=== PATIENT | female | born 1935 | race Caucasian/White ===

== ENCOUNTER → 2016-02-24 | Outpatient (CLI) | payer OTHER, MEDICARE ==
--- NOTE | 2016-02-24 17:33 | DX ---
Thoracic spine, three views History: Followup fusion surgery 6 months ago Comparison: November 24, 2015, October 15, 2015 Findings: There is possibly progressive mild compression of the anterior T8 vertebral body with eburn ation of the inferior endplate, and a slowly developing spondylolisthesis at the T8-T9 severely narro wed disk space. Fusion of the mid lumbar spine is unchanged between T9 and L3, with posterior transpe dicular screws and vertical supporting rods along with interbody bone plugs at T10-T11 and between T1 2 and L3. Cement in T11 and L1 is again present. There is no evidence for hardware fracture or uncoup ling. There is no evidence for bone plug migration or compression. Impression: There is a suggestion of mild T8 compression, directly above the thoracic lumbar fusion, which may be mildly unstable. If clinically indicated lateral thoracic flexion-extension views and/or fluoroscopy might be considered. Results called to Rosalba Foster at 5:30 pm.
== END ==
LOC: FIMAGING 14:23
PROVIDERS: ATTEND Physician Assistant Surgical
DX: M43.14 Spondylolisthesis, thoracic region (principal); Z98.1 Arthrodesis status

== ENCOUNTER 2016-03-07 08:44 | Emergency (ER) | payer OTHER, MEDICARE ==
[2016-03-07 08:51] VITALS: BP 123/58; RESP 16; TEMP 98.4
--- NOTE | 2016-03-07 09:24 | EDPHY ---
H & P Stated Complaint: right shoulder pain after fall on stone floor Source: Patient, Family Exam Limitations: No limitations - Personal History Current Tetanus/Diphtheria Vaccine: Unsure Current Tetanus Diphtheria and Acellular Pertussis (TDAP): Unsure - Medical/Surgical History Hx Asthma: No Hx Chronic Respiratory Disease: No Hx Diabetes: Yes Hx Cardiac Disease: Yes Hx Renal Disease: No Hx Cirrhosis: No Hx Alcoholism: No Hx HIV/AIDS: No Hx Splenectomy or Spleen Trauma: No Other PMH: ORHTO SURG BACK NECK AND ANKLE, GALL BLADDER, HTN, Diabetes, Tonsillectomy, Gastroparesis, hypothyroidism. right shoulder fx - Social History Smoking Status: Former smoker HPI/ROS: CHIEF COMPLAINT: Right shoulder pain HISTORY OF PRESENT ILLNESS: tripped and fell last night landing on her right shoulder on a stone surface. She notes the sudden onset of severe pain in that right shoulder. It does not radiate. It is worse with any kind of palpation or movement. No injury to the ipsilateral elbow, wrist or hand. No head or neck injury. No LOC. No chest or back pain that is changed from her baseline. Does have extensive back pain and neck pain history that is at baseline. She has no cyanosis, pallor, paresthesia or anesthesia. She has no motor changes about the elbow or wrist on that arm. She is unable to move the shoulder secondary to pain. No other associated complaints or modifying factors. PRIOR ORTHO INJURIES: Extensive cervical, thoracic and lumbar back history with fusion at multiple levels ESTABLISHED ORTHOPEDIST: neurosurgery with Dr. Miguelito Borjas Ortho REVIEW OF SYSTEMS: Ten systems reviewed and are negative unless otherwise noted in the HPI EXAMINATION General Appearance: Alert, no distress Head: normocephalic, atraumatic Eyes: Pupils equal and round, no conjunctival pallor or injection ENT, Mouth: Mucous membranes moist Neck: Normal inspection. No bony tenderness or crepitus. Soft tissue tenderness on the right trapezius Respiratory: No dyspnea or retractions. No distress Cardiovascular: Pulses normal throughout. Brisk cap refill Gastrointestinal: No distention Neurological: A&O, sensory symmetric, strength symmetric in both wrists and elbows. Unable to test strength of the right shoulder secondary to pain Skin: Warm and dry, no rash Extremities: right upper extremity: Significant tenderness to palpation of the right glenohumeral joint. There is no crepitus. No step-off or deformity. Unable to test range of motion secondary to pain. There is no tenderness of the ipsilateral forearm, brachium or elbow. No tenderness of the ipsilateral wrist or hand. Range of motion about the ipsilateral wrist, hand and elbow are symmetric to contralateral. No cyanosis, pallor, paresthesia or anesthesia distally. No wrist drop. Sensory intact C5 bilaterally Psychiatric: Mood and affect normal DIFFERENTIAL DIAGNOSES: Including but not limited to fracture, dislocation, or separation, contusion, strain, rotator cuff injury, labrum tear MDM: 9:20 a.m. mechanical fall with right shoulder pain. She is not on blood thinners. She has no head or neck injury. She has significant pain in the shoulder, and x- rays at bedside at this time. 9:50 a.m. no obvious fracture dislocation as read by me. Still awaiting the read of the radiologist. 10:00 a.m. radiologist has read this as a subtle, nondisplaced distal clavicle fracture. I have re-evaluated the patient. She is receiving IM pain medication at this time. She is neurovascularly intact and will place her in a sling and discharged home. She will follow up with her established orthopedist or the orthopedist airline station agent that we will give her. Return to the ER for worsening pain , cyanosis, pallor or paresthesia. Patient is comfortable with this plan and discharged home stable condition ED Precautions: Worsening pain. Erythema, edema, cyanosis, pallor, paresthesia or anesthesia. SUPERVISION: This patient was independently evaluated without the aide of supervising physician. (Jesús Porter) Constitutional: Initial Vital Signs Temperature (C) 36.9 C 03/07/16 08:48 Heart Rate 68 03/07/16 08:48 Respiratory Rate 16 03/07/16 08:48 Blood Pressure 123/58 H 03/07/16 08:48 O2 Sat (%) 94 03/07/16 08:48 O2 Delivery Mode Room Air Allergies/Adverse Reactions: Penicillins Allergy (Intermediate, Verified 03/07/16 08:54) Rash Sulfa (Sulfonamide Antibiotics) Allergy (Unknown, Verified 03/07/16 08:54) BANDAIDS Allergy (Intermediate, Uncoded 03/07/16 08:54) Rash Home Medications: Medication Instructions Recorded Metoprolol Succinate 75 mg PO DAILY 10/29/14 Omeprazole 40 mg PO BID 10/29/14 amLODIPine BESYLATE [Norvasc 5 mg 7.5 mg PO DAILY 10/29/14 (*)] Docusate Sodium [Colace 100 MG (*)] 200 mg PO HS #0 cap 04/24/15 Olmesartan Medoxomil [Benicar 20 40 mg PO DAILY #0 tab 04/24/15 mg (*)] Pioglitazone HCl [Actos 15mg (*)] 45 mg PO DAILY #0 tab 04/24/15 busPIRone [Buspar (*)] 10 mg PO BID #0 tab 04/24/15 Ferrous Sulfate [Ferrous Sulf 325 325 mg PO DAILY 05/15/15 MG (*)] Magnesium Oxide [Magnesium Oxide 500 mg PO DAILY 05/15/15 500 mg] Insulin Detemir [Levemir Flextouch] 10 unit SC DAILY 05/17/15 DULoxetine [Cymbalta 60 MG (*)] 60 mg PO DAILY #0 cap 05/19/15 Furosemide [Lasix 20 MG (*)] 20 mg PO DAILY #0 tab 05/19/15 Levothyroxine [Synthroid 25 mcg 25 mcg PO DAILY06 #0 tab 05/19/15 (*)] Lipase/Protease/Amylase [Creon 12 2 cap PO TIDMEAL #0 cap 05/19/15 (*)] Pregabalin [Lyrica 75mg (*)] 150 mg PO BID 05/21/15 Polyethylene Glycol 3350 [Miralax 17 gm PO DAILY PRN #0 pkt 05/23/15 17 gm (*)] Sennosides/Docusate Sodium 1 - 2 tab PO BID #0 tab 05/23/15 [Senokot-S] Doxycycline Hyclate [Vibramycin 100 mg PO BID #98 capsule 10/01/15 100 MG (*)] Zolpidem Tartrate [Ambien 5MG (*)] 5 - 10 mg PO HS PRN #0 tab 10/01/15 metFORMIN HCL [Glucophage 500 mg 500 mg PO TIDMEAL #90 tab 10/01/15 (*)] predniSONE 20 mg PO DAILY #30 tablet 10/01/15 traMADol [Ultram 50 mg (*)] 100 mg PO Q6 PRN #120 tab 10/01/15 Medical Decision Making Other Provider: The patient was evaluated and managed by the Physician Industrial Arts Teacher/ Nurse Practitioner. My co-signature indicates that I have reviewed this chart and I agree with the findings and plan of care as documented. I am the secondary supervising physician. (Debra Goodman) - Data Points Medications Given: Discontinued Medications Hydromorphone HCl (Dilaudid) 1 mg IM EDNOW ONE Stop: 03/07/16 09:57 Last Admin: 03/07/16 10:01 Dose: 1 mg Departure - Departure Disposition: Home, Routine, Self-Care Clinical Impression: Clavicle fracture Condition: Good Instructions: Clavicle Fracture (ED) Additional Instructions: Follow-up with orthopedist or primary care physician for definitive care. Return to the ER for precautions as discussed Referrals: Paco Schmidt MD [Primary Care Provider] - As per Instructions Nikos Horn MD [Medical Doctor] - As per Instructions
--- NOTE | 2016-03-07 09:53 | DX ---
Right shoulder - 3 views Indication: Fall. Comparison: 2 view chest dated April 17, 2015 Findings: An acute distal right clavicle fracture is evidenced by new cortical step-off along the sup erior distal aspect of the clavicle. The acromioclavicular and coracoclavicular intervals are normal. Mild glenohumeral osteoarthritis. Sclerosis of the humeral head associated with punctate calcificati on in the subacromial space are indicative of rotator cuff pathology. Impression: 1. Acute nondisplaced distal right clavicle fracture. 2. 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
[2016-03-07] MEDS ORDERED: HYDROmorphONE/DILAUDID 1 MG/ML SYR IM ONE (09:56)
[2016-03-07 11:04] VITALS: PULSE 79; O2SAT 91
== END 2016-03-07 11:04 | disposition home or self-care (01) ==
DX: S42.001A Fracture of unspecified part of right clavicle, initial encounter for closed fracture (principal); E11.9 Type 2 diabetes mellitus without complications; I10 Essential (primary) hypertension; Z87.891 Personal history of nicotine dependence; Z79.4 Long term (current) use of insulin; W01.0XXA Fall on same level from slipping, tripping and stumbling without subsequent striking against object, initial encounter
CPT/HCPCS: 73030; A4565; J1170

== ENCOUNTER 2016-03-09 17:46 | Inpatient (IN) | payer OTHER, MEDICARE ==
--- NOTE | 2016-03-09 17:40 | EDPHY ---
H & P HPI/ROS: CHIEF COMPLAINT: HISTORY OF PRESENT ILLNESS: [Location, Duration, Severity, Quality, Context, Timing Modifying Factors, Associated S&S] REVIEW OF SYSTEMS: A complete 10-point review of systems was performed and is negative except for those items mentioned in the HPI. Physical Exam: General Appearance: Alert, no distress Eyes: Pupils equal and round, no conjunctival pallor or injection ENT, Mouth: Mucous membranes moist Neck: Normal inspection Respiratory: Lungs are clear to auscultation Cardiovascular: Regular rate and rhythm Gastrointestinal: Abdomen is soft and non- tender Neurological: A&O, nonfocal, normal gait Skin: Warm and dry, no rash Extremities: Nontender, no pedal edema Psychiatric: Mood and affect normal Report Scribed for: Janene Love Report Scribed by: Danny Latif Date of Report: 03/09/16 Time of Report: 17:40 Physician Review and Approval Statement: 03/09/16 17:40 Portions of this note were transcribed by a spanish medical interpreter. I personally performed a history, physical exam, medical decision making, and confirmed accuracy of information the transcribed note.
--- NOTE | 2016-03-09 17:54 | EDPHY ---
H & P HPI/ROS: HPI CHIEF COMPLAINT: Narcotic overdose HISTORY OF PRESENT ILLNESS: This patient very pleasant 80-year-old female, she presents emergency room by EMS with her at bedside for possible narcotic /opioid overdose. Patient recently sustained a mechanical fall sustaining a right clavicle fracture seen here in the emergency room on Wednesday. She was placed in a sling. She was sent home. Over the weekend she required multiple rounds of pain medicine however specifically this morning she started complaining of right sided clavicular pain worse than normal. gave her up to 12 mg of Dilaudid as well as Robaxin. He became concerned this evening as she appeared excessively sleepy and not able to carry on a conversation and he became concerned that there was a possible narcotic overdose with lethargy. Upon arrival here in the emergency room the patient is requiring supplemental oxygen she is very lethargic. She appears to be overdosed on narcotics. She has pinpoint pupils. She does complain of right clavicle pain. At this time she is requiring 4 L nasal cannula. I have ordered her 0.4 mg of Narcan. She has been placed on full scratch finisher. Past Medical History: Recent right clavicle fracture. Diabetes, polymyalgia rheumatica, extensive cervical thoracic and lumbar back pain Past Surgical History: multiple back surgeries including thoracic fusion Social History: Denies use of drugs alcohol tobacco products, lives locally in [place], at bedside Family History: Noncontributory ROS REVIEW OF SYSTEMS: A comprehensive 10 point review of systems is otherwise negative aside from elements mentioned in the history of present illness. Exam Constitutional triage nursing summary reviewed, vital signs reviewed, extremely lethargic, does respond to painful stimuli as well as significant verbal stimuli Eyes normal conjunctivae and sclera, pinpoint pupils. HENT normal inspection, atraumatic, moist mucus membranes, no epistaxis, neck supple/ no meningismus, no raccoon eyes. Respiratory clear to auscultation bilaterally, normal breath sounds, no respiratory distress, no wheezing. Cardiovascular rate normal, regular rhythm, no murmur, no edema, distal pulses normal. Gastrointestinal soft, non-tender, no rebound, no guarding, normal bowel sounds, no distension, no pulsatile mass. Genitourinary no CVA tenderness. Musculoskeletal no midline vertebral tenderness, full range of motion, no calf swelling, no tenderness of extremities, no meningismus, good pulses, neurovascularly intact. Skin pink, warm, & dry, no rash, skin atraumatic. Neurologic lethargic, moves all 4 extremities equally, motor intact, sensory intact, CN II-XII intact, normal cerebellar, normal vision, slow speech Psychiatric normal mood/affect. Heme/Lymph/Immune no lymphadenopathy. Differential Diagnosis: includes but is not limited to in a particular order, polypharmacy overdose, narcotic overdose, muscle relaxant overdose, dehydration , electrolyte abnormality, infection Medical Decision Making: this patient be placed on full scratch finisher with pulse ox, she will need supplemental oxygen will give her a dose of Narcan 0.4 mg IV. And will re-evaluate. Re-evaluation: 1817: Spoke with Dr. Schmidt about his patient. He is coming to the emergency room to see and evaluate her plans on admission for narcotic overdose. 1901: At this time this patient is noted to be febrile. I have ordered blood cultures. Patient is pending influenza as well as urinalysis. Dr. Schmidt is at bedside evaluating the patient. ED x-ray chest one view: Bronchitis visualize no focal pneumonia. CT scan of the head without IV contrast The results of the study are negative for acute traumatic injury The study was read by Dr. Cerna I viewed the images myself on the PACS system. CT scan of the cervical spine without IV contrast The results of the study are negative for acute traumatic injury The study was read by Dr. Cerna I viewed the images myself on the PACS system. 1935: patient's influenza a positive. Ordered 1st dose of Tamiflu. Dr. Schmidt is aware. Source: Patient, EMS - Medical/Surgical History Hx Asthma: No Hx Chronic Respiratory Disease: No Hx Diabetes: Yes Hx Cardiac Disease: Yes Hx Renal Disease: No Hx Cirrhosis: No Hx Alcoholism: No Hx HIV/AIDS: No Hx Splenectomy or Spleen Trauma: No Other PMH: ORHTO SURG BACK NECK AND ANKLE, GALL BLADDER, HTN, Diabetes, Tonsillectomy, Gastroparesis, hypothyroidism. right shoulder fx - Social History Smoking Status: Former smoker Constitutional: Initial Vital Signs Temperature (C) 37.1 C 03/09/16 17:56 Heart Rate 99 03/09/16 17:56 Respiratory Rate 20 03/09/16 17:56 Blood Pressure 173/78 H 03/09/16 17:56 O2 Sat (%) 84 L 03/09/16 17:56 O2 Delivery Mode Nasal Cannula O2 (L/minute) 5 Allergies/Adverse Reactions: Penicillins Allergy (Intermediate, Verified 03/09/16 17:56) Rash Sulfa (Sulfonamide Antibiotics) Allergy (Unknown, Verified 03/09/16 17:56) BANDAIDS Allergy (Intermediate, Uncoded 03/07/16 08:54) Rash Home Medications: Medication Instructions Recorded Metoprolol Succinate 75 mg PO DAILY 10/29/14 Omeprazole 40 mg PO BID 10/29/14 amLODIPine BESYLATE [Norvasc 5 mg 7.5 mg PO DAILY 10/29/14 (*)] Docusate Sodium [Colace 100 MG (*)] 200 mg PO HS #0 cap 04/24/15 Olmesartan Medoxomil [Benicar 20 40 mg PO DAILY #0 tab 04/24/15 mg (*)] Pioglitazone HCl [Actos 15mg (*)] 45 mg PO DAILY #0 tab 04/24/15 busPIRone [Buspar (*)] 10 mg PO BID #0 tab 04/24/15 Ferrous Sulfate [Ferrous Sulf 325 325 mg PO DAILY 05/15/15 MG (*)] Magnesium Oxide [Magnesium Oxide 500 mg PO DAILY 05/15/15 500 mg] Insulin Detemir [Levemir Flextouch] 10 unit SC DAILY 05/17/15 DULoxetine [Cymbalta 60 MG (*)] 60 mg PO DAILY #0 cap 05/19/15 Furosemide [Lasix 20 MG (*)] 20 mg PO DAILY #0 tab 05/19/15 Levothyroxine [Synthroid 25 mcg 25 mcg PO DAILY06 #0 tab 05/19/15 (*)] Lipase/Protease/Amylase [Creon 12 2 cap PO TIDMEAL #0 cap 05/19/15 (*)] Pregabalin [Lyrica 75mg (*)] 150 mg PO BID 05/21/15 Polyethylene Glycol 3350 [Miralax 17 gm PO DAILY PRN #0 pkt 05/23/15 17 gm (*)] Sennosides/Docusate Sodium 1 - 2 tab PO BID #0 tab 05/23/15 [Senokot-S] Doxycycline Hyclate [Vibramycin 100 mg PO BID #98 capsule 10/01/15 100 MG (*)] Zolpidem Tartrate [Ambien 5MG (*)] 5 - 10 mg PO HS PRN #0 tab 10/01/15 metFORMIN HCL [Glucophage 500 mg 500 mg PO TIDMEAL #90 tab 10/01/15 (*)] predniSONE 20 mg PO DAILY #30 tablet 10/01/15 traMADol [Ultram 50 mg (*)] 100 mg PO Q6 PRN #120 tab 10/01/15 Medical Decision Making - Data Points Laboratory Results: Laboratory Results 03/09/16 18:05 03/09/16 18:05 03/09/16 18:05 WBC 7.89 10^3/uL (3.80-9.50) RBC 3.16 L 10^6/uL (4.18-5.33) Hgb 8.9 L g/dL (12.6-16.3) Hct 28.2 L % (38.0-47.0) MCV 89.2 fL (81.5-99.8) MCH 28.2 pg (27.9-34.1) MCHC 31.6 L g/dL (32.4-36.7) RDW 18.3 H % (11.5-15.2) Plt Count 230 10^3/uL (150-400) MPV 9.9 fL (8.7-11.7) Neut % (Auto) 78.3 H % (39.3-74.2) Lymph % (Auto) 10.1 L % (15.0-45.0) Walsh % (Auto) 9.9 % (4.5-13.0) Eos % (Auto) 0.8 % (0.6-7.6) Baso % (Auto) 0.3 % (0.3-1.7) Nucleat RBC Rel Count 0.0 % (0.0-0.2) Absolute Neuts (auto) 6.18 10^3/uL (1.70-6.50) Absolute Lymphs (auto) 0.80 L 10^3/uL (1.00-3.00) Absolute Monos (auto) 0.78 10^3/uL (0.30-0.80) Absolute Eos (auto) 0.06 10^3/uL (0.03-0.40) Absolute Basos (auto) 0.02 10^3/uL (0.02-0.10) Absolute Nucleated RBC 0.00 10^3/uL (0-0.01) Immature Gran % 0.6 % (0.0-1.1) Immature Gran # 0.05 10^3/uL (0.00-0.10) PT 13.5 SEC (12.0-15.0) INR 1.04 (0.83-1.16) APTT 31.9 SEC (23.0-38.0) Sodium 137 mEq/L (134-144) Potassium 4.4 mEq/L (3.5-5.2) Chloride 105 mEq/L (97-110) Carbon Dioxide 24 mEq/l (22-31) Anion Gap 8 mEq/L (8-16) BUN 10 mg/dL (7-23) Creatinine 0.7 mg/dL (0.6-1.0) Estimated GFR > 60 Glucose 184 H mg/dL (70-100) Calcium 8.4 L mg/dL (8.5-10.4) Medications Given: Discontinued Medications Sodium Chloride (Ns) 1,000 mls @ 0 mls/hr IV ONCE ONE PRN Reason: Wide Open Stop: 03/09/16 18:02 Last Admin: 03/09/16 18:20 Dose: 1,000 mls Naloxone HCl (Narcan) 0.4 mg IVP EDNOW ONE Stop: 03/09/16 18:03 Last Admin: 03/09/16 18:26 Dose: 0.4 mg Ondansetron HCl (Zofran) 4 mg IVP EDNOW ONE Stop: 03/09/16 18:02 Last Admin: 03/09/16 18:20 Dose: 4 mg Departure - Departure Disposition: [facility] Clinical Impression: Hypoxia Narcotic overdose Qualifiers: Encounter type: initial encounter Injury intent: accidental or unintentional Qualifier Code: (T40.601A) Poisoning by unspecified narcotics, accidental ( unintentional), initial encounter Fever Qualifiers: Fever type: other Qualifier Code: (R50.81) Fever presenting with conditions classified elsewhere Condition: Fair
[2016-03-09] MEDS ORDERED: ONDANSETRON 4 MG/2 ML VIAL IVP ONE (18:01)
[2016-03-09] MEDS ORDERED: NS 1,000 ML IV ONE (18:01)
[2016-03-09] MEDS ORDERED: NALOXONE HCL 0.4 MG/ML INJ IVP ONE (18:02)
[2016-03-09 18:16] LABS: % IMMATURE GRANULYOCYTES 0.6 % (0.0-1.1); ABSOLUTE IMMATURE GRANULOCYTES 0.05 10^3/uL (0.00-0.10); ADD DIFF? NO; ADD MORPH? NO; ADD SCAN? NO; ATYPICAL LYMPHOCYTE FLAG 20 (0-99); FRAGMENT RBC FLAG 0 (0-99); HEMATOCRIT 28.2 % (38.0-47.0); HEMOGLOBIN 8.9 g/dL (12.6-16.3); LEFT SHIFT FLG 10 (0-99); LIPEMIA HEMOLYSIS FLAG 80 (0-99); MEAN CELL HEMOGLOBIN 28.2 pg (27.9-34.1); MEAN CELL HEMOGLOBIN CONCENTR. 31.6 g/dL (32.4-36.7); MEAN CELL VOLUME 89.2 fL (81.5-99.8); MEAN PLATELET VOLUME 9.9 fL (8.7-11.7); PLATELET CLUMPS FLAG 0 (0-99); PLATELET COUNT 230 10^3/uL (150-400); RED BLOOD CELL COUNT 3.16 10^6/uL (4.18-5.33); RED CELL DISTRIBUTION WIDTH 18.3 % (11.5-15.2)
--- NOTE | 2016-03-09 18:27 | DX ---
Portable Chest, Single View 18:18 p.m. Hours Indication: Shortness of breath Comparison: 2 view chest dated April 17, 2015 Findings: The lungs are hypoventilated resulting in bronchovascular crowding. Diffuse moderate peribr onchial thickening and linear nodular opacities scattered throughout the mid and lower lung zones. [place] rdware overlying the lower thoracic spine is unchanged. Minimal cardiomegaly and mildly enlarged thor acic aorta are unchanged. Impression: 1. Hypoventilation of bibasilar atelectasis. Query superimposed viral pneumonitis or bronchitis. 2. Dilated thoracic aorta.
[2016-03-09 18:35] LABS: ANION GAP 8 mEq/L (8-16); CALCIUM 8.4 mg/dL (8.5-10.4); CARBON DIOXIDE 24 mEq/l (22-31); CHLORIDE 105 mEq/L (97-110); CREATININE 0.7 mg/dL (0.6-1.0); GLOMERULAR FILTRATION RATE > 60; GLUCOSE 184 mg/dL (70-100); POTASSIUM 4.4 mEq/L (3.5-5.2); SODIUM 137 mEq/L (134-144)
[2016-03-09] MEDS ORDERED: NALOXONE HCL 0.4 MG/ML INJ ONE (18:40)
[2016-03-09 18:48] LABS: INR 1.04 (0.83-1.16); PROTIME(PATIENT) 13.5 SEC (12.0-15.0)
[2016-03-09 18:49] LABS: APTT 31.9 SEC (23.0-38.0)
[2016-03-09] MEDS ORDERED: ACETAMINOPHEN 500 MG TAB PO ONE (19:06)
[2016-03-09] MEDS ORDERED: D5W 1/2 NS W/ 20 KCl/L 1,000 ML IV SCH (19:45)
--- NOTE | 2016-03-09 19:45 | CT ---
CT Brain Without Contrast 1911 hours History: Increased lethargy. Possible opioid overdose. Fell 3 days ago.. Technique: Axial computed tomographic images of the brain without contrast. Images were reconstruct ed down to 1.25 mm slice thickness. Dose reduction techniques were utilized. Comparison prior study of April 22, 2013. Findings: Ventricles, cisterns, and sulci are widened consistent with mild to moderate stable atroph y. No hydrocephalus, masses, midline shift/herniation, or subdural hematomas. No intraparenchymal hem orrhage or mass effect. Stable mild to moderate hypodensities are seen in the white matter of bilater al cerebral hemispheres. There is no acute peripheral cerebral infarct seen. Arteriosclerotic calci fications are noted associated with distal ICA in the parasellar location bilaterally. Bone windows demonstrate no displaced fractures. Paranasal sinuses and mastoid air cells are clear. Impression: 1. Stable mild to moderate atrophy. 2. No hemorrhage, mass effect, or definite acute peripheral infarct. 3. Mild to moderate stable nonspecific hypodensities in the white matter of bilateral cerebral hemisp heres. Differential diagnosis includes microvascular ischemic disease, post-infectious/post-inflammat ory sequela, atypical demyelinating disease, or migraine-related sequela. Small white matter lacunar infarcts may also have this appearance. These findings were discussed by telephone with Dr. Jamie Gunderson at 1946 hrs.
--- NOTE | 2016-03-09 19:52 | CT ---
CT Cervical Spine 1911 hours History: Recent trauma. Evaluate for possible cervical spine injury. Technique: Spiral imaging was obtained from the base of skull to the upper chest. Images were reconst ructed at 1.5 mm slice thickness. Images were reconstructed in multiple planes. Dose reduction techni ques were utilized. Findings: Vertebral body heights are well maintained. There are no subluxations. No fractures are see n. Anterior cervical fusion plate is in good position between C4 and C5 segments with bony fusion acr oss the disk space. There is moderate intervertebral disk space narrowing at C3-C4 with hypertrophic marginal osteophytes and should be to moderate to severe spinal stenosis and bilateral neural foramin al stenosis. Marked disk space narrowing is present at C5-C6 and at C6-C7 with mild disk space narrow ing at C7-T1 along with 2-3 mm of anterior subluxation of C7 on T1. Bilateral facet hypertrophy is pr esent from C2-C3 through C7-T1. There is underlying severe bilateral neural foraminal stenosis at C3- C4 secondary to disk and osteophyte formation along with some facet hypertrophy. Paravertebral soft t issues demonstrate no significant abnormality. Impression: 1. No acute osseous at about is seen about the cervical spine. 2. Previous anterior cervical fusion between C4 and C5 segments in good position. 3. Degenerative disk disease at C3-C4 with associated disk bulge and marginal osteophytes that contri bute to spinal and neuroforaminal stenoses. 4. Severe degenerative disk disease at C5-C6 and at C6-C7. These findings were discussed by telephone with Dr. Jamie Gunderson at 1949 hrs.
[2016-03-09] MEDS ORDERED: OSELTAMIVIR PHOSPHATE 75 MG CAP PO ONE (20:00)
[2016-03-09] MEDS ORDERED: OSELTAMIVIR PHOSPHATE 75 MG CAP PO SCH (20:00)
[2016-03-09 20:02] LABS: COLOR YELLOW; LEUKOCYTE ESTERASE,URINE NEGATIVE (NEGATIVE); NITRITE,URINE NEGATIVE (NEGATIVE)
[2016-03-09] MEDS: cefTRIAXone 2 GM in D5W 50 ML IV SCH (21:24)
[2016-03-09] MEDS ORDERED: HYDROmorphONE/DILAUDID 4 MG TAB PO PRN (23:21)
[2016-03-09] MEDS: ACETAMINOPHEN 650 MG/20.3 ML UDCUP PO PRN (23:40)
--- NOTE | 2016-03-10 01:00 | GHP ---
[f rep st] HISTORY AND PHYSICAL DATE OF ADMISSION: 03/09/2016 REASON FOR ADMISSION: Influenza A, profound weakness, inability to transfer with the assistance of h er . HISTORY OF PRESENT ILLNESS: The patient is a 80-year-old female, who was seen in the emergency room on Wednesday after falling and was found to have a clavicle fracture. She was evaluated and sent home . I was called today by her , saying he was unable to care for her at home. He was not able to get her out of her chair or transfer her. After some discussion, she was sent to the emergency ro om, where she was evaluated, found to be febrile with a temperature of 38 degrees Celsius. Blood wor k showed a normal white count, slightly decreased hemoglobin from her baseline, and a positive influe nza A screen. She also had severe neck stiffness and tenderness. CT of the neck did not reveal a fr acture. She has had multiple spine surgeries with fusions and spinal infection. She has not had any spinal symptoms leading up to her fall on Wednesday. Additional history is significant for type 2 di abetes, polymyalgia rheumatica, gastroesophageal reflux disease, status post fundoplication and statu s post partial takedown of the fundoplication. She still has difficulty with food sticking in her es ophagus. CURRENT MEDICATIONS: 1. Norvasc 7.5 mg daily. 2. BuSpar 10 mg b.i.d. 3. Docusate 100 mg twice daily. 4. Duloxetine 60 mg daily. 5. Ferrous sulfate 325 mg daily. 6. Lasix 20 mg daily. 7. Levothyroxine 25 mcg daily. 8. Lipase amylase protease 2 caps t.i.d. with meals. 9. Metoprolol succinate 75 mg daily. 10. Benicar 40 mg daily. 11. Pioglitazone 45 mg daily. 12. Polyethylene glycol 17 g daily. 13. Prednisone 10 mg daily. 14. Lyrica 150 mg b.i.d. 15. Zolpidem 10 mg h.s. REVIEW OF SYSTEMS: She is profoundly weak. She can barely lift her hands off the table or her feet off the gurney. She has pain in her right shoulder, as well as in her cervical spine. She has diffi culty moving because of the pain and weakness. She has a trivial cough, which has been nonproductive . She has no urinary symptoms, no bowel symptoms, no rash. PHYSICAL EXAMINATION: VITAL SIGNS: Temperature went up to 38.6, but came down to 37.1. Blood press ure 142/54; pulse 87, regular; respirations 20. Oxygen saturation 99% on 4 L; this was down to 82% o n room air when she presented; however, she was asleep, and she does have central sleep apnea and ten ds to be hypoxic at night. HEENT: Pupils were equal and reactive. She responded appropriately, alt marshall somewhat slowly to questions. She had a very dry mouth. NECK: Very tender with some edema ar ound her neck. She had some redness and edema around her right shoulder, where she had the clavicula r fracture. ABDOMEN: Bowel sounds were normal. Abdomen was nontender. HEART: Regular rate and rh ythm without murmur. LUNGS: Clear to auscultation. EXTREMITIES: She had no significant peripheral edema. She moved all extremities, although she was diffusely weak throughout. LABORATORY DATA: Review of blood work reveals a white count of 7800, hemoglobin of 8.9, platelet cou nt was normal. Chemistries reveal a sodium of 147, potassium 4.4, BUN 10, creatinine 0.7, glucose of 184. Urinalysis is unremarkable. Serology is positive for influenza A. IMPRESSION/PLAN: A diabetic with polymyalgia rheumatica, recent clavicular fracture, presents with p rofound weakness related to influenza A. We have blood cultures pending. We will empirically cover her with Tamiflu, as well as ceftriaxone, pending the results of her blood cultures. Because of her apparent respiratory suppression when she presented, she will be watched closely in the ICU, as we ca refully try to manage her pain medications. /[id number]/MODL
[2016-03-10] MEDS: PREGABALIN 75 MG CAP PO SCH ×3 (02:27→20:40)
[2016-03-10] MEDS: predniSONE 10 MG TAB PO SCH ×2 (02:27→08:58)
[2016-03-10] MEDS: ACETAMINOPHEN 650 MG/20.3 ML UDCUP PO PRN ×3 (06:09→20:39)
[2016-03-10] MEDS: LEVOTHYROXINE 25 MCG TAB PO SCH (06:09)
[2016-03-10] MEDS: CREON 12 CAP PO SCH ×3 (08:50→18:06)
[2016-03-10] MEDS: OSELTAMIVIR PHOSPHATE 75 MG CAP PO SCH ×2 (08:51→18:06)
[2016-03-10] MEDS: DULoxetine 60 MG CAP PO SCH (08:54)
[2016-03-10] MEDS: METOPROLOL SUCCINATE XR 50 MG TAB PO SCH (08:55)
[2016-03-10] MEDS: PANTOPRAZOLE SODIUM 40 MG TAB PO SCH (08:55)
[2016-03-10] MEDS: PIOGLITAZONE HCL 15 MG TAB PO SCH (08:56)
[2016-03-10] MEDS: FUROSEMIDE 20 MG TAB PO SCH (08:58)
[2016-03-10] MEDS: FERROUS SULFATE 325 MG TAB PO SCH (08:58)
[2016-03-10] MEDS: DOXYCYCLINE HYCLATE 100 MG CAP/TAB PO SCH ×2 (08:59→20:41)
[2016-03-10] MEDS: OLMESARTAN MEDOXOMIL 20 MG TAB PO SCH (08:59)
[2016-03-10] MEDS ORDERED: Herbals/Supplements -Info Only PO SCH (09:00)
[2016-03-10] MEDS ORDERED: NON-FORMULARY NEW DRUG (Omeprazole [Omeprazole] 40 MG) PO SCH (09:00)
[2016-03-10] MEDS ORDERED: amLODIPine BESYLATE 5 MG TAB PO SCH (09:00)
[2016-03-10] MEDS: INSULIN DETEMIR 10 UNIT SQ SCH (09:00)
[2016-03-10] MEDS: busPIRone 10 MG TAB PO SCH ×2 (09:01→20:46)
[2016-03-10] MEDS: cefTRIAXone 2 GM in D5W 50 ML IV SCH (09:03)
[2016-03-10] MEDS ORDERED: ONDANSETRON 4 MG/2 ML VIAL IVP PRN (10:36)
[2016-03-10] MEDS ORDERED: predniSONE 10 MG TAB PO SCH (13:23)
--- NOTE | 2016-03-10 13:28 | SOAPPROG ---
SOAP Progress Note Assessment/Plan: Assessment: Influenza A, fractured clavicle, PMR, neuropathy, esophageal dysmotility. Plan:Transfer to Med Surg. COnt with PT. Cont with antibiotics pending culture result. 03/10/16 13:27 Subjective: Feeling better. Still havinp pain all over Objective: Vital Signs Temp Pulse Resp BP Pulse Ox 37.7 C 66 14 123/55 H 95 03/10/16 13:07 03/10/16 13:07 03/10/16 13:07 03/10/16 13:07 03/10/16 13:07 03/09/16 03/10/16 03/11/16 05:59 05:59 05:59 Intake Total 2016 Output Total 1150 Balance 866 PT 13.5 SEC (12.0-15.0) 03/09/16 18:05 INR 1.04 (0.83-1.16) 03/09/16 18:05 Remains very weak and febrile. Neck is more subtle. No cough or SOB. BP OK. Lungs clear to asc. COR RRR. ICD10 Worksheet Patient Problems: Problems Problem Status Diagnosed Chronic back pain Acute Fever Acute Hypoxia Acute Narcotic overdose Acute S/P lumbar spinal fusion Acute Dysphagia Acute Weakness Acute
[2016-03-10] MEDS: ZOLPIDEM TARTRATE 5 MG TAB PO PRN (20:41)
[2016-03-10] MEDS: DOCUSATE SODIUM 100 MG CAP PO SCH (20:41)
[2016-03-11] MEDS: LEVOTHYROXINE 25 MCG TAB PO SCH (06:22)
[2016-03-11] MEDS: ACETAMINOPHEN 650 MG/20.3 ML UDCUP PO PRN (06:22)
[2016-03-11] MEDS: CREON 12 CAP PO SCH ×3 (07:54→17:08)
[2016-03-11] MEDS: INSULIN DETEMIR 10 UNIT SQ SCH (07:54)
[2016-03-11] MEDS: METOPROLOL SUCCINATE XR 50 MG TAB PO SCH (07:56)
[2016-03-11] MEDS: PANTOPRAZOLE SODIUM 40 MG TAB PO SCH (07:56)
[2016-03-11] MEDS: FERROUS SULFATE 325 MG TAB PO SCH (07:56)
[2016-03-11] MEDS: OLMESARTAN MEDOXOMIL 20 MG TAB PO SCH (07:56)
[2016-03-11] MEDS: DOXYCYCLINE HYCLATE 100 MG CAP/TAB PO SCH ×2 (08:04→19:53)
[2016-03-11] MEDS: PREGABALIN 75 MG CAP PO SCH ×2 (08:04→19:53)
[2016-03-11] MEDS: predniSONE 10 MG TAB PO SCH (08:05)
[2016-03-11] MEDS: FUROSEMIDE 20 MG TAB PO SCH (08:12)
[2016-03-11] MEDS: DULoxetine 60 MG CAP PO SCH (08:12)
[2016-03-11] MEDS: busPIRone 10 MG TAB PO SCH ×2 (08:25→19:54)
[2016-03-11] MEDS: cefTRIAXone 2 GM in D5W 50 ML IV SCH (08:25)
[2016-03-11] MEDS: OSELTAMIVIR PHOSPHATE 75 MG CAP PO SCH ×2 (09:46→17:09)
[2016-03-11] MEDS: PIOGLITAZONE HCL 15 MG TAB PO SCH (09:46)
[2016-03-11] MEDS: POLYETHYLENE GLYCOL 3350 17 GM PKT PO PRN (11:33)
[2016-03-11] MEDS ORDERED: NS 250 ML IV ONE (14:00)
[2016-03-11] MEDS ORDERED: NS 500 ML IV ONE (18:30)
[2016-03-11] MEDS: DOCUSATE SODIUM 100 MG CAP PO SCH (19:52)
[2016-03-11] MEDS: ZOLPIDEM TARTRATE 5 MG TAB PO PRN (20:19)
--- NOTE | 2016-03-11 21:23 | SOAPPROG ---
SOAP Progress Note Assessment/Plan: Assessment: Influenza A, fractured clavicle, PMR, neuropathy, esophageal dysmotility. Improving. Plan: Home in AM if stable. 03/10/16 13:27 03/11/16 21:22 Subjective: Feeling better. Eating OK. Pain better. Objective: Vital Signs Temp Pulse Resp BP Pulse Ox 37.0 C 54 L 18 94/44 L 89 L 03/11/16 20:00 03/11/16 20:00 03/11/16 20:00 03/11/16 20:00 03/11/16 20:00 03/10/16 03/11/16 03/12/16 05:59 05:59 05:59 Intake Total 2015 1050 550 Output Total 1150 1225 250 Balance 866 -175 300 PT 13.5 SEC (12.0-15.0) 03/09/16 18:05 INR 1.04 (0.83-1.16) 03/09/16 18:05 Lungs remain clear. No significant edema. COR RRR ICD10 Worksheet Patient Problems: Problems Problem Status Diagnosed Chronic back pain Acute Fever Acute Hypoxia Acute Narcotic overdose Acute S/P lumbar spinal fusion Acute Dysphagia Acute Weakness Acute
[2016-03-12] MEDS: POLYETHYLENE GLYCOL 3350 17 GM PKT PO PRN ×2 (05:57→16:18)
[2016-03-12] MEDS: LEVOTHYROXINE 25 MCG TAB PO SCH (05:57)
[2016-03-12] MEDS: INSULIN DETEMIR 10 UNIT SQ SCH (08:04)
[2016-03-12] MEDS: cefTRIAXone 2 GM in D5W 50 ML IV SCH (08:05)
[2016-03-12] MEDS: PIOGLITAZONE HCL 15 MG TAB PO SCH (08:07)
[2016-03-12] MEDS: CREON 12 CAP PO SCH ×3 (08:10→17:52)
[2016-03-12] MEDS: METOPROLOL SUCCINATE XR 50 MG TAB PO SCH (08:10)
[2016-03-12] MEDS: FERROUS SULFATE 325 MG TAB PO SCH (08:10)
[2016-03-12] MEDS: OSELTAMIVIR PHOSPHATE 75 MG CAP PO SCH ×2 (08:11→17:52)
[2016-03-12] MEDS: DOXYCYCLINE HYCLATE 100 MG CAP/TAB PO SCH ×2 (08:12→19:14)
[2016-03-12] MEDS: DULoxetine 60 MG CAP PO SCH (08:12)
[2016-03-12] MEDS: PREGABALIN 75 MG CAP PO SCH ×2 (08:12→19:15)
[2016-03-12] MEDS: FUROSEMIDE 20 MG TAB PO SCH (08:13)
[2016-03-12] MEDS: OLMESARTAN MEDOXOMIL 20 MG TAB PO SCH (08:13)
[2016-03-12] MEDS: busPIRone 10 MG TAB PO SCH ×2 (08:13→19:15)
[2016-03-12] MEDS: predniSONE 10 MG TAB PO SCH (08:14)
[2016-03-12] MEDS: PANTOPRAZOLE SODIUM 40 MG TAB PO SCH ×2 (08:15→19:15)
--- NOTE | 2016-03-12 09:13 | SOAPPROG ---
SOAP Progress Note Assessment/Plan: Assessment: Plan: 03/12/16 09:11 1. Flu A--symptomatically improving 2. Right clavicular fx--tolerating the inconvenience, pain management fair 3. Dysphagia--achalasia symptoms are more challenging likely 2nd to acute illness and injury 4. constipation--encourage fluids, Miralax 5. low BP likely complicated by swallowing diff. BP responded well to fluids yesterday--follow today 6. Dispo--patient lives in [facility]. more symptomatic with Flu and driving is an issue with ice. Anticipate staying here today Subjective: Patient complains of persistent difficulty with swallowing. Being sick has aggravated this. Redo leila and LES mymectomy performed by DR Shaw in Jan 2016. Neck pain/stiffness still and issue. No BM since admission. Appetite challenged by dysphagia Objective: Vital Signs Temp Pulse Resp BP Pulse Ox 36.2 C 63 14 110/54 L 92 03/12/16 07:34 03/12/16 08:10 03/12/16 07:34 03/12/16 08:13 03/12/16 07:34 03/11/16 03/12/16 03/13/16 05:59 05:59 05:59 Intake Total 1050 650 Output Total 1225 750 Balance -175 -100 PT 13.5 SEC (12.0-15.0) 03/09/16 18:05 INR 1.04 (0.83-1.16) 03/09/16 18:05 Gen: pleasant Neck: reduce ROM Lungs: CTAB Heart frequent PVC, sinus background Abd + bs soft, no masses LE's reduced edema BP better this am ICD10 Worksheet Patient Problems: Problems Problem Status Diagnosed Chronic back pain Acute Fever Acute Hypoxia Acute Narcotic overdose Acute S/P lumbar spinal fusion Acute Dysphagia Acute Weakness Acute
[2016-03-12] MEDS ORDERED: BISACODYL 10 MG SUPP PR PRN (17:53)
[2016-03-12] MEDS: DOCUSATE SODIUM 100 MG CAP PO SCH (19:15)
[2016-03-12] MEDS: ZOLPIDEM TARTRATE 5 MG TAB PO PRN (20:53)
[2016-03-13 05:02] VITALS: TEMP 98.1
[2016-03-13] MEDS: LEVOTHYROXINE 25 MCG TAB PO SCH (05:31)
[2016-03-13 07:43] VITALS: BP 128/66; RESP 19; O2SAT 95
--- NOTE | 2016-03-13 09:59 | SOAPPROG ---
SOAP Progress Note Assessment/Plan: Assessment: Plan: 03/13/16 09:57 Influenza A: much improved. Will need 2 more doses on discharge R clavicle fracture: doing ok with pain management Dysphagia: intermittently symptomatic Dispo: home today. [place] [facility] [place], and feels they can return safely. PMR: will continue with higher prednisone dose of 15mg daily until she sees Dr Schmidt in follow up. Subjective: Feeling well this morning. Wants to go home. Continues to have intermittent episodes of dysphagia. Breakfast ok except for the oatmeal which got stuck but then cleared. Objective: Vital Signs Temp Pulse Resp BP Pulse Ox 36.7 C 72 19 128/66 H 95 03/13/16 07:38 03/13/16 07:38 03/13/16 07:38 03/13/16 07:38 03/13/16 07:38 03/12/16 03/13/16 03/14/16 05:59 05:59 05:59 Intake Total 650 300 Output Total 750 Balance -100 300 PT 13.5 SEC (12.0-15.0) 03/09/16 18:05 INR 1.04 (0.83-1.16) 03/09/16 18:05 General: awake, alert, pleasant, NAD Lungs: clear CV: RRR without murmur Extremities: trace edema bilaterally ICD10 Worksheet Patient Problems: Problems Problem Status Diagnosed Chronic back pain Acute Fever Acute Hypoxia Acute Narcotic overdose Acute S/P lumbar spinal fusion Acute Dysphagia Acute Weakness Acute
[2016-03-13] MEDS: CREON 12 CAP PO SCH (10:05)
[2016-03-13] MEDS: PREGABALIN 75 MG CAP PO SCH (10:05)
[2016-03-13] MEDS: METOPROLOL SUCCINATE XR 50 MG TAB PO SCH (10:05)
[2016-03-13] MEDS: OSELTAMIVIR PHOSPHATE 75 MG CAP PO SCH (10:07)
[2016-03-13] MEDS: FERROUS SULFATE 325 MG TAB PO SCH (10:07)
[2016-03-13] MEDS: OLMESARTAN MEDOXOMIL 20 MG TAB PO SCH (10:07)
[2016-03-13] MEDS: FUROSEMIDE 20 MG TAB PO SCH (10:07)
[2016-03-13] MEDS: DULoxetine 60 MG CAP PO SCH (10:07)
[2016-03-13] MEDS: PANTOPRAZOLE SODIUM 40 MG TAB PO SCH (10:08)
[2016-03-13] MEDS: predniSONE 10 MG TAB PO SCH (10:08)
[2016-03-13] MEDS: busPIRone 10 MG TAB PO SCH (10:09)
[2016-03-13] MEDS: PIOGLITAZONE HCL 15 MG TAB PO SCH (10:09)
[2016-03-13] MEDS: DOXYCYCLINE HYCLATE 100 MG CAP/TAB PO SCH (10:09)
[2016-03-13] MEDS: cefTRIAXone 2 GM in D5W 50 ML IV SCH (10:10)
[2016-03-13 10:14] VITALS: PULSE 68
--- NOTE | 2016-03-13 10:46 | GDS ---
[f rep st] DISCHARGE SUMMARY DISCHARGE DIAGNOSES: 1. Influenza A. 2. Right clavicular fracture. HOSPITAL COURSE: The patient is a 80-year-old woman with multiple medical problems, who was brought to the emergency department by her when he was unable to care for her at home. Two days prior, she had fallen and sustained a right clavicular fracture. She was seen in the emergency department and subsequently sent home. Two days later, he was unable to get her out of a chair and brought her to the emergency department. She was found to be febrile with a temperature of 38 degrees Centigrade and her influenza A screen was positive. Due to lethargy, she was initially placed in the ICU and there was some concern as well that she may have been overmedicated with pain medications. She was started on Tamiflu and Rocephin. She improved quickly and was able to transfer to the floor the following day. Blood cultures were negative. She continued to improve steadily and is now stable for discharge home. She has 2 more doses of Tamiflu to take before she completes her course. She had adequate pain control for her clavicular fracture. DISCHARGE MEDICATIONS: The same as when she entered into the hospital with the exception of prednisone 15 mg daily, which she will continue until she sees Dr. Schmidt. Tamiflu 75 mg 1 b.i.d. for 2 more doses. FOLLOWUP: She will follow up with Dr. Schmidt in 1 week. Copy requested to: Dr. Schmidt /[id number]/MODL MTDD
[2016-03-13] MEDS: INSULIN DETEMIR 10 UNIT SQ SCH (11:01)
== END 2016-03-13 12:02 | disposition home or self-care (01) | DRG 195 ==
LOC: EDUNIT# → F2N 20:09 → F3N 03-10 18:42
PROVIDERS: ADMIT Internal Medicine; ATTEND Internal Medicine
DX: J10.1 Influenza due to other identified influenza virus with other respiratory manifestations (principal); S42.001D Fracture of unspecified part of right clavicle, subsequent encounter for fracture with routine healing; R13.10 Dysphagia, unspecified; E11.9 Type 2 diabetes mellitus without complications; K59.00 Constipation, unspecified; M35.3 Polymyalgia rheumatica; E03.9 Hypothyroidism, unspecified; Z98.1 Arthrodesis status
CPT/HCPCS: 96374; 97116-GP; 97163-GP; 97166-GO; 97530-GO; A4565; G8978-GP-CM; G8979-GP-CJ; G8987-GO-CM; G8988-GO-CK; J0696; J1170; J2310; J2405

== ENCOUNTER → 2016-04-24 | Outpatient (CLI) | payer OTHER, MEDICARE | LOC: FIMAGING 12:13 | PROVIDERS: ATTEND Internal Medicine | DX: M16.0 Bilateral primary osteoarthritis of hip (principal); M53.3 Sacrococcygeal disorders, not elsewhere classified; Z98.1 Arthrodesis status ==

== ENCOUNTER → 2016-05-02 | Outpatient (CLI) | payer OTHER, MEDICARE | LOC: FIMAGING 10:56 | DX: Z12.31 Encounter for screening mammogram for malignant neoplasm of breast (principal) | CPT/HCPCS: G0202 ==

== ENCOUNTER → 2016-07-28 | Outpatient (CLI) | payer OTHER, MEDICARE | LOC: FIMAGING 11:18 | PROVIDERS: ATTEND Neurological Surgery | DX: M51.34 Other intervertebral disc degeneration, thoracic region (principal); Z98.1 Arthrodesis status ==

== ENCOUNTER → 2016-08-17 | Outpatient (CLI) | payer OTHER, MEDICARE | LOC: FIMAGING 11:57 | PROVIDERS: ATTEND Internal Medicine | DX: M50.31 Other cervical disc degeneration, high cervical region (principal); M50.322 Other cervical disc degeneration at C5-C6 level; M50.323 Other cervical disc degeneration at C6-C7 level; M51.24 Other intervertebral disc displacement, thoracic region; M48.04 Spinal stenosis, thoracic region; M99.72 Connective tissue and disc stenosis of intervertebral foramina of thoracic region; S23.1 Subluxation and dislocation of thoracic vertebra; M48.54XA Collapsed vertebra, not elsewhere classified, thoracic region, initial encounter for fracture; Z98.1 Arthrodesis status ==

== ENCOUNTER 2016-09-03 04:59 | Inpatient (IN) | payer OTHER, MEDICARE ==
[2016-09-03] MEDS ORDERED: ceFAZolin 2 GM/DEXTROSE 100 ML IV ONE (06:09)
[2016-09-03] MEDS ORDERED: ACETAMINOPHEN 500 MG TAB PO ONE (06:09)
[2016-09-03] MEDS ORDERED: morphINE SR 15 MG TAB PO ONE (06:09)
[2016-09-03] MEDS ORDERED: morphINE PF 5 MG/10 ML INJ IT ONE (06:09)
[2016-09-03] MEDS ORDERED: GABAPENTIN 300 MG CAP PO ONE (06:09)
[2016-09-03] MEDS ORDERED: LIDOCAINE 1% 2 ML INJ ID PRN (06:11)
[2016-09-03] MEDS ORDERED: LR 1,000 ML IV ONE (06:11)
[2016-09-03] MEDS ORDERED: SURGIFLO MATRIX KIT WITH THROMBIN TP ONE (06:45)
[2016-09-03] MEDS ORDERED: BUPIVACAINE/EPI 0.25% 30 ML SDV ONE (06:45)
[2016-09-03] MEDS ORDERED: THROMBIN (BOVINE) 20,000 UNIT VIAL TP ONE (06:45)
[2016-09-03] MEDS ORDERED: BACITRACIN 50,000 UNITS/10 ML SYR IRR ONE (06:46)
[2016-09-03] MEDS ORDERED: CITRATE DEXTROSE SOLN 500 ML BAG ONE (06:47)
--- NOTE | 2016-09-03 06:56 | PDANEPAE ---
ANE History of Present Illness leg weakness and numbness, back pain. Patient uses walker to ambulate. ANE Past Medical History - Cardiovascular History Hx Hypertension: Yes Hx Arrhythmias: No Hx Chest Pain: No Hx Coronary Artery / Peripheral Vascular Disease: No Hx CHF / Valvular Disease: No Hx Palpitations: No Cardiovascular History Comment: HX PVC'S - Pulmonary History Hx COPD: No Hx Asthma/Reactive Airway Disease: No Hx Recent Upper Respiratory Infection: No Hx Oxygen in Use at Home: Yes O2 in Use at Home (L/minute): 3L NOC Hx Sleep Apnea: Yes Sleep Apnea Screening Result - Last Documented: Positive Pulmonary History Comment: [employer] DOES HOME O2. OVERNIGHT SLLEP TEST SHOWED LOW 02 AT NIGHT - Neurologic History Hx Cerebrovascular Accident: No Hx Seizures: No Hx Dementia: No Neurologic History Comment: SCIATICA TJ LEGS. NEUROPATHY TJ FEET - Endocrine History Hx Diabetes: Yes Endocrine History Comment: IDDM. HYPOTHYROID - Renal History Hx Renal Disorders: No Renal History Comment: 3 WEEKS AGO HAD TROUBLE URINATING WAS IN [facility] ER - Liver History Hx Hepatic Disorders: No - Neurological & Psychiatric Hx Hx Neurological and Psychiatric Disorders: No - Cancer History Hx Cancer: No - Congenital Disorder History Hx Congenital Disorders: No - GI History Hx Gastrointestinal Disorders: Yes Gastrointestinal History Comment: CONSTIPATION. NARROW ESOPHOGUS, NEED OF DILATION, REFLUX. HAD FOOD STUCK IN THROAT FEW WKS AGO. HAD NICK FUNDOPLICATION HX. DIABETIC DIET- AVOID SUGAR - Other Health History Other Health History: PSORIASIS ON ELBOWS , polymyalgia rheumatica on steroids for 30 years. IMPLANTS DENTAL. OA HANDS, BACK AND NECK. BRUISE EASILY. recent diagnosis of sleep apnea, has not tried CPAP yet - Chronic Pain History Chronic Pain: Yes (LOWER BACK AND LEGS) - Surgical History Prior Surgeries: EGD 02/2015. TONSILECTOMY 12 YEARS AGO. NECK FUSION. RT FOOT ORIF. YOLY FUNDIPLICATION WITH DANIELLE. CATARACTS BILATERALLY. KYPHOPLASTY L5 -T11. HAND RIGHT SURGERY. LUMBAR FUSIONL1-4 WITH POST HARDWARE REMVL ANE Review of Systems - Exercise capacity Exercise capacity: limited by disability (uses walker, ) METS (RN): 4 METS ANE Patient History - Allergies Allergies/Adverse Reactions: Penicillins Allergy (Intermediate, Verified 03/09/16 17:56) Rash Sulfa (Sulfonamide Antibiotics) Allergy (Unknown, Verified 03/09/16 17:56) BANDAIDS Allergy (Intermediate, Uncoded 03/07/16 08:54) Rash - Home Medications Home Medications: DULoxetine [Cymbalta 60 MG (*)] 60 mg PO DAILY 08/20/16 [Last Taken 09/03/16 04: 00] Herbals/Supplements -Info Only 1 ea PO DAILY 08/20/16 [Last Taken 08/27/16] Insulin Detemir [Levemir Flextouch] 10 unit SQ DAILY 08/20/16 [Last Taken 04:00] Levothyroxine Sodium [Levoxyl] 25 mcg PO DAILY 08/20/16 [Last Taken 09/03/16 04: 00] Lipase/Protease/Amylase [Creon 12 (*)] 2 cap PO BID 08/20/16 [Last Taken 04:00] Metoprolol Succinate Xr [Toprol Xl 50 mg (*)] 75 mg PO DAILY 08/20/16 [Last Taken 09/03/16 04:00] Olmesartan Medoxomil [Benicar] 40 mg PO DAILY 08/20/16 [Last Taken 09/02/16 04: 00] Omeprazole 40 mg PO BID 08/20/16 [Last Taken 09/03/16 04:00] Pioglitazone HCl [Actos] 45 mg PO DAILY 08/20/16 [Last Taken 09/02/16 04:00] Pregabalin [Lyrica] 150 mg PO BID 08/20/16 [Last Taken 09/03/16 04:00] Sulfamethox/Tmp 800/160 mg [Bactrim Ds] 1 tab PO BID 08/20/16 [Last Taken ] Zolpidem Tartrate [Ambien 10 mg] 10 mg PO HS 08/20/16 [Last Taken 09/02/16 21:00 ] amLODIPine BESYLATE [Norvasc 5 mg (*)] 7.5 mg PO DAILY 08/20/16 [Last Taken 04:00] busPIRone [Buspar (*)] 10 mg PO BID 08/20/16 [Last Taken 09/03/16 04:00] metFORMIN HCL [Metformin HCl] 500 mg PO BID 08/20/16 [Last Taken 09/02/16 04:00] predniSONE 7.5 mg PO DAILY 08/20/16 [Last Taken 09/03/16 04:00] Doxycycline 100 mg Prepack#2 09/03/16 [Last Taken 09/03/16 04:00] - NPO status NPO Since - Liquids (Date): 09/02/16 NPO Since - Liquids (Time): 18:30 NPO Since - Solids (Date): 09/02/16 NPO Since - Solids (Time): 18:30 - Smoking Hx Smoking Status: Former smoker - Family Anes Hx Family Hx Anesthesia Complications: NONE ANE Labs/Vital Signs - Vital Signs Blood Pressure: 183/72 Heart Rate: 52 Respiratory Rate: 14 O2 Sat (%): 92 Height: 160.02 cm Weight: 68.946 kg ANE Physical Exam - Airway Neck exam: FROM Mallampati Score: Class 1 Mouth exam: normal dental/mouth exam - Pulmonary Pulmonary: clear to auscultation - Cardiovascular Cardiovascular: regular rate and rhythym - ASA Status ASA Status: III ANE Anesthesia Plan Anesthesia Plan: general endotracheal anesthesia Lines/Monitors: arterial line
[2016-09-03] MEDS ORDERED: VANCOMYCIN HCL/NORMAL SALINE 250 ML IV ONE (07:00)
--- NOTE | 2016-09-03 07:04 | PDHPUP ---
History & Physical Update H&P update statement: This history and physical update is based on an assessment of the patient which was completed after admission or registration (within 24 hours), but prior to the surgery/procedure. H&P update: H&P reviewed & patient examined, no change in patient's condition since H&P completed (Consents signed and site marked. We will obtain intraoperative cultures as well.)
[2016-09-03] MEDS ORDERED: PROPOFOL/EMULSION 500 MG/50 ML BOTTLE IV ONE (07:10)
[2016-09-03] MEDS ORDERED: KETAMINE 100 MG/10 ML SYR ONE (07:11)
[2016-09-03] MEDS ORDERED: GABAPENTIN 300 MG CAP ONE (07:11)
[2016-09-03] MEDS ORDERED: ROCURONIUM 50 MG/5 ML VIAL ONE (07:11)
[2016-09-03] MEDS ORDERED: PHENYLEPHRINE 10 MG/ML SDV ONE (07:16)
[2016-09-03] MEDS ORDERED: DEXAMETHASONE 4 MG/ML VIAL ONE (07:20)
[2016-09-03] MEDS ORDERED: PROPOFOL 200 MG/20 ML VIAL ONE (10:22)
[2016-09-03] MEDS ORDERED: HYDROCORTISONE 100 MG/2 ML VIAL ONE (10:47)
[2016-09-03] MEDS ORDERED: ONDANSETRON 4 MG/2 ML VIAL ONE (11:03)
[2016-09-03] MEDS ORDERED: NALOXONE HCL 0.4 MG/ML INJ IVP PRN (12:05)
[2016-09-03] MEDS ORDERED: fentaNYL 100 MCG/2 ML INJ ONE (12:06)
[2016-09-03] MEDS: fentaNYL 100 MCG/2 ML INJ IVP PRN ×2 (12:09→12:24)
--- NOTE | 2016-09-03 12:10 | POSTANESTH ---
Post Anesthetic Evaluation Cardiovascular Status: Similar to Pre-Op Cond Respiratory Status: Similar to Pre-op Cond. Level of Consciousness/Mental Status: Can Participate in Eval Pain Control: Inadeq, Add Tx Required Nausea/Vomiting Control: Adequate, Prn Tx Ordered Complications Possibly Related to Anesthesia: None Noted
[2016-09-03] MEDS ORDERED: LACTULOSE 20 GM/30 ML UDCUP PO PRN (12:34)
[2016-09-03] MEDS ORDERED: ONDANSETRON DISINTEGRATING 4 MG TAB PO PRN (12:34)
[2016-09-03] MEDS ORDERED: POLYETHYLENE GLYCOL 3350 17 GM PKT PO PRN (12:34)
[2016-09-03] MEDS ORDERED: BISACODYL 10 MG SUPP PR PRN (12:34)
[2016-09-03] MEDS ORDERED: MAGNESIUM HYDROXIDE 30 ML UDCUP PO PRN (12:34)
[2016-09-03] MEDS ORDERED: diphenhydrAMINE 25 MG CAP PO PRN (12:34)
[2016-09-03] MEDS ORDERED: ONDANSETRON 4 MG/2 ML VIAL IVP PRN (12:34)
[2016-09-03] MEDS ORDERED: HYDROmorphONE/DILAUDID 1 MG/ML SYR ONE (12:42)
[2016-09-03] MEDS ORDERED: D50W 25 GM/50 ML SYR IVP PRN (12:42)
[2016-09-03] MEDS: HYDROmorphONE/DILAUDID 1 MG/ML SYR IVP PRN ×5 (12:43→13:27)
[2016-09-03] MEDS ORDERED: DIAZEPAM 10 MG/2 ML SYR IVP PRN (12:44)
--- NOTE | 2016-09-03 12:55 | POSTOPPROG ---
Post Op Note Date of Operation: 09/03/16 Surgeon: Ramon Piedra Night Warehouse Manager: Antwan Benavides PA-C Anesthesiologist: Justus Valencia Anesthesia: GET(General Endotracheal) Pre-op Diagnosis: thoracic stenosis Post-op Diagnosis: same Indication: spinal cord compression Procedure: T spine HW removal with T8-9 lami, interbody cage placement, T6-T11 fusion Findings: spinal cord compression Inf/Abcess present in the surg proc area at time of surgery?: No Depth: Organ Space EBL: 100-500 Complications: none Drains: Bryan Jackson Specimen(s): tissue cultures sent PA Addendum - Addendum .: S: Pt resting in bed, c/o back pain O: AAOx3 NAD VSS MAEx4 Motor 5/5 BUE/BLE +LT JPx1 Zapata in A: 81 yo F s/p thoracic lumbar hardware removal with T8-9 laminectomy, interbody cage placement, T6-T11 posterior fusion tie in to prior hardware P: PT/OT Sherwood brace when out of bed Post op xrays pending Pain management Sliding scale insulin Follow JORGE drain output Cultures pending Continue vancomycin for [address] Daniels's request and given patient's hx of infection DC ravi in AM Call NS with any issues
[2016-09-03] MEDS ORDERED: D10W 250 ML PRN HYPOGLYCEMIA IV (14:00)
[2016-09-03] MEDS: oxyCODONE IR 5 MG TAB PO PRN ×2 (14:53→23:10)
[2016-09-03] MEDS ORDERED: HYDROmorphONE/DILAUDID 1 MG/ML SYR IVP PRN (15:00)
--- NOTE | 2016-09-03 15:11 | GOP ---
[f rep st] OPERATIVE REPORT DATE OF OPERATION: 09/03/2016 SURGEON: Ramon Piedra MD SUPERVISOR METAL CANS: Rosalba Benavides PA-C ANESTHESIA: General. PREOPERATIVE DIAGNOSIS: 1. 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 2. History of prior fusion, T9 through the sacrum. 3. Low back pain and lower extremity myelopathy and radiculopathy. 4. Treatment refractory to nonoperative intervention. POSTOPERATIVE DIAGNOSIS: 1. 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 2. History of prior fusion, T9 through the sacrum. 3. Low back pain and lower extremity myelopathy and radiculopathy. 4. Treatment refractory to nonoperative intervention. PROCEDURE PERFORMED: 1. A posterior arthrodesis with approach to T6, T7, T8, T9, T10, and T11. 2. Exploration of prior thoracic hardware with subsequent removal of the T9- T10 and T10-T11 lateral connectors and rods from the [employer] system. 3. Placement of bilateral pedicle screws into the T6, T7, T8, T9, and T10 levels from the VENNCOMMtronic 4.75 Solera system. 4. Use of intraoperative 3D Stealth navigation. 5. Use of intraoperative fluoroscopy, less than 1 hour physician time. 6. Use of neuromonitoring. 7. T8-T9 decompressive laminectomy with bilateral medial facetectomies. 8. Left-sided T8-T9 transforaminal interbody fusion using a 6 x 22 mm Capstone PEEK cage filled with morselized autograft and allograft. 9. Posterolateral fusion bilaterally between T6 and T10 with morselized autograft and allograft. 10. Reduction of thoracic kyphosis. FINDINGS: SPECIMENS: Intraoperative cultures were obtained from around the hardware at T10-T11 and sent to Microbiology. ESTIMATED BLOOD LOSS: 250 mL with 150 mL given back through the Cell Saver. COMPLICATIONS: None. INDICATIONS: The patient is an 81-year-old woman who is well known to me, and has undergone multiple thoracic and lumbar spinal fusions in the past. She presented with worsening back pain and weakness and had evidence of adjacent level breakdown at the T8-T9 level with thoracic kyphosis. After failing nonoperative intervention, and after discussion of risks, benefits, and treatment alternatives, we decided to proceed forth with surgery as described above. Given her history of prior infections, we decided to proceed forth with some intraoperative cultures just in case, to evaluate some of the hardware at this area. DESCRIPTION OF PROCEDURE: Patient was brought to the operating theater where general endotracheal anesthesia was induced without complications. She had Venodyne BABAK hose and the appropriate lines placed by Anesthesia. She was then flipped prone onto the Bryan table and all bony processes inspected and padded. The mid thoracic region and prior incision were identified and marked more cranially to extend up to the T6 level. This marked the midline incision, and was prepped and draped in the usual sterile fashion. A time-out was completed per protocol. The patient received antibiotics within 1 hour of incision. The incision was infiltrated with Marcaine with epinephrine and taken down with the scalpel blade. Using the plasma blade, it was then taken down in the midline to identify the spinous process of T6, T7, T8, and T9. We carried out a subperiosteal dissection laterally until we identified the prior hardware at T9-T10 and carried it down to the T11 level as well. We identified the prior pedicle screws at T9-T10 and lateral connectors between the T10 and T11 levels. She had bony overgrowth at all these levels, and she appeared to be fused on manual palpation. We then sequentially removed the cap screws from the T9-T10 and T10-T11 lateral connectors and passed them off the field. We then removed the bilateral rods as well. We sequentially removed the bilateral T9 and T10 pedicle screws and passed them off the field. We then replaced the bilateral T9 -T10 screws with 6.5 x 50 mm screws from the Medtronic Solera system. We then replaced the T9 and T10 screws with 6.5 x 50 mm screws bilaterally at T9 and T10 from the Medtronic Solera system. We redirected the right-sided T9 screw into more inferior projection, given that the previous screw was sticking into the disk space. At this point, we attached the 3D Stealth navigation clamp to the spinous process of T9 and completed a 3D Stealth navigation spin. Using 3D Stealth navigation, we then placed the material dispatcher holes for the bilateral pedicle screws into T6, T7, and T8. All holes were manually palpated with no evidence of any cortical breaches. We then tapped and placed a 5.5 x 40 mm screw on the left at T6, a 6.5 x 45 mm screw on the right at T6, a 5.5 x 45 mm screw on the left at T7, a 6.5 x 45 mm screw on the right at T7, a 6.5 x 45 mm screws bilaterally in the T8 from the Medtronic Solera 4.75 system. Another 3D Stealth navigation spin demonstrated good placement of the hardware. At this point, we brought the microscope into the field to assist with microscopic dissection and to maintain illumination and magnification. Using a combination of bur tip, rongeurs, Kerrison punches, and a Leksell rongeur, we completed decompressive laminectomy T8-T9. We completed bilateral meso- facetectomies and resected the pars on the left side between T8 and T9. There was a large ventral disk herniation which we did not appreciate on prior MRI scan that we then resected. We distracted the T8-T9 disc space and completed a left-sided T8-T9 diskectomy. We prepared the cartilaginous endplates and measured the interbody space. We then placed a 6 x 22 mm Capstone PEEK cage with morselized autograft and allograft anteriorly toward the midline. This achieved good ventral distraction. We packed additional morcellized autograft in the disk space interbody fusion. We let down distraction and decorticated the bone bilaterally between T6 and T9 for the posterolateral fusion. We then placed lateral connectors between the T10-T11 level and bent the rods and placed them into the heads of the screws between T6, T7, T8, T9, and T10 and connected them into the lateral connectors inferiorly. We did sequentially reduce the lea into place and reduced the kyphosis slightly; I did not want to over-correct her, given her bone quality and age. Neuro monitoring was stable throughout this procedure. We then tightened the cap screws per the manufacture's setting. We then placed morselized autograft and allograft bilaterally between T6 and the T10-T11 level for the posterolateral fusion. We irrigated the wound copiously with bacitracin irrigation and placed a drain in the subfascial space. The wound was then closed in multiple layers using Vicryl sutures to deep layers and Dermabond for the skin. The patient's wounds were dressed sterilely. She was then flipped supine onto the transfer cart where she was awakened, extubated, and taken to the recovery room in stable condition. There were no complications and no noted changes on neuromonitoring throughout the procedure. /[id number]/MODL MTDAllen
[2016-09-03] MEDS: ACETAMINOPHEN 500 MG TAB PO SCH ×2 (15:12→21:43)
[2016-09-03] MEDS: POLYETHYLENE GLYCOL 3350 17 GM PKT PO SCH ×2 (15:27→21:46)
[2016-09-03] MEDS: CREON 12 CAP PO SCH (18:08)
[2016-09-03] MEDS: INSULIN REGULAR HUMAN 100 UNIT/ML SC SCH ×2 (18:10→21:57)
[2016-09-03] MEDS: HYDROCORTISONE 100 MG/2 ML VIAL IVP SCH ×2 (18:21→21:46)
--- NOTE | 2016-09-03 18:30 | SOAPPROG ---
SOAP Progress Note Assessment/Plan: Assessment:Doing well post op. On supportive hydrocortisone. Plan:Will recheck blood work, considering she was anemic prior to the surgery, we need to watch the HGB closely. 09/03/16 18:29 Subjective: Doing very well post op. Pain adequately managed. Objective: Vital Signs Temp Pulse Resp BP Pulse Ox 98.7 F 54 L 12 133/44 H 97 09/03/16 16:00 09/03/16 16:00 09/03/16 16:00 09/03/16 16:00 09/03/16 16:00 Microbiology 09/03/16 Unknown Mycobacterial Smear (KYUNG) - Final Back - Tissue 09/03/16 Unknown Gram Stain - Final Back - Tissue 09/02/16 09/03/16 09/04/16 05:59 05:59 05:59 Intake Total 1700 Output Total 1585 Balance 115 VS good. Awake and alert. Asked and answered questions appropriately. ICD10 Worksheet Patient Problems: Problems Problem Status Onset Chronic back pain Acute Dysphagia Acute Fever Acute Hypoxia Acute Narcotic overdose Acute S/P lumbar spinal fusion Acute Weakness Acute
[2016-09-03] MEDS ORDERED: CREON 12 CAP PO SCH (21:00)
[2016-09-03] MEDS ORDERED: SULFAMETHOX/TMP 800/160 MG 1 TAB PO SCH (21:00)
[2016-09-03] MEDS: PREGABALIN 150 MG CAP PO SCH (21:42)
[2016-09-03] MEDS: FAMOTIDINE 20 MG TAB PO SCH (21:42)
[2016-09-03] MEDS: SENNOSIDES/DOCUSATE SODIUM TAB PO SCH (21:42)
[2016-09-03] MEDS: PANTOPRAZOLE SODIUM 40 MG TAB PO SCH (21:43)
[2016-09-03] MEDS: busPIRone 10 MG TAB PO SCH (21:57)
[2016-09-04 06:10] LABS: ANION GAP 9 mEq/L (8-16); CALCIUM 8.3 mg/dL (8.5-10.4); CARBON DIOXIDE 21 mEq/l (22-31); CHLORIDE 112 mEq/L (97-110); CREATININE 0.8 mg/dL (0.6-1.0); GLOMERULAR FILTRATION RATE > 60; GLUCOSE 149 mg/dL (70-100); POTASSIUM 4.6 mEq/L (3.5-5.2); SODIUM 142 mEq/L (134-144)
[2016-09-04] MEDS: ACETAMINOPHEN 500 MG TAB PO SCH ×3 (06:46→22:34)
[2016-09-04] MEDS: oxyCODONE IR 5 MG TAB PO PRN ×3 (06:47→16:23)
--- NOTE | 2016-09-04 08:21 | NEUSURGPN ---
Assessment/Plan: A: 81 yo F s/p thoracic lumbar hardware removal with T8-9 laminectomy, interbody cage placement, T6-T11 posterior fusion tie in to prior hardware. POD#1 P: Transfer to floor PT/OT Gs brace when out of bed Post op xrays pending Pain management - add PO valium Sliding scale insulin Stress dose steroids given Follow JORGE drain output Cultures pending - NGTD CBC pending Continue vancomycin for [address] Daniels's request and given patient's hx of infection Pt seen by Dr Piedra this AM as well. Call NS with any issues Subjective: Pt resting in bedside chair. States chair is more comfortable than bed. She and her are happy and appreciative. Objective: AAOx3 NAD VSS MAEx4 Motor 5/5 BLE Sg brace on +LT JORGE drain productive with serosanguineous dc in bulb Urinary Catheter in Place: No Catheter Insertion Date: 09/03/16 - Physician Discussed Patient with Dr.: Piedra Neurosurgery Physical Exam - Vitals, I&O, Labs I and O 09/03/16 09/04/16 09/05/16 05:59 05:59 05:59 Intake Total 1700 Output Total 2245 Balance -545 Weight 68.946 kg Intake: Oral (ml) 200 IV Intake (ml) 1500 Output: Urine (ml) 1915 Catheter 191 Estimated Blood Loss (ml) 250 JORGE Drain Output (ml) 80 Back 80 Microbiology 09/03/16 Unknown Mycobacterial Smear (KYUNG) - Final Back - Tissue 09/03/16 Unknown Gram Stain - Final Back - Tissue Vital Signs Temp Pulse Resp BP Pulse Ox 36.4 C 58 L 18 124/35 H 95 09/04/16 04:00 09/04/16 06:00 09/04/16 06:00 09/04/16 06:00 09/04/16 06:00 Laboratory Results 09/04/16 05:16 ICD10 Worksheet Patient Problems: Problems Problem Status Onset Chronic back pain Acute Dysphagia Acute Fever Acute Hypoxia Acute Narcotic overdose Acute S/P lumbar spinal fusion Acute Weakness Acute
[2016-09-04 08:29] LABS: % IMMATURE GRANULYOCYTES 0.3 % (0.0-1.1); ABSOLUTE IMMATURE GRANULOCYTES 0.02 10^3/uL (0.00-0.10); ADD DIFF? NO; ADD MORPH? NO; ADD SCAN? NO; ATYPICAL LYMPHOCYTE FLAG 20 (0-99); FRAGMENT RBC FLAG 20 (0-99); HEMATOCRIT 24.7 % (38.0-47.0); HEMOGLOBIN 7.5 g/dL (12.6-16.3); LEFT SHIFT FLG 30 (0-99); LIPEMIA HEMOLYSIS FLAG 80 (0-99); MEAN CELL HEMOGLOBIN 25.7 pg (27.9-34.1); MEAN CELL HEMOGLOBIN CONCENTR. 30.4 g/dL (32.4-36.7); MEAN CELL VOLUME 84.6 fL (81.5-99.8); MEAN PLATELET VOLUME 9.8 fL (8.7-11.7); PLATELET CLUMPS FLAG 10 (0-99); PLATELET COUNT 214 10^3/uL (150-400); RED BLOOD CELL COUNT 2.92 10^6/uL (4.18-5.33); RED CELL DISTRIBUTION WIDTH 18.6 % (11.5-15.2)
[2016-09-04] MEDS ORDERED: INSULIN DETEMIR 10 UNIT SQ SCH (09:00)
[2016-09-04] MEDS ORDERED: predniSONE 5 MG TAB PO SCH (09:00)
[2016-09-04] MEDS ORDERED: NON-FORMULARY NEW DRUG (Olmesartan Medoxomil [Benicar] 40 MG) PO SCH (09:00)
[2016-09-04] MEDS ORDERED: INSULIN GLARGINE 100 UNITS/ML SYRINGE SC SCH (09:00)
[2016-09-04] MEDS: VANCOMYCIN HCL/NORMAL SALINE 250 ML IV SCH (09:21)
[2016-09-04] MEDS: METOPROLOL SUCCINATE XR 50 MG TAB PO SCH (09:28)
[2016-09-04] MEDS: amLODIPine BESYLATE 5 MG TAB PO SCH (09:29)
[2016-09-04] MEDS ORDERED: FUROSEMIDE 40 MG/4 ML VIAL IVP ONE (09:30)
[2016-09-04] MEDS: PIOGLITAZONE HCL 15 MG TAB PO SCH (09:30)
[2016-09-04] MEDS: DOXYCYCLINE HYCLATE 100 MG CAP/TAB PO SCH (09:30)
[2016-09-04] MEDS: LEVOTHYROXINE 25 MCG TAB PO SCH (09:30)
[2016-09-04] MEDS: metFORMIN HCL 500 MG TAB PO SCH ×2 (09:31→22:33)
[2016-09-04] MEDS: busPIRone 10 MG TAB PO SCH ×2 (09:31→22:33)
[2016-09-04] MEDS: OLMESARTAN MEDOXOMIL 20 MG TAB PO SCH (09:31)
[2016-09-04] MEDS: FAMOTIDINE 20 MG TAB PO SCH ×2 (09:31→22:33)
[2016-09-04] MEDS: PANTOPRAZOLE SODIUM 40 MG TAB PO SCH ×2 (09:31→22:33)
[2016-09-04] MEDS: PREGABALIN 150 MG CAP PO SCH ×2 (09:32→22:33)
[2016-09-04] MEDS: DULoxetine 60 MG CAP PO SCH (09:32)
[2016-09-04] MEDS: SENNOSIDES/DOCUSATE SODIUM TAB PO SCH ×2 (09:33→22:33)
[2016-09-04] MEDS: POLYETHYLENE GLYCOL 3350 17 GM PKT PO SCH ×3 (09:33→22:34)
[2016-09-04] MEDS: INSULIN REGULAR HUMAN 100 UNIT/ML SC SCH ×4 (09:35→22:32)
[2016-09-04] MEDS: CREON 12 CAP PO SCH ×2 (09:36→17:38)
[2016-09-04] MEDS: INSULIN DETEMIR 10 UNIT SQ SCH (09:36)
[2016-09-04] MEDS: DIAZEPAM 5 MG TAB PO PRN (10:05)
--- NOTE | 2016-09-04 12:09 | SOAPPROG ---
SOAP Progress Note Assessment/Plan: Assessment: 81 yo female who is POD 1 from a thoracic lumbar hardware removal, T9-T9 laminectomy, interbody cage placement, T6-T11 posterior fusion tie in to prior hardware. Plan: Feeling quite well this morning, up in chair on exam. Neuro intact, vitals stable. Plans to transfer to floor today, work with PT/OT. Says pain is well controlled. Currently with Sg brace while out of bed. Anemia- chronically anemic and is asymptomatic as of right now (preop H/H was 8.6/28.2). Will continue to monitor. Polymalgia rheumatica- had stress dose of Solucortef yesterday, will double her daily outpt dose of Prednisone 7.5mg daily for stress dosing. Diabetes mellitus- sliding scale insulin, ACHS blood sugar checks Hypothyroidism- on levothyroxine 09/04/16 12:44 09/04/16 12:46 Subjective: Jocelyn is up in her chair, resting comfortably on exam today. She says that her pain is quite well controlled and she is feeling pretty good. Objective: Vital Signs Temp Pulse Resp BP Pulse Ox 98.6 F 60 18 112/45 L 90 L 09/04/16 08:00 09/04/16 11:57 09/04/16 11:57 09/04/16 11:57 09/04/16 11:57 Microbiology 09/03/16 Unknown Gram Stain - Final Back - Tissue 09/03/16 Unknown Mycobacterial Smear (KYUNG) - Final Back - Tissue Laboratory Results 09/04/16 08:20 09/04/16 05:16 09/03/16 09/04/16 09/05/16 05:59 05:59 05:59 Intake Total 1700 Output Total 2245 30 Balance -545 -30 Gen- AAOx3, vitals stable over night Head- normocephalic, atraumatic EENT- PEERL, EOMI CV- S1, S2, no murmur, rub, gallops Resp- LCTAB, no rhonchi, wheezing, rales GI- bowel sounds present, soft, nontender Extremities- no edema Skin- dressing to upper back CDI with JORGE drain present Neuro- grossly intact ICD10 Worksheet Patient Problems: Problems Problem Status Onset Chronic back pain Acute Dysphagia Acute Fever Acute Hypoxia Acute Narcotic overdose Acute S/P lumbar spinal fusion Acute Weakness Acute
[2016-09-04] MEDS: predniSONE 5 MG TAB PO SCH (17:37)
[2016-09-05] MEDS: ACETAMINOPHEN 500 MG TAB PO SCH ×2 (04:59→13:53)
[2016-09-05] MEDS: oxyCODONE IR 5 MG TAB PO PRN (04:59)
[2016-09-05 05:07] LABS: HEMATOCRIT 28.6 % (38.0-47.0); HEMOGLOBIN 8.8 g/dL (12.6-16.3); MEAN CELL HEMOGLOBIN CONCENTR. 30.8 g/dL (32.4-36.7); MEAN CELL VOLUME 84.4 fL (81.5-99.8); RED BLOOD CELL COUNT 3.39 10^6/uL (4.18-5.33); RED CELL DISTRIBUTION WIDTH 17.7 % (11.5-15.2)
[2016-09-05 05:22] LABS: ALANINE AMINOTRANSFERASE 195 IU/L (9-52); ALKALINE PHOSPHATASE 222 IU/L (38-126); ANION GAP 7 mEq/L (8-16); ASPARTATE AMINOTRANSFERASE 344 IU/L (14-46); CARBON DIOXIDE 23 mEq/l (22-31); CHLORIDE 110 mEq/L (97-110); GLOMERULAR FILTRATION RATE 53; GLUCOSE 83 mg/dL (70-100); POTASSIUM 4.3 mEq/L (3.5-5.2); SODIUM 140 mEq/L (134-144); TOTAL PROTEIN 5.3 g/dL (6.3-8.2)
[2016-09-05] MEDS: ENOXAPARIN 40 MG/0.4 ML SYR SC SCH (08:44)
[2016-09-05] MEDS: DULoxetine 60 MG CAP PO SCH (08:45)
[2016-09-05] MEDS: predniSONE 5 MG TAB PO SCH ×2 (08:45→18:15)
[2016-09-05] MEDS: metFORMIN HCL 500 MG TAB PO SCH ×2 (08:47→20:42)
[2016-09-05] MEDS: busPIRone 10 MG TAB PO SCH ×2 (08:48→20:42)
[2016-09-05] MEDS: PANTOPRAZOLE SODIUM 40 MG TAB PO SCH ×2 (08:48→20:42)
[2016-09-05] MEDS: DOXYCYCLINE HYCLATE 100 MG CAP/TAB PO SCH (08:48)
[2016-09-05] MEDS: SENNOSIDES/DOCUSATE SODIUM TAB PO SCH ×2 (08:48→20:42)
[2016-09-05] MEDS: POLYETHYLENE GLYCOL 3350 17 GM PKT PO SCH ×3 (08:48→20:42)
[2016-09-05] MEDS: LEVOTHYROXINE 25 MCG TAB PO SCH (08:48)
[2016-09-05] MEDS: FAMOTIDINE 20 MG TAB PO SCH ×2 (08:48→20:42)
[2016-09-05] MEDS: INSULIN REGULAR HUMAN 100 UNIT/ML SC SCH ×4 (08:49→20:41)
[2016-09-05] MEDS: CREON 12 CAP PO SCH ×2 (08:50→18:17)
[2016-09-05] MEDS: VANCOMYCIN HCL/NORMAL SALINE 250 ML IV SCH (08:50)
[2016-09-05] MEDS: amLODIPine BESYLATE 5 MG TAB PO SCH (08:51)
[2016-09-05] MEDS: INSULIN DETEMIR 10 UNIT SQ SCH (08:52)
[2016-09-05] MEDS: METOPROLOL SUCCINATE XR 50 MG TAB PO SCH (08:54)
[2016-09-05] MEDS: OLMESARTAN MEDOXOMIL 20 MG TAB PO SCH (08:54)
[2016-09-05] MEDS: METHOCARBAMOL 750 MG TAB PO PRN ×2 (09:25→13:55)
--- NOTE | 2016-09-05 09:43 | NEUSURGPN ---
Date of Surgery: 09/03/16 Post Op Day: 2 Assessment/Plan: 81 yo F s/p thoracic lumbar hardware removal with T8-9 laminectomy, interbody cage placement, T6-T11 posterior fusion tie in to prior hardware. 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 Daniels's request and given patient's hx of infection Possible DC home tomorrow with home health pending therapies rec and pain management Discussed with Dr Piedra Call NS with any issues Subjective: Patient states she was hallucinating this am, contributes to oxycodone Objective: AAOx3 NAD VSS MAEx4 Motor 5/5 BLE [place] brace on +LT JORGE drain with serosanguineous dc in bulb Dressing CDI Neuro Check Frequency: per routine Urinary Catheter in Place: No Catheter Insertion Date: 09/03/16 - Physician Discussed Patient with : [facility] Physical Exam - Vitals, I&O, Labs I and O 09/04/16 09/05/16 09/06/16 05:59 05:59 05:59 Intake Total 1700 610 Output Total 2245 180 Balance -545 430 Weight 68.946 kg Intake: Oral (ml) 200 IV Intake (ml) 1500 250 Packed Red Blood Cells ( 360 ml) Output: Urine (ml) 1915 Catheter 1915 Estimated Blood Loss (ml) 250 JORGE Drain Output (ml) 80 180 Back 80 180 Microbiology 09/03/16 Unknown Gram Stain - Final Back - Tissue Vital Signs Temp Pulse Resp BP Pulse Ox 37.2 C 67 18 100/42 L 95 09/05/16 07:47 09/05/16 07:47 09/05/16 07:47 09/05/16 07:47 09/05/16 07:47 Laboratory Results 09/05/16 04:42 09/05/16 04:42 ICD10 Worksheet Patient Problems: Problems Problem Status Onset Chronic back pain Acute Dysphagia Acute Fever Acute Hypoxia Acute Narcotic overdose Acute S/P lumbar spinal fusion Acute Weakness Acute
[2016-09-05] MEDS: PREGABALIN 150 MG CAP PO SCH ×2 (13:03→20:42)
[2016-09-05] MEDS: PIOGLITAZONE HCL 15 MG TAB PO SCH (13:04)
--- NOTE | 2016-09-05 14:01 | SOAPPROG ---
SOAP Progress Note Assessment/Plan: Assessment: 81 yo female who is POD 1 from a thoracic lumbar hardware removal, T9-T9 laminectomy, interbody cage placement, T6-T11 posterior fusion tie in to prior hardware. Plan: Feeling quite well this morning, up in chair on exam. Neuro intact, vitals stable. Plans to transfer to floor today, work with PT/OT. Says pain is well controlled. Currently with Sg brace while out of bed. Anemia- chronically anemic and is asymptomatic as of right now (preop H/H was 8.6/28.2). Will continue to monitor. Polymalgia rheumatica- had stress dose of Solucortef yesterday, will double her daily outpt dose of Prednisone 7.5mg daily for stress dosing. Diabetes mellitus- sliding scale insulin, ACHS blood sugar checks Hypothyroidism- on levothyroxine Trial of nucynta for pain management, will stop tylenol due to LFT increase. Reduce oxy to 5 mg to reduce risk for hallucinations. 09/04/16 12:44 09/04/16 12:46 09/05/16 14:00 Subjective: NOt getting adequate pain control. Objective: Vital Signs Temp Pulse Resp BP Pulse Ox 98.0 F 66 16 102/48 L 94 09/05/16 11:33 09/05/16 11:33 09/05/16 11:33 09/05/16 11:33 09/05/16 11:33 Microbiology 09/03/16 Unknown Gram Stain - Final Back - Tissue Laboratory Results 09/05/16 04:42 09/05/16 04:42 09/04/16 09/05/16 09/06/16 05:59 05:59 05:59 Intake Total 1700 610 Output Total 2245 180 Balance -545 430 LFTs are elevated, uncertainetiology. Got confused and halucinations after getting Oxy last night. Lungs cleare. Alert and appropriate. ICD10 Worksheet Patient Problems: Problems Problem Status Onset Chronic back pain Acute Dysphagia Acute Fever Acute Hypoxia Acute Narcotic overdose Acute S/P lumbar spinal fusion Acute Weakness Acute
[2016-09-05] MEDS: TAPENTADOL HCL 50 MG TAB PO PRN ×2 (14:45→20:45)
[2016-09-05] MEDS: METHOCARBAMOL 750 MG TAB PO SCH ×2 (16:47→20:42)
[2016-09-06] MEDS: TAPENTADOL HCL 50 MG TAB PO PRN ×3 (04:49→20:22)
--- NOTE | 2016-09-06 08:07 | NEUSURGPN ---
Date of Surgery: 09/03/16 Post Op Day: 3 Assessment/Plan: Assessment: 81 yo F s/p thoracic lumbar hardware removal with T8-9 laminectomy, interbody cage placement, T6-T11 posterior fusion tie in to prior hardware. POD# 3 Plan: -PT/OT -[place] brace when out of bed -Post op xrays look good -Pain management - added Tramadol-better pain control without sedation -Sliding scale insulin -JORGE removed -Cultures pending - NGTD at 48 hrs -Continue vancomycin for [address] Daniels's request and given patient's hx of infection -Possible DC to rehab or home if qualifies with [facility] in next few days -Discussed with Dr Piedra -Call NS with any issues Subjective: Awake and alert. NAD. Eating/drinking and voiding. No f/c/n/v/d. No maguire/neck/ chest/abd or gu complaints. Objective: AAOx3 NAD VSS MAEx4 Motor 5/5 BLE Sg brace on when out of bed +LT Dressing CDI Neuro Check Frequency: per routine Urinary Catheter in Place: No Catheter Insertion Date: 09/03/16 - Physician Discussed Patient with : [facility] Physical Exam - Vitals, I&O, Labs I and O 09/05/16 09/06/16 09/07/16 05:59 05:59 05:59 Intake Total 610 300 Output Total 180 Balance 430 300 Intake: Oral (ml) 300 IV Intake (ml) 250 Packed Red Blood Cells ( 360 ml) Output: JORGE Drain Output (ml) 180 Back 180 Other: Number of Voids Catheter 2 Toilet 1 Number of Stools Catheter 2 Microbiology 09/03/16 Unknown Gram Stain - Final Back - Tissue Vital Signs Temp Pulse Resp BP Pulse Ox 37.0 C 76 16 110/61 98 09/06/16 07:25 09/06/16 07:25 09/06/16 04:00 09/06/16 07:25 09/06/16 07:25 Laboratory Results 09/05/16 04:42 09/05/16 04:42 ICD10 Worksheet Patient Problems: Problems Problem Status Onset Chronic back pain Acute Dysphagia Acute Fever Acute Hypoxia Acute Narcotic overdose Acute S/P lumbar spinal fusion Acute Weakness Acute
[2016-09-06] MEDS: METHOCARBAMOL 750 MG TAB PO SCH ×3 (09:07→20:20)
[2016-09-06] MEDS: DOXYCYCLINE HYCLATE 100 MG CAP/TAB PO SCH (09:07)
[2016-09-06] MEDS: OLMESARTAN MEDOXOMIL 20 MG TAB PO SCH (09:07)
[2016-09-06] MEDS: ENOXAPARIN 40 MG/0.4 ML SYR SC SCH (09:07)
[2016-09-06] MEDS: amLODIPine BESYLATE 5 MG TAB PO SCH (09:08)
[2016-09-06] MEDS: PIOGLITAZONE HCL 15 MG TAB PO SCH (09:08)
[2016-09-06] MEDS: DULoxetine 60 MG CAP PO SCH (09:09)
[2016-09-06] MEDS: metFORMIN HCL 500 MG TAB PO SCH ×2 (09:09→20:20)
[2016-09-06] MEDS: PANTOPRAZOLE SODIUM 40 MG TAB PO SCH ×2 (09:09→20:20)
[2016-09-06] MEDS: busPIRone 10 MG TAB PO SCH ×2 (09:09→20:19)
[2016-09-06] MEDS: predniSONE 5 MG TAB PO SCH ×2 (09:09→17:05)
[2016-09-06] MEDS: PREGABALIN 150 MG CAP PO SCH ×2 (09:09→20:19)
[2016-09-06] MEDS: LEVOTHYROXINE 25 MCG TAB PO SCH (09:09)
[2016-09-06] MEDS: FAMOTIDINE 20 MG TAB PO SCH (09:10)
[2016-09-06] MEDS: INSULIN REGULAR HUMAN 100 UNIT/ML SC SCH ×4 (09:11→20:20)
[2016-09-06] MEDS: METOPROLOL SUCCINATE XR 50 MG TAB PO SCH (09:13)
[2016-09-06] MEDS: CREON 12 CAP PO SCH ×2 (09:16→17:56)
[2016-09-06] MEDS: INSULIN DETEMIR 10 UNIT SQ SCH (09:22)
[2016-09-06] MEDS: POLYETHYLENE GLYCOL 3350 17 GM PKT PO SCH ×3 (09:24→21:24)
[2016-09-06] MEDS: SENNOSIDES/DOCUSATE SODIUM TAB PO SCH ×2 (09:24→21:23)
[2016-09-06] MEDS: VANCOMYCIN HCL/NORMAL SALINE 250 ML IV SCH (10:24)
--- NOTE | 2016-09-06 13:30 | SOAPPROG ---
TAMARAAP Progress Note Assessment/Plan: Assessment: 81 yo female who is POD 1 from a thoracic lumbar hardware removal, T9-T9 laminectomy, interbody cage placement, T6-T11 posterior fusion tie in to prior hardware. Plan: Feeling quite well this morning, up in chair on exam. Neuro intact, vitals stable. Plans to transfer to floor today, work with PT/OT. Says pain is well controlled. Currently with Sg brace while out of bed. Anemia- chronically anemic and is asymptomatic as of right now (preop H/H was 8.6/28.2). Will continue to monitor. Polymalgia rheumatica- had stress dose of Solucortef yesterday, will double her daily outpt dose of Prednisone 7.5mg daily for stress dosing. Diabetes mellitus- sliding scale insulin, ACHS blood sugar checks Hypothyroidism- on levothyroxine Nucynta for pain management seems effective. , will stop tylenol due to LFT increase. Reduce oxy to 5 mg to reduce risk for hallucinations. Recheck LFTs and CBC in AM> 09/04/16 12:44 09/04/16 12:46 09/05/16 14:00 09/06/16 13:28 Subjective: Having some pain. No chest pain or SOB. She is having some radicular chest wall pain. Eating OK. Objective: Vital Signs Temp Pulse Resp BP Pulse Ox 98.6 F 71 15 131/62 H 94 09/06/16 07:25 09/06/16 11:40 09/06/16 11:40 09/06/16 09:13 09/06/16 11:40 Microbiology 09/03/16 Unknown Gram Stain - Final Back - Tissue Laboratory Results 09/05/16 04:42 09/05/16 04:42 09/05/16 09/06/16 09/07/16 05:59 05:59 05:59 Intake Total 610 300 Output Total 180 Balance 430 300 Sugars doing well. VS stable. Lungs clear. Ambulating short distances with walker. ICD10 Worksheet Patient Problems: Problems Problem Status Onset Chronic back pain Acute Dysphagia Acute Fever Acute Hypoxia Acute Narcotic overdose Acute S/P lumbar spinal fusion Acute Weakness Acute
[2016-09-07] MEDS: TAPENTADOL HCL 50 MG TAB PO PRN ×3 (01:35→18:30)
[2016-09-07] MEDS: traMADol 50 MG TAB PO PRN (04:33)
[2016-09-07 05:01] LABS: ADD MORPH? YES; ADD SCAN? YES; ATYPICAL LYMPHOCYTE FLAG 0 (0-99); FRAGMENT RBC FLAG 20 (0-99); HEMATOCRIT 21.7 % (38.0-47.0); LIPEMIA HEMOLYSIS FLAG 80 (0-99); MEAN CELL HEMOGLOBIN 26.3 pg (27.9-34.1); MEAN CELL HEMOGLOBIN CONCENTR. 31.8 g/dL (32.4-36.7); MEAN CELL VOLUME 82.8 fL (81.5-99.8); MEAN PLATELET VOLUME 10.5 fL (8.7-11.7); PLATELET CLUMPS FLAG 0 (0-99); PLATELET COUNT 147 10^3/uL (150-400); RED BLOOD CELL COUNT 2.62 10^6/uL (4.18-5.33); RED CELL DISTRIBUTION WIDTH 18.3 % (11.5-15.2)
[2016-09-07 05:02] LABS: HEMOGLOBIN 6.9 g/dL (12.6-16.3); LEFT SHIFT FLG 300 (0-99)
[2016-09-07 05:17] LABS: ALANINE AMINOTRANSFERASE 86 IU/L (9-52); ALBUMIN 2.5 g/dL (3.5-5.0); ALKALINE PHOSPHATASE 150 IU/L (38-126); ANION GAP 8 mEq/L (8-16); ASPARTATE AMINOTRANSFERASE 36 IU/L (14-46); BILIRUBIN,TOTAL 0.6 mg/dL (0.1-1.4); CALCIUM 7.3 mg/dL (8.5-10.4); CARBON DIOXIDE 23 mEq/l (22-31); CHLORIDE 111 mEq/L (97-110); CREATININE 0.9 mg/dL (0.6-1.0); GLOMERULAR FILTRATION RATE > 60; GLUCOSE 147 mg/dL (70-100); POTASSIUM 4.4 mEq/L (3.5-5.2); SODIUM 142 mEq/L (134-144); TOTAL PROTEIN 4.9 g/dL (6.3-8.2)
[2016-09-07 05:33] LABS: VITAMIN D 25-HYDROXY TOTAL 33.5 ng/mL (30-100)
[2016-09-07 06:42] LABS: SCAN POSITIVE
[2016-09-07 06:43] LABS: ADD DIFF? YES
[2016-09-07 06:46] LABS: MACROCYTES 1+; MICROCYTES 2+; PLATELET ESTIMATE DECREASED (ADEQ)
[2016-09-07] MEDS: OLMESARTAN MEDOXOMIL 20 MG TAB PO SCH (07:38)
[2016-09-07] MEDS: VANCOMYCIN HCL/NORMAL SALINE 250 ML IV SCH (07:38)
[2016-09-07] MEDS: busPIRone 10 MG TAB PO SCH ×2 (07:38→20:37)
[2016-09-07] MEDS: LEVOTHYROXINE 25 MCG TAB PO SCH (07:38)
[2016-09-07] MEDS: DOXYCYCLINE HYCLATE 100 MG CAP/TAB PO SCH (07:38)
[2016-09-07] MEDS: METHOCARBAMOL 750 MG TAB PO SCH ×3 (07:38→20:38)
[2016-09-07] MEDS: METOPROLOL SUCCINATE XR 50 MG TAB PO SCH (07:39)
[2016-09-07] MEDS: amLODIPine BESYLATE 5 MG TAB PO SCH (07:39)
[2016-09-07] MEDS: predniSONE 5 MG TAB PO SCH ×2 (07:39→16:51)
[2016-09-07] MEDS: PANTOPRAZOLE SODIUM 40 MG TAB PO SCH ×2 (07:39→20:38)
[2016-09-07] MEDS: FAMOTIDINE 20 MG TAB PO SCH (07:39)
[2016-09-07] MEDS: DULoxetine 60 MG CAP PO SCH (07:39)
[2016-09-07] MEDS: PIOGLITAZONE HCL 15 MG TAB PO SCH (07:40)
[2016-09-07] MEDS: PREGABALIN 150 MG CAP PO SCH ×2 (07:40→20:37)
[2016-09-07] MEDS: metFORMIN HCL 500 MG TAB PO SCH ×2 (07:40→20:38)
[2016-09-07] MEDS: INSULIN REGULAR HUMAN 100 UNIT/ML SC SCH ×4 (08:48→20:38)
[2016-09-07] MEDS: CREON 12 CAP PO SCH ×2 (08:48→16:51)
[2016-09-07] MEDS: SENNOSIDES/DOCUSATE SODIUM TAB PO SCH ×2 (08:50→21:36)
[2016-09-07] MEDS: POLYETHYLENE GLYCOL 3350 17 GM PKT PO SCH ×3 (08:50→22:45)
--- NOTE | 2016-09-07 08:59 | SOAPPROG ---
SOAP Progress Note Assessment/Plan: Assessment: Plan: 09/07/16 08:57 profound anemia--repeat labs this am, check retic, iron and ferritin. PRBC's 1 unit ordered. Repeat Hgb this afternoon s/p thoracic fusion and extension of hardware--rehab will be needed. HTN--well controlled PMR --at 7.5 mg of pred DM--stable Subjective: Pain remains to be her biggest complaint. No bowel abnormality. No SOB, no CP. No Heartburn. Feels weak Objective: Vital Signs Temp Pulse Resp BP Pulse Ox 36.4 C 66 16 136/63 H 93 09/07/16 07:51 09/07/16 07:51 09/07/16 07:51 09/07/16 07:51 09/07/16 07:51 Microbiology 09/03/16 Unknown Gram Stain - Final Back - Tissue Laboratory Results 09/07/16 04:11 09/07/16 04:11 09/06/16 09/07/16 09/08/16 05:59 05:59 05:59 Intake Total 300 750 Balance 300 750 Gen: NAD, pleasant, somewhat sedated from pain meds Lungs: CTAB Heart: RRR Abd + bs soft nt Le's trace foot edema, 2/4 DP pulses Last Hgb 6.9 ICD10 Worksheet Patient Problems: Problems Problem Status Onset Chronic back pain Acute Dysphagia Acute Fever Acute Hypoxia Acute Narcotic overdose Acute S/P lumbar spinal fusion Acute Weakness Acute
[2016-09-07] MEDS: INSULIN DETEMIR 10 UNIT SQ SCH (09:20)
[2016-09-07 09:48] LABS: % SATURATION 6 % (20-55); TOTAL IRON BINDING CAPACITY 241 ug/dL (260-490)
[2016-09-07 10:16] LABS: FERRITIN - BCH 32.4 ng/mL (6.2-264.0)
--- NOTE | 2016-09-07 11:26 | SOAPPROG ---
SOAP Progress Note Assessment/Plan: Assessment: 81 yo F POD #4 T6-11 fusion Plan: neuro: stable, pain control continues to be an issues post op x-rays look great PT/OT patient may need inpatient rehab please call with neuro changes discussed with Dr Piedra 09/07/16 11:25 Subjective: + back pain/thoracic pain, no rib pain Objective: Vital Signs Temp Pulse Resp BP Pulse Ox 36.4 C 66 16 136/63 H 93 09/07/16 07:51 09/07/16 07:51 09/07/16 07:51 09/07/16 07:51 09/07/16 07:51 Microbiology 09/03/16 Unknown Gram Stain - Final Back - Tissue Laboratory Results 09/07/16 04:11 09/07/16 04:11 09/06/16 09/07/16 09/08/16 05:59 05:59 05:59 Intake Total 300 750 Balance 300 750 AAOX4, +FC PERRL, EOMI, no facial droop 5/5 + light touch ICD10 Worksheet Patient Problems: Problems Problem Status Onset Chronic back pain Acute Dysphagia Acute Fever Acute Hypoxia Acute Narcotic overdose Acute S/P lumbar spinal fusion Acute Weakness Acute
[2016-09-07] MEDS: SODIUM FERRIC GLUCONAT/SUCROSE 125 MG in NS 100 ML IV SCH (15:21)
[2016-09-07] MEDS: DIAZEPAM 5 MG TAB PO PRN (20:54)
[2016-09-08] MEDS: TAPENTADOL HCL 50 MG TAB PO PRN ×4 (05:01→19:31)
[2016-09-08 05:13] LABS: ALANINE AMINOTRANSFERASE 63 IU/L (9-52); ALBUMIN 2.7 g/dL (3.5-5.0); ALKALINE PHOSPHATASE 147 IU/L (38-126); ANION GAP 8 mEq/L (8-16); ASPARTATE AMINOTRANSFERASE 28 IU/L (14-46); BILIRUBIN,TOTAL 0.6 mg/dL (0.1-1.4); CALCIUM 7.7 mg/dL (8.5-10.4); CARBON DIOXIDE 19 mEq/l (22-31); CHLORIDE 113 mEq/L (97-110); CREATININE 0.8 mg/dL (0.6-1.0); GLOMERULAR FILTRATION RATE > 60; GLUCOSE 105 mg/dL (70-100); POTASSIUM 4.6 mEq/L (3.5-5.2); SODIUM 140 mEq/L (134-144); TOTAL PROTEIN 5.1 g/dL (6.3-8.2)
[2016-09-08] MEDS: traMADol 50 MG TAB PO PRN (06:10)
--- NOTE | 2016-09-08 07:14 | NEUSURGPN ---
Assessment/Plan: Assessment: 81 yo F POD #5 T6-11 fusion Plan: neuro: stable, pain control continues to be an issue - continue current regimen , ice packs PRN post op x-rays look great PT/OT anemia - being managed by pcp - given 1 unit PRBC yesterday. Recheck today pending. patient doesn't want to go to SNF. Plan for home with C please call with neuro changes Dispo- likely home with [facility] pending clinical course discussed with Dr Piedra Subjective: Pt resting in bed, states she feels poorly this AM. Doesn't want to go to SNF/ rehab Objective: AAOx3 NAD VSS MAEx4 Motor 5/5 BLE +LT Urinary Catheter in Place: No Catheter Insertion Date: 09/03/16 - Physician Discussed Patient with : [facility] Physical Exam - Vitals, I&O, Labs I and O 09/07/16 09/08/16 09/09/16 05:59 05:59 05:59 Intake Total 750 1260 Output Total 300 Balance 750 960 Intake: Oral (ml) 500 600 IV Infused (ml) 250 360 Sodium Ferric Gluconat/ 110 Sucrose 125 mg In Ns 100 ml @ 110 mls/hr IV DAILY [facility] Rx#:[id number] Vancomycin HCl/Normal 250 250 Saline 250 ml @ 250 mls/ hr IV Q24H [facility] Rx#: [id number] Packed Red Blood Cells ( 300 ml) Output: Urine (ml) 300 Toilet 300 Other: Intake Quantity Yes Sufficient Number of Voids Toilet 1 1 Number of Stools Toilet 1 2 Microbiology 09/03/16 Unknown Gram Stain - Final Back - Tissue Vital Signs Temp Pulse Resp BP Pulse Ox 36.9 C 58 L 16 121/54 H 95 09/07/16 23:13 09/07/16 23:13 09/07/16 23:13 09/07/16 23:13 09/07/16 23:13 Laboratory Results 09/07/16 16:54 09/08/16 04:42 ICD10 Worksheet Patient Problems: Problems Problem Status Onset Chronic back pain Acute Dysphagia Acute Fever Acute Hypoxia Acute Narcotic overdose Acute S/P lumbar spinal fusion Acute Weakness Acute
[2016-09-08] MEDS ORDERED: LOPERAMIDE HCL 2 MG CAP PO PRN (08:56)
[2016-09-08] MEDS: metFORMIN HCL 500 MG TAB PO SCH ×2 (09:03→20:39)
[2016-09-08] MEDS: CREON 12 CAP PO SCH ×2 (09:03→16:51)
[2016-09-08] MEDS: METOPROLOL SUCCINATE XR 50 MG TAB PO SCH (09:03)
[2016-09-08] MEDS: INSULIN DETEMIR 10 UNIT SQ SCH (09:03)
--- NOTE | 2016-09-08 09:03 | SOAPPROG ---
SOAP Progress Note Assessment/Plan: Assessment: Plan: 09/07/16 08:57 profound anemia--repeat labs this am, check retic, iron and ferritin. PRBC's 1 unit ordered. Repeat Hgb this afternoon s/p thoracic fusion and extension of hardware--rehab will be needed. HTN--well controlled PMR --at 7.5 mg of pred DM--stable 09/08/16 08:59 anemia--am labs pending diarrhea, stop scheduled laxatives, add imodium check for c diff s/p Tspine surgery--improving, will see if she can do stairs with PT htn--labile today dm stable chronic osteosuppression, planning on completing 1 week of vanco, on doxy concurrently Subjective: The patient really wants to head to home with [facility] rather than consider SNF. Back pain is significant. She has 37 stairs in lots of 3-7 to ascend at home. No SOB, + CP with panic about SNF last night. Appetite good. + watery diarrhea. No blood Objective: Vital Signs Temp Pulse Resp BP Pulse Ox 36.6 C 69 16 160/70 H 92 09/08/16 07:33 09/08/16 07:33 09/08/16 07:33 09/08/16 07:33 09/08/16 07:33 Microbiology 09/03/16 Unknown Gram Stain - Final Back - Tissue Laboratory Results 09/07/16 16:54 09/08/16 04:42 09/07/16 09/08/16 09/09/16 05:59 05:59 05:59 Intake Total 750 1260 Output Total 300 Balance 750 960 Gen: Bright Lungs: dry cough, CTAB pain with deep breath Heart: RRR ABd + bs soft LE's trace edema in feet morning CBC pending ICD10 Worksheet Patient Problems: Problems Problem Status Onset Chronic back pain Acute Dysphagia Acute Fever Acute Hypoxia Acute Narcotic overdose Acute S/P lumbar spinal fusion Acute Weakness Acute
[2016-09-08] MEDS: DOXYCYCLINE HYCLATE 100 MG CAP/TAB PO SCH (09:04)
[2016-09-08] MEDS: LEVOTHYROXINE 25 MCG TAB PO SCH (09:04)
[2016-09-08] MEDS: amLODIPine BESYLATE 5 MG TAB PO SCH (09:04)
[2016-09-08] MEDS: METHOCARBAMOL 750 MG TAB PO SCH ×3 (09:04→20:39)
[2016-09-08] MEDS: busPIRone 10 MG TAB PO SCH ×2 (09:05→20:39)
[2016-09-08] MEDS: OLMESARTAN MEDOXOMIL 20 MG TAB PO SCH (09:05)
[2016-09-08] MEDS: FAMOTIDINE 20 MG TAB PO SCH (09:05)
[2016-09-08] MEDS: DULoxetine 60 MG CAP PO SCH (09:05)
[2016-09-08] MEDS: VANCOMYCIN HCL/NORMAL SALINE 250 ML IV SCH (09:09)
[2016-09-08] MEDS: INSULIN REGULAR HUMAN 100 UNIT/ML SC SCH ×4 (09:10→20:39)
[2016-09-08] MEDS: PIOGLITAZONE HCL 15 MG TAB PO SCH (09:10)
[2016-09-08] MEDS: predniSONE 5 MG TAB PO SCH ×2 (09:10→16:51)
[2016-09-08] MEDS: PANTOPRAZOLE SODIUM 40 MG TAB PO SCH ×2 (09:10→20:39)
[2016-09-08] MEDS: PREGABALIN 150 MG CAP PO SCH ×2 (09:10→20:39)
[2016-09-08 10:02] LABS: % IMMATURE GRANULYOCYTES 1.6 % (0.0-1.1); ABSOLUTE IMMATURE GRANULOCYTES 0.11 10^3/uL (0.00-0.10); ADD DIFF? NO; ADD MORPH? NO; ADD SCAN? NO; ATYPICAL LYMPHOCYTE FLAG 0 (0-99); FRAGMENT RBC FLAG 20 (0-99); HEMATOCRIT 28.5 % (38.0-47.0); LEFT SHIFT FLG 50 (0-99); LIPEMIA HEMOLYSIS FLAG 80 (0-99); MEAN CELL HEMOGLOBIN 25.8 pg (27.9-34.1); MEAN CELL HEMOGLOBIN CONCENTR. 31.6 g/dL (32.4-36.7); MEAN CELL VOLUME 81.7 fL (81.5-99.8); MEAN PLATELET VOLUME 10.1 fL (8.7-11.7); PLATELET CLUMPS FLAG 0 (0-99); PLATELET COUNT 175 10^3/uL (150-400); RED BLOOD CELL COUNT 3.49 10^6/uL (4.18-5.33); RED CELL DISTRIBUTION WIDTH 19.8 % (11.5-15.2)
[2016-09-08] MEDS: oxyCODONE IR 5 MG TAB PO PRN ×2 (10:48→16:53)
[2016-09-08] MEDS: SODIUM FERRIC GLUCONAT/SUCROSE 125 MG in NS 100 ML IV SCH (13:34)
[2016-09-09] MEDS: oxyCODONE IR 5 MG TAB PO PRN ×4 (03:47→23:47)
[2016-09-09] MEDS: TAPENTADOL HCL 50 MG TAB PO PRN ×2 (03:55→08:22)
[2016-09-09 05:33] LABS: ADD DIFF? YES; ADD MORPH? NO; ADD SCAN? NO; ATYPICAL LYMPHOCYTE FLAG 10 (0-99); FRAGMENT RBC FLAG 20 (0-99); HEMATOCRIT 25.1 % (38.0-47.0); HEMOGLOBIN 7.9 g/dL (12.6-16.3); LEFT SHIFT FLG 50 (0-99); LIPEMIA HEMOLYSIS FLAG 80 (0-99); MEAN CELL HEMOGLOBIN 25.8 pg (27.9-34.1); MEAN CELL HEMOGLOBIN CONCENTR. 31.5 g/dL (32.4-36.7); MEAN PLATELET VOLUME 10.1 fL (8.7-11.7); PLATELET CLUMPS FLAG 0 (0-99); PLATELET COUNT 177 10^3/uL (150-400); RED BLOOD CELL COUNT 3.06 10^6/uL (4.18-5.33); RED CELL DISTRIBUTION WIDTH 19.7 % (11.5-15.2)
[2016-09-09 06:04] LABS: ALANINE AMINOTRANSFERASE 50 IU/L (9-52); ALBUMIN 2.5 g/dL (3.5-5.0); ALKALINE PHOSPHATASE 121 IU/L (38-126); ANION GAP 7 mEq/L (8-16); ASPARTATE AMINOTRANSFERASE 17 IU/L (14-46); BILIRUBIN,TOTAL 0.5 mg/dL (0.1-1.4); CARBON DIOXIDE 24 mEq/l (22-31); CHLORIDE 111 mEq/L (97-110); CREATININE 0.8 mg/dL (0.6-1.0); GLOMERULAR FILTRATION RATE > 60; GLUCOSE 118 mg/dL (70-100); POTASSIUM 4.6 mEq/L (3.5-5.2); SODIUM 142 mEq/L (134-144); TOTAL PROTEIN 5.1 g/dL (6.3-8.2)
[2016-09-09 06:14] LABS: PLATELET ESTIMATE ADEQUATE (ADEQ)
[2016-09-09 06:15] LABS: MACROCYTES 1+; MICROCYTES 2+
[2016-09-09] MEDS: INSULIN REGULAR HUMAN 100 UNIT/ML SC SCH ×4 (07:50→21:21)
[2016-09-09] MEDS: predniSONE 5 MG TAB PO SCH ×2 (08:03→18:34)
[2016-09-09] MEDS: PREGABALIN 150 MG CAP PO SCH ×2 (08:03→21:21)
[2016-09-09] MEDS: metFORMIN HCL 500 MG TAB PO SCH ×2 (08:03→21:21)
[2016-09-09] MEDS: PIOGLITAZONE HCL 15 MG TAB PO SCH (08:04)
[2016-09-09] MEDS: busPIRone 10 MG TAB PO SCH ×2 (08:07→21:21)
[2016-09-09] MEDS: traMADol 50 MG TAB PO PRN (08:07)
[2016-09-09] MEDS: FAMOTIDINE 20 MG TAB PO SCH (08:08)
[2016-09-09] MEDS: METHOCARBAMOL 750 MG TAB PO SCH ×3 (08:08→21:21)
[2016-09-09] MEDS: METOPROLOL SUCCINATE XR 50 MG TAB PO SCH (08:09)
[2016-09-09] MEDS: amLODIPine BESYLATE 5 MG TAB PO SCH (08:10)
[2016-09-09] MEDS: DULoxetine 60 MG CAP PO SCH (08:11)
[2016-09-09] MEDS: LEVOTHYROXINE 25 MCG TAB PO SCH (08:12)
[2016-09-09] MEDS: DOXYCYCLINE HYCLATE 100 MG CAP/TAB PO SCH (08:12)
[2016-09-09] MEDS: INSULIN DETEMIR 10 UNIT SQ SCH (08:13)
[2016-09-09] MEDS: CREON 12 CAP PO SCH ×2 (08:13→18:38)
[2016-09-09] MEDS: VANCOMYCIN HCL/NORMAL SALINE 250 ML IV SCH (08:21)
--- NOTE | 2016-09-09 09:02 | NEUSURGPN ---
Date of Surgery: 09/03/16 Post Op Day: 6 Assessment/Plan: 81 yo F s/p thoracic lumbar hardware removal with T8-9 laminectomy, interbody cage placement, T6-T11 posterior fusion tie in to prior hardware. Plan: neuro: stable, pain control continues to be an issue - continue current regimen , ice packs PRN post op x-rays look great PT/OT anemia - being managed by pcp - patient states she feels better post PRBC and iron infusion Plan for home with [facility] tomorrow if pain controlled with oxycodone increase today please call with neuro changes discussed with Dr Piedra Subjective: Patient sitting in chair eating breakfast Objective: AAOx3 NAD VSS MAEx4 Motor 5/5 BLE +LT Incision CDI Neuro Check Frequency: per routine Urinary Catheter in Place: No Catheter Insertion Date: 09/03/16 - Physician Discussed Patient with Dr.: Piedra Neurosurgery Physical Exam - Vitals, I&O, Labs I and O 09/08/16 09/09/16 09/10/16 05:59 05:59 05:59 Intake Total 1260 860 Output Total 300 Balance 960 860 Intake: Oral (ml) 600 500 IV Infused (ml) 360 360 Sodium Ferric Gluconat/ 110 110 Sucrose 125 mg In Ns 100 ml @ 110 mls/hr IV DAILY [facility] Rx#:[id number] Vancomycin HCl/Normal 250 250 Saline 250 ml @ 250 mls/ hr IV Q24H [facility] Rx#: [id number] Packed Red Blood Cells ( 300 ml) Output: Urine (ml) 300 Toilet 300 Other: Intake Quantity Yes Sufficient Number of Voids Toilet 1 1 Number of Stools Toilet 2 Microbiology 09/03/16 Unknown Mycobacterial Smear (KYUNG) - Final Back - Tissue 09/03/16 Unknown Gram Stain - Final Back - Tissue Vital Signs Temp Pulse Resp BP Pulse Ox 36.7 C 65 16 138/65 H 94 09/09/16 07:43 09/09/16 08:09 09/09/16 07:43 09/09/16 08:10 09/09/16 07:43 Laboratory Results 09/09/16 05:20 09/09/16 05:20 ICD10 Worksheet Patient Problems: Problems Problem Status Onset Chronic back pain Acute Dysphagia Acute Fever Acute Hypoxia Acute Narcotic overdose Acute S/P lumbar spinal fusion Acute Weakness Acute
--- NOTE | 2016-09-09 09:13 | SOAPPROG ---
SOAP Progress Note Assessment/Plan: Assessment: Plan: 09/07/16 08:57 profound anemia--repeat labs this am, check retic, iron and ferritin. PRBC's 1 unit ordered. Repeat Hgb this afternoon s/p thoracic fusion and extension of hardware--rehab will be needed. HTN--well controlled PMR --at 7.5 mg of pred DM--stable 09/08/16 08:59 anemia--am labs pending diarrhea, stop scheduled laxatives, add imodium check for c diff s/p Tspine surgery--improving, will see if she can do stairs with PT htn--labile today dm stable chronic osteosuppression, planning on completing 1 week of vanco, on doxy concurrently 09/09/16 09:11 marked increase in pain with distribution similar to pre-op radiating rib pain. oxycodone increased by NS, add low dose oxycontin. Make diazepam 5 mg q8 to see if this helps. Add lidoderm patches lateral to t-spine incision anemia--hgb 7.9 follow diarrhea--resolved htn--stable control dm--sugars ok hopefully to home with [facility] tomorrow, pain control needs improvement. Will see how she tolerates the valium Subjective: Pain is miserable. She was crying into her pillow last night. + radiating CP-- old problem. No SOB, no cough, eating ok, Diarrhea resolved Objective: Vital Signs Temp Pulse Resp BP Pulse Ox 36.7 C 65 16 138/65 H 94 09/09/16 07:43 09/09/16 08:09 09/09/16 07:43 09/09/16 08:10 09/09/16 07:43 Microbiology 09/03/16 Unknown Mycobacterial Smear (KYUNG) - Final Back - Tissue 09/03/16 Unknown Gram Stain - Final Back - Tissue Laboratory Results 09/09/16 05:20 09/09/16 05:20 09/08/16 09/09/16 09/10/16 05:59 05:59 05:59 Intake Total 1260 860 Output Total 300 Balance 960 860 Gen: pleasant but uncomfortable Lungs: CTAB pain aggravated by deep breath. Pain described as same as pre-op lateral chest wall / rib pain Heart: RRR Abd + bs soft LE's no increase in edema Hgb 7.9 LFT's normal ICD10 Worksheet Patient Problems: Problems Problem Status Onset Chronic back pain Acute Dysphagia Acute Fever Acute Hypoxia Acute Narcotic overdose Acute S/P lumbar spinal fusion Acute Weakness Acute
[2016-09-09] MEDS: LIDOCAINE 5% 1 EA PATCH TD SCH (11:50)
[2016-09-09] MEDS: OLMESARTAN MEDOXOMIL 20 MG TAB PO SCH (12:51)
[2016-09-09] MEDS: PANTOPRAZOLE SODIUM 40 MG TAB PO SCH ×2 (12:53→21:21)
[2016-09-09] MEDS: SODIUM FERRIC GLUCONAT/SUCROSE 125 MG in NS 100 ML IV SCH (13:48)
[2016-09-09] MEDS: DIAZEPAM 5 MG TAB PO SCH ×2 (17:10→21:21)
[2016-09-09] MEDS: PATCH REMOVAL 1 EA PATCH TD SCH (21:25)
[2016-09-10] MEDS: TAPENTADOL HCL 50 MG TAB PO PRN ×2 (01:54→06:02)
[2016-09-10] MEDS: oxyCODONE IR 5 MG TAB PO PRN (04:23)
[2016-09-10] MEDS: DIAZEPAM 5 MG TAB PO SCH (06:03)
--- NOTE | 2016-09-10 07:32 | NEUSURGPN ---
Assessment/Plan: 81 yo F s/p thoracic lumbar hardware removal with T8-9 laminectomy, interbody cage placement, T6-T11 posterior fusion tie in to prior hardware. Plan: neuro: stable, pain control continues to be an issue - change oxycodone to oral dilaudid. Pt states this worked well for her after her last sx. Change valium to Q6 hrs. post op x-rays look great PT/OT anemia - being managed by pcp - patient states she feels better post PRBC and iron infusion Plan for home with [facility] possibly later today vs tomorrow if pain controlled with change of pain meds today. please call with neuro changes discussed with Dr Piedra Subjective: Pt resting in bed, states pain is miserable. Objective: AAOx3 NAD VSS MAEx4 Motor 5/5 BLE +LT Urinary Catheter in Place: No Catheter Insertion Date: 09/03/16 - Physician Discussed Patient with : [facility] Physical Exam - Vitals, I&O, Labs I and O 09/09/16 09/10/16 09/11/16 05:59 05:59 05:59 Intake Total 860 350 Balance 860 350 Intake: Oral (ml) 500 IV Infused (ml) 360 350 Sodium Ferric Gluconat/ 110 100 Sucrose 125 mg In Ns 100 ml @ 110 mls/hr IV DAILY [facility] Rx#:[id number] Vancomycin HCl/Normal 250 250 Saline 250 ml @ 250 mls/ hr IV Q24H [facility] Rx#: [id number] Other: Intake Quantity Yes Yes Sufficient Number of Voids Toilet 1 Microbiology 09/03/16 Unknown Gram Stain - Final Back - Tissue Vital Signs Temp Pulse Resp BP Pulse Ox 36.6 C 55 L 16 143/60 H 96 09/09/16 23:45 09/09/16 23:45 09/09/16 23:45 09/09/16 23:45 09/09/16 23:45 Laboratory Results 09/10/16 04:13 09/09/16 05:20 ICD10 Worksheet Patient Problems: Problems Problem Status Onset Chronic back pain Acute Dysphagia Acute Fever Acute Hypoxia Acute Narcotic overdose Acute S/P lumbar spinal fusion Acute Weakness Acute
[2016-09-10] MEDS: PIOGLITAZONE HCL 15 MG TAB PO SCH (08:38)
[2016-09-10] MEDS: amLODIPine BESYLATE 5 MG TAB PO SCH (08:38)
[2016-09-10] MEDS: PREGABALIN 150 MG CAP PO SCH ×2 (08:38→21:00)
[2016-09-10] MEDS: OLMESARTAN MEDOXOMIL 20 MG TAB PO SCH (08:38)
[2016-09-10] MEDS: DULoxetine 60 MG CAP PO SCH (08:40)
[2016-09-10] MEDS: PANTOPRAZOLE SODIUM 40 MG TAB PO SCH ×2 (08:40→21:01)
[2016-09-10] MEDS: metFORMIN HCL 500 MG TAB PO SCH ×2 (08:40→21:00)
[2016-09-10] MEDS: METHOCARBAMOL 750 MG TAB PO SCH ×3 (08:40→21:00)
[2016-09-10] MEDS: HYDROmorphONE/DILAUDID 2 MG TAB PO PRN ×3 (08:40→14:09)
[2016-09-10] MEDS: FAMOTIDINE 20 MG TAB PO SCH (08:41)
[2016-09-10] MEDS: DOXYCYCLINE HYCLATE 100 MG CAP/TAB PO SCH (08:41)
[2016-09-10] MEDS: predniSONE 5 MG TAB PO SCH ×2 (08:41→18:25)
[2016-09-10] MEDS: METOPROLOL SUCCINATE XR 50 MG TAB PO SCH (08:42)
[2016-09-10] MEDS: busPIRone 10 MG TAB PO SCH ×2 (08:43→21:00)
[2016-09-10] MEDS: LEVOTHYROXINE 25 MCG TAB PO SCH (08:43)
[2016-09-10] MEDS ORDERED: DIAZEPAM 5 MG TAB PO PRN (08:57)
[2016-09-10] MEDS: CREON 12 CAP PO SCH ×2 (08:59→18:26)
[2016-09-10] MEDS: LIDOCAINE 5% 1 EA PATCH TD SCH (09:00)
[2016-09-10] MEDS: INSULIN DETEMIR 10 UNIT SQ SCH (09:01)
--- NOTE | 2016-09-10 09:01 | SOAPPROG ---
SOAP Progress Note Assessment/Plan: Assessment: Plan: 09/07/16 08:57 profound anemia--repeat labs this am, check retic, iron and ferritin. PRBC's 1 unit ordered. Repeat Hgb this afternoon s/p thoracic fusion and extension of hardware--rehab will be needed. HTN--well controlled PMR --at 7.5 mg of pred DM--stable 09/08/16 08:59 anemia--am labs pending diarrhea, stop scheduled laxatives, add imodium check for c diff s/p Tspine surgery--improving, will see if she can do stairs with PT htn--labile today dm stable chronic osteosuppression, planning on completing 1 week of vanco, on doxy concurrently 09/09/16 09:11 marked increase in pain with distribution similar to pre-op radiating rib pain. oxycodone increased by NS, add low dose oxycontin. Make diazepam 5 mg q8 to see if this helps. Add lidoderm patches lateral to t-spine incision anemia--hgb 7.9 follow diarrhea--resolved htn--stable control dm--sugars ok hopefully to home with [facility] tomorrow, pain control needs improvement. Will see how she tolerates the valium 09/10/16 08:59 pain management tricky. Too sedated from valium to safely take more po meds. Will reduce valium to 2.5 mg q 8 prn. Dilaudid ordered, which should help with pain once sedation reduced anemia--improved dm--stable no BM in 2 days after prior watery diarrhea, resume daily miralax home with [facility] once stable, safe pain management in place Subjective: Patient complains of no sleep due to pain. She was moderately sedated yesterday. reports that historically valium has really diminished her cognitive clarity. Eating ok. No BM in 2 days. Pain worse in lateral ribs with deep breath. No SOB Objective: Vital Signs Temp Pulse Resp BP Pulse Ox 37.0 C 69 16 152/75 H 91 L 09/10/16 08:00 09/10/16 08:00 09/10/16 08:00 09/10/16 08:38 09/10/16 08:00 Microbiology 09/03/16 Unknown Gram Stain - Final Back - Tissue Laboratory Results 09/10/16 04:13 09/09/16 05:20 09/09/16 09/10/16 09/11/16 05:59 05:59 05:59 Intake Total 860 350 Balance 860 350 Gen: sedated, falls asleep mid sentence Lungs: CTAB Heart: RRR Abd + bs soft, some distention LE's trace edema Incision--healing well Hgb improved to 8.6 ICD10 Worksheet Patient Problems: Problems Problem Status Onset Chronic back pain Acute Dysphagia Acute Fever Acute Hypoxia Acute Narcotic overdose Acute S/P lumbar spinal fusion Acute Weakness Acute
[2016-09-10] MEDS: INSULIN REGULAR HUMAN 100 UNIT/ML SC SCH ×4 (09:53→22:22)
[2016-09-10] MEDS: SODIUM FERRIC GLUCONAT/SUCROSE 125 MG in NS 100 ML IV SCH (09:56)
[2016-09-10] MEDS ORDERED: DIAZEPAM 5 MG TAB PO SCH (12:00)
[2016-09-10] MEDS: POLYETHYLENE GLYCOL 3350 17 GM PKT PO SCH (13:06)
[2016-09-10] MEDS: PATCH REMOVAL 1 EA PATCH TD SCH (21:01)
[2016-09-11 01:09] VITALS: RESP 16
[2016-09-11] MEDS: HYDROmorphONE/DILAUDID 2 MG TAB PO PRN ×2 (01:36→06:16)
[2016-09-11 07:25] VITALS: BP 160/63; PULSE 62; TEMP 98.4; O2SAT 88
[2016-09-11] MEDS: INSULIN REGULAR HUMAN 100 UNIT/ML SC SCH (07:44)
[2016-09-11] MEDS: amLODIPine BESYLATE 5 MG TAB PO SCH (08:08)
[2016-09-11] MEDS: METHOCARBAMOL 750 MG TAB PO SCH (08:08)
[2016-09-11] MEDS: CREON 12 CAP PO SCH (08:08)
[2016-09-11] MEDS: PANTOPRAZOLE SODIUM 40 MG TAB PO SCH (08:08)
[2016-09-11] MEDS: metFORMIN HCL 500 MG TAB PO SCH (08:09)
[2016-09-11] MEDS: FAMOTIDINE 20 MG TAB PO SCH (08:09)
[2016-09-11] MEDS: predniSONE 5 MG TAB PO SCH (08:09)
[2016-09-11] MEDS: PIOGLITAZONE HCL 15 MG TAB PO SCH (08:09)
[2016-09-11] MEDS: LEVOTHYROXINE 25 MCG TAB PO SCH (08:09)
[2016-09-11] MEDS: DULoxetine 60 MG CAP PO SCH (08:10)
[2016-09-11] MEDS: DOXYCYCLINE HYCLATE 100 MG CAP/TAB PO SCH (08:10)
[2016-09-11] MEDS: busPIRone 10 MG TAB PO SCH (08:10)
[2016-09-11] MEDS: METOPROLOL SUCCINATE XR 50 MG TAB PO SCH (08:11)
[2016-09-11] MEDS: PREGABALIN 150 MG CAP PO SCH (08:11)
[2016-09-11] MEDS: OLMESARTAN MEDOXOMIL 20 MG TAB PO SCH (08:11)
[2016-09-11] MEDS: LIDOCAINE 5% 1 EA PATCH TD SCH (08:12)
[2016-09-11] MEDS: POLYETHYLENE GLYCOL 3350 17 GM PKT PO SCH (08:12)
[2016-09-11] MEDS: INSULIN DETEMIR 10 UNIT SQ SCH (08:22)
--- NOTE | 2016-09-11 08:56 | PDIAF ---
- Diagnosis Diagnosis: Multilevel throacic fusion Code Status: Full Code - Medication Management Discharge Medications: Medications to Continue on Transfer DULoxetine [Cymbalta 60 MG (*)] 60 mg PO DAILY 08/20/16 [Last Taken 09/03/16 04: 00] Herbals/Supplements -Info Only 1 ea PO DAILY 08/20/16 [Last Taken 08/27/16] Insulin Detemir [Levemir Flextouch] 10 unit SQ DAILY 08/20/16 [Last Taken 04:00] Levothyroxine Sodium [Levoxyl] 25 mcg PO DAILY 08/20/16 [Last Taken 09/03/16 04: 00] Lipase/Protease/Amylase [Creon 12 (*)] 2 cap PO BID 08/20/16 [Last Taken 04:00] Metoprolol Succinate Xr [Toprol Xl 50 mg (*)] 75 mg PO DAILY 08/20/16 [Last Taken 09/03/16 04:00] Olmesartan Medoxomil [Benicar] 40 mg PO DAILY 08/20/16 [Last Taken 09/02/16 04: 00] Omeprazole 40 mg PO BID 08/20/16 [Last Taken 09/03/16 04:00] Pioglitazone HCl [Actos] 45 mg PO DAILY 08/20/16 [Last Taken 09/02/16 04:00] Pregabalin [Lyrica] 150 mg PO BID 08/20/16 [Last Taken 09/03/16 04:00] Zolpidem Tartrate [Ambien 10 mg] 10 mg PO HS 08/20/16 [Last Taken 09/02/16 21:00 ] amLODIPine BESYLATE [Norvasc 5 mg (*)] 7.5 mg PO DAILY 08/20/16 [Last Taken 04:00] busPIRone [Buspar (*)] 10 mg PO BID 08/20/16 [Last Taken 09/03/16 04:00] metFORMIN HCL [Metformin HCl] 500 mg PO BID 08/20/16 [Last Taken 09/02/16 04:00] predniSONE 7.5 mg PO DAILY 08/20/16 [Last Taken 09/03/16 04:00] Doxycycline Hyclate [Vibramycin 100 MG (*)] 100 mg PO DAILY 09/03/16 [Last Taken 09/03/16 04:00] HYDROmorphone HCL [Dilaudid 2 mg (*)] 2 - 6 mg PO Q3 PRN #100 tab 09/11/16 [ Last Taken Unknown] Methocarbamol [Robaxin 750 mg (*)] 750 mg PO TID #90 tab 09/11/16 [Last Taken Unknown] Polyethylene Glycol 3350 [Miralax 17 gm (*)] 17 gm PO DAILY #0 pkt 09/11/16 [ Last Taken Unknown] diphenhydrAMINE [Benadryl 25 MG (*)] 25 - 50 mg PO Q6HRS PRN #0 cap 09/11/16 [ Last Taken Unknown] oxyCODONE CR [Oxycontin] 10 mg PO BID #60 tab 09/11/16 [Last Taken Unknown] oxyCODONE IR [Oxycodone Ir (*)] 5 - 10 mg PO Q4HRS PRN #100 tab 09/11/16 [Last Taken Unknown] Wood Scaler Antibiotics: Doxycycline 100mg daily forever Discharge Medications: Refer to the Discharge Home Medication list for PRN reason. PICC Care - Routine: N/A - Orders Services needed: Home Care, Registered Nurse, Certified Roving Weight Gauger, Physical Therapy, Occupational Therapy Home Care Face to Face: I certify that this patient was under my care and that I had the required [id number] encounter meeting the encounter requirements on the discharge day. My findings support the fact that the patient is homebound as defined in CMS Chapter 7 Medicare Benefits Manual 30.1.1, The condition of the patient is such that there exists a normal inability to leave home and consequently, leaving home would require a considerable and taxing effort. Diet Recommendation: no restrictions on diet Diet Texture: Regular Texture Diet [place]: Not applicable - Follow Up Care Current Providers and Referrals: Paco Schmidt MD [Primary Care Provider] -
--- NOTE | 2016-09-11 09:48 | NEUSURGPN ---
Date of Surgery: 09/03/16 Post Op Day: 8 Assessment/Plan: 81 yo F s/p thoracic lumbar hardware removal with T8-9 laminectomy, interbody cage placement, T6-T11 posterior fusion tie in to prior hardware. Plan: neuro: stable pain controlled with Robaxin, Valium, Dilaudid, Oxycontin, Lidoderm patches post op x-rays look great PT/OT home today with home health care Subjective: Doing well this morning. Pain better controlled. Objective: Awake. Alert. PERRL. EOMI Facial expression symmetrical Muscle strength full at 5/5 Sensation intact Incision c/d/i Catheter Insertion Date: 09/03/16 - Physician Discussed Patient with : [facility] Physical Exam - Vitals, I&O, Labs I and O 09/10/16 09/11/16 09/12/16 05:59 05:59 05:59 Intake Total 350 700 Balance 350 700 Intake: Oral (ml) 350 IV Infused (ml) 350 350 Sodium Ferric Gluconat/ 100 100 Sucrose 125 mg In Ns 100 ml @ 110 mls/hr IV DAILY DIEGO Rx#:[id number] Vancomycin HCl/Normal 250 250 Saline 250 ml @ 250 mls/ hr IV Q24H DIEGO Rx#: [id number] Other: Intake Quantity Yes Yes Sufficient Microbiology 09/03/16 Unknown Gram Stain - Final Back - Tissue Vital Signs Temp Pulse Resp BP Pulse Ox 36.9 C 62 16 160/63 H 88 L 09/11/16 07:21 09/11/16 07:21 09/11/16 07:21 09/11/16 07:21 09/11/16 07:21 Laboratory Results 09/10/16 04:13 09/09/16 05:20 ICD10 Worksheet Patient Problems: Problems Problem Status Onset Chronic back pain Acute Dysphagia Acute Fever Acute Hypoxia Acute Narcotic overdose Acute S/P lumbar spinal fusion Acute Weakness Acute
--- NOTE | 2016-09-11 17:29 | GDS ---
[f rep st] DISCHARGE SUMMARY REASON FOR ADMISSION: Intractable thoracic spine pain with plan for T-spine fusion, multilevel anch oring to her prior fusion. DISCHARGE DIAGNOSES: Intractable thoracic spine pain with plan for T-spine fusion, multilevel ancho ring to her prior fusion. HOSPITAL COURSE: Patient was admitted for postoperative treatment of surgery and pain management. She has had an underlying complex spinal history with multiple spinal fusions, unfortunately ascendi ng gradually upward as her levels have failed. She has a history of osteomyelitis and has been main tained on antibiotic therapy during her hospital course. She was given a week of daily vancomycin t o further reduce the potential for infection. The postoperative pain became quite severe, and there was difficulty obtaining adequate pain relief. Ultimately, she has transitioned to long-acting Oxy Contin 10 mg twice a day breakthrough with hydromorphone, and is comfortable. Valium was used 2 day s ago, which really overly sedated her. She has not had a dose in 17 hours and seems to be doing pr nubia well at this point. Methocarbamol seems to be helpful for reduced muscle spasm. We did use Li doderm patches during her stay for the last 2 days, but she is not sure if they have given her any b enefit. At this point, these are being discontinued. The plan is currently to discharge home today with home health care. She will have OxyContin 10 mg b.i.d. for acute pain relief. She will start with hydromorphone 2-4 mg q.3 hours p.r.n. pain, gradually taper that dose, transition to short-act ing oxycodone as needed, and gradually taper from there. She will be on doxycycline chronically ant icipated for the rest of her life. The rest of her medications are essentially the same. She will have outpatient followup in the next week. /[id number]/MODL
== END 2016-09-11 12:14 | disposition home health service (06) | DRG 460 ==
LOC: F3N 04:59 → F2N 14:30 → F3N 09-04 13:48
PROVIDERS: ADMIT Neurological Surgery; ATTEND Neurological Surgery
PROC: 0RT90ZZ Resection of Thoracic Vertebral Disc, Open Approach (ICD-10-PCS; principal; 2016-09-03 07:15)
PROC: 0PP404Z Removal of Internal Fixation Device from Thoracic Vertebra, Open Approach (ICD-10-PCS; principal; 2016-09-03 07:15)
PROC: 30233N1 Transfusion of Nonautologous Red Blood Cells into Peripheral Vein, Percutaneous Approach (ICD-10-PCS; principal; 2016-09-03 07:15)
PROC: 0RG70AJ Fusion of 2 to 7 Thoracic Vertebral Joints with Interbody Fusion Device, Posterior Approach, Anterior Column, Open Approach (ICD-10-PCS; principal; 2016-09-03 07:15)
PROC: 01N80ZZ Release Thoracic Nerve, Open Approach (ICD-10-PCS; principal; 2016-09-03 07:15)
PROC: 0PH404Z Insertion of Internal Fixation Device into Thoracic Vertebra, Open Approach (ICD-10-PCS; principal; 2016-09-03 07:15)
DX: M48.04 Spinal stenosis, thoracic region (principal); M40.204 Unspecified kyphosis, thoracic region; M47.24 Other spondylosis with radiculopathy, thoracic region; M47.14 Other spondylosis with myelopathy, thoracic region; R44.3 Hallucinations, unspecified; T40.2X5A Adverse effect of other opioids, initial encounter; R19.7 Diarrhea, unspecified; E11.9 Type 2 diabetes mellitus without complications; M35.3 Polymyalgia rheumatica; E03.9 Hypothyroidism, unspecified; M86.9 Osteomyelitis, unspecified; D53.9 Nutritional anemia, unspecified; I10 Essential (primary) hypertension; Z79.4 Long term (current) use of insulin; Z98.1 Arthrodesis status; Z87.891 Personal history of nicotine dependence
CPT/HCPCS: 97116-GP; 97162-GP; 97165-GO; 97530-GO; 97530-GP; 97535-GO; C1713; C1762; G8978-GP-CK; G8979-GP-CI; G8980-GP-CJ; G8987-GO-CL; G8988-GO-CJ; G8989-GO-CI; J1100; J1170; J1650; J1815; J2370; J2405; J2704; J2916; J3010; J3370; J7060; P9016

== ENCOUNTER → 2016-10-13 | Outpatient (CLI) | payer OTHER, MEDICARE ==
[~2016-10-13] MED LIST: GADOBUTROL 10 ML VIAL IVP ONE
== END ==
LOC: FIMAGING 15:44
PROVIDERS: ATTEND Physician Assistant
DX: T84.84XA Pain due to internal orthopedic prosthetic devices, implants and grafts, initial encounter (principal)
CPT/HCPCS: 72157; A9585

== ENCOUNTER → 2016-10-26 | Outpatient (CLI) | payer OTHER, MEDICARE | LOC: FIMAGING 11:20 | PROVIDERS: ATTEND Physician Assistant Surgical | DX: Z98.1 Arthrodesis status (principal); S22.050D Wedge compression fracture of T5-T6 vertebra, subsequent encounter for fracture with routine healing ==

== ENCOUNTER → 2016-11-22 | Outpatient (CLI) | payer OTHER, MEDICARE | LOC: FIMAGING 09:24 | PROVIDERS: ATTEND Physician Assistant | DX: M40.14 Other secondary kyphosis, thoracic region (principal); M48.04 Spinal stenosis, thoracic region; Z98.1 Arthrodesis status ==

== ENCOUNTER 2017-02-01 08:58 | Inpatient (IN) | payer OTHER, MEDICARE ==
[2017-02-01] MEDS ORDERED: HYDROmorphONE/DILAUDID 1 MG/ML INJ IVP ONE ×2 (09:07→10:37)
[2017-02-01 09:18] LABS: PLATELET COUNT 244 10^3/uL (150-400)
--- NOTE | 2017-02-01 09:26 | CPEKG ---
Heart Rate: 80 RR Interval: 750 P-R Interval: 148 QRSD Interval: 76 QT Interval: 408 QTC Interval: 471 P Lyle: 76 QRS Lyle: 46 T Wave Lyle: 17 EKG Severity - OTHERWISE NORMAL ECG - EKG Impression: SINUS RHYTHM EKG Impression: LOW VOLTAGE IN FRONTAL LEADS Electronically Signed By: Geni Wang 01-Feb-2017 15:27:37
[2017-02-01] MEDS ORDERED: METOCLOPRAMIDE 10 MG/2 ML VIAL IVP ONE (10:25)
[2017-02-01] MEDS ORDERED: KETOROLAC 15 MG/1 ML SDV IVP ONE (10:37)
[2017-02-01] MEDS ORDERED: PROMETHAZINE HCL 25 MG/ML INJ IVP ONE (10:38)
--- NOTE | 2017-02-01 11:18 | EDPHY ---
H & P Stated Complaint: back pain - Personal History Current Tetanus Diphtheria and Acellular Pertussis (TDAP): Unsure - Medical/Surgical History Hx Asthma: No Hx Chronic Respiratory Disease: No Hx Diabetes: Yes Hx Cardiac Disease: Yes Hx Renal Disease: No Hx Cirrhosis: No Hx Alcoholism: No Hx HIV/AIDS: No Hx Splenectomy or Spleen Trauma: No Other PMH: ORHTO SURG BACK NECK AND ANKLE, GALL BLADDER, HTN, Diabetes, Tonsillectomy, Gastroparesis, hypothyroidism. right CLAVICLE/shoulder fx, med non-compliance - Social History Smoking Status: Former smoker HPI/ROS: Chief complaint: Back pain History of present illness: This is an 81-year-old female who presents to the emergency department for evaluation of back pain. She was brought in by EMS, EMS had a 45 min transport time and during this time provided her with 200 mcg of fentanyl and 8 mg of Zofran with mild improvement in pain. Patient has a long history of back pain. She has had multiple compression fractures and reports she has had 7 spinal surgeries. She was diagnosed with a T6 compression fracture a number of months ago. She opted not to have it surgically repaired. She reports she has had mild pain. However over the last 3 days the pain has dramatically worsened. She denies precipitating factors such as new trauma. She denies other associated signs or symptoms including no fevers, no neurologic symptoms such as paresthesias, weakness or paralysis or bowel or bladder dysfunction. Review of systems: A 10 point review of systems was obtained and other than described above was negative (Amol Narvaez) - Physical Exam Exam: General Appearance: Alert, appears uncomfortable. Eyes: Pupils equal and round no pallor or injection. ENT, Mouth: Mucous membranes moist. Respiratory: There are no retractions, lungs are clear to auscultation. Cardiovascular: Regular rate and rhythm. Gastrointestinal: Abdomen is soft and non tender, no masses, bowel sounds normal. Neurological: Alert and oriented x4. Strength and sensation intact and symmetrical. Skin: Warm and dry, no rashes. Musculoskeletal: Neck is supple non tender. Mild tenderness to the mid thoracic in the left scapular region. Extremities are symmetrical, full range of motion. Psychiatric: Patient is oriented X 3, there is no agitation. (Amol Narvaez) Constitutional: Initial Vital Signs Temperature (C) 37.1 C 02/01/17 09:00 Heart Rate 78 02/01/17 09:00 Respiratory Rate 16 02/01/17 09:00 Blood Pressure 172/102 H 02/01/17 09:00 O2 Sat (%) 94 02/01/17 09:00 O2 Delivery Mode Nasal Cannula O2 (L/minute) 1 Allergies/Adverse Reactions: Penicillins Allergy (Intermediate, Verified 03/09/16 17:56) Rash Sulfa (Sulfonamide Antibiotics) Allergy (Unknown, Verified 03/09/16 17:56) BANDAIDS Allergy (Intermediate, Uncoded 03/07/16 08:54) Rash Home Medications: Medication Instructions Recorded Herbals/Supplements -Info Only 1 ea PO DAILY 08/20/16 Insulin Detemir [Levemir Flextouch] 10 unit SQ DAILY 08/20/16 Lipase 12,000/Amylase/Protease 2 cap PO BID 08/20/16 [Creon 12 (*)] Metoprolol Succinate Xr [Toprol Xl 75 mg PO DAILY 08/20/16 50 mg (*)] Omeprazole 40 mg PO BID 08/20/16 Pioglitazone HCl [Actos] 45 mg PO DAILY 08/20/16 Zolpidem Tartrate [Ambien 10 mg] 10 mg PO HS PRN 08/20/16 amLODIPine BESYLATE [Norvasc 5 mg 7.5 mg PO DAILY 08/20/16 (*)] busPIRone [Buspar (*)] 10 mg PO BID 08/20/16 predniSONE 7.5 mg PO DAILY 08/20/16 Doxycycline Hyclate [Vibramycin 100 mg PO DAILY 09/03/16 100 MG (*)] Levothyroxine [Synthroid 25 mcg 25 mcg PO DAILY06 02/01/17 (*)] Methocarbamol [Robaxin 750 mg (*)] 750 mg PO TID PRN 02/01/17 [place]-3 Fatty Acids [Fish Oil 1000 1,000 mg PO DAILY 02/01/17 mg (*)] Pregabalin [Lyrica 50mg (*)] 50 mg PO BID 02/01/17 metFORMIN HCL [Glucophage 500 mg 500 mg PO BIDMEAL 02/01/17 (*)] oxyCODONE IR [Oxycodone Ir (*)] 10 mg PO DAILY PRN 02/01/17 Medical Decision Making - Diagnostics Imaging: I viewed and interpreted images myself ED Course/Re-evaluation: Patient is discussed with my secondary supervising physician Dr. Geni Wang. Patient presents to the emergency department for evaluation of back pain. She has a history of chronic back pain. She has a nonfocal neurologic exam. Evaluation is unremarkable for new findings. However pain has been exceptionally difficult to control, she has received fentanyl from EMS, Dilaudid , Toradol, Valium as well as topical lidocaine patches in the emergency room and remains in pain, unable to ambulate. She is admitted to her primary care doctor Services, Dr. Schmidt by Dawna Goss. Her neurosurgeon, Dr. Piedra is consulted and has seen patient in the emergency room. The plan has been discussed with the patient voiced understanding and agreement with it. (Amol Narvaez) The patient was evaluated and managed by the physician histology assistant. I have reviewed this chart and I agree with the findings and plan of care as documented , as indicated by my signature. I am the secondary supervising physician. ( Geni Wang) Differential Diagnosis: Included but not limited to contusion, sprain or strain, bony fracture, spinal cord injury (Amol Narvaez) - Data Points Laboratory Results: Laboratory Results 02/01/17 08:45 02/01/17 08:45 Medications Given: Amlodipine Besylate (Norvasc) 7.5 mg PO DAILY DIEGO Stop: 07/31/17 17:14 Last Admin: 02/02/17 09:17 Dose: 7.5 mg Lipase/Protease/Amylase (Creon) 2 cap PO BID DIEGO Stop: 07/31/17 20:59 Last Admin: 02/02/17 09:16 Dose: 2 cap Buspirone HCl (Buspar) 10 mg PO BID DIEGO Stop: 07/31/17 20:59 Last Admin: 02/02/17 09:14 Dose: 10 mg Doxycycline Hyclate (Doxycycline Hyclate) 100 mg PO DAILY DIEGO PRN Reason: Protocol Stop: 03/04/17 08:59 Last Admin: 02/02/17 09:16 Dose: 100 mg Lactated Ringer's (Lr) 1,000 mls @ 125 mls/hr IV CONT DIEGO Stop: 07/31/17 14:29 Last Admin: 02/01/17 15:00 Dose: 1,000 mls Levothyroxine Sodium (Synthroid) 25 mcg PO DAILY06 DIEGO Stop: 08/01/17 05:59 Last Admin: 02/02/17 05:45 Dose: 25 mcg Metformin HCl (Glucophage) 500 mg PO BIDMEAL DIEGO Stop: 07/31/17 17:59 Last Admin: 02/02/17 09:17 Dose: 500 mg Methocarbamol (Robaxin) 750 mg PO TID PRN PRN Reason: Spasms Stop: 07/31/17 13:56 Last Admin: 02/02/17 05:45 Dose: 750 mg Metoprolol Succinate (Toprol Xl) 75 mg PO DAILY DIEGO Stop: 07/31/17 17:14 Last Admin: 02/02/17 09:22 Dose: 75 mg Miscellaneous Information (Patch Removal) 1 ea TD DAILY21 DIEGO Stop: 07/31/17 20:59 Last Admin: 02/01/17 22:20 Dose: 1 ea Morphine Sulfate (Morphine Equal Opportunity Assistant) 0 mg IV PRN PRN; Protocol PRN Reason: Pain, Severe Unable to Take PO Stop: 02/11/17 14:05 Last Admin: 02/01/17 22:00 Dose: 30 mg [id number] Ethyl Esters (Fish Oil) 1,000 mg PO DAILY DIEGO Stop: 08/01/17 08:59 Last Admin: 02/02/17 09:16 Dose: 1,000 mg Ondansetron HCl (Zofran) 4 mg IVP Q4HRS PRN PRN Reason: Nausea/Vomiting, Can't Take PO Stop: 07/31/17 13:58 Last Admin: 02/01/17 15:00 Dose: 4 mg Oxycodone HCl (Oxycodone Ir) 5 - 10 mg PO Q6 DIEGO Stop: 02/11/17 17:59 Last Admin: 02/02/17 13:06 Dose: 10 mg Pantoprazole Sodium (Protonix) 40 mg PO BID DIEGO Stop: 07/31/17 20:59 Last Admin: 02/02/17 09:18 Dose: 40 mg Pioglitazone HCl (Actos) 45 mg PO DAILY DIEGO Stop: 08/01/17 08:59 Last Admin: 02/02/17 09:17 Dose: 45 mg Prednisone (Prednisone) 7.5 mg PO DAILY DIEGO Stop: 08/01/17 08:59 Last Admin: 02/02/17 09:16 Dose: 7.5 mg Pregabalin (Lyrica) 50 mg PO BID DIEGO Stop: 07/31/17 20:59 Last Admin: 02/02/17 09:14 Dose: 50 mg Promethazine HCl (Phenergan) 6.25 - 12.5 mg IVP Q6 PRN PRN Reason: Nausea/Vomiting, Can't Take PO Stop: 07/31/17 17:40 Last Admin: 02/01/17 17:45 Dose: 6.25 mg Discontinued Medications Diazepam (Valium Injection) 2.5 mg IVP EDNOW ONE Stop: 02/01/17 11:44 Last Admin: 02/01/17 12:33 Dose: 2.5 mg Hydromorphone HCl (Dilaudid) 0.5 mg IVP EDNOW ONE Stop: 02/01/17 09:08 Last Admin: 02/01/17 09:17 Dose: 0.5 mg Hydromorphone HCl (Dilaudid) 0.5 mg IVP EDNOW ONE Stop: 02/01/17 10:38 Last Admin: 02/01/17 10:49 Dose: 0.5 mg Ketorolac Tromethamine (Toradol) 15 mg IVP EDNOW ONE Stop: 02/01/17 10:38 Last Admin: 02/01/17 10:50 Dose: 15 mg Lidocaine (Lidoderm 5%) 1 ea TD EDNOW ONE Stop: 02/01/17 11:36 Last Admin: 02/01/17 12:33 Dose: 1 ea Metoclopramide HCl (Reglan Injection) 10 mg IVP EDNOW ONE Stop: 02/01/17 10:26 Last Admin: 02/01/17 10:49 Dose: Not Given Miscellaneous Medication (Insulin Detemir [Levemir Flextouch]) 10 unit SQ DAILY DIEGO Stop: 08/01/17 08:59 Last Admin: 02/02/17 11:29 Dose: Not Given Promethazine HCl (Phenergan) 6.25 mg IVP ONCE ONE Stop: 02/01/17 10:39 Last Admin: 02/01/17 10:50 Dose: 6.25 mg Departure - Departure Disposition: [facility] Acute Clinical Impression: Back pain Qualifiers: Back pain location: thoracic back pain Chronicity: acute Back pain laterality: left Qualified Code(s): M54.6 - Pain in thoracic spine Condition: Fair
[2017-02-01] MEDS ORDERED: LIDOCAINE 5% 1 EA PATCH TD ONE (11:35)
[2017-02-01] MEDS ORDERED: DIAZEPAM 10 MG/2 ML SYR IVP ONE (11:43)
--- NOTE | 2017-02-01 12:23 | ASMTCASEMG ---
Living Arrangements What is your living Answers: With Spouse arrangement? Who do you live with? Type Of Residence What kind of residence do Answers: House you live in? Services Used Prior to Admission Home Services Used Prior Answers: Homemaking to Admission Other Services Used Prior to Admission Notes: Pt has used [facility] home health in the past, not currently using. Case Management Evaluation Functional: Able to Answers: Yes return Home with Prior Level of Function/Care Functional: ADL / IADL Answers: Other Notes: Chronic pain Performance Deficits Due to: Discharge Plan Comments Coordination Status Comments Notes: Pt in FED for pain. She is accompanied by her of 60 years. Pt reported that she has been in pain causing her to be in bed for the last 3 days and she has also been nauseated Pt has two children a son who lives in [place] and a daughter who is visiting from [place]. Pt reported that she has used [facility] home health after her previous surgeries and she has a house keeper every two weeks. There are stairs in the home that she is able to maneuver by holding on to the rails. She has a walker on each level of the home. She requested a walker for use while in the hospital and stated that she needed oxygen at night. Discharge needs TBD CM to follow Date Signed: 02/01/2017 12:23 PM Electronically Signed By:Frannie Lopez LCSW
--- NOTE | 2017-02-01 12:40 | GCON ---
[f rep st] CONSULTATION DATE OF CONSULTATION: 02/01/2017 REASON FOR CONSULTATION: Acute onset back pain x3 days with history of spinal fusions. HISTORY OF PRESENT ILLNESS: The patient is an 81-year-old woman, very pleasant , who is well known to me from her multiple prior spinal surgeries. 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 Her most recent surgery was several months ago and included a fusion from T6 down to the lumbosacral junction. She has had known associated kyphosis, and was actually doing quite well for some time with pain that was manageable. She presents now to the Emergency Department after having been bedridden for the last 3-4 days with intractable pain located in the bilateral aspects of her scapula and into the armpits. This is a slightly different location than in the past. Minimal midline pain. No new numbness, tingling, pain or weakness of the upper and lower extremities. She is typically ambulatory with a 4-wheeled walker, but has not been able to move secondary to the pain, which has not been responsive to any pain medications at home. PAST MEDICAL HISTORY: 1. Diabetes. 2. Cardiac disease. 3. Hypothyroidism. PAST SURGICAL HISTORY: 1. Multiple spinal fusions including T6 to the pelvis fusion most recently. 2. Cholecystectomy. 3. Tonsillectomy. 4. Right clival shoulder fracture, status post repair. SOCIAL HISTORY: She is and is a former smoker. The patient denies any alcohol use or other illicit drug use. ALLERGIES: 1. Penicillin. 2. Sulfa. 3. Band-Aids. MEDICATIONS: 1. Cymbalta 60 mg p.o. daily. 2. Herbal supplements daily. 3. Insulin 10 units subcu daily. 4. Levothyroxine 25 mcg p.o. daily. 5. Lipase 2 tablets p.o. twice daily. 6. Metoprolol 75 mg p.o. daily. 7. Benicar 40 mg p.o. daily. 8. Omeprazole 40 mg p.o. twice daily. 9. Actos 45 mg p.o. daily. 10. Lyrica 150 mg p.o. twice daily. 11. Ambien 10 mg p.o. at bedtime. 12. Norvasc 7.5 mg p.o. daily. 13. BuSpar 10 mg p.o. twice daily. 14. Metformin 500 mg p.o. twice daily. 15. Prednisone 7.5 mg p.o. daily. 16. Vibramycin 100 mg p.o. daily. 17. Dilaudid p.o. q.3 hours p.r.n. for pain. 18. Robaxin 750 mg p.o. three times daily. 19. MiraLAX 17 g p.o. daily. 20. Benadryl 25 mg p.o. q.6 hours p.r.n. 21. OxyContin 10 mg p.o. twice daily. 22. Oxycodone 5-10 mg p.o. q.4 hours p.r.n. MEDICAL DECISION MAKING: Patient underwent x-ray of the scapula on January, on the [facility] PACS System, reviewed myself, which demonstrates no evidence of any fractures. Thoracic spine AP lateral x-rays completed on February 01, 2017, and reviewed by myself and compared to her prior x-rays from November, which demonstrates stable moderate anterior wedge fracture of the superior endplate of T6 with attenuation of the anterior kyphosis of the thoracic spine. There is posterior angulation of the superior margin the paraspinal rods secondary to the kyphosis , which appears to be stable from prior imaging in November. No evidence of any malfunction of the hardware. LABS: Hematocrit is 41.4, white count 4.37, sodium 145, BUN 13, creatinine of 0.8, white count 4.37, platelets 244. PHYSICAL EXAMINATION: VITAL SIGNS: Blood pressure 132/102, heart rate 78, respiratory rate 16, she is satting at 94% currently on room air, temperature is 37.1. GENERAL: The patient is lying in the bed, appears to be somewhat uncomfortable, and is moving quite briskly. Mood and affect appear to be appropriate. HEENT: Head is atraumatic, normocephalic. Pupils are equal, round, and reactive to light bilaterally. Extraocular movements appear to be intact. MOTOR EXAM: She has 5/5 strength with bilateral reservationist strength biceps, triceps, bilateral knee flexion, and plantar and dorsiflexion of bilateral lower extremities. SENSORY EXAM: She has intact sensation to light touch throughout the bilateral upper extremities, and diminished sensation to light touch throughout the bilateral lower extremities. MUSCULOSKELETAL: She has some mild palpation to the midline around the thoracic spine with rods that are palpable through the soft tissues. She is also extremely tender to the touch, radiating down to the soft muscles to the bilateral scapula. No erythema or signs of infection. ASSESSMENT AND PLAN: The patient is an 81-year-old woman with history of multiple spinal orthopedic fusions, including a T6 fusion most recently. She has a stable adjacent level kyphosis with proximal junction deformity, which has been followed for several months and has been stable. She has chronic ongoing pain, and presents now with acute worsening several-day pain, which has been refractory to any pain medications. I reviewed the possible treatment options with the patient and her , and thus far she has received lots of narcotics, which have not helped her pain. We will try to give her some muscle relaxants, as it does appear to be more musculoskeletal in nature, and some topical Lidoderm patches. When she is able to, we will try to get an MRI of the thoracic spine and determine the acuity of the fractures in her back. They do appear to be stable. However, if there is evidence of any edema or nonhealing in these areas, I talked to her about possibly of having Interventional Radiology complete a kyphoplasty at the level of her superior screws and 1 level above, and see if this helps with her pain. She is in agreement with this treatment plan. She has no red flag symptoms or neurological deficits. She will be admitted to Dr. Schmidt in the medical service, and we will continue to follow along while she is in the hospital. The patient was seen in the Emergency Department at approximately 12:00 p.m., and the plan was discussed with the treating team. /[id number]/MODL MTDD
--- NOTE | 2017-02-01 13:34 | SOAPPROG ---
SOAP Progress Note Assessment/Plan: Assessment: Plan: 02/01/17 13:47 Back pain: acute on chronic. Significant recent exacerbation which appears mechanical. No suggestion of infection, which she has had in the past. Very much appreciate Dr. Piedra's input. She hasn't had much relief from pain meds administered so far. Discussed morphine HUB LEAD, and she remembers that working for her in the past. Hoping to get pain well enough managed to do thoracic MRI as per Dr. Piedra, and possibly kyphoplasty. DM: on detemir, pioglitazone, metformin Hypertension: on metoprolol, amlodipine. Hypothyroid: on levothyroxine Polymyagia rheumatica: on 7.5mg prednisone Obstructive sleep apnea: on CPAP with oxygen at home, but hasn't been able to use it the last 3 nights. Will continue with nocturnal O2 while in hospital. Esophageal stricture: on PPI. Intermittently symptomatic, but not currently. CAD: mild, though did progress on most recent heart scan, which is why CPAP initiated. DVT prophylaxis: will use sequential compression stockings Dispo: anticipate 2 MN or more for pain management, possible kyphoplasty 02/01/17 13:51 02/01/17 13:53 Subjective: 81 yo woman with hx of extensive back surgery, mostly recently in September this year, who has been able to manage her ongoing pain with oral oxycodone. Her pain has mainly been at night when she is lying down. Earlier this month, she began to have episodes of worsening back pain that kept her awake during the night. In the last 3-4 days, this pain has increased markedly such that she hasn 't been able to get out of bed. Her pain medications have not relieved her symptoms. She has felt nauseated and unable to eat much. She was brought by ambulance to the ED today. She received 200mcg fentanyl enroute which helped only minimally. She has since received dilaudid, toradol, muscle relaxers, and a lidocaine patch has been placed on her left back. Her pain has gone from 20/ 10 to 12/10. Xrays of her thoracic spine appear stable. She had a T6 compression fracture after her surgery, and that is stable appearing. Her labs are normal, without suggestion of infection. She has been seen by Dr. Piedra in the ED. Objective: Vital Signs Temp Pulse Resp BP Pulse Ox 37.1 C 78 16 172/102 H 94 02/01/17 09:00 02/01/17 09:00 02/01/17 09:00 02/01/17 09:00 02/01/17 09:00 General: alert, oriented, pleasant. Uncomfortable, but active HEENT: NC/AT. PERRL, EOMI Neck: no masses, adenopathy, thyromegaly or tenderness Lungs: clear bilaterally Cardiovascular: RRR without murmur Abdomen: +bowel sounds, soft. Mild tenderness RUQ which she states is not new. No hepatosplenomegaly or masses noted. Skin: ecchymoses notes over forearms. Small wound on LLE where dog scratched her. It is mildly erythematous without drainage. Extremities: no edema Neurologic: alert, oriented, moving all extremities Psychiatric: pleasant, no confusion ICD10 Worksheet Patient Problems: Problems Problem Status Onset Chronic back pain Acute Dysphagia Acute Fever Acute Hypoxia Acute Narcotic overdose Acute S/P lumbar spinal fusion Acute Weakness Acute
[2017-02-01] MEDS ORDERED: NON-FORMULARY NEW DRUG (Zolpidem Tartrate [Ambien 10 Mg] 10 MG) PO PRN (13:57)
[2017-02-01] MEDS ORDERED: LORazepam 2 MG/ML INJ IVP PRN (13:59)
[2017-02-01] MEDS ORDERED: ONDANSETRON 4 MG/2 ML VIAL IVP PRN (13:59)
[2017-02-01] MEDS ORDERED: ACETAMINOPHEN 325 MG TAB PO PRN (13:59)
[2017-02-01] MEDS ORDERED: ONDANSETRON DISINTEGRATING 4 MG TAB PO PRN (13:59)
[2017-02-01] MEDS ORDERED: NALOXONE HCL 0.4 MG/ML INJ IVP PRN (14:06)
[2017-02-01] MEDS ORDERED: LR 1,000 ML IV SCH (14:30)
[2017-02-01] MEDS ORDERED: morphINE PCA 30 MG/30 ML PCA IV ONE (14:39)
--- NOTE | 2017-02-01 14:57 | GHP ---
[f rep st] HISTORY AND PHYSICAL DATE OF ADMISSION: 02/01/2017 HISTORY OF PRESENT ILLNESS: The patient is an 81-year-old woman with a history of extensive back surgery, most recently in September of this year, who has been able to manage her ongoing pain with oral oxycodone. Her pain has mainly been at night when she is lying down. Earlier this month, however, she began to have episodes of worsening back pain that kept her awake during the night. In the last 3-4 days, this pain has increased markedly, such that she has not been able to get out of bed. Her pain medications have not relieved her symptoms. She has felt nauseated and unable to eat much. She was brought by ambulance to the emergency department today. She received 200 mcg of fentanyl en route, which helped only minimally. She has since received Dilaudid, Toradol, muscle relaxers, and a lidocaine patch has been placed on her left back. Her pain has gone from 20/10 to 12/10. X-rays of her thoracic spine appear stable. She had a T6 compression fracture after her surgery, and that is stable appearing. Her labs are normal without suggestion of infection. She has been seen by Dr. Piedra in the emergency department and is being admitted for pain management and possible procedure. PAST MEDICAL HISTORY: Diabetes mellitus, aortic insufficiency, colon polyps, macular degeneration, hypothyroidism, hypoxia, polymyalgia rheumatica, spinal stenosis, hyperlipidemia, osteomyelitis of the lumbar spine, osteoporosis, obstructive sleep apnea on CPAP, thoracic compression fracture, coronary artery disease. MEDICATIONS: Amlodipine 7.5 mg daily. Buspirone 10 mg twice daily. Doxycycline 100 mg daily. Insulin detemir 10 units subcu daily. Levothyroxine 25 mcg daily. Creon 2 caps p.o. twice daily. Metformin 500 mg twice daily. Methocarbamol 750 mg three times daily. Metoprolol succinate extended release 75 mg daily. [place]-3 fatty acids 1000 mg daily. Omeprazole 40 mg twice daily. Oxycodone IR 10 mg daily. Pioglitazone 45 mg daily. Prednisone 7.5 mg daily. Lyrica 50 mg p.o. twice daily. Zolpidem 10 mg daily. ALLERGIES: Penicillin causes a rash, though she does tolerate amoxicillin. Sulfa causes a rash. PAST SURGICAL HISTORY: Foot surgery, hand surgery, cholecystectomy, cataract surgery, neck fusion and back fusion, tonsillectomy, abdominal surgery to remove María Elena fundoplication. FAMILY HISTORY: Noncontributory. SOCIAL HISTORY: The patient is and is a nonsmoker. REVIEW OF SYSTEMS: GENERAL: No fever or chills. She has had sweats during the night for the last 3-4 days. No appetite. HEENT: Chronic rhinitis. No sore throat, sinus pain, or pressure. RESPIRATORY: No cough, shortness of breath. CARDIOVASCULAR: No chest pain or arrhythmia, though she does experience some muscle spasm in her upper chest and neck area. GASTROINTESTINAL : Nausea without vomiting, diarrhea, or constipation. No abdominal pain. GENITOURINARY: No dysuria, hematuria. She has had some intermittent vaginal bleeding and has been referred to COMMUNITY MUSIC THERAPIST. MUSCULOSKELETAL: As per HPI. NEUROLOGIC: No headache. Severe back pain is noted. No confusion or weakness. LABORATORY: White blood cell count 4.37, hemoglobin 13.3, hematocrit 41.4, platelet count 244. White blood cell count has a normal differential. Sodium 145, potassium 4.6, chloride 109, bicarb 22, BUN 13, creatinine 0.8, glucose 130. Calcium 0.9. Troponin less than 0.012. PHYSICAL EXAMINATION: VITAL SIGNS: Blood pressure initially on arrival was 172 /102, more recently 140/67, heart rate 70, respiratory rate 16, O2 saturation 91 % on room air, temperature 36.6. GENERAL: She is alert, oriented, and pleasant. She is uncomfortable but active. HEENT: Normocephalic, atraumatic. Pupils equal, round, reactive to light. Extraocular movements are intact. NECK: No masses, adenopathy, thyromegaly, or tenderness. LUNGS: Clear bilaterally. CARDIOVASCULAR: Regular rate and rhythm without murmur. ABDOMEN: With normal bowel sounds and soft. Mild tenderness in the right upper quadrant to palpation, which she states is not new. No hepatosplenomegaly or masses noted. SKIN: Ecchymoses noted over forearms. Small wound on left lower extremity where a dog scratched her. It is mildly erythematous without drainage. EXTREMITIES: No edema. NEUROLOGIC: She is alert and oriented, moving all extremities. PSYCHIATRIC: Pleasant. No suggestion of confusion or abnormal mentation. ASSESSMENT AND PLAN: 1. Back pain, acute on chronic. Significant recent exacerbation, which appears mechanical. No suggestion of infection, which she has had in the past. Very much appreciate Dr. Piedra's input. She has not had much relief from pain medications administered so far. Discussed morphine DIAL BUFFER with her as she remembers that working for her in the past. Hoping to get her pain well enough managed to do thoracic MRI as per Dr. Piedra and possibly kyphoplasty. 2. Diabetes mellitus, on detemir, pioglitazone, and metformin. Will continue. 3. Hypertension, on metoprolol and amlodipine. Will continue. 4. Hypothyroid, on levothyroxine. 5. Polymyalgia rheumatica, on 7.5 mg prednisone daily. 6. Obstructive sleep apnea on CPAP with oxygen at home but has not been able to use it for the last 3 nights. We will continue with nocturnal oxygen while in the hospital. 7. Esophageal stricture, on PPI, intermittently symptomatic, but not currently. 8. Coronary artery disease, mild, but did progress on most recent heart scan, which is why CPAP initiated. 9. Deep venous thrombosis prophylaxis. Will use sequential compression stockings. DISPOSITION: Anticipate 2 midnights or more for pain management, possible kyphoplasty. /[id number]/MODL MTDD
[2017-02-01] MEDS: morphINE PCA 30 MG/30 ML PCA IV PRN ×2 (15:00→22:00)
[2017-02-01] MEDS: METHOCARBAMOL 750 MG TAB PO PRN ×2 (16:10→23:30)
[2017-02-01] MEDS ORDERED: PROMETHAZINE HCL 25 MG/ML INJ ONE (17:39)
[2017-02-01] MEDS: PROMETHAZINE HCL 25 MG/ML INJ IVP PRN (17:45)
[2017-02-01] MEDS: metFORMIN HCL 500 MG TAB PO SCH (17:57)
[2017-02-01] MEDS: amLODIPine BESYLATE 5 MG TAB PO SCH (18:00)
[2017-02-01] MEDS: METOPROLOL SUCCINATE XR 50 MG TAB PO SCH (18:01)
[2017-02-01] MEDS: oxyCODONE IR 5 MG TAB PO SCH ×2 (18:03→23:30)
[2017-02-01] MEDS ORDERED: NON-FORMULARY NEW DRUG (Omeprazole [Omeprazole] 40 MG) PO SCH (21:00)
[2017-02-01] MEDS: LIPASE 12,000/AMYLASE/PROTEASE (CREON) 1 CAP PO SCH (22:13)
[2017-02-01] MEDS: PREGABALIN 50 MG CAP PO SCH (22:13)
[2017-02-01] MEDS: PANTOPRAZOLE SODIUM 40 MG TAB PO SCH (22:13)
[2017-02-01] MEDS: busPIRone 10 MG TAB PO SCH (22:13)
[2017-02-01] MEDS: PATCH REMOVAL 1 EA PATCH TD SCH (22:20)
[2017-02-02] MEDS: oxyCODONE IR 5 MG TAB PO SCH ×3 (05:45→18:15)
[2017-02-02] MEDS: LEVOTHYROXINE 25 MCG TAB PO SCH (05:45)
[2017-02-02] MEDS: METHOCARBAMOL 750 MG TAB PO PRN (05:45)
--- NOTE | 2017-02-02 08:26 | NEUSURGPN ---
Assessment/Plan: 81 yr old with recent history of T6-Pelvis fusion with Dr Piedra, adjacent level kyphosis and compression deformities Plan: -PT/OT to eval and treat -Patients pain well controlled this am. She would like to try to get MRI thoracic spine today if tolerates laying down -MRI thoracic spine without contrast ordered. Will eval for acute vs chronic compression deformities. Check for evidence of edema -If fractures show evidence of acute nature, will schedule for kyphoplasty with IR -Pain management -Discussed patient with Dr Piedra Please call neurosurgery with any questions/concerns Subjective: Patient pain well controlled with po medications Objective: AxO x3 5/5 BUE, BLE Sensation intact to light touch BLE Incision CDI/well healed Neuro Check Frequency: per routine Urinary Catheter in Place: No - Physician Discussed Patient with Dr.: Piedra Neurosurgery Physical Exam - Vitals, I&O, Labs I and O 02/01/17 02/02/17 02/03/17 05:59 05:59 05:59 Intake Total 1422.2 Output Total 250 400 Balance 1172.2 -400 Weight 65.771 kg Intake: Oral (ml) 600 IV Infused (ml) 822.2 Lr 1,000 ml @ 125 mls/hr 792 IV CONT DIEGO Rx#: [id number] 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
[2017-02-02] MEDS ORDERED: amLODIPine BESYLATE 5 MG TAB PO SCH (09:00)
[2017-02-02] MEDS ORDERED: NON-FORMULARY NEW DRUG (Pioglitazone Hcl [Actos] 45 MG) PO SCH (09:00)
[2017-02-02] MEDS ORDERED: INSULIN DETEMIR 10 UNIT SQ SCH (09:00)
[2017-02-02] MEDS ORDERED: METOPROLOL SUCCINATE XR 50 MG TAB PO SCH (09:00)
[2017-02-02] MEDS ORDERED: Herbals/Supplements -Info Only PO SCH (09:00)
[2017-02-02] MEDS: PREGABALIN 50 MG CAP PO SCH ×2 (09:14→21:31)
[2017-02-02] MEDS: busPIRone 10 MG TAB PO SCH ×2 (09:14→21:31)
[2017-02-02] MEDS: predniSONE 5 MG TAB PO SCH (09:16)
[2017-02-02] MEDS: DOXYCYCLINE HYCLATE 100 MG CAP/TAB PO SCH (09:16)
[2017-02-02] MEDS: OMEGA-3 FATTY ACIDS 1,000 MG CAP PO SCH (09:16)
[2017-02-02] MEDS: LIPASE 12,000/AMYLASE/PROTEASE (CREON) 1 CAP PO SCH ×2 (09:16→21:31)
[2017-02-02] MEDS: amLODIPine BESYLATE 5 MG TAB PO SCH (09:17)
[2017-02-02] MEDS: PIOGLITAZONE HCL 15 MG TAB PO SCH (09:17)
[2017-02-02] MEDS: metFORMIN HCL 500 MG TAB PO SCH ×2 (09:17→18:15)
[2017-02-02] MEDS: PANTOPRAZOLE SODIUM 40 MG TAB PO SCH ×2 (09:18→21:31)
[2017-02-02] MEDS: METOPROLOL SUCCINATE XR 50 MG TAB PO SCH (09:22)
[2017-02-02] MEDS ORDERED: MAGNESIUM HYDROXIDE 30 ML UDCUP PO PRN (11:19)
[2017-02-02] MEDS ORDERED: POLYETHYLENE GLYCOL 3350 17 GM PKT PO PRN (11:19)
[2017-02-02] MEDS ORDERED: BISACODYL 10 MG SUPP PR PRN (11:19)
[2017-02-02] MEDS ORDERED: LACTULOSE 20 GM/30 ML UDCUP PO PRN (11:19)
--- NOTE | 2017-02-02 11:26 | SOAPPROG ---
JM Progress Note Assessment/Plan: Assessment: 81 yo female w/ h/o 7 back surgeries admitted w/ progressive back pain in thoracic area uncontrolled w/ po pain meds, appreciate input of N-S who are familiar w/ her. -thoracic back pain - ? etiology - possible from compression fx - awaiting thoracic MRI today, pain is much better w/ morphine CERTIFIED DETENTION DEPUTY now at 1/10 in severity , rec she have dose w/ clerk supervisor prior to heading to MRI. ? candidate for kyphoplasty if possible. Will follow along w/ NS. -htn - bp has been running on high side but has been in severe pain, cont on amlodipine and metoprolol, will increase if bp remains elevated -Dm - on usual meds and checking fsbs -gerd - cont PPI -PMR - on prednisone 7.5 mg qd stable dose -dvt proph per NS (considering possible procedure w/ IR) Plan: 02/02/17 11:22 02/02/17 11:28 Subjective: Feeling much better now, in good spirits, ate breakfast and finally slept last night Objective: Vital Signs Temp Pulse Resp BP Pulse Ox 36.4 C 82 95 H 156/58 H 95 02/02/17 08:00 02/02/17 10:00 02/02/17 10:00 02/02/17 08:00 02/02/17 08:00 02/01/17 02/02/17 02/03/17 05:59 05:59 05:59 Intake Total 1422.2 Output Total 250 400 Balance 1172.2 -400 GEN: sitting up in bed, in good spirits, talking w/ spouse HEENT perr, wearing nasal cannula Neck: soft/supple CHest: cta b CV: rrr Abd soft nt/nd Ext: small lac from puppy otherwise c/d/i, no edema Back: ttp mid thoracic area ICD10 Worksheet Patient Problems: Problems Problem Status Onset S/P lumbar spinal fusion Acute Weakness Acute Chronic back pain Acute Dysphagia Acute Hypoxia Acute Narcotic overdose Acute Fever Acute Back pain Acute
[2017-02-02] MEDS: INSULIN GLARGINE 100 UNITS/ML SYRINGE SC SCH (15:08)
--- NOTE | 2017-02-02 15:10 | ASMTCMCOM ---
CM Note CM Note Notes: Pt in for back pain awaiting MRI, may need kypho. OT/PT evals pending. Chart indicates pt is and has a son local. D/c needs TBD, CM to follow. Date Signed: 02/02/2017 03:10 PM Electronically Signed By:BLAKE Guerrier
[2017-02-02] MEDS: PROMETHAZINE HCL 25 MG/ML INJ IVP PRN (21:24)
[2017-02-02] MEDS: SENNOSIDES/DOCUSATE SODIUM TAB PO SCH (21:31)
[2017-02-02] MEDS: PATCH REMOVAL 1 EA PATCH TD SCH (21:35)
[2017-02-03] MEDS: oxyCODONE IR 5 MG TAB PO SCH ×4 (00:18→17:36)
[2017-02-03] MEDS: LEVOTHYROXINE 25 MCG TAB PO SCH (05:39)
--- NOTE | 2017-02-03 07:59 | NEUSURGPN ---
Assessment/Plan: Assessment: 81 yr old with recent history of T6-Pelvis fusion with Dr Piedra, adjacent level kyphosis and compression deformities Plan: -PT/OT to eval and treat -Patients pain better controlled -MRI thoracic spine without contrast shows T5 and T6 compression fractures with T5/6 disc herniation which may be the cause of her issues -will consult IR for consideration of a bilateral T5/6 ANTHONY and kyphoplasty of T5 and T6-pt requested Dr Raymond -she may require surgery but this could help -continue with pain management -Discussed patient with Dr Piedra -Please call neurosurgery with any questions/concerns Subjective: Awake and alert. NAD. Eating, drinking and voiding. No f/c/n/v/d. No maguire/neck /chest/abd or gu complaints. 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
[2017-02-03] MEDS: LIPASE 12,000/AMYLASE/PROTEASE (CREON) 1 CAP PO SCH ×2 (08:24→21:01)
[2017-02-03] MEDS: SENNOSIDES/DOCUSATE SODIUM TAB PO SCH ×2 (08:24→21:02)
[2017-02-03] MEDS: INSULIN GLARGINE 100 UNITS/ML SYRINGE SC SCH (08:24)
[2017-02-03] MEDS: METOPROLOL SUCCINATE XR 50 MG TAB PO SCH (08:25)
[2017-02-03] MEDS: OMEGA-3 FATTY ACIDS 1,000 MG CAP PO SCH (08:25)
[2017-02-03] MEDS: busPIRone 10 MG TAB PO SCH ×2 (08:27→21:00)
[2017-02-03] MEDS: predniSONE 5 MG TAB PO SCH (08:27)
[2017-02-03] MEDS: metFORMIN HCL 500 MG TAB PO SCH ×2 (08:27→17:36)
[2017-02-03] MEDS: METHOCARBAMOL 750 MG TAB PO PRN ×2 (08:27→17:36)
[2017-02-03] MEDS: PREGABALIN 50 MG CAP PO SCH ×2 (08:27→21:02)
[2017-02-03] MEDS: PANTOPRAZOLE SODIUM 40 MG TAB PO SCH ×2 (08:29→21:02)
[2017-02-03] MEDS: DOXYCYCLINE HYCLATE 100 MG CAP/TAB PO SCH (08:30)
[2017-02-03] MEDS: PIOGLITAZONE HCL 15 MG TAB PO SCH (08:32)
[2017-02-03] MEDS: amLODIPine BESYLATE 5 MG TAB PO SCH (08:33)
--- NOTE | 2017-02-03 10:03 | SOAPPROG ---
SOAP Progress Note Assessment/Plan: Assessment: Pain in upper spine has resolved as of this morning with persistent bedrest. MRI demonstrates two compresion fractures and a pinchec nerve. Area of pain could be from either Plan:I spoke with Dr. baron regarding the siuation. He will try vertibroplasty to see if pain could be reduced. Consider Wei for her osteoporosis, she is currently on prolia. 02/04/17 08:03 Subjective: Pain better today. Concerned about it returning as it was very severe for several days. Objective: Vital Signs Temp Pulse Resp BP Pulse Ox 208.9 F H 74 16 165/69 H 96 02/03/17 07:48 02/03/17 08:25 02/03/17 07:48 02/03/17 08:33 02/03/17 07:48 02/02/17 02/03/17 02/04/17 05:59 05:59 05:59 Intake Total 1422.2 400 Output Total 250 400 Balance 1172.2 0 Lungs clear to asc. COr RRR. No segnificant edema. She has a sore on her R ankle for a dog scratch. ICD10 Worksheet Patient Problems: Problems Problem Status Onset Back pain Acute Chronic back pain Acute Dysphagia Acute Fever Acute Hypoxia Acute Narcotic overdose Acute S/P lumbar spinal fusion Acute Weakness Acute
--- NOTE | 2017-02-03 18:20 | SOAPPROG ---
SOAP Progress Note Assessment/Plan: Assessment: 1. Debilitating pain from nonhealing collapse of superior cortical endplate of T6. 2. Possible insufficiency fracture of T5. 3. 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 Plan: Vertebroplasties of T5 and T6 under general anesthesia tomorrow. 02/03/17 18:23 02/03/17 18:24 Subjective: She is sitting up in chair, currently without pain, simplifying our full discussion of plans for vertebroplasty of T5 and T6 tomorrow. She accepts risks of lack of therapeutic benefit, internal bleeding, infection, new fracture elsewhere, and embolization of cement causing nerve damage or pulmonary embolism. She is tearful at times, wanting "everything to be over", meaning that she would prefer to repeated bouts of serious illness. She says that the intermittent pain of her midthoracic spine is the worst thing that she has experienced. Objective: She is tender to palpation over T5 and T6. Not tender at other levels. I reviewed previous MRIs and radiographs. Vital Signs Temp Pulse Resp BP Pulse Ox 36.5 C 62 16 152/85 H 88 L 02/03/17 16:00 02/03/17 16:00 02/03/17 16:00 02/03/17 16:00 02/03/17 16:00 02/02/17 02/03/17 02/04/17 05:59 05:59 05:59 Intake Total 1422.2 400 700 Output Total 250 400 Balance 1172.2 0 700 She is on chronic prednisone 7.5 mg/day for polymyalgia, and daily doxycycline 100 mg/day for concerns of chronic spinal disease. ICD10 Worksheet Patient Problems: Problems Problem Status Onset Back pain Acute Chronic back pain Acute Dysphagia Acute Fever Acute Hypoxia Acute Narcotic overdose Acute S/P lumbar spinal fusion Acute Weakness Acute
[2017-02-03] MEDS: PATCH REMOVAL 1 EA PATCH TD SCH (21:02)
[2017-02-03] MEDS: ZOLPIDEM TARTRATE 5 MG TAB PO PRN (21:03)
[2017-02-04] MEDS: oxyCODONE IR 5 MG TAB PO SCH ×5 (00:01→23:48)
[2017-02-04] MEDS: LEVOTHYROXINE 25 MCG TAB PO SCH (05:24)
[2017-02-04 06:00] LABS: PLATELET COUNT 190 10^3/uL (150-400)
[2017-02-04] MEDS ORDERED: NS 1,000 ML IV ONE (06:00)
[2017-02-04] MEDS ORDERED: ceFAZolin 2 GM/SWFI 2 GM/20 ML SYR IVP ONE (06:00)
[2017-02-04 06:09] LABS: INR 0.97 (0.83-1.16); PROTIME(PATIENT) 13.1 SEC (12.0-15.0)
--- NOTE | 2017-02-04 07:29 | NEUSURGPN ---
Assessment/Plan: Assessment: 81 yr old with recent history of T6-Pelvis fusion with Dr Piedra, adjacent level kyphosis and compression deformities Plan: -PT/OT to eval and treat -MRI thoracic spine without contrast shows T5 and T6 compression fractures with T5/6 disc herniation which may be the cause of her issues -IR to perform a bilateral T5/6 ANTHONY and kyphoplasty of T5 and T6 today, pt requested Dr Raymond -she may require surgery but this could help -continue with pain management -D/w patient and her and they expressed agreement/understanding of the plan -Discussed patient with Dr Piedra -Please call neurosurgery with any questions/concerns Subjective: Pt resting in bedside chair, states she is ready to be better and to move on with life Objective: AAOx3 NAD VSS MAEx4 Motor 5/5 BLE +LT Urinary Catheter in Place: No - Physician Discussed Patient with Dr.: Piedra Neurosurgery Physical Exam - Vitals, I&O, Labs I and O 02/03/17 02/04/17 02/05/17 05:59 05:59 05:59 Intake Total 400 850 Output Total 400 Balance 0 850 Intake: Oral (ml) 400 850 Output: Urine (ml) 400 Toilet 400 Other: Intake Quantity Yes Sufficient Number of Voids Toilet 2 2 Vital Signs Temp Pulse Resp BP Pulse Ox 36.7 C 74 18 154/62 H 92 02/04/17 04:00 02/04/17 04:00 02/04/17 04:00 02/04/17 04:00 02/04/17 04:00 Laboratory Results 02/04/17 05:45 ICD10 Worksheet Patient Problems: Problems Problem Status Onset Back pain Acute Chronic back pain Acute Dysphagia Acute Fever Acute Hypoxia Acute Narcotic overdose Acute S/P lumbar spinal fusion Acute Weakness Acute
[2017-02-04] MEDS ORDERED: BUPIVACAINE 0.5% 30 ML SDV ONE (07:53)
[2017-02-04] MEDS: PREGABALIN 50 MG CAP PO SCH ×2 (07:58→21:19)
[2017-02-04] MEDS: predniSONE 5 MG TAB PO SCH (07:58)
[2017-02-04] MEDS: SENNOSIDES/DOCUSATE SODIUM TAB PO SCH ×2 (07:58→21:20)
[2017-02-04] MEDS: PANTOPRAZOLE SODIUM 40 MG TAB PO SCH ×2 (07:59→21:19)
[2017-02-04] MEDS: LIPASE 12,000/AMYLASE/PROTEASE (CREON) 1 CAP PO SCH ×2 (07:59→21:17)
[2017-02-04] MEDS: DOXYCYCLINE HYCLATE 100 MG CAP/TAB PO SCH (07:59)
[2017-02-04] MEDS: busPIRone 10 MG TAB PO SCH ×2 (07:59→21:17)
[2017-02-04] MEDS: OMEGA-3 FATTY ACIDS 1,000 MG CAP PO SCH (07:59)
[2017-02-04] MEDS: metFORMIN HCL 500 MG TAB PO SCH ×2 (08:00→17:55)
[2017-02-04] MEDS: PIOGLITAZONE HCL 15 MG TAB PO SCH (08:04)
[2017-02-04] MEDS: amLODIPine BESYLATE 5 MG TAB PO SCH (08:13)
--- NOTE | 2017-02-04 08:13 | PDANEPAE ---
ANE History of Present Illness 81 yo F w thoracic spine compression fracture here for kyphoplasty ANE Past Medical History - Cardiovascular History Hx Hypertension: Yes Hx Arrhythmias: No Hx Chest Pain: No Hx Coronary Artery / Peripheral Vascular Disease: No Hx CHF / Valvular Disease: No Hx Palpitations: No Cardiovascular History Comment: HX PVC'S - Pulmonary History Hx COPD: No Hx Asthma/Reactive Airway Disease: No Hx Recent Upper Respiratory Infection: No Hx Oxygen in Use at Home: Yes O2 in Use at Home (L/minute): 2 Hx Sleep Apnea: Yes Sleep Apnea Screening Result - Last Documented: Positive Pulmonary History Comment: [employer] DOES HOME O2. OVERNIGHT SLLEP TEST SHOWED LOW 02 AT NIGHT - Neurologic History Hx Cerebrovascular Accident: No Hx Seizures: No Hx Dementia: No Neurologic History Comment: SCIATICA TJ LEGS. NEUROPATHY TJ FEET - Endocrine History Hx Diabetes: Yes Endocrine History Comment: IDDM. HYPOTHYROID - Renal History Hx Renal Disorders: No Renal History Comment: 3 WEEKS AGO HAD TROUBLE URINATING WAS IN [facility] - Liver History Hx Hepatic Disorders: No - Neurological & Psychiatric Hx Hx Neurological and Psychiatric Disorders: No - Cancer History Hx Cancer: No - Congenital Disorder History Hx Congenital Disorders: No - GI History Hx Gastrointestinal Disorders: Yes Gastrointestinal History Comment: CONSTIPATION. NARROW ESOPHOGUS, NEED OF DILATION, REFLUX. HAD FOOD STUCK IN THROAT FEW WKS AGO. HAD NICK FUNDOPLICATION HX. DIABETIC DIET- AVOID SUGAR - Other Health History Other Health History: PSORIASIS ON ELBOWS , polymyalgia rheumatica on steroids for 30 years. IMPLANTS DENTAL. OA HANDS, BACK AND NECK. BRUISE EASILY. recent diagnosis of sleep apnea, has not tried CPAP yet - Chronic Pain History Chronic Pain: Yes (LOWER BACK AND LEGS) - Surgical History Prior Surgeries: EGD 02/2015. TONSILECTOMY 12 YEARS AGO. NECK FUSION. RT FOOT ORIF. YOLY FUNDIPLICATION WITH DANIELLE. CATARACTS BILATERALLY. KYPHOPLASTY L5 -T11. HAND RIGHT SURGERY. LUMBAR FUSIONL1-4 WITH POST HARDWARE REMVL ANE Review of Systems Review of Systems: - Exercise capacity Exercise capacity: >=4 METS ANE Patient History - Allergies Allergies/Adverse Reactions: Penicillins Allergy (Intermediate, Verified 03/09/16 17:56) Rash Sulfa (Sulfonamide Antibiotics) Allergy (Unknown, Verified 03/09/16 17:56) BANDAIDS Allergy (Intermediate, Uncoded 03/07/16 08:54) Rash - Home Medications Home Medications: Herbals/Supplements -Info Only 1 ea PO DAILY 08/20/16 [Last Taken 08/27/16] Insulin Detemir [Levemir Flextouch] 10 unit SQ DAILY 08/20/16 [Last Taken ] Lipase 12,000/Amylase/Protease [Creon 12 (*)] 2 cap PO BID 08/20/16 [Last Taken 01/29/17] Metoprolol Succinate Xr [Toprol Xl 50 mg (*)] 75 mg PO DAILY 08/20/16 [Last Taken 02/04/17 08:15] Omeprazole 40 mg PO BID 08/20/16 [Last Taken 01/29/17] Pioglitazone HCl [Actos] 45 mg PO DAILY 08/20/16 [Last Taken 01/29/17] Zolpidem Tartrate [Ambien 10 mg] 10 mg PO HS PRN 08/20/16 [Last Taken 09/02/16 21:00] amLODIPine BESYLATE [Norvasc 5 mg (*)] 7.5 mg PO DAILY 08/20/16 [Last Taken ] busPIRone [Buspar (*)] 10 mg PO BID 08/20/16 [Last Taken 01/29/17] predniSONE 7.5 mg PO DAILY 08/20/16 [Last Taken 01/29/17] Doxycycline Hyclate [Vibramycin 100 MG (*)] 100 mg PO DAILY 09/03/16 [Last Taken 01/29/17] Levothyroxine [Synthroid 25 mcg (*)] 25 mcg PO DAILY06 02/01/17 [Last Taken ] Methocarbamol [Robaxin 750 mg (*)] 750 mg PO TID PRN 02/01/17 [Last Taken Unknown] Murtaugh-3 Fatty Acids [Fish Oil 1000 mg (*)] 1,000 mg PO DAILY 02/01/17 [Last Taken Unknown] Pregabalin [Lyrica 50mg (*)] 50 mg PO BID 02/01/17 [Last Taken 01/29/17] metFORMIN HCL [Glucophage 500 mg (*)] 500 mg PO BIDMEAL 02/01/17 [Last Taken ] oxyCODONE IR [Oxycodone Ir (*)] 10 mg PO DAILY PRN 02/01/17 [Last Taken 01/31/17 ] - NPO status NPO Status: no food or drink >8 hours - Anes Hx Anes Hx: no prior problems - Smoking Hx Smoking Status: Former smoker - Alcohol Use Alcohol Use: None - Family Anes Hx Family Anes Hx: none Family Hx Anesthesia Complications: NONE ANE Labs/Vital Signs - Labs Result Diagrams: 02/04/17 05:45 02/01/17 08:45 - Vital Signs Blood Pressure: 157/65 Heart Rate: 60 Respiratory Rate: 16 O2 Sat (%): 92 Height: 160.02 cm Weight: 65.771 kg ANE Physical Exam - Airway Neck exam: FROM Mallampati Score: Class 2 Mouth exam: normal dental/mouth exam - Pulmonary Pulmonary: no respiratory distress, clear to auscultation - Cardiovascular Cardiovascular: regular rate and rhythym, no murmur, rub, or gallop - ASA Status ASA Status: III ANE Anesthesia Plan Anesthesia Plan: general endotracheal anesthesia
[2017-02-04] MEDS: METOPROLOL SUCCINATE XR 50 MG TAB PO SCH (08:17)
[2017-02-04] MEDS ORDERED: DEXAMETHASONE 10 MG/ML VIAL ONE (08:21)
[2017-02-04] MEDS ORDERED: CEFAZOLIN 1 GM/DEXTROSE/50 ML BAG IV ONE (08:25)
[2017-02-04] MEDS ORDERED: fentaNYL 100 MCG/2 ML INJ ONE (08:26)
[2017-02-04] MEDS ORDERED: PROPOFOL 200 MG/20 ML VIAL ONE (08:26)
[2017-02-04] MEDS ORDERED: LIDOCAINE 2% 100 MG/5 ML SYR ONE (08:29)
[2017-02-04] MEDS ORDERED: ROCURONIUM 50 MG/5 ML VIAL ONE (08:29)
[2017-02-04] MEDS ORDERED: ceFAZolin 2 GM/SWFI 20 ML SYR IVP ONE (08:29)
--- NOTE | 2017-02-04 08:46 | SOAPPROG ---
SOAP Progress Note Assessment/Plan: Assessment: Plan: 02/01/17 13:47 Back pain: acute on chronic. Significant recent exacerbation which appears mechanical. No suggestion of infection, which she has had in the past. Very much appreciate Dr. Piedra's input. She hasn't had much relief from pain meds administered so far. Discussed morphine [employer], and she remembers that working for her in the past. Hoping to get pain well enough managed to do thoracic MRI as per Dr. Piedra, and possibly kyphoplasty. DM: on detemir, pioglitazone, metformin Hypertension: on metoprolol, amlodipine. Hypothyroid: on levothyroxine Polymyagia rheumatica: on 7.5mg prednisone Obstructive sleep apnea: on CPAP with oxygen at home, but hasn't been able to use it the last 3 nights. Will continue with nocturnal O2 while in hospital. Esophageal stricture: on PPI. Intermittently symptomatic, but not currently. CAD: mild, though did progress on most recent heart scan, which is why CPAP initiated. DVT prophylaxis: will use sequential compression stockings Dispo: anticipate 2 MN or more for pain management, possible kyphoplasty 02/01/17 13:51 02/01/17 13:53 02/04/17 08:45 Acute on chronic back pain: MRI with compression fx at T5 and T6. Will have vertebroplasty with Dr. Raymond today. Would opt for surgery if this isn't successful. Hypertension: BP remains somewhat elevated, possibly due to pain. Will see what impact of vertebroplasty does. May need to increase BP rx dose. 02/04/17 08:46 02/04/17 08:47 02/04/17 08:48 Subjective: About to go down down for vertebroplasty. Very hopeful this will help. Objective: Vital Signs Temp Pulse Resp BP Pulse Ox 36.5 C 60 16 157/65 H 92 02/04/17 07:45 02/04/17 08:18 02/04/17 08:18 02/04/17 08:18 02/04/17 08:18 Laboratory Results 02/04/17 05:45 02/03/17 02/04/17 02/05/17 05:59 05:59 05:59 Intake Total 400 850 Output Total 400 Balance 0 850 PT 13.1 SEC (12.0-15.0) 02/04/17 05:45 INR 0.97 (0.83-1.16) 02/04/17 05:45 General: spirits good this morning, emotions fluctuating Lungs: clear CV: RRR without murmur Extremities: no edema ICD10 Worksheet Patient Problems: Problems Problem Status Onset Back pain Acute Chronic back pain Acute Dysphagia Acute Fever Acute Hypoxia Acute Narcotic overdose Acute S/P lumbar spinal fusion Acute Weakness Acute
[2017-02-04] MEDS: INSULIN GLARGINE 100 UNITS/ML SYRINGE SC SCH ×2 (09:00→15:21)
[2017-02-04] MEDS ORDERED: PHENYLEPHRINE HCL 100 MCG/ML SYR ONE ×2 (09:57)
[2017-02-04] MEDS ORDERED: epHEDrine SULFATE 10 MG/ML SYR ONE (10:00)
[2017-02-04] MEDS ORDERED: IOPAMIDOL (ISOVUE-M 300) 15 ML VIAL ONE (10:30)
[2017-02-04] MEDS ORDERED: NALOXONE HCL 0.4 MG/ML INJ IVP PRN (10:41)
[2017-02-04] MEDS ORDERED: ONDANSETRON 4 MG/2 ML VIAL IVP PRN (10:41)
[2017-02-04] MEDS ORDERED: PROMETHAZINE HCL 25 MG/ML INJ IVP PRN (10:41)
[2017-02-04] MEDS ORDERED: fentaNYL 100 MCG/2 ML INJ IVP PRN (10:41)
--- NOTE | 2017-02-04 10:43 | POSTANESTH ---
Post Anesthetic Evaluation Cardiovascular Status: Normal, Stable, Similar to Pre-Op Cond Respiratory Status: Normal, Stable, Similar to Pre-op Cond. Pain Control: Adequate, Prn Tx Ordered Nausea/Vomiting Control: Adequate, Prn Tx Ordered Complications Possibly Related to Anesthesia: None Noted
--- NOTE | 2017-02-04 10:53 | PDRADPN ---
Radiology Procedure Note Date of Procedure: 02/04/17 Radiologist: Deandre Raymond Anesthesiologist: Dr.Sean Driver Anesthesia: GET(General Endotracheal) Pre-op Diagnosis: Compression fracture of T6 and possibly T5 Post-op Diagnosis: Same Indication: Debilitating pain. Osteoporosis. Unable to stop prednisone. Procedure: Vertebroplasty of T5 and T6 Finding(s): 6 ml of cement distributed within T5, T5-6 interspace, and limited amount in T6. Severe compression of superior aspect of T6. Inf/Abcess present in the surg proc area at time of surgery?: No EBL: Minimal Complications: None. CT is pending.
[2017-02-04] MEDS ORDERED: ONDANSETRON 4 MG/2 ML VIAL ONE (11:06)
--- NOTE | 2017-02-04 15:08 | WOCRNPDOC ---
WOCRN Advanced Assessment Note - Skin Integrity Problem, Advanced Assess Left Lower Medial Leg Dressing Type: Open to Air Tremayne Wound Tissue: Erythema (mild localized tremayne wound), Painful/Tender Wound Bed Constitution: Scab Site Measurement - Head-to-Toe Length X Width X Depth (cm): 1x1x0 Skin Integrity Problem Comment: Laceration/skin tear caused by puppy. Dry. Will treat with silvasorb and Allevyn Life. Wound care will sign off. Please reconsult prn.
[2017-02-04] MEDS ORDERED: IOPAMIDOL (ISOVUE-300) 100 ML BTL ONE (15:33)
[2017-02-04] MEDS: PATCH REMOVAL 1 EA PATCH TD SCH (21:19)
[2017-02-04] MEDS: ZOLPIDEM TARTRATE 5 MG TAB PO PRN (21:20)
[2017-02-05] MEDS: PROMETHAZINE HCL 25 MG/ML INJ IVP PRN (01:19)
[2017-02-05] MEDS: oxyCODONE IR 5 MG TAB PO SCH ×3 (05:37→17:29)
[2017-02-05] MEDS: LEVOTHYROXINE 25 MCG TAB PO SCH (05:37)
--- NOTE | 2017-02-05 07:40 | NEUSURGPN ---
Assessment/Plan: Assessment: 81 yr old with recent history of T6-Pelvis fusion with Dr Piedra, adjacent level kyphosis and compression deformities Plan: -PT/OT to eval and treat -MRI thoracic spine without contrast shows T5 and T6 compression fractures with T5/6 disc herniation which may be the cause of her issues -S/p T5/6 ANTHONY and kyphoplasty of T5 and T6, pain is somewhat improved. -continue with pain management -D/w patient and her and they expressed agreement/understanding of the plan -Pt seen and discussed with Dr Pierda -Follow up in clinic in the next few weeks -Please call neurosurgery with any questions/concerns Subjective: Pt resting in bed, states her pain is not as intense as it was but is not gone. Objective: AAOx3 NAD VSS MAEx4 Motor 5/5 BLE +LT Urinary Catheter in Place: No - Physician Discussed Patient with Dr.: Piedra Patient Seen by Dr.: Piedra Neurosurgery Physical Exam - Vitals, I&O, Labs I and O 02/04/17 02/05/17 02/06/17 05:59 05:59 05:59 Intake Total 850 1600 Output Total 300 Balance 850 1300 Weight 65.771 kg Intake: Oral (ml) 850 800 IV Intake (ml) 800 Output: Urine (ml) 300 Toilet 300 Other: Intake Quantity Yes Yes Sufficient Number of Voids Toilet 2 1 Vital Signs Temp Pulse Resp BP Pulse Ox 36.6 C 59 L 18 125/58 H 98 02/05/17 04:00 02/05/17 04:00 02/05/17 04:00 02/05/17 04:00 02/05/17 04:00 Laboratory Results 02/04/17 05:45 ICD10 Worksheet Patient Problems: Problems Problem Status Onset Back pain Acute Chronic back pain Acute Dysphagia Acute Fever Acute Hypoxia Acute Narcotic overdose Acute S/P lumbar spinal fusion Acute Weakness Acute
[2017-02-05] MEDS: INSULIN GLARGINE 100 UNITS/ML SYRINGE SC SCH (08:56)
[2017-02-05] MEDS: predniSONE 5 MG TAB PO SCH (08:56)
[2017-02-05] MEDS: LIPASE 12,000/AMYLASE/PROTEASE (CREON) 1 CAP PO SCH ×2 (08:57→21:36)
[2017-02-05] MEDS: PIOGLITAZONE HCL 15 MG TAB PO SCH (08:57)
[2017-02-05] MEDS: PANTOPRAZOLE SODIUM 40 MG TAB PO SCH ×2 (08:57→21:38)
[2017-02-05] MEDS: PREGABALIN 50 MG CAP PO SCH ×2 (08:58→21:37)
[2017-02-05] MEDS: busPIRone 10 MG TAB PO SCH ×2 (08:58→21:38)
[2017-02-05] MEDS: DOXYCYCLINE HYCLATE 100 MG CAP/TAB PO SCH (08:58)
[2017-02-05] MEDS: OMEGA-3 FATTY ACIDS 1,000 MG CAP PO SCH (08:58)
[2017-02-05] MEDS: SENNOSIDES/DOCUSATE SODIUM TAB PO SCH ×2 (08:58→21:36)
[2017-02-05] MEDS: amLODIPine BESYLATE 5 MG TAB PO SCH (08:59)
[2017-02-05] MEDS: metFORMIN HCL 500 MG TAB PO SCH ×2 (08:59→17:30)
[2017-02-05] MEDS: METOPROLOL SUCCINATE XR 50 MG TAB PO SCH (09:00)
--- NOTE | 2017-02-05 15:02 | ASMTCMCOM ---
CM Note CM Note Notes: PT rec HHC, pt declines. Spoke with pt and husb; pt states this is her 8th back surgery, she has been to inpatient rehab and has had HHC ([facility]) several times. Pt has her home set up for optimal safety. Pt son is local and a support. Pt verbalizes she understands she can call PCP if she changes her mind about HHC. D/c plan of care: Home with family support when medically stable. Date Signed: 02/05/2017 03:01 PM Electronically Signed By:BLAKE Guerrier
--- NOTE | 2017-02-05 21:25 | SOAPPROG ---
SOAP Progress Note Assessment/Plan: Assessment: MRI demonstrates two compresion fractures and a pinchec nerve. Area of pain could be from either. she underwent vertibroplasty with improvement in pain. Plan: Will observe today. Home in the morning if stable. PT and OT today. 02/04/17 08:03 02/05/17 21:24 Subjective: having less pain today. Very anxious about how the pain will be without Morphine. Objective: Vital Signs Temp Pulse Resp BP Pulse Ox 97.5 F 62 16 173/65 H 92 02/05/17 19:24 02/05/17 19:24 02/05/17 19:24 02/05/17 19:24 02/05/17 19:24 Laboratory Results 02/04/17 05:45 02/04/17 02/05/17 02/06/17 05:59 05:59 05:59 Intake Total 850 1600 1080 Output Total 300 Balance 850 1300 1080 PT 13.1 SEC (12.0-15.0) 02/04/17 05:45 INR 0.97 (0.83-1.16) 02/04/17 05:45 Lungs clear to asc. Labs reviewed. ICD10 Worksheet Patient Problems: Problems Problem Status Onset Back pain Acute Chronic back pain Acute Dysphagia Acute Fever Acute Hypoxia Acute Narcotic overdose Acute S/P lumbar spinal fusion Acute Weakness Acute
[2017-02-05] MEDS: ZOLPIDEM TARTRATE 5 MG TAB PO PRN (21:37)
[2017-02-05] MEDS: PATCH REMOVAL 1 EA PATCH TD SCH (21:39)
[2017-02-05] MEDS: METHOCARBAMOL 750 MG TAB PO PRN (22:23)
[2017-02-06] MEDS: oxyCODONE IR 5 MG TAB PO SCH ×3 (00:06→12:38)
[2017-02-06 03:56] VITALS: RESP 16
[2017-02-06] MEDS: LEVOTHYROXINE 25 MCG TAB PO SCH (06:07)
[2017-02-06 07:29] VITALS: BP 155/70; PULSE 80; TEMP 98.6; O2SAT 93
[2017-02-06] MEDS: amLODIPine BESYLATE 5 MG TAB PO SCH (08:17)
[2017-02-06] MEDS: predniSONE 5 MG TAB PO SCH (08:18)
[2017-02-06] MEDS: PIOGLITAZONE HCL 15 MG TAB PO SCH (08:18)
[2017-02-06] MEDS: LIPASE 12,000/AMYLASE/PROTEASE (CREON) 1 CAP PO SCH (08:19)
[2017-02-06] MEDS: metFORMIN HCL 500 MG TAB PO SCH (08:19)
[2017-02-06] MEDS: PANTOPRAZOLE SODIUM 40 MG TAB PO SCH (08:20)
[2017-02-06] MEDS: METOPROLOL SUCCINATE XR 50 MG TAB PO SCH (08:20)
[2017-02-06] MEDS: DOXYCYCLINE HYCLATE 100 MG CAP/TAB PO SCH (08:21)
[2017-02-06] MEDS: busPIRone 10 MG TAB PO SCH (08:21)
[2017-02-06] MEDS: SENNOSIDES/DOCUSATE SODIUM TAB PO SCH (08:21)
[2017-02-06] MEDS: OMEGA-3 FATTY ACIDS 1,000 MG CAP PO SCH (08:21)
[2017-02-06] MEDS: INSULIN GLARGINE 100 UNITS/ML SYRINGE SC SCH (08:22)
[2017-02-06] MEDS: PREGABALIN 50 MG CAP PO SCH (08:22)
[2017-02-06] MEDS: METHOCARBAMOL 750 MG TAB PO PRN (08:31)
--- NOTE | 2017-02-06 12:32 | GDS ---
[f rep st] DISCHARGE SUMMARY ADMISSION DIAGNOSIS: Severe back pain. DISCHARGE DIAGNOSIS: Severe back pain due to 2 compression fractures of the thoracic spine. PROCEDURES: Vertebroplasty. COMPLICATIONS: None. HOSPITAL COURSE: Patient was admitted with severe lancinating back pain. MRI shows 2 compression fr actures of the thoracic spine plus an impinged nerve root. In addition, she has had some pain from t he extensions of her cervical fusion rods, which causes some irritation to muscles. We were not cert ain as to the etiology of the pain but figured that, based on this severity and quality of the pain, is was most likely related to the compression fractures. Dr. Raymond was consulted, and she underwent vertebroplasty at 2 levels. Post vertebroplasty, her pain was substantially improved. We discussed treatment of osteoporosis. She has been on Forteo in the past, has elected to not restart it. She is currently on Prolia. She has a normal vitamin D level but is not currently taking vitamin K2. I suggested that she add K2, 100 mcg 2 daily, in order to improve bone density. She will go home. She does not want physical therapy or occupational therapy at this time. She will follow up with me in 2-3 weeks. MEDICATIONS AT TIME OF DISCHARGE: Amlodipine 7.5 mg daily, bisacodyl 10 mg p.r.n. constipation, busp irone 10 mg b.i.d., doxycycline 100 mg daily, insulin 10 units subcu daily, levothyroxine 25 mcg nicholas y, lipase 2 capsules b.i.d., metformin 500 mg b.i.d., Robaxin 750 mg t.i.d. p.r.n. pain or spasm, met oprolol succinate 75 mg daily, omega-3 fatty acid, Zofran p.r.n. nausea oxycodone IR 5 mg 1 or 2 p.o. q.4-6 hours as needed for pain, pioglitazone 45 mg p.o. daily, prednisone 7.5 mg p.o. daily, Lyrica 50 mg p.o. b.i.d., zolpidem 10 mg p.r.n. sleep. DISCHARGE FOLLOWUP: She will follow up immediately if the symptoms worsen. Otherwise, will follow u p with me in the office in 2-3 weeks. /[id number]/MODL
--- NOTE | 2017-02-06 15:07 | ASDISCHSUM ---
Discharge Information Plan Status:Home with No Needs Medically Cleared to Leave: Discharge Date:02/06/2017 12:49 PM CM D/C Disposition:Home, Routine, Self-Care ADT D/C Disposition:Home, Routine, Self-Care Projected Discharge Date:02/06/2017 12:49 PM Transportation at D/C:Family Discharge Delay Reason: Follow-Up Date:02/06/2017 12:49 PM Discharge Slot: Final Diagnosis: Placement Information Patient Contact Information Contact Name:PAULA Relationship: Address:[address] [address] City:[place] Alternate Phone: State/Zip Code:[place] [phone] Email: Financial Information Financial Class: Primary Plan Desc:MEDICARE INPATIENT Primary Plan Number:[id number] Secondary Plan Desc:[employer]/MDR SUPPLEMENT Secondary Plan Number:[id number] Assessment Information [facility] Initial CM Assessment Living Arrangements What is your living Answers: With Spouse arrangement? Who do you live with? Type Of Residence What kind of residence do Answers: House you live in? Services Used Prior to Admission Home Services Used Prior Answers: Homemaking to Admission Other Services Used Prior to Admission Notes: Pt has used [facility] home health in the past, not currently using. Case Management Evaluation Functional: Able to Answers: Yes return Home with Prior Level of Function/Care Functional: ADL / IADL Answers: Other Notes: Chronic pain Performance Deficits Due to: Discharge Plan Comments Coordination Status Comments Notes: Pt in FED for pain. She is accompanied by her of 60 years. Pt reported that she has been in pain causing her to be in bed for the last 3 days and she has also been nauseated Pt has two children a son who lives in [place] and a daughter who is visiting from [place]. Pt reported that she has used [facility] home health after her previous surgeries and she has a house keeper every two weeks. There are stairs in the home that she is able to maneuver by holding on to the rails. She has a walker on each level of the home. She requested a walker for use while in the hospital and stated that she needed oxygen at night. Discharge needs TBD CM to follow Date Signed: 02/01/2017 12:23 PM Electronically Signed By:Frannie Lopez LCSW [facility] CM Progress Note CM Note CM Note Notes: Pt in for back pain awaiting MRI, may need kypho. OT/PT evals pending. Chart indicates pt is and has a son local. D/c needs TBD, CM to follow. Date Signed: 02/02/2017 03:10 PM Electronically Signed By:BLAKE Guerrier [facility] CM Progress Note CM Note CM Note Notes: PT rec HHC, pt declines. Spoke with pt and husb; pt states this is her 8th back surgery, she has been to inpatient rehab and has had HHC ([facility]) several times. Pt has her home set up for optimal safety. Pt son is local and a support. Pt verbalizes she understands she can call PCP if she changes her mind about HHC. D/c plan of care: Home with family support when medically stable. Date Signed: 02/05/2017 03:01 PM Electronically Signed By:BLAKE Guerrier Intervention Information
== END 2017-02-06 12:49 | disposition home or self-care (01) | DRG 517 ==
LOC: EDUNIT# → F3N 13:31
PROVIDERS: ADMIT Internal Medicine; ATTEND Internal Medicine
DX: M48.54XA Collapsed vertebra, not elsewhere classified, thoracic region, initial encounter for fracture (principal); I10 Essential (primary) hypertension; E11.9 Type 2 diabetes mellitus without complications; E03.9 Hypothyroidism, unspecified; G47.33 Obstructive sleep apnea (adult) (pediatric); M35.3 Polymyalgia rheumatica; K22.2 Esophageal obstruction; I25.10 Atherosclerotic heart disease of native coronary artery without angina pectoris
CPT/HCPCS: 96374; 97116-GP; 97161-GP; 97530-GP; G8978-GP-CI; G8979-GP-CH; G8979-GP-CI; G8980-GP-CI; J0690; J1100; J1170; J1815; J1885; J2001; J2270; J2370; J2405; J2550; J2704; J3010; Q9967

== ENCOUNTER 2017-02-10 14:21 | Inpatient (IN) | payer OTHER, MEDICARE ==
[2017-02-10] MEDS ORDERED: fentaNYL 100 MCG/2 ML INJ IVP PRN (14:44)
--- NOTE | 2017-02-10 14:49 | EDPHY ---
H & P Stated Complaint: PAIN MANAGMENT FOR COMPRESSION FXS T5-6 Time Seen by Provider: 02/10/17 14:48 HPI/ROS: HPI: This is an 81-year-old female who presents with Chief Complaint: back pain Location: Thoracic back Quality: Pain Duration: Several days Signs and Symptoms: No bleeding, + radiation bilaterally, no numbness, no weakness, no tingling, no incontinence, + decreased range of motion, no swelling , + pain Timing: Acute on chronic Severity: 11/17 Context: Patient has a history of diabetes, hypothyroidism, osteoporosis, chronic back pain, multiple buttock surgeries including laminectomies at multiple levels, compression fractures presents with constant, severe, bilaterally radiating thoracic back pain at site of surgery since 02/07/2017. Reports that the pain is radiating from midline to both areas of her back but denies radiation into her arms. She is reportedly taking OxyContin 15 mg every 3 hr without relief of pain. She was admitted to the hospital 02/01-02/06 for uncontrolled back pain; she had a kyphoplasty of T5 and T6 performed on 2016. Her pain was controlled at discharge from the hospital at that time. She reports some nausea no vomiting/abdominal pain/diarrhea/fevers. She reports she has been unable to sleep and has limited ambulation and quality of life due to the intractable pain. She denies urinary symptoms/incontinence. She is still ambulatory without significant deficits. She is followed by Dr. Piedra Modifying Factors: OxyContin Comment: ROS: see HPI Constitutional: No fever, no chills, no weight loss Eyes: No blurred vision Respiratory: No shortness of breath, no cough Cardiovascular: No chest pain Gastrointestinal: + nausea, no vomiting no diarrhea Genitourinary: No dysuria Extremities: No myalgias Neurologic: No weakness, no numbness Skin: No rashes Hematologic: No bruising, no bleeding MEDICAL/SURGICAL/SOCIAL HISTORY: Medical/Surgical history: Gastroparesis, hypothyroidism, right CLAVICLE/ shoulder fx, diabetes mellitus, colonic polyps, macular degeneration, polymyalgia rheumatica, spinal stenosis, hyperlipidemia, osteomyelitis of the lumbar spine, osteoporosis, obstructive sleep apnea on CPAP, thoracic compression fracture, coronary artery disease. Surgical history: Foot surgery, hand surgery, cholecystectomy, cataract surgery , neck fusion, back fusion, tonsillectomy, abdominal surgeries to remove David fundoplication. Social history: for over 60 years. CONSTITUTIONAL: Appears quite uncomfortable, pleasant and polite elderly white female, accompanied by her at bedside, awake and alert, no obvious distress NECK: supple, no midline tenderness, flexion 45 degrees, extension 45 degrees, right and left lateral flexion 45 degrees. No meningismus. Cardiovascular: Normal S1/S2, regular rate, regular rhythm, without murmur rub or gallop. PULMONARY/CHEST: Symmetrical and nontender. no crepitus. Clear to auscultation bilaterally. Good air movement. No accessory muscle usage. ABDOMEN: Soft, nondistended, nontender, no ecchymosis. PELVIC: no pain with rocking; bilateral hips flexion 125 degrees, extension 30 degrees, with no pain internal rotation and no pain external rotation. BACK: Thoracic kyphoscoliosis noted; Dressing removed in no signs of erythema/ fluctuant/warmth/discharge. Mild thoracic midline tenderness, no paraspinous spasm, deep tendon reflexes 2/2, touch sensation intact to bilateral upper extremities and diminished to bilateral lower extremities. EXTREMITIES: 2/2 pulses, no deformities, no clubbing, no cyanosis or edema. NEUROLOGICAL: no focal neuro deficits. GCS 15. Light touch sensation intact. SKIN: Warm and dry, no erythema. no rash. Good capillary refill. Source: Patient, Family () - Personal History Current Tetanus/Diphtheria Vaccine: Yes Current Tetanus Diphtheria and Acellular Pertussis (TDAP): Yes - Medical/Surgical History Hx Asthma: No Hx Chronic Respiratory Disease: No Hx Diabetes: Yes Hx Cardiac Disease: Yes Hx Renal Disease: No Hx Cirrhosis: No Hx Alcoholism: No Hx HIV/AIDS: No Hx Splenectomy or Spleen Trauma: No Other PMH: ORHTO SURG BACK NECK AND ANKLE, GALL BLADDER, HTN, Diabetes, Tonsillectomy, Gastroparesis, hypothyroidism. right CLAVICLE/shoulder fx, med non-compliance - Social History Smoking Status: Former smoker Constitutional: Initial Vital Signs Temperature (C) 36.9 C 02/10/17 14:28 Heart Rate 88 02/10/17 14:28 Respiratory Rate 18 02/10/17 14:28 Blood Pressure 139/70 H 02/10/17 14:28 O2 Sat (%) 90 L 02/10/17 14:28 O2 Delivery Mode Room Air O2 (L/minute) 2 Allergies/Adverse Reactions: Penicillins Allergy (Intermediate, Verified 03/09/16 17:56) Rash Sulfa (Sulfonamide Antibiotics) Allergy (Unknown, Verified 03/09/16 17:56) BANDAIDS Allergy (Intermediate, Uncoded 03/07/16 08:54) Rash Home Medications: Medication Instructions Recorded Insulin Detemir [Levemir Flextouch] 10 unit SQ DAILY 08/20/16 Lipase 12,000/Amylase/Protease 2 cap PO BID 08/20/16 [Creon 12 (*)] Metoprolol Succinate Xr [Toprol Xl 75 mg PO DAILY 08/20/16 50 mg (*)] Omeprazole 40 mg PO BID 08/20/16 Pioglitazone HCl [Actos] 45 mg PO DAILY 08/20/16 Zolpidem Tartrate [Ambien 10 mg] 10 mg PO HS PRN 08/20/16 amLODIPine BESYLATE [Norvasc 5 mg 7.5 mg PO DAILY 08/20/16 (*)] busPIRone [Buspar (*)] 10 mg PO BID 08/20/16 predniSONE 7.5 mg PO DAILY 08/20/16 Doxycycline Hyclate [Vibramycin 100 mg PO DAILY 09/03/16 100 MG (*)] Levothyroxine [Synthroid 25 mcg 25 mcg PO DAILY06 02/01/17 (*)] Methocarbamol [Robaxin 750 mg (*)] 750 mg PO TID PRN 02/01/17 [place]-3 Fatty Acids [Fish Oil 1000 1,000 mg PO DAILY 02/01/17 mg (*)] Pregabalin [Lyrica 50mg (*)] 50 mg PO BID 02/01/17 metFORMIN HCL [Glucophage 500 mg 500 mg PO BIDMEAL 02/01/17 (*)] oxyCODONE IR [Oxycodone Ir (*)] 10 mg PO DAILY PRN 02/01/17 Acetaminophen [Tylenol 325mg (*)] 650 mg PO Q4HRS PRN tab 02/06/17 Insulin Glargine [Lantus 100 10 units SC DAILY ml 02/06/17 UNITS/ML (*)] LORazepam [Ativan inj 2 mg/ml (*)] 0.5 - 1 mg IVP Q8HRS PRN inj 02/06/17 Ondansetron HCl Pf [Zofran 4 mg 4 mg IVP Q4HRS PRN vial 02/06/17 Inj (*)] Ondansetron Odt [Zofran Odt 4 mg 4 mg PO Q4HRS PRN tab 02/06/17 (*)] Polyethylene Glycol 3350 [Miralax 17 gm PO DAILY PRN pkt 02/06/17 17 gm (*)] oxyCODONE IR [Oxycodone Ir (*)] 5 - 10 mg PO Q6 tab 02/06/17 Medical Decision Making ED Course/Re-evaluation: Intractable pain; not relieved by large amounts of OxyContin. Patient given IV fentanyl 50 mcg upon arrival. 1445: ED decision to consult. Spoke with Dr. Alirio Monge who advises he will contact Dr. Joseph Espinosa. Further imaging is not recommended by Neurosurgery. They recommend admission with Dr. Schmidt for pain management. No signs of neurovascular compromise/tenting of skin/compartment syndrome/ extremities and joints examined above and below area of concern and are neurovascularly intact/cellulitis/sepsis. 1505: Spoke with Dr. Paco Schmidt who kindly agrees to admit patient for pain control. This patient was seen under the supervision of my secondary supervising physician. I evaluated care for this patient independently. Discussed this patient with who did not see the patient. Patient's presentation, treatment and plan of care were discussed with secondary supervising physician. Differential Diagnosis: Differential diagnosis includes but is not limited to hardware failure, osteomyelitis, thoracic compression fracture, spinal cord impingement. - Data Points Medications Given: Fentanyl (Sublimaze) 50 mcg IVP Q45M PRN PRN Reason: Pain, Severe Unable to Take PO Last Admin: 02/10/17 15:00 Dose: 50 mcg Departure - Departure Disposition: [facility] Inpatient Acute Clinical Impression: Intractable back pain, History of vertebroplasty Condition: Fair
[2017-02-10] MEDS ORDERED: ACETAMINOPHEN 325 MG TAB PO PRN (18:31)
[2017-02-10] MEDS ORDERED: MAGNESIUM HYDROXIDE 30 ML UDCUP PO PRN (18:31)
[2017-02-10] MEDS ORDERED: LACTULOSE 20 GM/30 ML UDCUP PO PRN (18:31)
[2017-02-10] MEDS ORDERED: ONDANSETRON 4 MG/2 ML VIAL IVP PRN (18:31)
[2017-02-10] MEDS ORDERED: POLYETHYLENE GLYCOL 3350 17 GM PKT PO PRN ×2 (18:31→18:34)
[2017-02-10] MEDS ORDERED: ONDANSETRON DISINTEGRATING 4 MG TAB PO PRN (18:31)
[2017-02-10] MEDS ORDERED: BISACODYL 10 MG SUPP PR PRN (18:31)
[2017-02-10] MEDS ORDERED: NALOXONE HCL 0.4 MG/ML INJ IVP PRN (18:42)
[2017-02-10] MEDS: oxyCODONE IR 5 MG TAB PO PRN (18:57)
--- NOTE | 2017-02-10 19:03 | SOAPPROG ---
SOAP Progress Note Assessment/Plan: Assessment: Plan: 02/10/17 19:09 Back pain, acute on chronic: likely related to new compression fractures with incomplete response to vertebroplasty, nerve impingement, and possibly lea extensions. Will begin pain management with morphine PRINTING SPECIALIST. Will continue PO oxycodone, though she may opt not to take it. Continue Lyrica, muscle relaxers. Dr. Piedra is currently away, but will ask him to consult once he returns. Will need to consider another surgery, most likely. Constipation: bowel protocol ordered Hyptertension: will continue metoprolol, amlodipine Diabetes mellitus: on Actos, levemir, metformin Hypothryoid: on levothyroxine Polymyalgia rheumatica: on chronic prednisone, 7.5mg daily Insomnia: continue ambien Esophageal stricture: possible recurrent stricture, or at least spasm impacting her ability to swallow a pill recently. Will ask Dr. Christian to see pt, as he has seen her before. DVT prophylaxis: scds Dispo: anticipate 2 MN or more for pain management and possible surgical intervention 02/10/17 19:16 Subjective: 81 yo woman with hx of multiple back surgeries was hospitalized recently for severe back pain. MRI showed new compression fractures at T5 and T6, nerve root impingement, and muscle pain related to the extension of her cervical fusion rods. She underwent vertebroplasty at both thoracic levels with some initial improvement in her pain. However, since being discharged 02/06/17, her pain has returned. Pain extends from lower cervical spine area to mid-back. She had been trying to manage the pain, using oxycodone IR 15mg q 3 hours without success. She has been nauseated but hasn't vomited. She hasn't been able to eat much. The last 2 nights, she hasn't been able to sleep due to pain. She spoke to Dr. Schmidt earlier today who advised her to come to the ED. Her pain was relatively well-managed with a morphine PRINTING SPECIALIST when hospitalized 02/01/17. Her surgeon is Dr. Piedra. She has also been experiencing some muscle spasms in her chest which she thinks may be related to esophageal stricture. She has a hx of stricture, and wasn't able to swallow one of her medications the other day as it was too large. Objective: Vital Signs Temp Pulse Resp BP Pulse Ox 36.6 C 74 16 111/54 L 89 L 02/10/17 17:22 02/10/17 17:22 02/10/17 17:22 02/10/17 17:22 02/10/17 17:22 General: awake, alert, pleasant, uncomfortable HEENT: NC/AT. PERRL, EOMI. Puffy around R eye, but no erythema. Neck: no masses, adenopathy, thyromegaly Lungs: clear bilaterally Cardiovascular: RRR without murmur Abdomen: faint bowel sounds, soft, NT Extremities: mild edema bilaterally, L>R. Neurologic: alert, moving all extremities, no confusion Psychiatric: frustrated, wishing she didn't need to be here ICD10 Worksheet Patient Problems: Problems Problem Status Onset History of vertebroplasty Acute Intractable back pain Acute Back pain Acute Chronic back pain Acute Dysphagia Acute Fever Acute Hypoxia Acute Narcotic overdose Acute S/P lumbar spinal fusion Acute Weakness Acute
[2017-02-10] MEDS: morphINE PCA 30 MG/30 ML PCA IV PRN (19:27)
[2017-02-10] MEDS: PANTOPRAZOLE SODIUM 40 MG TAB PO SCH (20:11)
[2017-02-10] MEDS: ZOLPIDEM TARTRATE 5 MG TAB PO PRN (20:11)
[2017-02-10] MEDS: PREGABALIN 50 MG CAP PO SCH (20:11)
[2017-02-10] MEDS: busPIRone 10 MG TAB PO SCH (20:11)
[2017-02-10] MEDS: SENNOSIDES/DOCUSATE SODIUM TAB PO SCH (20:12)
--- NOTE | 2017-02-10 20:14 | GHP ---
[f rep st] HISTORY AND PHYSICAL DATE OF ADMISSION: 02/10/2017 HISTORY OF PRESENT ILLNESS: The patient is an 81-year-old woman with a history of multiple medical problems including multiple back surgeries, who was hospitalized recently for acute on chronic severe back pain. Her MRI at that time showed new compression fractures at T5 and T6 as well as nerve root impingement and possible muscle pain related to the extension of her cervical fusion rods. She underwent vertebroplasty at both thoracic levels with some initial improvement of her pain. However, since being discharged on 02/06/2017 , her pain has returned. The pain extends from the lower cervical spine area to the mid back and is bilateral. She has been trying to manage the pain with oxycodone IR 15 mg every 3 hours, but without success. She has been quite nauseated but has not vomited. She has not been able to eat much, though has felt hungry. The last 2 nights she has not been able to sleep due to pain. She spoke to Dr. Schmidt earlier today who advised her to come to the emergency department. Her pain was relatively well managed with morphine THERMODYNAMICS ENGINEER when she was hospitalized on February 01, 2017. Her surgeon is Dr. Piedra who is currently out of town. She has also been experiencing some muscle spasms in her chest, which she thinks may be related to esophageal stricture, which she has had in the past. Recently, she was not able to swallow one of her medications because it was too large. Due to her unmanageable pain, she is being admitted for further evaluation and pain management. PAST MEDICAL HISTORY: Significant for spinal stenosis with associated chronic back pain, diabetes mellitus, hypertension, polymyalgia rheumatica, hypothyroidism, osteoporosis, insomnia, coronary artery disease, GERD, obstructive sleep apnea, aortic insufficiency. MEDICATIONS: Amlodipine 7.5 mg daily, BuSpar 10 mg p.o. b.i.d. doxycycline 100 mg daily, insulin detemir 10 units subcu daily, levothyroxine 25 mcg daily, lipase 2 caps b.i.d., metformin 500 mg b.i.d., methocarbamol 750 mg t.i.d. as needed, metoprolol 75 mg daily, omeprazole 40 mg b.i.d., oxycodone 5 mg 2-3 tablets q.3 hours as needed, pioglitazone 45 mg daily, prednisone 7.5 mg daily, Lyrica 50 mg b.i.d., zolpidem 10 mg daily. ALLERGIES: Penicillins, sulfa and Band-aids. PAST SURGICAL HISTORY: Foot surgery, hand surgery, cholecystectomy, cataract surgery, multiple back surgeries with fusions extending from the neck to the lumbar spine, tonsillectomy, abdominal surgery to remove María Elena fundoplication and to remove muscle spasm from esophagus. FAMILY HISTORY: Noncontributory. SOCIAL HISTORY: The patient is . She is a nonsmoker. REVIEW OF SYSTEMS: GENERAL: She denies any fever or chills. She feels hungry , but she is not tolerating food easily. HEENT: She has noted some right eye puffiness without any change in vision. RESPIRATORY: No cough or shortness of breath. CARDIOVASCULAR: No chest pain, but has noted some muscle spasm, which she thinks may possibly be from her esophagus. GI: Nausea, no vomiting. Constipation. No diarrhea. No abdominal pain. Some difficulty with swallowing large pills. : Incontinent of urine today without dysuria or hematuria. A history of vaginal bleeding in need of COVERSTITCH ELASTIC ATTACHER evaluation. MUSCULOSKELETAL: Back pain as per HPI. NEUROLOGIC: No headache. No weakness or confusion. She does report a history of diabetic neuropathy. PHYSICAL EXAMINATION: VITAL SIGNS: Blood pressure 111/54, heart rate 74, respiratory rate 16, O2 saturation 89% on room air, temperature 36.6 degrees centigrade. GENERAL: She is awake, alert, pleasant, but uncomfortable. HEENT : Normocephalic, atraumatic. Pupils equal, round, reactive to light. Extraocular movements are intact. Puffiness around the right eye noted. No associated erythema. NECK: No masses or adenopathy or thyromegaly. LUNGS: Clear bilaterally. CARDIOVASCULAR: Regular rate and rhythm without murmur. ABDOMEN: Faint bowel sounds, soft and nontender. EXTREMITIES: Mild edema bilaterally, left greater than right. NEUROLOGIC: Alert, moving all of her extremities. No confusion. PSYCHIATRIC: Frustrated, wishing she did not need to be here. ASSESSMENT AND PLAN: 1. Back pain, acute on chronic, likely related to new compression fractures with incomplete response to vertebroplasty, nerve impingement and possibly lea extensions. Will begin pain management with work morphine THERMODYNAMICS ENGINEER. We will continue p.o. oxycodone though she may opt not to take it. Continue Lyrica and muscle relaxers. Dr. Piedra is currently away but will ask him to consult once he returns. She had not wanted to have another back surgery, but she has not been able to manage her pain as an outpatient, so is now open to considering this possibility. 2. Constipation. Bowel protocol ordered. 3. Hypertension. Will continue metoprolol, amlodipine. 4. Diabetes mellitus. On Actos, Levemir, metformin. 5. Hypothyroid. Will continue levothyroxine. 6. Polymyalgia. On chronic prednisone 7.5 mg daily. 7. Insomnia. Continue Ambien. 8. Esophageal stricture, possible recurrent stricture, at least spasm impacting her ability to swallow a pill recently. Will ask Dr. Christian to see patient as he has seen her in the past. 9. DVT prophylaxis. Sequential compression devices. DISPOSITION: Anticipate 2 midnights or more for pain management and possible surgical intervention. /[id number]/MODL MTDD
[2017-02-10] MEDS: NS 1,000 ML IV SCH (20:27)
[2017-02-11] MEDS: oxyCODONE IR 5 MG TAB PO PRN ×2 (01:11→07:30)
[2017-02-11] MEDS: METHOCARBAMOL 750 MG TAB PO PRN ×2 (01:42→22:36)
[2017-02-11] MEDS: NS 1,000 ML IV SCH ×3 (03:38→17:32)
[2017-02-11] MEDS: LEVOTHYROXINE 25 MCG TAB PO SCH (05:57)
[2017-02-11] MEDS: metFORMIN HCL 500 MG TAB PO SCH ×2 (07:52→17:32)
[2017-02-11] MEDS: amLODIPine BESYLATE 5 MG TAB PO SCH (07:52)
[2017-02-11] MEDS: morphINE PCA 30 MG/30 ML PCA IV PRN (07:54)
[2017-02-11] MEDS: METOPROLOL SUCCINATE XR 25 MG TAB PO SCH (08:02)
[2017-02-11] MEDS: LIPASE 12,000/AMYLASE/PROTEASE (CREON) 1 CAP PO SCH ×2 (08:11→17:32)
[2017-02-11] MEDS: PIOGLITAZONE HCL 15 MG TAB PO SCH (10:22)
[2017-02-11] MEDS: predniSONE 5 MG TAB PO SCH (10:23)
[2017-02-11] MEDS: PANTOPRAZOLE SODIUM 40 MG TAB PO SCH ×2 (10:23→20:21)
[2017-02-11] MEDS: PREGABALIN 50 MG CAP PO SCH (10:23)
[2017-02-11] MEDS: busPIRone 10 MG TAB PO SCH ×2 (10:25→20:20)
[2017-02-11] MEDS: DOXYCYCLINE HYCLATE 100 MG CAP/TAB PO SCH (10:25)
[2017-02-11] MEDS: SENNOSIDES/DOCUSATE SODIUM TAB PO SCH ×2 (10:28→20:19)
[2017-02-11] MEDS: INSULIN GLARGINE 100 UNITS/ML SYRINGE SC SCH (10:32)
[2017-02-11] MEDS: morphINE SR 30 MG TAB PO SCH ×2 (11:58→20:19)
[2017-02-11] MEDS: diphenhydrAMINE 25 MG CAP PO PRN ×2 (12:02→22:36)
--- NOTE | 2017-02-11 13:04 | SOAPPROG ---
SOAP Progress Note Assessment/Plan: Assessment: Plan: 02/10/17 19:09 Back pain, acute on chronic: likely related to new compression fractures with incomplete response to vertebroplasty, nerve impingement, and possibly lea extensions. Will begin pain management with morphine LIFT TRUCK OPERATOR. Will continue PO oxycodone, though she may opt not to take it. Continue Lyrica, muscle relaxers. Dr. Piedra is currently away, but will ask him to consult once he returns. Will need to consider another surgery, most likely. Constipation: bowel protocol ordered Hyptertension: will continue metoprolol, amlodipine Diabetes mellitus: on Actos, levemir, metformin Hypothryoid: on levothyroxine Polymyalgia rheumatica: on chronic prednisone, 7.5mg daily Insomnia: continue ambien Esophageal stricture: possible recurrent stricture, or at least spasm impacting her ability to swallow a pill recently. Will ask Dr. Christian to see pt, as he has seen her before. DVT prophylaxis: scds Dispo: anticipate 2 MN or more for pain management and possible surgical intervention 02/10/17 19:16 02/11/17 12:59 Back Pain: inadequate pain control. Will consult with pharmacist. I think we need to try and provide some kind of basal pain relief, to try and prevent pain crisis from LIFT TRUCK OPERATOR dose wearing off and pt waking in pain. I also spoke with Annette , one of Dr. Piedra's PA, and they are aware of her admission. He isn't back in the office until WedFeb 15, but PA will see her in anticipation of his consult. Esophageal symptoms: concerning for possible recurrent stricture. I have spoken with Dr. Christian, requesting he consult. Hypertension: Pt with significant BP spikes when pain bad. 02/11/17 13:05 Subjective: Having significant pain this morning. Fell asleep, and then woke due to pain. BP was quite high at the time. Had been started on morphine LIFT TRUCK OPERATOR, but so far, it hasn't been sufficient. Objective: Vital Signs Temp Pulse Resp BP Pulse Ox 36.4 C 65 18 141/56 H 89 L 02/11/17 11:44 02/11/17 11:44 02/11/17 11:44 02/11/17 11:44 02/11/17 11:44 General: awake, alert, in pain Lungs: clear Cardiovascular: RRR without murmur ICD10 Worksheet Patient Problems: Problems Problem Status Onset History of vertebroplasty Acute Intractable back pain Acute Back pain Acute Chronic back pain Acute Dysphagia Acute Fever Acute Hypoxia Acute Narcotic overdose Acute S/P lumbar spinal fusion Acute Weakness Acute
--- NOTE | 2017-02-11 13:19 | ASMTCMCOM ---
CM Note CM Note Notes: Patient admitted for intractable back pain. She has an extensive history of back pain and surgeries. She was last admitted less than one month ago and had vertebroplasty at both thoracic levels with some improvement of her pain. Since being discharged on 02/06/17, her pain has returned. Neurosurg has been consulted. Patient lives independently with her and often discharges without any services. On the other hand, she has had home health and been to inpatient rehab. We will continue to assess her needs and assist with any discharge needs she may have. Date Signed: 02/11/2017 01:19 PM Electronically Signed By:Addie Tineo RN
--- NOTE | 2017-02-11 13:43 | GCON ---
[f rep st] CONSULTATION DATE OF CONSULTATION: 02/11/2017 REASON FOR CONSULTATION: Back pain. HOSPITAL COURSE, HISTORY, AND MAJOR MEDICAL FINDINGS: The patient is an 81-year-old female who is we ll known to Dr. Piedra's practice, who most recently underwent a laminectomy at T8-T9 with interbody cage placement, with T6 to T11 posterior hardware revision and extension in August of 2016. She has be en followed closely and did develop new T6 and T5 compression fractures. She was monitored conservat ively in a brace for some period of time but did not tolerate this bracing. She was doing well until a few weeks ago when she developed worsening low back pain. She underwent M RI, which demonstrated compression fractures at T5 and T6 as well as nerve root impingement and muscu lature-related pain due to her cervical kyphosis that was developing. She underwent vertebroplasty with IR at T5 and T6 and initially had some improvement of pain back on February 06. She was discharged home and tried to manage her pain with outpatient medications; how ever, this failed to provide her with significant relief and she spoke with Dr. Schmidt, her PCP, wh o recommended coming to the hospital. Upon seeing the patient today she states that her pain is still not well under control though her ext ended-release morphine was just increased today as well as being placed on a FINANCIAL RISK MANAGER. Her pain is greate st over her midback and over to the left-hand side in between her shoulder blades. She denies any le g weakness, any new leg numbness, tingling or pain. REVIEW OF SYSTEMS: Review of systems is negative other than what is stated in the HPI. Please see f or pertinent negatives, pertinent positives. PAST MEDICAL HISTORY: Significant for multiple back surgeries with spinal stenosis, history of diabe alexander, hypertension, polymyalgia rheumatica, hypothyroidism, osteoporosis, insomnia, coronary artery di sease, GERD, obstructive sleep apnea and aortic insufficiency. PAST SURGICAL HISTORY: Significant for a cholecystectomy, cataract surgery, multiple back surgeries including fusions, a recent vertebroplasty T5 and T6, tonsillectomy, abdominal surgery for removal o f María Elena fundoplication, history of a foot surgery and a hand surgery. FAMILY HISTORY: Noncontributory. SOCIAL HISTORY: Patient has never smoked. She is and her is at bedside today and sh e does not drink any alcohol. ALLERGIES: Include penicillin, sulfa and Band-Aids. PHYSICAL EXAMINATION: VITALS: Blood pressure is 141/56, temperature is 36.4, heart rate is 84, and she is 89% on room air. GENERAL: The patient is in no acute distress. She is alert and oriented x3 . She answers questions appropriately. Affect is appropriate for the given situation. Cranial nerv es 2-12 are grossly intact. EOMI and PERRLA. The patient is a 5/5 and equal in her bilateral upper and bilateral lower extremities, though somewhat slow, including her deltoids, triceps, biceps, wrist flexors, extensors, interossei, intrinsic tab card press operator, iliopsoas, hamstrings, quadriceps, plantar flexion, dorsiflexion, EHL. She does have pain over her thoracic spine over to the left. She does not have a ny palpable defects or step-off of her thoracic spine. ASSESSMENT AND PLAN: The patient is an 81-year-old female who is well known to Dr. Piedra's practice for having a fusion from T9 down to S1. She does have new compression fractures at T5 and T6 and sh e recently underwent a vertebroplasty of these. Dr. Schmidt and the Internal Medicine team are work ing with her on her pain management and are titrating this up today. I have discussed with the patient and her if her pain is not able to be controlled that we ma y need to revisit surgical intervention for her pain at this time. In the past she has been opposed to any further cervical intervention . We will continue to follow peripherally and see if Pain Manag ement can be optimized. If this is unable to be achieved, will need to further discuss surgical opti ons. Dr. Piedra, her primary surgeon, has been made aware of the patient's current status as well. /[id number]/MODL
[2017-02-11] MEDS: ZOLPIDEM TARTRATE 5 MG TAB PO PRN (20:20)
[2017-02-11] MEDS: PREGABALIN 75 MG CAP PO SCH (20:20)
[2017-02-11] MEDS ORDERED: PREGABALIN 50 MG CAP PO SCH (21:00)
--- NOTE | 2017-02-11 22:30 | SOAPPROG ---
SOAP Progress Note Assessment/Plan: Assessment: Plan: 02/11/17 22:30 A/P 1. Esophageal spasm- with dysphagia. Complex esophageal history. See dictated consult for details. Will add H2 osmani therapy. Objective: Vital Signs Temp Pulse Resp BP Pulse Ox 36.4 C 64 16 121/48 H 90 L 02/11/17 19:27 02/11/17 22:00 02/11/17 22:00 02/11/17 22:00 02/11/17 22:00 02/10/17 02/11/17 02/12/17 05:59 05:59 05:59 Intake Total 300 Balance 300 ICD10 Worksheet Patient Problems: Problems Problem Status Onset S/P lumbar spinal fusion Acute Weakness Acute Chronic back pain Acute Dysphagia Acute Hypoxia Acute Narcotic overdose Acute Fever Acute Back pain Acute Intractable back pain Acute History of vertebroplasty Acute
[2017-02-12] MEDS: NS 1,000 ML IV SCH ×3 (01:51→18:14)
--- NOTE | 2017-02-12 05:01 | GCON ---
[f rep st] CONSULTATION DATE OF CONSULTATION: 02/11/2017 CONSULTING PHYSICIAN: Dawna Goss MD REASON FOR CONSULTATION: Dysphagia. CHIEF COMPLAINT: Dysphagia/esophageal spasm. HISTORY OF PRESENT ILLNESS: Jocelyn is an 81-year-old female with a history of a remote María Elena fundoplication, esophageal dysmotility, gastroparesis, osteoporosis, who presents to [facility] on 02/10/2017 with complaints of back pain. Jocelyn has been experiencing acute on chronic back pain and found to have new compression fractures. The patient has had a complex esophageal history with history of a María Elena fundoplication approximately 10 years ago. Since the initial fundoplication, she had multiple episodes of dysphagia and has undergone multiple EGDs with dilation. On 01/13/2016, the patient underwent a redo María Elena fundoplication by Dr. Akash Shaw in [place] due to her significant dysphagia in January 2016. She was noted to have a barium pill/liquid hang up at the gastric junction on esophagram and had a dilation performed by him on 03/05/2016. The patient does not think that this helped her symptoms. The patient has been complaining of dysphagia to medications, as well as food intermittently for at least the last several years. She believes her symptoms are exacerbated by oral intake. She denies any alleviating factors. Over the last several months, the patient is complaining of a spasming feeling in her chest area. This occurs intermittently and may be related to oral intake. She has been on omeprazole 40 mg twice a day for her symptoms. I am being asked by Dr. Goss to evaluate the patient in consultation regarding her evidence of dysphagia/esophageal spasm. PAST MEDICAL HISTORY: Diabetes mellitus, hypertension, hypothyroidism, spinal stenosis, polymyalgia rheumatica on chronic steroids, degenerative joint disease , osteoporosis, coronary artery disease, obstructive sleep apnea. PAST SURGICAL HISTORY: Cholecystectomy, María Elena fundoplication, cataract surgery , multiple back surgeries. ALLERGIES: Penicillin, sulfa. MEDICATIONS: Amlodipine, BuSpar, doxycycline, insulin, levothyroxine, lipase, metformin, methocarbamol, metoprolol, omeprazole 40 mg b.i.d., oxycodone, pioglitazone 45 mg a day, prednisone 7.5 mg twice a day, Lyrica. SOCIAL HISTORY: . No significant alcohol or tobacco use. FAMILY HISTORY: Sister with rectal cancer. Father with lung cancer. REVIEW OF SYSTEMS: A 12-point comprehensive review of systems was asked. Pertinent positives and negatives per HPI. PHYSICAL EXAMINATION: VITAL SIGNS: Blood pressure 130/54, respiration 20, temperature 36.4, heart rate 65. GENERAL: Awake, alert, oriented, in no distress. HEENT: Anicteric sclera. Moist mucosa. NECK: No JVD. CARDIOVASCULAR: Regular rate and rhythm. Positive S1, S2. No murmurs or gallops are appreciated. LUNGS: Clear to auscultation bilateral without wheezes, rhonchi. ABDOMEN: Soft, nontender, nondistended. Positive bowel sounds. No guarding, no rebound. EXTREMITIES: No cyanosis, clubbing, or edema. NEUROLOGIC: Cranial nerves 2 through 12 grossly intact. PSYCH: Normal affect. SKIN: No rash. LABORATORY DATA: Glucose 135. ASSESSMENT AND PLAN: 1. Esophageal spasm/dysphagia-symptoms have been present for multiple years with a complex esophageal history with a remote María Elena fundoplication complicated with multiple food impactions. She had a redo with myotomy late last year with no significant relief of her symptoms. She has been on high dose proton pump inhibitors therapy BID, but is still getting symptoms of esophageal spasm/dysphagia. I had a long discussion with the patient and her regarding possibly proceeding with esophagogastroduodenoscopy with dilation of her stricture. Due to her María Elena fundoplication, this can often be less efficacious. She says her last dilation done in [place] did not help her symptoms. At this time, she does not want to proceed with repeat esophagogastroduodenoscopy with dilation. I also discussed the risks and benefits of EGD as well as acid suppressive therapy and it appears that high- dose proton pump inhibitors therapy is not helping her symptoms. At this time, I recommend to add an H2 osmani. Will consider titrating the proton pump inhibitors therapy down due to considerations of her significant osteoporosis with fractures. 2. History of osteoporosis. 3. History of diabetes mellitus. 4. History of hypertension. 5. History of hypothyroidism. 6. History of polymyalgia rheumatica on chronic steroids. /[id number]/MODL MTDD
[2017-02-12] MEDS: LEVOTHYROXINE 25 MCG TAB PO SCH (05:16)
[2017-02-12] MEDS: METHOCARBAMOL 750 MG TAB PO PRN (06:01)
[2017-02-12] MEDS: diphenhydrAMINE 25 MG CAP PO PRN ×2 (06:44→17:03)
--- NOTE | 2017-02-12 08:26 | NEUSURGPN ---
Assessment/Plan: A: 81 yo F with T5/6 compression fx, disc herniation, s/p kyphoplasty with continued pain. P: -Have discussed with patient and her and we have surgery scheduled for Wednesday to entail T5/6 discectomy, interbody fusion, and extension of fusion up to T5. Patient and her are in agreement and understanding of the plan and wish to schedule surgery. -Continue pain management per Dr Daniels's team. -NPO after midnight on Wednesday. -Will see patient again Wednesday to sign consents. Will sign off for the . Please call NS with any questions or concerns. Subjective: Pt resting in recliner chair. at bedside. States she couldn't sleep all night. Pain is severe. Wishes to proceed with surgery next week. Objective: AAOx3 NAD VSS MAEx4 Motor 5/5 BLE +LT Urinary Catheter in Place: No Neurosurgery Physical Exam - Vitals, I&O, Labs I and O 02/11/17 02/12/17 02/13/17 05:59 05:59 05:59 Intake Total 825 Balance 825 Intake: Oral (ml) 825 Other: Intake Quantity Yes Sufficient Number of Voids Toilet 1 1 Number of Stools Toilet 1 Vital Signs Temp Pulse Resp BP Pulse Ox 36.4 C 72 16 153/75 H 96 02/12/17 07:20 02/12/17 07:20 02/12/17 07:20 02/12/17 07:20 02/12/17 07:20 ICD10 Worksheet Patient Problems: Problems Problem Status Onset History of vertebroplasty Acute Intractable back pain Acute Back pain Acute Chronic back pain Acute Dysphagia Acute Fever Acute Hypoxia Acute Narcotic overdose Acute S/P lumbar spinal fusion Acute Weakness Acute
[2017-02-12] MEDS: morphINE PCA 30 MG/30 ML PCA IV PRN (09:14)
[2017-02-12] MEDS: METOPROLOL SUCCINATE XR 25 MG TAB PO SCH (09:23)
[2017-02-12] MEDS: amLODIPine BESYLATE 5 MG TAB PO SCH (09:23)
[2017-02-12] MEDS: PREGABALIN 75 MG CAP PO SCH ×2 (09:24→22:03)
[2017-02-12] MEDS: INSULIN GLARGINE 100 UNITS/ML SYRINGE SC SCH (09:25)
[2017-02-12] MEDS: PIOGLITAZONE HCL 15 MG TAB PO SCH (09:25)
[2017-02-12] MEDS: LIPASE 12,000/AMYLASE/PROTEASE (CREON) 1 CAP PO SCH ×2 (09:26→17:50)
[2017-02-12] MEDS: busPIRone 10 MG TAB PO SCH ×2 (09:26→22:03)
[2017-02-12] MEDS: DOXYCYCLINE HYCLATE 100 MG CAP/TAB PO SCH (09:26)
[2017-02-12] MEDS: FAMOTIDINE 20 MG TAB PO SCH ×2 (09:27→22:03)
[2017-02-12] MEDS: morphINE SR 30 MG TAB PO SCH ×2 (09:27→22:03)
[2017-02-12] MEDS: PANTOPRAZOLE SODIUM 40 MG TAB PO SCH ×2 (09:27→22:03)
[2017-02-12] MEDS: metFORMIN HCL 500 MG TAB PO SCH ×2 (09:27→17:50)
[2017-02-12] MEDS: predniSONE 5 MG TAB PO SCH (09:28)
[2017-02-12] MEDS: SENNOSIDES/DOCUSATE SODIUM TAB PO SCH ×2 (11:24→22:03)
[2017-02-12] MEDS ORDERED: DIAZEPAM 2 MG TAB PO PRN (15:23)
--- NOTE | 2017-02-12 15:43 | SOAPPROG ---
SOAP Progress Note Assessment/Plan: Assessment:Inadequate pain controll however I am concerned that if I increase the morphine, she might get more confused. Plan: Will stop the Robaxin as this is not providing significant benefit and likely contributing to confusion. Will increase morphine to 3 mg every 15 minutes by APPLICATION SUPPORT ANALYST but will order Valium PRN for spasm. 02/12/17 15:39 Subjective: Still having a lot of pain. Unable to sleep last night. Nausea has resolved. Objective: Vital Signs Temp Pulse Resp BP Pulse Ox 97.6 F 69 20 163/66 H 92 02/12/17 12:00 02/12/17 12:00 02/12/17 12:00 02/12/17 12:00 02/12/17 12:00 02/11/17 02/12/17 02/13/17 05:59 05:59 05:59 Intake Total 825 Balance 825 Lungs with R basilar rales, clear with cough. COR RRR. No significant edema. Alert but a little easier to confuse than baseline. ICD10 Worksheet Patient Problems: Problems Problem Status Onset History of vertebroplasty Acute Intractable back pain Acute Back pain Acute Chronic back pain Acute Dysphagia Acute Fever Acute Hypoxia Acute Narcotic overdose Acute S/P lumbar spinal fusion Acute Weakness Acute
--- NOTE | 2017-02-12 16:38 | SOAPPROG ---
SOAP Progress Note Assessment/Plan: Assessment: Plan: 02/11/17 22:30 A/P 1. Esophageal spasm- with dysphagia. Complex esophageal history. See dictated consult for details. Will add H2 osmani therapy. 02/12/17 16:35 A/P 1. Dysphagia- with esophageal spasm. History of esophageal dysmotility. Has been on PPI BID with little relief of her symptoms. She did have a prior dilation in [place] which did not help her dysphagia. Consider repeat esophageal manometry as outpatient? H2 osmani therapy added. Since, acid suppressive therapy with PPI BID is not helping and she is have back fx secondary to osteoporosis. Would change PPI to QD dosing. GI will follow as outpatient. Thank you for the consultation! Subjective: cc: Follow up dysphagia Had significant pain last night. Minimal dysphagia. Objective: Vital Signs Temp Pulse Resp BP Pulse Ox 36.7 C 61 14 125/46 H 96 02/12/17 15:58 02/12/17 15:58 02/12/17 15:58 02/12/17 15:58 02/12/17 15:58 02/11/17 02/12/17 02/13/17 05:59 05:59 05:59 Intake Total 825 Balance 825 Physical Exam - Physical Exam General Appearance: alert, no apparent distress EENT: No scleral icterus (R), No scleral icterus (L) Respiratory: lungs clear, normal breath sounds, No rales, No rhonchi Cardiac/Chest: regular rate, rhythm, No diastolic murmur, No systolic murmur Abdomen: non-tender, soft, No distended, No guarding Skin: normal color, warm/dry Neuro/Psych: normal mood/affect, oriented x 3, No abnormal cream dumper II-XII ICD10 Worksheet Patient Problems: Problems Problem Status Onset S/P lumbar spinal fusion Acute Weakness Acute Chronic back pain Acute Dysphagia Acute Hypoxia Acute Narcotic overdose Acute Fever Acute Back pain Acute Intractable back pain Acute History of vertebroplasty Acute
[2017-02-12] MEDS: ZOLPIDEM TARTRATE 5 MG TAB PO PRN (22:31)
[2017-02-13] MEDS: morphINE PCA 30 MG/30 ML PCA IV PRN ×2 (04:08→15:26)
[2017-02-13] MEDS: LEVOTHYROXINE 25 MCG TAB PO SCH (06:06)
[2017-02-13] MEDS: diphenhydrAMINE 25 MG CAP PO PRN (08:53)
[2017-02-13] MEDS: LIPASE 12,000/AMYLASE/PROTEASE (CREON) 1 CAP PO SCH ×2 (08:53→17:48)
[2017-02-13] MEDS: busPIRone 10 MG TAB PO SCH ×2 (09:20→21:14)
[2017-02-13] MEDS: DOXYCYCLINE HYCLATE 100 MG CAP/TAB PO SCH (09:20)
[2017-02-13] MEDS: PIOGLITAZONE HCL 15 MG TAB PO SCH (09:20)
[2017-02-13] MEDS: metFORMIN HCL 500 MG TAB PO SCH ×2 (09:20→17:48)
[2017-02-13] MEDS: amLODIPine BESYLATE 5 MG TAB PO SCH (09:21)
[2017-02-13] MEDS: PANTOPRAZOLE SODIUM 40 MG TAB PO SCH ×2 (09:21→21:14)
[2017-02-13] MEDS: FAMOTIDINE 20 MG TAB PO SCH ×2 (09:21→21:14)
[2017-02-13] MEDS: predniSONE 5 MG TAB PO SCH (09:22)
[2017-02-13] MEDS: METOPROLOL SUCCINATE XR 25 MG TAB PO SCH (09:23)
[2017-02-13] MEDS: morphINE SR 30 MG TAB PO SCH ×3 (09:23→21:14)
[2017-02-13] MEDS: PREGABALIN 75 MG CAP PO SCH ×2 (09:23→21:14)
[2017-02-13] MEDS: INSULIN GLARGINE 100 UNITS/ML SYRINGE SC SCH (09:24)
--- NOTE | 2017-02-13 09:38 | SOAPPROG ---
SOAP Progress Note Assessment/Plan: Assessment: Plan: 02/13/17 09:37 severe back pain--increase po morphine and add PICC for access for her [employer] achalasia--appreciate GI input PMR stable on pred HTN--likely elevated due to pain Subjective: Hurting more this morning due to lack of IV access for [employer]. She is quite miserable at the moment. Eating ok, bowels moving. Edema is significant. Objective: Vital Signs Temp Pulse Resp BP Pulse Ox 36.3 C 67 14 171/71 H 94 02/13/17 08:00 02/13/17 08:00 02/13/17 08:00 02/13/17 08:00 02/13/17 08:00 02/12/17 02/13/17 02/14/17 05:59 05:59 05:59 Intake Total 825 1050 Balance 825 1050 GeN pleasant, uncomfortable, rocking with pain Lungs: CTAB Heart: RRR ABd + bs soft LE's 3+edema ICD10 Worksheet Patient Problems: Problems Problem Status Onset History of vertebroplasty Acute Intractable back pain Acute Back pain Acute Chronic back pain Acute Dysphagia Acute Fever Acute Hypoxia Acute Narcotic overdose Acute S/P lumbar spinal fusion Acute Weakness Acute
[2017-02-13] MEDS ORDERED: ALTEPLASE 2 MG VIAL IVP PRN (09:39)
[2017-02-13] MEDS: SENNOSIDES/DOCUSATE SODIUM TAB PO SCH ×2 (09:42→21:14)
[2017-02-13] MEDS: NS 1,000 ML IV SCH (15:25)
[2017-02-13] MEDS: ZOLPIDEM TARTRATE 5 MG TAB PO PRN (21:14)
[2017-02-14] MEDS: morphINE PCA 30 MG/30 ML PCA IV PRN ×2 (00:49→10:30)
[2017-02-14] MEDS: LEVOTHYROXINE 25 MCG TAB PO SCH (05:50)
[2017-02-14] MEDS: morphINE SR 30 MG TAB PO SCH ×3 (10:04→21:30)
[2017-02-14] MEDS: diphenhydrAMINE 25 MG CAP PO PRN ×2 (10:04→20:08)
[2017-02-14] MEDS: INSULIN GLARGINE 100 UNITS/ML SYRINGE SC SCH (10:05)
[2017-02-14] MEDS: NS 1,000 ML IV SCH (10:07)
[2017-02-14] MEDS: amLODIPine BESYLATE 5 MG TAB PO SCH (10:07)
[2017-02-14] MEDS: PIOGLITAZONE HCL 15 MG TAB PO SCH (10:08)
[2017-02-14] MEDS: predniSONE 5 MG TAB PO SCH (10:08)
[2017-02-14] MEDS: PREGABALIN 75 MG CAP PO SCH ×2 (10:09→20:08)
[2017-02-14] MEDS: busPIRone 10 MG TAB PO SCH ×2 (10:09→20:08)
[2017-02-14] MEDS: metFORMIN HCL 500 MG TAB PO SCH ×2 (10:09→17:06)
[2017-02-14] MEDS: FAMOTIDINE 20 MG TAB PO SCH ×2 (10:10→20:08)
[2017-02-14] MEDS: LIPASE 12,000/AMYLASE/PROTEASE (CREON) 1 CAP PO SCH ×2 (10:10→17:06)
[2017-02-14] MEDS: METOPROLOL SUCCINATE XR 25 MG TAB PO SCH (10:10)
[2017-02-14] MEDS: PANTOPRAZOLE SODIUM 40 MG TAB PO SCH ×2 (10:10→20:08)
[2017-02-14] MEDS: DOXYCYCLINE HYCLATE 100 MG CAP/TAB PO SCH (10:10)
[2017-02-14] MEDS: SENNOSIDES/DOCUSATE SODIUM TAB PO SCH ×2 (10:14→20:49)
--- NOTE | 2017-02-14 12:17 | SOAPPROG ---
TAMARAAP Progress Note Assessment/Plan: Assessment: 81 yo female admitted for ongoing severe back pain s/p trial w/ vertebroplasty but unfortunately this didn't help - she is planning on surgery w/ Dr. Piedra on w/ T5/6 discectomy, interbody fusion, extension of fusion to T5. -cont pain mngt w/ MANIFEST/[employer]GAN[employer]ER [employer] ORDERS and oral morphine- despite high level pain meds she is still quite uncomfortable periodically -achalasia - per Dr. 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 -difficult iv access - PICC placed successfully Plan: 02/14/17 12:13 Subjective: DOing ok - had some severe pain last night and requested ice pack, but did get some rest Objective: Vital Signs Temp Pulse Resp BP Pulse Ox 36.7 C 73 16 147/77 H 95 02/14/17 07:37 02/14/17 11:40 02/14/17 11:40 02/14/17 11:40 02/14/17 11:40 02/13/17 02/14/17 02/15/17 05:59 05:59 05:59 Intake Total 1050 482 Balance 1050 482 Gen: alert, oriented, spouse at bedside, eating lunch, constantly trying to change position to get more comfortable Heent: eomi NEck: soft supple Chest: CTA B CV: rrr ABD: soft nt nd Ext: 2+ ble edema - Pending Discharge Pending Discharge Within 48 Hours: No ICD10 Worksheet Patient Problems: Problems Problem Status Onset S/P lumbar spinal fusion Acute Weakness Acute Chronic back pain Acute Dysphagia Acute Hypoxia Acute Narcotic overdose Acute Fever Acute Back pain Acute Intractable back pain Acute History of vertebroplasty Acute
--- NOTE | 2017-02-14 15:03 | ASMTCMCOM ---
CM Note CM Note Notes: Reviewed chart and discussed w/RN. Continuing to manage pt's pain until surgery which is scheduled for Wednesday. CM will address dc needs post-op. Date Signed: 02/14/2017 03:03 PM Electronically Signed By:Shandra Fry RN
[2017-02-14] MEDS: ZOLPIDEM TARTRATE 5 MG TAB PO PRN (21:30)
[2017-02-15] MEDS: morphINE PCA 30 MG/30 ML PCA IV PRN ×3 (04:17→21:56)
[2017-02-15] MEDS: LEVOTHYROXINE 25 MCG TAB PO SCH (04:19)
[2017-02-15] MEDS: NS 1,000 ML IV SCH (04:21)
[2017-02-15] MEDS ORDERED: ceFAZolin 2 GM/SWFI 2 GM/20 ML SYR IVP ONE (06:00)
[2017-02-15] MEDS: LIPASE 12,000/AMYLASE/PROTEASE (CREON) 1 CAP PO SCH ×2 (08:15→17:55)
[2017-02-15] MEDS: amLODIPine BESYLATE 5 MG TAB PO SCH (08:17)
[2017-02-15] MEDS: predniSONE 5 MG TAB PO SCH (08:18)
[2017-02-15] MEDS: DOXYCYCLINE HYCLATE 100 MG CAP/TAB PO SCH (08:19)
[2017-02-15] MEDS: METOPROLOL SUCCINATE XR 25 MG TAB PO SCH (08:20)
[2017-02-15] MEDS: morphINE SR 30 MG TAB PO SCH ×3 (08:20→21:23)
[2017-02-15] MEDS: FAMOTIDINE 20 MG TAB PO SCH ×2 (08:21→21:23)
[2017-02-15] MEDS: metFORMIN HCL 500 MG TAB PO SCH ×2 (08:21→17:54)
[2017-02-15] MEDS: PIOGLITAZONE HCL 15 MG TAB PO SCH (08:22)
[2017-02-15] MEDS: busPIRone 10 MG TAB PO SCH ×2 (08:23→21:23)
[2017-02-15] MEDS: PANTOPRAZOLE SODIUM 40 MG TAB PO SCH ×2 (08:23→21:23)
[2017-02-15] MEDS: PREGABALIN 75 MG CAP PO SCH ×2 (08:23→21:23)
[2017-02-15] MEDS: INSULIN GLARGINE 100 UNITS/ML SYRINGE SC SCH (08:27)
[2017-02-15] MEDS: SENNOSIDES/DOCUSATE SODIUM TAB PO SCH ×2 (10:21→21:26)
--- NOTE | 2017-02-15 11:00 | SOAPPROG ---
SOAP Progress Note Assessment/Plan: Assessment: Plan: 02/13/17 09:37 severe back pain--increase po morphine and add PICC for access for her [employer] achalasia--appreciate GI input PMR stable on pred HTN--likely elevated due to pain 02/15/17 10:59 severe back pain--surgery planned for tomorrow achalasia is more challenging currently. Subjective: Achalasia has been more symptomatic. Pain is a stable challenge. Planning on surgery tomorrow. Objective: Vital Signs Temp Pulse Resp BP Pulse Ox 37.1 C 67 16 129/56 H 97 02/15/17 07:51 02/15/17 09:55 02/15/17 09:55 02/15/17 09:55 02/15/17 09:55 02/14/17 02/15/17 02/16/17 05:59 05:59 05:59 Intake Total 482 1380 Balance 482 1380 Gen: NAD Lungs/ Heart: Grossly stable Walking with walker well ICD10 Worksheet Patient Problems: Problems Problem Status Onset History of vertebroplasty Acute Intractable back pain Acute Back pain Acute Chronic back pain Acute Dysphagia Acute Fever Acute Hypoxia Acute Narcotic overdose Acute S/P lumbar spinal fusion Acute Weakness Acute
--- NOTE | 2017-02-15 12:19 | NEUSURGPN ---
Assessment/Plan: A: 81 yo F with T5/6 compression fx, disc herniation, s/p kyphoplasty with continued pain. P: -Have discussed with patient and her and we have surgery scheduled for tomorrow to entail T5/6 discectomy, interbody fusion, and extension of fusion up to T5 with sectioning/ligation. Risks, benefit and alternative discussed. Consents signed and placed on chart. -Continue pain management per Dr Daniels's team. -NPO after midnight tonight. -Preoperative orders placed. -Discussed with Dr. Piedra -Please notify NS with any change in neuro/motor exam. Subjective: low back pain adn band like pain around thoracic spine continues Objective: NAD A&Ox3 MAEx4, 5/5 and equal in BUE and BLE. Neurosurgery Physical Exam - Vitals, I&O, Labs I and O 02/14/17 02/15/17 02/16/17 05:59 05:59 05:59 Intake Total 482 1380 Balance 482 1380 Intake: Oral (ml) 150 IV Intake (ml) 482 1230 Other: Intake Quantity Yes Sufficient Number of Voids Toilet 3 2 Number of Stools Toilet 1 1 Vital Signs Temp Pulse Resp BP Pulse Ox 37.1 C 67 16 129/56 H 97 02/15/17 07:51 02/15/17 09:55 02/15/17 09:55 02/15/17 09:55 02/15/17 09:55 ICD10 Worksheet Patient Problems: Problems Problem Status Onset History of vertebroplasty Acute Intractable back pain Acute Back pain Acute Chronic back pain Acute Dysphagia Acute Fever Acute Hypoxia Acute Narcotic overdose Acute S/P lumbar spinal fusion Acute Weakness Acute
[2017-02-15] MEDS: diphenhydrAMINE 25 MG CAP PO PRN (22:35)
[2017-02-15] MEDS: ZOLPIDEM TARTRATE 5 MG TAB PO PRN (22:36)
[2017-02-15 22:37] LABS: INR 1.07 (0.83-1.16); PROTIME(PATIENT) 14.1 SEC (12.0-15.0)
[2017-02-16] MEDS: LEVOTHYROXINE 25 MCG TAB PO SCH ×2 (04:51→05:26)
[2017-02-16] MEDS ORDERED: ceFAZolin 2 GM/SWFI 2 GM/20 ML SYR IVP ONE ×2 (06:00→14:00)
[2017-02-16] MEDS ORDERED: ACETAMINOPHEN 500 MG TAB PO ONE (06:00)
[2017-02-16] MEDS: diphenhydrAMINE 25 MG CAP PO PRN (06:34)
[2017-02-16] MEDS: metFORMIN HCL 500 MG TAB PO SCH ×2 (07:33→21:55)
--- NOTE | 2017-02-16 08:00 | NEUSURGPN ---
Assessment/Plan: A: 81 yo F with T5/6 compression fx, disc herniation, s/p kyphoplasty with worsening low back pain this morning. P: -Surgery today: T5/6 discectomy, interbody fusion, and extension of fusion up to T5 with sectioning/ligation. Risks (including paralysis and numbness specifically discussed) , benefit and alternative discussed. Consents signed and placed on chart. -Patient marked -Ancef ordered -Preoperative Tylenol, gabapentin ordered. Patient already on MsContin and Predisone -Continue pain management per Dr Daniels's team. -NPO -Seen by Dr. Piedra and myself. -Please notify NS with any change in neuro/motor exam. Subjective: back pain increased this morning. Numbness in BLE Objective: NAD A&Ox3 MAEx4 5/5 and equal in BUE and BLE - Physician Discussed Patient with Dr.: Piedra Neurosurgery Physical Exam - Vitals, I&O, Labs I and O 02/15/17 02/16/17 02/17/17 05:59 05:59 05:59 Intake Total 1380 1000 Balance 1380 1000 Intake: Oral (ml) 150 400 IV Intake (ml) 1230 IV Infused (ml) 600 Ns 1,000 ml @ 50 mls/hr 600 IV CONT DIEGO Rx#: [id number] Other: Intake Quantity Yes Yes Sufficient Number of Voids Toilet 2 4 Number of Stools Toilet 1 Vital Signs Temp Pulse Resp BP Pulse Ox 36.7 C 69 16 152/74 H 96 02/16/17 07:31 02/16/17 07:31 02/16/17 07:31 02/16/17 07:31 02/16/17 07:31 Laboratory Results 02/15/17 22:06 02/15/17 22:06 ICD10 Worksheet Patient Problems: Problems Problem Status Onset History of vertebroplasty Acute Intractable back pain Acute Back pain Acute Chronic back pain Acute Dysphagia Acute Fever Acute Hypoxia Acute Narcotic overdose Acute S/P lumbar spinal fusion Acute Weakness Acute
[2017-02-16] MEDS: morphINE PCA 30 MG/30 ML PCA IV PRN (08:15)
[2017-02-16] MEDS ORDERED: HYDROCORTISONE 100 MG/2 ML VIAL IVP ONE ×3 (08:38→18:56)
[2017-02-16] MEDS ORDERED: PREGABALIN 150 MG CAP PO ONE (10:00)
[2017-02-16] MEDS: PREGABALIN 75 MG CAP PO SCH ×2 (10:00→20:24)
[2017-02-16] MEDS: INSULIN GLARGINE 100 UNITS/ML SYRINGE SC SCH (10:33)
[2017-02-16] MEDS: busPIRone 10 MG TAB PO SCH ×2 (10:33→21:55)
[2017-02-16] MEDS: DOXYCYCLINE HYCLATE 100 MG CAP/TAB PO SCH (10:33)
[2017-02-16] MEDS: PANTOPRAZOLE SODIUM 40 MG TAB PO SCH ×2 (10:33→20:24)
[2017-02-16] MEDS: morphINE SR 30 MG TAB PO SCH ×3 (10:33→22:59)
[2017-02-16] MEDS: METOPROLOL SUCCINATE XR 25 MG TAB PO SCH (10:34)
[2017-02-16] MEDS: PIOGLITAZONE HCL 15 MG TAB PO SCH (10:34)
[2017-02-16] MEDS: predniSONE 5 MG TAB PO SCH (10:34)
[2017-02-16] MEDS: FAMOTIDINE 20 MG TAB PO SCH ×2 (10:36→20:25)
[2017-02-16] MEDS: SENNOSIDES/DOCUSATE SODIUM TAB PO SCH ×2 (10:41→20:25)
[2017-02-16] MEDS: amLODIPine BESYLATE 5 MG TAB PO SCH (10:48)
[2017-02-16] MEDS: LIPASE 12,000/AMYLASE/PROTEASE (CREON) 1 CAP PO SCH ×2 (10:48→22:58)
[2017-02-16] MEDS ORDERED: GABAPENTIN 300 MG CAP PO ONE (12:21)
[2017-02-16] MEDS ORDERED: ACETAMINOPHEN 500 MG TAB ONE (14:01)
[2017-02-16] MEDS ORDERED: BUPIVACAINE 0.25% 30 ML SDV ONE (15:04)
[2017-02-16] MEDS ORDERED: THROMBIN (BOVINE) 20,000 UNIT VIAL TP ONE ×2 (15:04→16:45)
[2017-02-16] MEDS ORDERED: MIDAZOLAM 2 MG/2 ML VIAL ONE (15:05)
[2017-02-16] MEDS ORDERED: BACITRACIN 50,000 UNITS/10 ML SYR IRR ONE (15:05)
[2017-02-16] MEDS ORDERED: PROPOFOL/EMULSION 500 MG/50 ML BOTTLE IV ONE ×2 (15:05→17:02)
--- NOTE | 2017-02-16 16:23 | PDANEPAE ---
ANE Past Medical History - Cardiovascular History Hx Hypertension: Yes Hx Arrhythmias: No Hx Chest Pain: No Hx Coronary Artery / Peripheral Vascular Disease: No Hx CHF / Valvular Disease: No Hx Palpitations: No Cardiovascular History Comment: HX PVC'S - Pulmonary History Hx COPD: No Hx Asthma/Reactive Airway Disease: No Hx Recent Upper Respiratory Infection: No Hx Oxygen in Use at Home: Yes O2 in Use at Home (L/minute): 3 Hx Sleep Apnea: Yes Sleep Apnea Screening Result - Last Documented: Positive Pulmonary History Comment: [facility] DOES HOME O2. OVERNIGHT SLLEP TEST SHOWED LOW 02 AT NIGHT - Neurologic History Hx Cerebrovascular Accident: No Hx Seizures: No Hx Dementia: No Neurologic History Comment: SCIATICA TJ LEGS. NEUROPATHY TJ FEET - Endocrine History Hx Diabetes: Yes Endocrine History Comment: IDDM. HYPOTHYROID - Renal History Hx Renal Disorders: No Renal History Comment: 3 WEEKS AGO HAD TROUBLE URINATING WAS IN [facility] ER - Liver History Hx Hepatic Disorders: No - Neurological & Psychiatric Hx Hx Neurological and Psychiatric Disorders: No - Cancer History Hx Cancer: No - Congenital Disorder History Hx Congenital Disorders: No - GI History Hx Gastrointestinal Disorders: Yes Gastrointestinal History Comment: CONSTIPATION. NARROW ESOPHOGUS, NEED OF DILATION, REFLUX. HAD FOOD STUCK IN THROAT FEW WKS AGO. HAD NICK FUNDOPLICATION HX. DIABETIC DIET- AVOID SUGAR - Other Health History Other Health History: PSORIASIS ON ELBOWS , polymyalgia rheumatica on steroids for 30 years. IMPLANTS DENTAL. OA HANDS, BACK AND NECK. BRUISE EASILY. recent diagnosis of sleep apnea, has not tried CPAP yet - Chronic Pain History Chronic Pain: Yes (LOWER BACK AND LEGS) - Surgical History Prior Surgeries: EGD 02/2015. TONSILECTOMY 12 YEARS AGO. NECK FUSION. RT FOOT ORIF. YOLY FUNDIPLICATION WITH DANIELLE. CATARACTS BILATERALLY. KYPHOPLASTY L5 -T11. HAND RIGHT SURGERY. LUMBAR FUSIONL1-4 WITH POST HARDWARE REMVL ANE Review of Systems Review of Systems: ANE Patient History - Allergies Allergies/Adverse Reactions: Penicillins Allergy (Intermediate, Verified 03/09/16 17:56) Rash Sulfa (Sulfonamide Antibiotics) Allergy (Unknown, Verified 03/09/16 17:56) BANDAIDS Allergy (Intermediate, Uncoded 03/07/16 08:54) Rash - Home Medications Home Medications: Insulin Detemir [Levemir Flextouch] 10 unit SQ DAILY 08/20/16 [Last Taken ] Lipase 12,000/Amylase/Protease [Creon 12 (*)] 2 cap PO BID 08/20/16 [Last Taken 02/09/17] Metoprolol Succinate Xr [Toprol Xl 50 mg (*)] 75 mg PO DAILY 08/20/16 [Last Taken 02/09/17] Omeprazole 40 mg PO BID 08/20/16 [Last Taken 02/09/17] Pioglitazone HCl [Actos] 45 mg PO DAILY 08/20/16 [Last Taken 02/09/17] Zolpidem Tartrate [Ambien 10 mg] 10 mg PO HS PRN 08/20/16 [Last Taken 1 Week Ago ~02/03/17] amLODIPine BESYLATE [Norvasc 5 mg (*)] 7.5 mg PO DAILY 08/20/16 [Last Taken 03/28] busPIRone [Buspar (*)] 10 mg PO BID 08/20/16 [Last Taken 02/09/17] predniSONE 7.5 mg PO DAILY 08/20/16 [Last Taken 02/09/17] Doxycycline Hyclate [Vibramycin 100 MG (*)] 100 mg PO DAILY 09/03/16 [Last Taken 02/09/17] Levothyroxine [Synthroid 25 mcg (*)] 25 mcg PO DAILY06 02/01/17 [Last Taken 03/28] Methocarbamol [Robaxin 750 mg (*)] 750 mg PO TID PRN 02/01/17 [Last Taken 3 Days Ago ~02/07/17] Pregabalin [Lyrica 50mg (*)] 50 mg PO BID 02/01/17 [Last Taken 02/09/17] metFORMIN HCL [Glucophage 500 mg (*)] 500 mg PO BIDMEAL 02/01/17 [Last Taken 03/28] oxyCODONE IR [Oxycodone Ir (*)] 5 - 10 mg PO Q6 PRN 02/10/17 [Last Taken 12:00] - NPO status NPO Since - Liquids (Date): 02/16/17 NPO Since - Liquids (Time): 00:00 NPO Since - Solids (Date): 02/16/17 NPO Since - Solids (Time): 00:00 - Smoking Hx Smoking Status: Former smoker - Family Anes Hx Family Hx Anesthesia Complications: NONE ANE Labs/Vital Signs - Labs Result Diagrams: 02/15/17 22:06 02/15/17 22:06 - Vital Signs Blood Pressure: 143/65 Heart Rate: 68 Respiratory Rate: 18 O2 Sat (%): 96 Height: 161.5 cm Weight: 65.771 kg ANE Physical Exam - Airway Neck exam: FROM Mallampati Score: Class 3 Mouth exam: normal dental/mouth exam - Pulmonary Pulmonary: no respiratory distress - Cardiovascular Cardiovascular: regular rate and rhythym - ASA Status ASA Status: III ANE Anesthesia Plan Anesthesia Plan: general endotracheal anesthesia Lines/Monitors: arterial line Urgent/Emergent Case: Chaparro jernigan completed preop but documented later for safe timely pt care
[2017-02-16] MEDS ORDERED: BACITRACIN ZINC 14.2 GM OINTTUBE TP ONE (18:28)
[2017-02-16] MEDS ORDERED: ALBUTEROL 3 ML DEYVIAL IH PRN (18:57)
[2017-02-16] MEDS ORDERED: ONDANSETRON 4 MG/2 ML VIAL IVP PRN (18:57)
[2017-02-16] MEDS ORDERED: fentaNYL 100 MCG/2 ML INJ IVP PRN (18:57)
[2017-02-16] MEDS ORDERED: NALOXONE HCL 0.4 MG/ML INJ IVP PRN ×2 (18:57)
--- NOTE | 2017-02-16 18:57 | POSTANESTH ---
Post Anesthetic Evaluation Cardiovascular Status: Similar to Pre-Op Cond Respiratory Status: Similar to Pre-op Cond. Level of Consciousness/Mental Status: Mildly Sleepy, Arousable Pain Control: Adequate, Prn Tx Ordered Nausea/Vomiting Control: Adequate, Prn Tx Ordered Complications Possibly Related to Anesthesia: None Noted
[2017-02-16] MEDS ORDERED: NS W/ 20 KCl/L 1,000 ML IV SCH (19:00)
--- NOTE | 2017-02-16 19:02 | POSTOPPROG ---
Post Op Note Date of Operation: 02/16/17 Surgeon: Ramon Piedra [employer]cher [employer]: Antwan Benavides PA-C Anesthesiologist: Doris Anesthesia: GET(General Endotracheal) Pre-op Diagnosis: thoracic stenosis, back pain Post-op Diagnosis: same Indication: nerve compression, intractable pain Procedure: T5-6 laminectomy/discectomy, extension of fusion Findings: Please see dictation Inf/Abcess present in the surg proc area at time of surgery?: No Depth: Organ Space EBL: 100-500 Complications: dural tear Drains: Bryan Jackson Specimen(s): none PA Addendum - Addendum .: S: Pt in PACU, c/o back pain and arm pain (art line) O: Sleepy but awakes easily NAD VSS MAEx4 Motor 5/5 BLE Incision dressed +LT JPx1 [place] in A: 81 yo F s/p T5-6 laminectomy, discectomy, extension of fusion to T5. P: Keep HOB > 30 degrees Pain management - continue current regimen No brace PT/OT Post op xrays TEDs, SCDs, lovenox POD#2 Call NS with any issues
[2017-02-16] MEDS ORDERED: fentaNYL 100 MCG/2 ML INJ ONE (19:05)
--- NOTE | 2017-02-16 20:18 | GOP ---
[f rep st] OPERATIVE REPORT DATE OF OPERATION: 02/16/2017 SURGEON: Ramon Piedra MD KITCHEN STEWARDESS: LISA Pritchett PREOPERATIVE DIAGNOSIS: 1. 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 2. Left-sided T5-T6 disk herniation with spinal cord compression. 3. Bilateral T5-T6 radiculopathy. 4. Treatment refractory to nonoperative intervention. 5. Osteoporosis. POSTOPERATIVE DIAGNOSIS: 1. 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 2. Left-sided T5-T6 disk herniation with spinal cord compression. 3. Bilateral T5-T6 radiculopathy. 4. Treatment refractory to nonoperative intervention. 5. Osteoporosis. PROCEDURE PERFORMED: 1. Posterior arthrodesis with approach to T5, T6, T7. 2. Bilateral pedicle screw placement at T5 from the Orthogemra 4.75 system. 3. Posterolateral fusion bilaterally between T5 and T6 with lateral connectors at the T5 level. 4. Bilateral posterolateral fusion T5-T6 with morselized autograft and allograft. 5. Decompressive laminectomy T5-T6 with left-sided diskectomy, nerve and spinal cord decompression. 6. Bilateral T5 nerve sectioning. 7. Use of intraoperative 3D Stealth navigation. 8. Use of intraoperative fluoroscopy, less than 1-hour physician time. 9. Use of neuromonitoring. 10. Use of operating microscope. FINDINGS: per imaging with a large free fragment of disc at jordy T5/6 level SPECIMENS: Culture was sent from the right-sided T5-T6 facet joint. INDICATIONS: The patient is an 81-year-old woman who has undergone multiple spinal surgeries of which she presented with known adjacent level kyphosis at the T5-T6 level. The patient presented with exacerbated back pain and evidence of T5-T6 disk herniation eccentric to the left side with spinal cord and nerve root compression. The patient's bone was noted to be quite osteoporotic and she had undergone a prior kyphoplasty at T5 and T6 by interventional radiologist as well as a bilateral T5-T6 transforaminal epidural steroid injection which provided her with excellent relief for approximately 5 days. She presents now with worsening back pain again and stable kyphosis. I have discussed this extensively with the patient and her , and given the fact that her bone was so soft and she had stable kyphosis, the plan was for placement of bilateral pedicle screws in the T5 with a decompressive laminectomy at T5-T6 and left-sided diskectomy. Given the fact that she had bilateral radiculopathy from the T5-T6 kyphosis and disk herniation, we also opted to go forward with a bilateral nerve transection at T5 to assist with some of her radicular pain. The patient presents now for that intervention. DESCRIPTION OF PROCEDURE: Patient was brought to the operating theater, underwent general endotracheal anesthesia without complications. She had Venodynes, BABAK hose, and the appropriate lines placed by Anesthesia. The arms were then tucked and all bony prominences inspected and padded. The previous incision at the upper thoracic portion was identified and prepped and draped in the usual sterile surgical fashion. A time-out was completed per protocol. The patient received antibiotics within 1 hour of incision. The incision was infiltrated with Marcaine with epinephrine and taken down with the scalpel blade in the midline. Using the monopolar, the incision was taken down in the midline through the lumbodorsal fascia. We identified the spinous process of T5. We carried out a subperiosteal dissection out to the bilateral tips of the rods and identified the bilateral screws at T6 and T7 with a cross connector. The tissues were reflected laterally. We attached our 3D Stealth navigation clamp to the spinous process of T5 and completed a 3D Stealth navigation spin. Using 3D Stealth navigation, we placed the menhaden vessel pilot holes for the bilateral pedicle screws into T5. The patient was noted to have bone cement which drove the screw somewhat laterally. We tapped and placed 5.5 x 30 mm screw on the left at T5 and a 5.5 x 35 mm screw on the right at T5, both from a more lateral to medial and inferior to superior trajectory in order to get a lateral connector onto the rods. A 3D navigation spin demonstrated good placement of the hardware. There was some question as to whether or not the right-sided screw was laterally and inferiorly breeched. We removed the screw and palpated the pedicle hole which did not have any cortical breaches. We then replaced the right-sided screw. At this point, the microscope was brought into the field to assist with microscopic dissection and maintain illumination and magnification. Using a combination of bur tip on the drill bit, Kerrison punches, and Leksell rongeur, we completed decompressive laminectomy with bilateral mesial facetectomies T5- T6. We then reached around to the left side and to the lateral aspect of ventral aspect of the thecal sac where we pulled out several free fragments of disk material using angled nerve hooks. We then freed up the bilateral nerve roots at the T5-T6 level circumferentially. Ties were then placed around the base of the T5 nerves bilaterally as well as distally just proximal to the DRG. The nerves were bilaterally then coagulated. The nerves were then cut. At that time, the left-sided T5 nerve root base ended up slipping off the stub of the nerve itself and there was a small amount of CSF leaking from jordy nerve root sleeve. I could not repair this with a primary stitch since it was lateral and given the patient's kyphosis. I placed a small layer of Surgicel and DuraSeal over this area, and there was no further egress of CSF on further visualization. There were no changes in neuro monitoring throughout this portion of the procedure. The wound was irrigated copiously with bacitracin irrigation. We decorticated the bone bilaterally between T5 and T6. Two lateral connectors were placed into the heads of the screws at T5 into the lateral aspects of the rods. The rods were also bent medially and more ventrally to match the patient's curvature. I did not feel it was safe to place screws into T4 given the face that she had history of kyphosis and also had evidence of cement into the T5-T6 disk space for placement of possible interbody graft. At this point, we placed the cap screws and tightened them down with cap screws, which were then tightened per the loan collector's setting. A drain was left in the subfascial space and morselized autograft and allograft were placed bilaterally between T5- T6 for the posterolateral fusion. The wound was then closed in multiple layers using Vicryl sutures for the deep layers and a running nylon stitch for the skin. The patient's wounds were dressed sterilely. She was flipped supine onto the transfer cart. She was still asleep at the time of this dictation, but there were no complications and no noted changes on neuromonitoring throughout the procedure. COMPLICATIONS: Small CSF leak was noted at the nerve root sleeve on the left side after transection. A small layer of Surgicel was placed as this could not be closed primarily with a stitch. /[id number]/MODL MTDD
[2017-02-16] MEDS: DOCUSATE SODIUM 100 MG CAP PO SCH (20:25)
[2017-02-16] MEDS: METHOCARBAMOL 750 MG TAB PO PRN (20:48)
[2017-02-16] MEDS: ZOLPIDEM TARTRATE 5 MG TAB PO PRN (22:37)
--- NOTE | 2017-02-16 23:23 | SOAPPROG ---
SOAP Progress Note Assessment/Plan: Assessment: Sleeping post op with adequate pain control. Plan: Will follow closely. will need to do stress steroid dosing. Follow labs. 02/12/17 15:39 02/16/17 23:22 Subjective: Sleeping comfortably. I did not awaken Objective: Vital Signs Temp Pulse Resp BP Pulse Ox 98.4 F 59 L 16 136/61 H 99 02/16/17 23:05 02/16/17 23:05 02/16/17 23:05 02/16/17 23:05 02/16/17 23:05 Microbiology 02/16/17 17:04 Gram Stain - Final Back - Eswab 02/16/17 17:04 Mycobacterial Smear (KYUNG) - Final Back - Eswab Mycobacterial Culture - Final Laboratory Results 02/15/17 22:06 02/15/17 22:06 02/15/17 02/16/17 02/17/17 05:59 05:59 05:59 Intake Total 1380 1000 2090 Output Total 1215 Balance 1380 1000 875 PT 14.1 SEC (12.0-15.0) 02/15/17 22:06 INR 1.07 (0.83-1.16) 02/15/17 22:06 VS stable. HGB stable. oxygenating well. She is demonstrating a pattern consistent with sleep apnea however her saturations remain good. ICD10 Worksheet Patient Problems: Problems Problem Status Onset History of vertebroplasty Acute Intractable back pain Acute Back pain Acute Chronic back pain Acute Dysphagia Acute Fever Acute Hypoxia Acute Narcotic overdose Acute S/P lumbar spinal fusion Acute Weakness Acute
[2017-02-17] MEDS: ceFAZolin 2 GM/DEXTROSE 100 ML IV SCH ×2 (01:27→08:36)
[2017-02-17 04:33] LABS: PLATELET COUNT 263 10^3/uL (150-400)
[2017-02-17] MEDS: LEVOTHYROXINE 25 MCG TAB PO SCH (05:53)
--- NOTE | 2017-02-17 08:03 | NEUSURGPN ---
Date of Surgery: 02/16/17 Post Op Day: 1 Assessment/Plan: 81 yo female s/p T5/6 laminectomy with discectomy and extension of fusion - neuro stable - pain controlled - no brace - keep HOB > 30 degrees due to CSF leak - JORGE drain to be removed tomorrow morning - PT/OT - postop x-rays pending - lovenox to start POD#2 Subjective: Doing well this morning. Surgical pain controlled. No lower extremity symptoms. Objective: Awake. Alert. PERRL. EOMI Facial expression symmetrical Muscle strength full at 5/5 Sensation intact Incision with dressing c/d/i - Physician Discussed Patient with .: [facility] Physical Exam - Vitals, I&O, Labs I and O 02/16/17 02/17/17 02/18/17 05:59 05:59 05:59 Intake Total 1000 2490 Output Total 2075 Balance 1000 415 Weight 65.771 kg Intake: Oral (ml) 400 640 IV Intake (ml) 1850 IV Infused (ml) 600 Ns 1,000 ml @ 50 mls/hr 600 IV CONT DIEGO Rx#: [id number] Output: Urine (ml) 1715 Catheter 1715 Estimated Blood Loss (ml) 150 JORGE Drain Output (ml) 210 Back Bryan Jackson 210 Other: Intake Quantity Yes Sufficient Number of Voids Toilet 4 2 Microbiology 02/16/17 17:04 Gram Stain - Final Back - Eswab 02/16/17 17:04 Mycobacterial Smear (KYUNG) - Final Back - Eswab Mycobacterial Culture - Final Vital Signs Temp Pulse Resp BP Pulse Ox 37.3 C 70 18 157/62 H 97 02/17/17 04:00 02/17/17 04:00 02/17/17 04:00 02/17/17 04:00 02/17/17 04:00 Laboratory Results 02/17/17 04:25 02/17/17 04:25 ICD10 Worksheet Patient Problems: Problems Problem Status Onset History of vertebroplasty Acute Intractable back pain Acute Back pain Acute Chronic back pain Acute Dysphagia Acute Fever Acute Hypoxia Acute Narcotic overdose Acute S/P lumbar spinal fusion Acute Weakness Acute
[2017-02-17] MEDS: POLYETHYLENE GLYCOL 3350 17 GM PKT PO SCH (08:36)
[2017-02-17] MEDS: FAMOTIDINE 20 MG TAB PO SCH ×2 (08:36→20:46)
[2017-02-17] MEDS: DOCUSATE SODIUM 100 MG CAP PO SCH ×2 (08:37→20:45)
[2017-02-17] MEDS: METOPROLOL SUCCINATE XR 25 MG TAB PO SCH (08:37)
[2017-02-17] MEDS: amLODIPine BESYLATE 5 MG TAB PO SCH (08:37)
[2017-02-17] MEDS: DOXYCYCLINE HYCLATE 100 MG CAP/TAB PO SCH (08:37)
[2017-02-17] MEDS: morphINE SR 30 MG TAB PO SCH ×3 (08:37→21:48)
[2017-02-17] MEDS: INSULIN GLARGINE 100 UNITS/ML SYRINGE SC SCH (08:38)
[2017-02-17] MEDS: metFORMIN HCL 500 MG TAB PO SCH ×2 (08:38→17:36)
[2017-02-17] MEDS: PREGABALIN 75 MG CAP PO SCH ×2 (10:11→20:45)
[2017-02-17] MEDS: busPIRone 10 MG TAB PO SCH ×2 (10:12→20:45)
[2017-02-17] MEDS: SENNOSIDES/DOCUSATE SODIUM TAB PO SCH ×2 (10:12→20:45)
[2017-02-17] MEDS: PIOGLITAZONE HCL 15 MG TAB PO SCH (10:12)
[2017-02-17] MEDS: PANTOPRAZOLE SODIUM 40 MG TAB PO SCH ×2 (10:12→20:46)
[2017-02-17] MEDS: predniSONE 5 MG TAB PO SCH ×2 (10:17→17:36)
[2017-02-17] MEDS: LIPASE 12,000/AMYLASE/PROTEASE (CREON) 1 CAP PO SCH ×2 (10:31→17:36)
--- NOTE | 2017-02-17 15:37 | ASMTCMCOM ---
CM Note CM Note Notes: Patient is POD #1 T 5/6 laminectomy with discectomy. This is her 8th spinal surgery (and, she swears, her last). She has had various post-hospital services (home care, inpatient rehab, etc) and is not sure what she'll need this time. She lives with her and is quite independent. I anticipate that she will go to outpatient PT but may decide to start with home PT first. CM will follow. Current CM Discharge plan: home w homecare vs home w outpatient PT Date Signed: 02/17/2017 03:36 PM Electronically Signed By:Addie Tineo RN
[2017-02-17] MEDS: ZOLPIDEM TARTRATE 5 MG TAB PO PRN (20:45)
--- NOTE | 2017-02-17 22:14 | SOAPPROG ---
SOAP Progress Note Assessment/Plan: Assessment: Doing well post op. Pain better. Significant anemia. Plan: Proceed with transfusion. FOllow symptoms and signs closely. 02/12/17 15:39 02/16/17 23:22 02/17/17 22:13 Subjective: Pain much better post op than pre op. Was able to sleep 8 hours last night. Objective: Vital Signs Temp Pulse Resp BP Pulse Ox 97.6 F 68 16 153/61 H 94 02/17/17 20:00 02/17/17 20:00 02/17/17 20:00 02/17/17 20:00 02/17/17 20:00 Microbiology 02/16/17 17:04 Gram Stain - Final Back - Eswab 02/16/17 17:04 Mycobacterial Smear (KYUNG) - Final Back - Eswab Mycobacterial Culture - Final Laboratory Results 02/17/17 04:25 02/17/17 04:25 02/16/17 02/17/17 02/18/17 05:59 05:59 05:59 Intake Total 1000 2490 1494 Output Total 2075 40 Balance 8287 889 2822 PT 14.1 SEC (12.0-15.0) 02/15/17 22:06 INR 1.07 (0.83-1.16) 02/15/17 22:06 Lungs clear to asc. No significant edema. VS good. HGB low post op at 7.3 ICD10 Worksheet Patient Problems: Problems Problem Status Onset History of vertebroplasty Acute Intractable back pain Acute Back pain Acute Chronic back pain Acute Dysphagia Acute Fever Acute Hypoxia Acute Narcotic overdose Acute S/P lumbar spinal fusion Acute Weakness Acute
[2017-02-18] MEDS: LEVOTHYROXINE 25 MCG TAB PO SCH (05:00)
[2017-02-18 05:24] LABS: PLATELET COUNT 279 10^3/uL (150-400)
--- NOTE | 2017-02-18 08:37 | NEUSURGPN ---
Assessment/Plan: 81 yo female s/p T5/6 laminectomy with discectomy and extension of fusion POD#2 - neuro stable - pain controlled on morphine IR/ER - no brace - keep HOB > 30 degrees due to CSF leak - JORGE drain to be removed today - Add polar care ice pack - PT/OT - postop x-rays pending - lovenox to start today - D/w Dr Piedra - Call NS with any questions or concerns Subjective: Pt resting in bed, states she has some continued pain over scapula and it is tender to the touch Objective: AAOx3 NAD VSS MAEx4 Motor 5/5 BLE +LT JORGE drain in place Incision dressed Urinary Catheter in Place: No - Physician Discussed Patient with : Dorothe[facility] Neurosurgery Physical Exam - Vitals, I&O, Labs I and O 02/17/17 02/18/17 02/19/17 05:59 05:59 05:59 Intake Total 2490 1494 Output Total 2075 480 50 Balance 415 1014 -50 Weight 65.771 kg Intake: Oral (ml) 640 1100 IV Intake (ml) 1850 50 Whole Blood (ml) 344 Output: Urine (ml) 1715 440 Catheter 1715 Toilet 440 Estimated Blood Loss (ml) 150 JORGE Drain Output (ml) 210 40 50 Back Bryan Jackson 210 40 50 Other: Number of Voids Toilet 2 1 Number of Stools Toilet 1 Microbiology 02/16/17 17:04 Gram Stain - Final Back - Eswab Vital Signs Temp Pulse Resp BP Pulse Ox 36.3 C 72 16 161/67 H 96 02/18/17 07:33 02/18/17 07:33 02/18/17 07:33 02/18/17 07:33 02/18/17 07:33 Laboratory Results 02/18/17 05:10 02/17/17 04:25 ICD10 Worksheet Patient Problems: Problems Problem Status Onset History of vertebroplasty Acute Intractable back pain Acute Back pain Acute Chronic back pain Acute Dysphagia Acute Fever Acute Hypoxia Acute Narcotic overdose Acute S/P lumbar spinal fusion Acute Weakness Acute
[2017-02-18] MEDS: POLYETHYLENE GLYCOL 3350 17 GM PKT PO SCH (08:58)
[2017-02-18] MEDS: LIPASE 12,000/AMYLASE/PROTEASE (CREON) 1 CAP PO SCH ×2 (08:59→18:35)
[2017-02-18] MEDS: metFORMIN HCL 500 MG TAB PO SCH ×2 (09:00→18:30)
[2017-02-18] MEDS: predniSONE 5 MG TAB PO SCH ×2 (09:00→18:35)
[2017-02-18] MEDS: amLODIPine BESYLATE 5 MG TAB PO SCH (09:01)
[2017-02-18] MEDS: busPIRone 10 MG TAB PO SCH ×2 (09:03→22:05)
[2017-02-18] MEDS: DOCUSATE SODIUM 100 MG CAP PO SCH ×2 (09:03→22:05)
[2017-02-18] MEDS: DOXYCYCLINE HYCLATE 100 MG CAP/TAB PO SCH (09:04)
[2017-02-18] MEDS: INSULIN GLARGINE 100 UNITS/ML SYRINGE SC SCH (09:04)
[2017-02-18] MEDS: FAMOTIDINE 20 MG TAB PO SCH ×2 (09:04→22:06)
[2017-02-18] MEDS: METOPROLOL SUCCINATE XR 25 MG TAB PO SCH (09:05)
[2017-02-18] MEDS: morphINE SR 30 MG TAB PO SCH ×3 (09:06→22:06)
[2017-02-18] MEDS: PIOGLITAZONE HCL 15 MG TAB PO SCH (09:07)
[2017-02-18] MEDS: PANTOPRAZOLE SODIUM 40 MG TAB PO SCH ×2 (09:07→22:07)
[2017-02-18] MEDS: SENNOSIDES/DOCUSATE SODIUM TAB PO SCH ×2 (09:08→22:08)
[2017-02-18] MEDS: PREGABALIN 75 MG CAP PO SCH ×2 (09:08→22:08)
--- NOTE | 2017-02-18 09:51 | SOAPPROG ---
SOAP Progress Note Assessment/Plan: Assessment: 81 yo female admitted for ongoing severe back pain s/p trial w/ vertebroplasty but unfortunately this didn't help - she is planning on surgery w/ Dr. Piedra on w/ T5/6 discectomy, interbody fusion, extension of fusion to T5. 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 -difficult iv access - PICC placed successfully Plan: 02/14/17 12:13 02/18/17 09:47 81 yo female s/p T5/6 laminectomy w/ discectomy and extension of fusion, w small CSF leak. -cont pain management - will need to convert to po meds for preparation for home -stress dose steroids (PMR) will reduce down to usual dosing over next 1-2 days if doing well -h/a - likely 2/2 small CSF leak - elev hob 30 degrees or more -PT/OT, will need home PT /HH most likely -dvt proph - NS restarted lovenox -DM fsbs, insulin Subjective: Doing well overall, c/o h/a but otherwise pain greatly improved Objective: Vital Signs Temp Pulse Resp BP Pulse Ox 36.3 C 87 16 154/71 H 96 02/18/17 07:33 02/18/17 09:05 02/18/17 07:33 02/18/17 09:05 02/18/17 07:33 Microbiology 02/16/17 17:04 Gram Stain - Final Back - Eswab Laboratory Results 02/18/17 05:10 02/17/17 04:25 02/17/17 02/18/17 02/19/17 05:59 05:59 05:59 Intake Total 2490 1494 Output Total 2075 480 50 Balance 415 1014 -50 PT 14.1 SEC (12.0-15.0) 02/15/17 22:06 INR 1.07 (0.83-1.16) 02/15/17 22:06 GEn: A&O x 3, spouse at bedside, alert, up in chair sipping water Heent: eomi NEck: soft/supple Back - w/ dressing in place, JORGE drain CHest: cta b CV: rrr Abd: soft nt nd + bs, has had BM Ext: trace edema, 2+ pulses ICD10 Worksheet Patient Problems: Problems Problem Status Onset S/P lumbar spinal fusion Acute Weakness Acute Chronic back pain Acute Dysphagia Acute Hypoxia Acute Narcotic overdose Acute Fever Acute Back pain Acute Intractable back pain Acute History of vertebroplasty Acute
--- NOTE | 2017-02-18 12:01 | ASMTCMCOM ---
CM Note CM Note Notes: 02/18/2017 Case Management Note Met w/pt and to discuss PT recommendation for home care services. Pt politely but firmly declined any further assistance from case management. Pt reports utilizing home care srevices after the last 7 d/c for her back surgeries and feels she has adequate knowledge in what to expect during the recovery period. Her and son that lives "right up the road" will provide support. Pt states she is well connected with medical providers if she has questions or concerns regarding progress of her recovery. Case Management d/c poc: home with family support and follow up as directed. Case Management available should pt change her mind and request home care services. Date Signed: 02/18/2017 12:00 PM Electronically Signed By:Dorcas Asencio RN
[2017-02-18] MEDS: METHOCARBAMOL 750 MG TAB PO PRN (12:46)
[2017-02-18] MEDS: ENOXAPARIN 40 MG/0.4 ML SYR SC SCH (16:37)
[2017-02-18] MEDS ORDERED: D5W 1/2 NS 1,000 ML IV SCH (18:30)
[2017-02-18] MEDS: ZOLPIDEM TARTRATE 5 MG TAB PO PRN (22:08)
[2017-02-19] MEDS: METHOCARBAMOL 750 MG TAB PO PRN ×2 (01:35→11:01)
[2017-02-19] MEDS: LEVOTHYROXINE 25 MCG TAB PO SCH (06:00)
--- NOTE | 2017-02-19 07:33 | NEUSURGPN ---
Assessment/Plan: 81 yo female s/p T5/6 laminectomy with discectomy and extension of fusion POD#3 - neuro stable - pain controlled on morphine IR/ER - no brace - keep HOB > 30 degrees due to CSF leak for 5 days total. - JORGE drain out - polar care ice pack PRN - PT/OT - postop x-rays show stable hardware - wound cultures from OR NGTD - TEDs, SCDs, lovenox - D/w Dr Piedra - OK for DC from NS standpoint. Will need follow up in 2 weeks for suture removal - Call NS with any questions or concerns Subjective: Pt resting in bedside chair, states had low blood sugar yesterday. Eager to go home once cleared. Objective: AAOx3 NAD VSS MAEx4 Incision dressed cdi - sutures in place +LT Urinary Catheter in Place: No - Physician Discussed Patient with : [facility]surgery Physical Exam - Vitals, I&O, Labs I and O 02/18/17 02/19/17 02/20/17 05:59 05:59 05:59 Intake Total 1494 1150 Output Total 480 500 Balance 1014 650 Intake: Oral (ml) 1100 750 IV Intake (ml) 50 IV Infused (ml) 400 Ns 1,000 ml @ 50 mls/hr 400 IV CONT DIEGO Rx#: [id number] Whole Blood (ml) 344 Output: Urine (ml) 440 450 Toilet 440 450 JORGE Drain Output (ml) 40 50 Back Bryan Jackson 40 50 Other: Intake Quantity Yes Sufficient Number of Voids Toilet 1 1 Number of Stools Toilet 1 1 Microbiology 02/16/17 17:04 Gram Stain - Final Back - Eswab Vital Signs Temp Pulse Resp BP Pulse Ox 37.0 C 66 16 155/65 H 95 02/19/17 00:00 02/19/17 00:00 02/19/17 00:00 02/19/17 00:00 02/19/17 00:00 Laboratory Results 02/18/17 05:10 02/17/17 04:25 ICD10 Worksheet Patient Problems: Problems Problem Status Onset History of vertebroplasty Acute Intractable back pain Acute Back pain Acute Chronic back pain Acute Dysphagia Acute Fever Acute Hypoxia Acute Narcotic overdose Acute S/P lumbar spinal fusion Acute Weakness Acute
[2017-02-19] MEDS: POLYETHYLENE GLYCOL 3350 17 GM PKT PO SCH (09:01)
[2017-02-19] MEDS: LIPASE 12,000/AMYLASE/PROTEASE (CREON) 1 CAP PO SCH ×2 (09:02→19:09)
[2017-02-19] MEDS: metFORMIN HCL 500 MG TAB PO SCH ×2 (09:02→19:08)
[2017-02-19] MEDS: amLODIPine BESYLATE 5 MG TAB PO SCH (09:03)
[2017-02-19] MEDS: predniSONE 5 MG TAB PO SCH ×2 (09:03→19:09)
--- NOTE | 2017-02-19 09:04 | SOAPPROG ---
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 02/19/17 09:03 s/p t-spine surgery with much improvement d/c home pain--stable will need new rx's for new morphine base regimen cough--add ceftin bid for 7 days CSF leak headache resolved, elevation of HOB as per neuro PMR stable dose up to 10 mg daily DM low glucose stop insulin for now follow home BP office f/u next week Subjective: Jocelyn felt poorly with low sugar yesterday. Doing much better today. Pain controlled. Strength good. Would like to go home. Cough with some yellow mucus Objective: Vital Signs Temp Pulse Resp BP Pulse Ox 36.6 C 80 80 H 167/84 H 16 L 02/19/17 08:00 02/19/17 08:00 02/19/17 08:00 02/19/17 08:00 02/19/17 08:00 Microbiology 02/16/17 17:04 Gram Stain - Final Back - Eswab Laboratory Results 02/18/17 05:10 02/17/17 04:25 02/18/17 02/19/17 02/20/17 05:59 05:59 05:59 Intake Total 1494 1150 Output Total 480 500 Balance 1014 650 PT 14.1 SEC (12.0-15.0) 02/15/17 22:06 INR 1.07 (0.83-1.16) 02/15/17 22:06 Gen: bright, NAD Lungs: coarse cough o/w clear Heart: RRR BP somewhat elevated ABd + bs soft glucose improved from sub 40 LE's 2+ edema improved with stockings Spinal incision dressed, no drains ICD10 Worksheet Patient Problems: Problems Problem Status Onset History of vertebroplasty Acute Intractable back pain Acute Back pain Acute Chronic back pain Acute Dysphagia Acute Fever Acute Hypoxia Acute Narcotic overdose Acute S/P lumbar spinal fusion Acute Weakness Acute
[2017-02-19] MEDS: DOCUSATE SODIUM 100 MG CAP PO SCH ×2 (09:05→20:45)
[2017-02-19] MEDS: busPIRone 10 MG TAB PO SCH ×2 (09:05→20:44)
[2017-02-19] MEDS: DOXYCYCLINE HYCLATE 100 MG CAP/TAB PO SCH (09:06)
[2017-02-19] MEDS: ENOXAPARIN 40 MG/0.4 ML SYR SC SCH (09:06)
[2017-02-19] MEDS: FAMOTIDINE 20 MG TAB PO SCH ×2 (09:07→20:45)
[2017-02-19] MEDS: METOPROLOL SUCCINATE XR 25 MG TAB PO SCH (09:08)
[2017-02-19] MEDS: PIOGLITAZONE HCL 15 MG TAB PO SCH (09:09)
[2017-02-19] MEDS: morphINE SR 30 MG TAB PO SCH ×3 (09:09→20:45)
[2017-02-19] MEDS: PANTOPRAZOLE SODIUM 40 MG TAB PO SCH ×2 (09:09→20:46)
[2017-02-19] MEDS: PREGABALIN 75 MG CAP PO SCH ×2 (09:10→20:47)
--- NOTE | 2017-02-19 09:10 | PDIAF ---
- Diagnosis Diagnosis: s/p t-spine surgery. cough Code Status: Full Code - Medication Management Discharge Medications: Medications to Continue on Transfer Lipase 12,000/Amylase/Protease [Creon 12 (*)] 2 cap PO BID 08/20/16 [Last Taken 02/09/17] Metoprolol Succinate Xr [Toprol Xl 50 mg (*)] 75 mg PO DAILY 08/20/16 [Last Taken 02/09/17] Omeprazole 40 mg PO BID 08/20/16 [Last Taken 02/09/17] Pioglitazone HCl [Actos] 45 mg PO DAILY 08/20/16 [Last Taken 02/09/17] Zolpidem Tartrate [Ambien 10 mg] 10 mg PO HS PRN 08/20/16 [Last Taken 1 Week Ago ~02/03/17] amLODIPine BESYLATE [Norvasc 5 mg (*)] 7.5 mg PO DAILY 08/20/16 [Last Taken 03/28] busPIRone [Buspar (*)] 10 mg PO BID 08/20/16 [Last Taken 02/09/17] predniSONE 7.5 mg PO DAILY 08/20/16 [Last Taken 02/09/17] Doxycycline Hyclate [Vibramycin 100 MG (*)] 100 mg PO DAILY 09/03/16 [Last Taken 02/09/17] Levothyroxine [Synthroid 25 mcg (*)] 25 mcg PO DAILY06 02/01/17 [Last Taken 03/28] Methocarbamol [Robaxin 750 mg (*)] 750 mg PO TID PRN 02/01/17 [Last Taken 3 Days Ago ~02/07/17] Pregabalin [Lyrica 50mg (*)] 50 mg PO BID 02/01/17 [Last Taken 02/09/17] metFORMIN HCL [Glucophage 500 mg (*)] 500 mg PO BIDMEAL 02/01/17 [Last Taken 03/28] Ondansetron Odt [Zofran Odt 4 mg (*)] 4 mg PO Q4HRS PRN tab 02/06/17 [Last Taken 02/09/17] Polyethylene Glycol 3350 [Miralax 17 gm (*)] 17 gm PO DAILY PRN pkt 02/06/17 [ Last Taken 02/10/17] Acetaminophen [Tylenol 325mg (*)] 650 mg PO Q4HRS PRN tab 02/19/17 [Last Taken Unknown] Cefuroxime Axetil [Ceftin (*)] 250 mg PO BID #14 tab 02/19/17 [Last Taken Unknown] Docusate Sodium [Colace 100 MG (*)] 100 mg PO BID cap 02/19/17 [Last Taken Unknown] Enoxaparin [Lovenox 40 MG (*)] 40 mg SC DAILY #10 syr 02/19/17 [Last Taken Unknown] Famotidine [Pepcid 20 MG (*)] 20 mg PO BID tab 02/19/17 [Last Taken Unknown] Methocarbamol [Robaxin 750 mg (*)] 750 mg PO QID PRN tab 02/19/17 [Last Taken Unknown] Polyethylene Glycol 3350 [Miralax 17 gm (*)] 17 gm PO DAILY pkt 02/19/17 [Last Taken Unknown] Sennosides/Docusate Sodium [Senokot-S] 1 - 2 tab PO BID tab 02/19/17 [Last Taken Unknown] morphINE IR [morphINE IR 15 mg (*)] 15 mg PO Q4HRS PRN #90 tab 02/19/17 [Last Taken Unknown] morphINE SR [MS Contin/Oramorph SR 30 mg (*)] 30 mg PO TID #90 tab 02/19/17 [ Last Taken Unknown] 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 PICC Care - Routine: N/A - Orders Services needed: Home Care, Physical Therapy, Occupational Therapy Home Care Face to Face: I certify that this patient was under my care and that I had the required [id number] encounter meeting the encounter requirements on the discharge day. My findings support the fact that the patient is homebound as defined in Home Care Face to Face Continued: CMS Chapter 7 Medicare Benefits Manual 30.1.1 , The condition of the patient is such that there exists a normal inability to leave home and consequently, leaving home would require a considerable and taxing effort. Isolation Type: None Diet Recommendation: no restrictions on diet Diet Texture: Regular Texture Diet Weigh Patient: weekly [place]: No Negro Stockings Discontinue Date: continue daily Wound Care Instructions: as per surgery Activity/Weight Bearing Restrictions: full - Follow Up Care Current Providers and Referrals: Paco Schmidt MD [Primary Care Provider] - Ramon Piedra MD [Medical Doctor] -
[2017-02-19] MEDS: SENNOSIDES/DOCUSATE SODIUM TAB PO SCH ×2 (09:33→20:47)
[2017-02-19] MEDS: CEFUROXIME AXETIL 250 MG TAB PO SCH ×2 (09:37→20:44)
[2017-02-19] MEDS: ONDANSETRON DISINTEGRATING 4 MG TAB PO PRN ×2 (10:54→20:47)
--- NOTE | 2017-02-19 11:43 | GDS ---
[f rep st] DISCHARGE SUMMARY REASON FOR ADMISSION: Severe intractable T-spine back pain. DISCHARGE DIAGNOSES: Severe intractable T-spine back pain. HOSPITAL COURSE: Patient was admitted due to unmanageable intractable T-spine pain due to complex T- spine anatomy, compression fractures, spinal stenosis and nerve root impingement. She was ultimately admitted. Pain control was gradually obtained with a combination of long-acting morphine and FORESTER AIDE pu mp. Her neurosurgeon is Dr. Piedra who was out of town. After we were able to obtain stable pain con trol, further imaging was performed given findings of compression fractures, pain and spinal cord com promise as well as nerve root impingement. Decompression surgery and stabilization of the mid to upp er thoracic spine was performed by Dr. Piedra with excellent surgical results. Overall, pain is now stable on an oral regimen that is quite reasonable. Patient's blood sugar was low during the [facility] stay, given baseline insulin being at the very low end of the long-acting insulin, this was discont inued. She will be discharged home on morphine 30 mg three times daily plus breakthrough 15 mg q.4 h ours p.r.n. She will have her long-acting insulin discontinued. She will be on Lovenox once daily 4 0 mg for the next 10 days with outpatient followup with Dr. Wren's office as well as our office next week. She will be discharged home with home care given ongoing challenges. /[id number]/MODL
[2017-02-19 15:59] VITALS: RESP 16
[2017-02-19] MEDS: ZOLPIDEM TARTRATE 5 MG TAB PO PRN (20:47)
[2017-02-19 23:03] VITALS: O2SAT 97
[2017-02-20] MEDS: LEVOTHYROXINE 25 MCG TAB PO SCH (05:27)
--- NOTE | 2017-02-20 07:10 | NEUSURGPN ---
Assessment/Plan: 81 yo female s/p T5/6 laminectomy with discectomy and extension of fusion POD#4 - neuro stable - pain controlled on morphine IR/ER. Had increase in pain yesterday afternoon and xrays were performed, dc held. Pain somewhat improved this am. - X-rays from 02/19/17 show stable hardware, no new fracture. - no brace - Dressing change, rn to call with any issues with incision. - keep HOB > 30 degrees due to CSF leak for 5 days total - JORGE drain out - polar care ice pack PRN - PT/OT - wound cultures from OR NGTD - On abx per primary for cough + sputum - TEDs, SCDs, lovenox - D/w Dr Piedra - OK for DC from NS standpoint. Will need follow up in 2 weeks for suture removal - Call NS with any questions or concerns Subjective: Pt resting in bed, states she really wants to go home today. Pain improved from acute flare up yesterday. Objective: AAOx3 NAD VSS MAEx4 Motor 5/5 BLE +LT Urinary Catheter in Place: No - Physician Discussed Patient with : [facility] Physical Exam - Vitals, I&O, Labs I and O 02/19/17 02/20/17 02/21/17 05:59 05:59 05:59 Intake Total 1150 1120 Output Total 500 Balance 650 1120 Intake: Oral (ml) 750 1120 IV Infused (ml) 400 Ns 1,000 ml @ 50 mls/hr 400 IV CONT DIEGO Rx#: [id number] Output: Urine (ml) 450 Toilet 450 JORGE Drain Output (ml) 50 Back Bryan Jackson 50 Other: Intake Quantity Yes Yes Sufficient Number of Voids Catheter 3 Toilet 1 1 Number of Stools Toilet 1 1 Microbiology 02/16/17 17:04 Gram Stain - Final Back - Eswab Vital Signs Temp Pulse Resp BP Pulse Ox 37.1 C 74 16 141/97 H 97 02/19/17 23:03 02/19/17 23:03 02/19/17 23:03 02/19/17 23:03 02/19/17 23:03 Laboratory Results 02/18/17 05:10 02/17/17 04:25 ICD10 Worksheet Patient Problems: Problems Problem Status Onset History of vertebroplasty Acute Intractable back pain Acute Back pain Acute Chronic back pain Acute Dysphagia Acute Fever Acute Hypoxia Acute Narcotic overdose Acute S/P lumbar spinal fusion Acute Weakness Acute
[2017-02-20 07:30] VITALS: BP 129/60; PULSE 77; TEMP 98.6
[2017-02-20] MEDS: PIOGLITAZONE HCL 15 MG TAB PO SCH (08:40)
[2017-02-20] MEDS: ENOXAPARIN 40 MG/0.4 ML SYR SC SCH (08:40)
[2017-02-20] MEDS: METOPROLOL SUCCINATE XR 25 MG TAB PO SCH (08:40)
[2017-02-20] MEDS: busPIRone 10 MG TAB PO SCH (08:41)
[2017-02-20] MEDS: DOXYCYCLINE HYCLATE 100 MG CAP/TAB PO SCH (08:41)
[2017-02-20] MEDS: morphINE SR 30 MG TAB PO SCH (08:41)
[2017-02-20] MEDS: LIPASE 12,000/AMYLASE/PROTEASE (CREON) 1 CAP PO SCH (08:41)
[2017-02-20] MEDS: amLODIPine BESYLATE 5 MG TAB PO SCH (08:41)
[2017-02-20] MEDS: PANTOPRAZOLE SODIUM 40 MG TAB PO SCH (08:41)
[2017-02-20] MEDS: FAMOTIDINE 20 MG TAB PO SCH (08:42)
[2017-02-20] MEDS: DOCUSATE SODIUM 100 MG CAP PO SCH ×2 (08:42→08:47)
[2017-02-20] MEDS: metFORMIN HCL 500 MG TAB PO SCH (08:42)
[2017-02-20] MEDS: CEFUROXIME AXETIL 250 MG TAB PO SCH (08:42)
[2017-02-20] MEDS: SENNOSIDES/DOCUSATE SODIUM TAB PO SCH (08:46)
[2017-02-20] MEDS: POLYETHYLENE GLYCOL 3350 17 GM PKT PO SCH (08:46)
[2017-02-20] MEDS: PREGABALIN 75 MG CAP PO SCH (08:55)
[2017-02-20] MEDS: predniSONE 5 MG TAB PO SCH (08:55)
--- NOTE | 2017-02-20 12:37 | SOAPPROG ---
SOAP Progress Note Assessment/Plan: Assessment: Doing well post op. Pain better. Pain still an issue but better. Plan: DC to home. CLose outpatient follow up. 02/12/17 15:39 02/16/17 23:22 02/17/17 22:13 02/20/17 12:36 Subjective: Still having pain. It is adequately controlled with oral morphine. Objective: Vital Signs Temp Pulse Resp BP Pulse Ox 98.6 F 77 16 129/60 H 97 02/20/17 07:26 02/20/17 08:40 02/20/17 07:26 02/20/17 08:41 02/20/17 07:26 Microbiology 02/16/17 17:04 Gram Stain - Final Back - Eswab Laboratory Results 02/18/17 05:10 02/17/17 04:25 02/19/17 02/20/17 02/21/17 05:59 05:59 05:59 Intake Total 1150 1120 Output Total 500 Balance 650 1120 PT 14.1 SEC (12.0-15.0) 02/15/17 22:06 INR 1.07 (0.83-1.16) 02/15/17 22:06 Still coughing up yellow mucus. No fever. Blood sugars good for the last 36 hours. ICD10 Worksheet Patient Problems: Problems Problem Status Onset History of vertebroplasty Acute Intractable back pain Acute Back pain Acute Chronic back pain Acute Dysphagia Acute Fever Acute Hypoxia Acute Narcotic overdose Acute S/P lumbar spinal fusion Acute Weakness Acute
[2017-02-20] MEDS: ONDANSETRON DISINTEGRATING 4 MG TAB PO PRN (14:22)
--- NOTE | 2017-02-21 16:20 | ASDISCHSUM ---
Discharge Information Plan Status: Medically Cleared to Leave:02/19/2017 Discharge Date:02/20/2017 03:12 PM CM D/C Disposition:Home, Routine, Self-Care ADT D/C Disposition:Home Health Service Projected Discharge Date:02/20/2017 12:00 AM Transportation at D/C:Family Discharge Delay Reason: Follow-Up Date:02/20/2017 12:00 AM Discharge Slot: Final Diagnosis:Severe T spine pain Placement Information Patient Contact Information Contact Name:PAULA Relationship: Address:[facility] [address] City:[place] Alternate Phone: [facility]/Zip Code:[place] [phone] Email: Financial Information Financial Class: Primary Plan Desc:MEDICARE INPATIENT Primary Plan Number:[id number] Secondary Plan Desc:[employer]/MDR SUPPLEMENT Secondary Plan Number:[id number] Assessment Information [facility] CM Progress Note CM Note CM Note Notes: Patient admitted for intractable back pain. She has an extensive history of back pain and surgeries. She was last admitted less than one month ago and had vertebroplasty at both thoracic levels with some improvement of her pain. Since being discharged on 02/06/17, her pain has returned. Neurosurg has been consulted. Patient lives independently with her and often discharges without any services. On the other hand, she has had home health and been to inpatient rehab. We will continue to assess her needs and assist with any discharge needs she may have. Date Signed: 02/11/2017 01:19 PM Electronically Signed By:Addie Tineo RN [facility] CM Progress Note CM Note CM Note Notes: Reviewed chart and discussed w/RN. Continuing to manage pt's pain until surgery which is scheduled for Wednesday. CM will address dc needs post-op. Date Signed: 02/14/2017 03:03 PM Electronically Signed By:Shandra Fry RN [facility] CM Progress Note CM Note CM Note Notes: Patient is POD #1 T 5/6 laminectomy with discectomy. This is her 8th spinal surgery (and, she swears, her last). She has had various post-hospital services (home care, inpatient rehab, etc) and is not sure what she'll need this time. She lives with her and is quite independent. I anticipate that she will go to outpatient PT but may decide to start with home PT first. CM will follow. Current CM Discharge plan: home w homecare vs home w outpatient PT Date Signed: 02/17/2017 03:36 PM Electronically Signed By:Addie Tineo RN [facility] Progress Note CM Note CM Note Notes: 02/18/2017 Case Management Note Met w/pt and to discuss PT recommendation for home care services. Pt politely but firmly declined any further assistance from case management. Pt reports utilizing home care srevices after the last 7 d/c for her back surgeries and feels she has adequate knowledge in what to expect during the recovery period. Her and son that lives "right up the road" will provide support. Pt states she is well connected with medical providers if she has questions or concerns regarding progress of her recovery. Case Management d/c poc: home with family support and follow up as directed. Case Management available should pt change her mind and request home care services. Date Signed: 02/18/2017 12:00 PM Electronically Signed By:Dorcas Asencio RN Case Management Discharge Plan Note Case Management Discharge Discharge Order Complete? Answers: Yes Patient to Obtain Answers: via Family Medications Transportation Arranged Answers: Family/Friends Transport will Pick (Date 02/20/2017 12:00 AM & Time) Family Notified Answers: Yes Notes: to transport Discharge Comments Notes: patient was discharged Wednesday. This CM called Antonino today to see if patient wanted to have PT/OT services at home? He spoke with her and she felt therapy services were not necessary. Intervention Information Intervention Type:*Incorrect Registration Date of Service:02/11/2017 07:28 AM Patient Type:Observation Staff Member:ESTRELLA Childs Susan Hours: Discipline: Severity: Comment:
== END 2017-02-20 15:12 | disposition home health service (06) | DRG 457 ==
LOC: F3E 15:58 → OBSVTOIN 18:31 → F3N 02-16 13:07
PROVIDERS: ADMIT Internal Medicine; ATTEND Internal Medicine
PROC: 02HV33Z Insertion of Infusion Device into Superior Vena Cava, Percutaneous Approach (ICD-10-PCS; 2017-02-13)
PROC: 01N80ZZ Release Thoracic Nerve, Open Approach (ICD-10-PCS; principal; 2017-02-16 14:15)
PROC: 00Q20ZZ Repair Dura Mater, Open Approach (ICD-10-PCS; principal; 2017-02-16 14:15)
PROC: 8E0WXBZ Computer Assisted Procedure of Trunk Region (ICD-10-PCS; principal; 2017-02-16 14:15)
PROC: 0RG70J1 Fusion of 2 to 7 Thoracic Vertebral Joints with Synthetic Substitute, Posterior Approach, Posterior Column, Open Approach (ICD-10-PCS; principal; 2017-02-16 14:15)
PROC: 4A1004G Monitoring of Central Nervous Electrical Activity, Intraoperative, Open Approach (ICD-10-PCS; principal; 2017-02-16 14:15)
PROC: 0RG7071 Fusion of 2 to 7 Thoracic Vertebral Joints with Autologous Tissue Substitute, Posterior Approach, Posterior Column, Open Approach (ICD-10-PCS; principal; 2017-02-16 14:15)
PROC: 30233N1 Transfusion of Nonautologous Red Blood Cells into Peripheral Vein, Percutaneous Approach (ICD-10-PCS; 2017-02-17)
DX: M48.54XA Collapsed vertebra, not elsewhere classified, thoracic region, initial encounter for fracture (principal); G96.0 Cerebrospinal fluid leak; M51.24 Other intervertebral disc displacement, thoracic region; M54.14 Radiculopathy, thoracic region; I10 Essential (primary) hypertension; E11.9 Type 2 diabetes mellitus without complications; E03.9 Hypothyroidism, unspecified; G47.33 Obstructive sleep apnea (adult) (pediatric); M48.04 Spinal stenosis, thoracic region; G47.00 Insomnia, unspecified; M35.3 Polymyalgia rheumatica; K22.2 Esophageal obstruction; K59.00 Constipation, unspecified; M81.0 Age-related osteoporosis without current pathological fracture; Z87.891 Personal history of nicotine dependence; Z79.4 Long term (current) use of insulin; Z79.52 Long term (current) use of systemic steroids; Z98.1 Arthrodesis status
CPT/HCPCS: 96374; 97161-GP; 97166-GO; 97530-GP; 97535-GO; C1713; C1751; G8978-GP-CJ; G8979-GP-CI; G8987-GO-CJ; G8988-GO-CI; J0171; J0690; J1650; J1815; J2250; J2270; J2704; J3010; J7512; P9016

== ENCOUNTER 2017-02-24 16:37 | Inpatient (IN) | payer OTHER, MEDICARE ==
--- NOTE | 2017-02-24 17:41 | EDPHY ---
H & P Stated Complaint: back pain Time Seen by Provider: 02/24/17 17:37 HPI/ROS: CHIEF COMPLAINT: Back pain post recent thoracic surgery HISTORY OF PRESENT ILLNESS: The patient is an 81 y/o female with a recent thoracic decompression and stabilization surgery returning to the ED complaining of poorly-controlled back pain causing difficulty caring for herself since returning home. She was admitted on 02/10 and discharged home , 5 days ago on long-acting and short-acting pain medication, but is still unable to manage her pain at home. She says, "I really wanted to go home from the hospital and he thought with pain medication I could do that." She feels like she is not improving and is unable to get up and eat or drink due to constant discomfort. She has been checking in with her PCP, Dr. Schmidt, via phone daily and he recommended returning to the ED today due to pain and inability to care for herself at home. She denies any trauma since returning home. She has mild alleviation when positioning herself curled in her left side. Her has noted some erythema around her incision site with a small amount of drainage on the bandage. She has had no fever. She did have a history of developing septicemia from prior surgical infection. No fever, chills, chest pain, shortness of breath, palpitations, abdominal pain , flank pain, vomiting, diarrhea, urinary complaints, headache, lightheadedness , weakness or numbness. REVIEW OF SYSTEMS: Aside from elements discussed in the HPI, a comprehensive 10-point review of systems was reviewed and is negative. PAST MEDICAL HISTORY: 1. Spinal stenosis with chronic back pain -multiple fusions from neck to lumbar spine, thoracic decompression and stabilization surgery by Dr. Piedra 02/13/17 2. Diabetes with neuropathy 3. Hypertension 4. Polymyalgia rheumatica 5. Hypothyroidism 6. Osteoporosis 7. Insomnia 8. CAD 9. GERD 10. Obstructive sleep apnea 11. Aortic insufficiency Prior medical records reviewed including admission 02/10/17 for back pain and spinal surgery. SOCIAL HISTORY: at bedside. Nonsmoker. PCP: Dr. Daniels. VITAL SIGNS: Reviewed by me GENERAL: Elderly, thin, pleasant female, resting comfortably in no respiratory distress. HEENT: Atraumatic. Eyes: No icterus, no injection. Mouth: dry mucous membranes. No erythema or lesions. Neck: supple with no adenopathy. LUNGS: Clear to auscultation bilaterally, no wheezes, rhonchi or rales. CARDIAC: Regular rate and rhythm, no rubs, murmurs or gallops. ABDOMEN: Soft, nontender, nondistended, bowel sounds normal. BACK: Midline scar along upper thoracic spine with 1.5cm surrounding erythema and mild underlying edema, small amount of discharge on bandage, mild tenderness overlying suture line, no increased warmth. No CVA tenderness. EXTREMITIES: No trauma. Trace lower leg edema bilaterally. Range of motion is normal throughout. NEURO: Alert and oriented, grossly nonfocal. SKIN: Warm and dry, no rash. PSYCHIATRIC: Normal mentation, no agitation. Portions of this note were transcribed by a medical nurse. I personally performed a history, physical exam, medical decision making, and confirmed accuracy of information the transcribed note. - Personal History Current Tetanus Diphtheria and Acellular Pertussis (TDAP): Yes - Medical/Surgical History Hx Asthma: No Hx Chronic Respiratory Disease: No Hx Diabetes: Yes Hx Cardiac Disease: Yes Hx Renal Disease: No Hx Cirrhosis: No Hx Alcoholism: No Hx HIV/AIDS: No Hx Splenectomy or Spleen Trauma: No Other PMH: ORHTO SURG BACK NECK AND ANKLE, GALL BLADDER, HTN, Diabetes, Tonsillectomy, Gastroparesis, hypothyroidism. right CLAVICLE/shoulder fx, med non-compliance - Social History Smoking Status: Former smoker Constitutional: Initial Vital Signs Temperature (C) 37.1 C 02/24/17 16:46 Heart Rate 71 02/24/17 16:46 Respiratory Rate 16 02/24/17 16:46 Blood Pressure 130/60 H 02/24/17 16:46 O2 Sat (%) 92 02/24/17 16:46 O2 Delivery Mode Nasal Cannula O2 (L/minute) 4 Allergies/Adverse Reactions: Penicillins Allergy (Intermediate, Verified 03/09/16 17:56) Rash Sulfa (Sulfonamide Antibiotics) Allergy (Unknown, Verified 03/09/16 17:56) BANDAIDS Allergy (Intermediate, Uncoded 03/07/16 08:54) Rash Home Medications: Medication Instructions Recorded Lipase 12,000/Amylase/Protease 2 cap PO BIDMEAL 08/20/16 [Creon 12 (*)] Metoprolol Succinate Xr [Toprol Xl 75 mg PO DAILY 08/20/16 50 mg (*)] Omeprazole 40 mg PO BID 08/20/16 Pioglitazone HCl [Actos] 45 mg PO DAILY 08/20/16 Zolpidem Tartrate [Ambien 10 mg] 10 mg PO HS PRN 08/20/16 amLODIPine BESYLATE [Norvasc 5 mg 7.5 mg PO DAILY 08/20/16 (*)] busPIRone [Buspar (*)] 10 mg PO BID 08/20/16 predniSONE 7.5 mg PO DAILY 08/20/16 Doxycycline Hyclate [Vibramycin 100 mg PO DAILY 09/03/16 100 MG (*)] Levothyroxine [Synthroid 25 mcg 25 mcg PO DAILY06 02/01/17 (*)] Pregabalin [Lyrica 50mg (*)] 50 mg PO BID 02/01/17 metFORMIN HCL [Glucophage 500 mg 500 mg PO BIDMEAL 02/01/17 (*)] Ondansetron Odt [Zofran Odt 4 mg 4 mg PO Q4HRS PRN tab 02/06/17 (*)] Cefuroxime Axetil [Ceftin (*)] 250 mg PO BID #14 tab 02/19/17 Docusate Sodium [Colace 100 MG (*)] 100 mg PO BID cap 02/19/17 Famotidine [Pepcid 20 MG (*)] 20 mg PO BID tab 02/19/17 Methocarbamol [Robaxin 750 mg (*)] 750 mg PO QID PRN tab 02/19/17 Polyethylene Glycol 3350 [Miralax 17 gm PO DAILY pkt 02/19/17 17 gm (*)] morphINE IR [morphINE IR 15 mg (*)] 15 mg PO Q4HRS PRN #90 tab 02/19/17 morphINE SR [MS Contin/Oramorph SR 30 mg PO TID #90 tab 02/19/17 30 mg (*)] Enoxaparin [Lovenox 40 MG (*)] 40 mg SC HS 02/24/17 Medical Decision Making ED Course/Re-evaluation: This is an 81 y/o female with history of chronic back pain and multiple back surgeries who presents with uncontrolled pain at home following a recent thoracic back surgery last week. Home pain medications are not effective enough to allow her to move around her house and eat or drink. She has erythema surrounding her incision site without drainage, heat, or streaking. Plan for IV , labs, 1mg IV Dilaudid, 500mL IV NS, and consultation with her PCP. Spoke with Dawna Goss for Dr. Schmidt, patient's PCP. Dr. Schmidt is in the hospital currently and will assess patient in the ED. 1850: Consulted with Dr. Schmidt in the ED after he assessed her down in the ED. He will admit patient for pain control and reevaluation of her incision by neurosurgery in the morning. He does not recommend any imaging at this time. Differential Diagnosis: Differential diagnoses for the patient's symptom complex was considered including but not limited to postsurgical pain, failure to thrive, wound infection, surgical infection, spinal infection, osteomyelitis, dehydration. Consult/Admit Bed Type: Dr. Schmidt, med surg - Data Points Laboratory Results: Laboratory Results 02/24/17 18:40 02/24/17 18:40 02/24/17 02/24/17 02/24/17 18:40 18:40 18:40 WBC 5.55 10^3/uL 10^3/uL (3.80-9.50) RBC 3.05 10^6/uL L 10^6/uL (4.18-5.33) Hgb 8.5 g/dL L g/dL (12.6-16.3) Hct 26.4 % L % (38.0-47.0) MCV 86.6 fL fL (81.5-99.8) MCH 27.9 pg pg (27.9-34.1) MCHC 32.2 g/dL L g/dL (32.4-36.7) RDW 16.3 % H % (11.5-15.2) Plt Count 318 10^3/uL 10^3/uL (150-400) MPV 9.0 fL fL (8.7-11.7) Neut % (Auto) 73.1 % % (39.3-74.2) Lymph % (Auto) 12.3 % L % (15.0-45.0) [place] % (Auto) 11.2 % % (4.5-13.0) Eos % (Auto) 1.8 % % (0.6-7.6) Baso % (Auto) 0.5 % % (0.3-1.7) Nucleat RBC Rel Count 0.0 % % (0.0-0.2) Absolute Neuts (auto) 4.06 10^3/uL 10^3/uL (1.70-6.50) Absolute Lymphs (auto) 0.68 10^3/uL L 10^3/uL (1.00-3.00) Absolute Monos (auto) 0.62 10^3/uL 10^3/uL (0.30-0.80) Absolute Eos (auto) 0.10 10^3/uL 10^3/uL (0.03-0.40) Absolute Basos (auto) 0.03 10^3/uL 10^3/uL (0.02-0.10) Absolute Nucleated RBC 0.00 10^3/uL 10^3/uL (0-0.01) Immature Gran % 1.1 % % (0.0-1.1) Immature Gran # 0.06 10^3/uL 10^3/uL (0.00-0.10) ESR 75 MM/HR H MM/HR (0-30) Sodium 137 mEq/L mEq/L (135-145) Potassium 4.0 mEq/L mEq/L (3.5-5.2) Chloride 99 mEq/L mEq/L (97-110) Carbon Dioxide 30 mEq/l mEq/l (22-31) Anion Gap 8 mEq/L mEq/L (8-16) BUN 9 mg/dL mg/dL (7-23) Creatinine 0.8 mg/dL mg/dL (0.6-1.0) Estimated GFR > 60 Glucose 119 mg/dL H mg/dL (70-100) Calcium 8.1 mg/dL L mg/dL (8.5-10.4) C-Reactive Protein 46.7 mg/L H mg/L (<10.0) Group A Strep Screen 02/24/17 18:29 WBC RBC Hgb Hct MCV MCH MCHC RDW Plt Count MPV Neut % (Auto) Lymph % (Auto) [place] % (Auto) Eos % (Auto) Baso % (Auto) Nucleat RBC Rel Count Absolute Neuts (auto) Absolute Lymphs (auto) Absolute Monos (auto) Absolute Eos (auto) Absolute Basos (auto) Absolute Nucleated RBC Immature Gran % Immature Gran # ESR Sodium Potassium Chloride Carbon Dioxide Anion Gap BUN Creatinine Estimated GFR Glucose Calcium C-Reactive Protein Group A Strep Screen NEGATIVE (NEGATIVE) Medications Given: Vancomycin/Sodium Chloride (Vancomycin 1 Gm (Premix)) 250 mls @ 250 mls/hr IV Q24H DIEGO PRN Reason: Protocol Stop: 03/26/17 20:29 Last Admin: 02/24/17 20:43 Dose: 250 mls Morphine Sulfate (Morphine Ir) 15 mg PO Q4HRS PRN PRN Reason: Pain, Severe Able to Take PO Stop: 03/06/17 19:00 Last Admin: 02/24/17 20:34 Dose: 15 mg Zolpidem Tartrate (Ambien) 10 mg PO HS DIEGO Stop: 08/23/17 22:29 Last Admin: 02/24/17 22:30 Dose: 10 mg Discontinued Medications Hydromorphone HCl (Dilaudid) 1 mg IVP EDNOW ONE Stop: 02/24/17 17:55 Last Admin: 02/24/17 18:10 Dose: 1 mg Sodium Chloride (Ns) 500 mls @ 1,000 mls/hr IV EDNOW ONE PRN Reason: Protocol Stop: 02/24/17 18:24 Last Admin: 02/24/17 18:11 Dose: 500 mls Departure - Departure Disposition: [facility] Inpatient Acute Clinical Impression: Intractable back pain Condition: Fair Report Scribed for: Debra Goodman Report Scribed by: Norma Jara Date of Report: 02/24/17 Time of Report: 17:54
[2017-02-24] MEDS ORDERED: HYDROmorphONE/DILAUDID 1 MG/ML INJ IVP ONE (17:54)
[2017-02-24] MEDS ORDERED: NS 500 ML IV ONE (17:55)
[2017-02-24 18:52] LABS: PLATELET COUNT 318 10^3/uL (150-400)
[2017-02-24] MEDS: VANCOMYCIN HCL/NORMAL SALINE 250 ML IV SCH (20:43)
[2017-02-24] MEDS ORDERED: ZOLPIDEM TARTRATE 5 MG TAB PO SCH (22:30)
[2017-02-24] MEDS ORDERED: HYDROmorphONE/DILAUDID 1 MG/ML INJ IVP PRN (22:55)
--- NOTE | 2017-02-25 01:09 | GHP ---
[f rep st] HISTORY AND PHYSICAL DATE OF ADMISSION: 02/24/2017 REASON FOR ADMISSION: Severe back pain, weakness, difficulty swallowing, nausea. HISTORY: The patient is an 81-year-old female, who was hospitalized 10 days ago and underwent back s urgery for refractory pain. She was at home, but found the pain became progressively worse. She was unable to eat very much food. She was unable to walk more than 2 or 3 steps and was having increase d back pain. Is being readmitted for further evaluation. PAST MEDICAL HISTORY: Significant for spinal stenosis and chronic back pain, compression fractures, previous bacterial spondylitis, type 2 diabetes, polymyalgia rheumatica, osteoporosis, insomnia, GERD , and preclinical coronary atherosclerosis. MEDICATIONS: Currently are amlodipine 7.5 mg daily, BuSpar 10 mg b.i.d., docusate 100 mg b.i.d., fam otidine 20 mg b.i.d., lipase 1200 two caps b.i.d. with meals, metformin 500 mg b.i.d., metoprolol suc cinate 75 mg daily, morphine IR 50 mg q.4 hours, morphine SR 30 mg t.i.d., polyethylene glycol, predn isone 7.5 mg daily, Lyrica 50 mg b.i.d., and zolpidem 10 mg h.s. p.r.n. sleep. REVIEW OF SYSTEMS: She is having intractable pain. She is able to get mild temporary improvement ly ing down, but is having difficulty sitting in a chair and great difficulty ambulating, difficulty eat ing. She has food sticking in her esophagus. She does have a history of achalasia and esophageal di latation. PHYSICAL EXAMINATION: GENERAL: This is an 81-year-old female, who appears appropriate for stated ag e. Appears quite fatigued. VITAL SIGNS: Blood pressure is 130/60, pulse is 71 and regular, respirations 16, temperature is 98.8 , oxygen saturation 92% on 4 L. HEENT: Pupils are equal and reactive. LUNGS: Clear to auscultation. HEART: Regular rate and rhythm. ABDOMEN: Nontender. EXTREMITIES: She has no significant edema. She has pulses palpable, but diminished in her extremiti es. SKIN: Her incision is red and somewhat puffy, although there is no clear fluid along the incision li ne, and there is no drainage. She has some tenderness along the incision line. IMPRESSION: Increased pain, concerned about redness along her incision line, recent spinal fracture. PLAN: Will admit. Will do cultures. Will empirically place on vancomycin pending results of blood cultures. Will get a surgical consultation to evaluate her postoperative pain. /[id number]/MODL
[2017-02-25] MEDS: LEVOTHYROXINE 25 MCG TAB PO SCH (05:46)
[2017-02-25] MEDS: metFORMIN HCL 500 MG TAB PO SCH ×2 (08:23→17:39)
[2017-02-25] MEDS: LIPASE 12,000/AMYLASE/PROTEASE (CREON) 1 CAP PO SCH ×2 (08:23→17:39)
[2017-02-25] MEDS: amLODIPine BESYLATE 5 MG TAB PO SCH (09:16)
[2017-02-25] MEDS: PIOGLITAZONE HCL 15 MG TAB PO SCH (09:16)
[2017-02-25] MEDS: PANTOPRAZOLE SODIUM 40 MG TAB PO SCH (09:16)
[2017-02-25] MEDS: PREGABALIN 50 MG CAP PO SCH ×2 (09:16→20:56)
[2017-02-25] MEDS: FAMOTIDINE 20 MG TAB PO SCH ×2 (09:18→20:56)
[2017-02-25] MEDS: METOPROLOL SUCCINATE XR 50 MG TAB PO SCH (09:18)
[2017-02-25] MEDS: busPIRone 10 MG TAB PO SCH ×2 (09:19→20:56)
[2017-02-25] MEDS: predniSONE 5 MG TAB PO SCH (09:19)
[2017-02-25] MEDS: DOCUSATE SODIUM 100 MG CAP PO SCH ×2 (09:20→20:56)
[2017-02-25] MEDS: morphINE SR 30 MG TAB PO SCH ×3 (09:20→20:56)
[2017-02-25] MEDS: POLYETHYLENE GLYCOL 3350 17 GM PKT PO SCH (09:30)
[2017-02-25] MEDS ORDERED: MAGNESIUM HYDROXIDE 30 ML UDCUP PO PRN (10:04)
[2017-02-25] MEDS ORDERED: LACTULOSE 20 GM/30 ML UDCUP PO PRN (10:04)
[2017-02-25] MEDS ORDERED: POLYETHYLENE GLYCOL 3350 17 GM PKT PO PRN (10:04)
[2017-02-25] MEDS ORDERED: BISACODYL 10 MG SUPP PR PRN (10:04)
[2017-02-25] MEDS: HYDROmorphONE/DILAUDID 1 MG/ML INJ IVP SCH ×2 (10:38→17:39)
[2017-02-25] MEDS: PROMETHAZINE HCL 25 MG TAB PO PRN (10:39)
[2017-02-25] MEDS ORDERED: diphenhydrAMINE 25 MG CAP PO PRN (10:45)
--- NOTE | 2017-02-25 13:19 | NEUSURGPN ---
Assessment/Plan: Jocelyn is an 81 female s/p thoracic fusion extension and decompression 1 week ago. Incision with some post operative swelling, no signs of infection. Her post operative xrays demonstrate intact hardware without evidence of failure Appreciate Dr. Daniels's team working up patient fatigue/working on pain management Recommended daily dressing changes with ice to incision. Will need suture removal in 1 week Please notify NS with any change in neuro/motor exam Subjective: back pain, tolerable with medication but nausea and fatigue have been larg issues over the last several days. Objective: NAD A&Ox3 MAEx4 5/5 and equal in BUE and BLE. Incision c/d/i. no erythema or discharge. Sutures intact. bilateral swelling, soft, warm and pink. - Physician Discussed Patient with : [facility] Physical Exam - Vitals, I&O, Labs I and O 02/24/17 02/25/17 02/26/17 05:59 05:59 05:59 Output Total 575 Balance -575 Weight 64.864 kg Output: Urine (ml) 575 Toilet 575 Other: Intake Quantity Yes Sufficient Number of Voids Toilet 1 Vital Signs Temp Pulse Resp BP Pulse Ox 36.8 C 56 L 16 132/51 H 92 02/25/17 10:32 02/25/17 10:32 02/25/17 10:32 02/25/17 10:32 02/25/17 10:32 ICD10 Worksheet Patient Problems: Problems Problem Status Onset Intractable back pain Acute Back pain Acute Chronic back pain Acute Dysphagia Acute Fever Acute History of vertebroplasty Acute Hypoxia Acute Narcotic overdose Acute S/P lumbar spinal fusion Acute Weakness Acute
--- NOTE | 2017-02-25 14:29 | SOAPPROG ---
SOAP Progress Note Assessment/Plan: Assessment: Plan: 02/25/17 14:32 Thoracic back pain: pain inadequately controlled, possibly due to under medication with home regimen, vs poor response to morphine. For now, she seems to be responding well to IV dilaudid. Will continue long acting morphine, and change dilaudid to 1mg q 6 hrs scheduled, and stop morphine IR. This will not be a viable senior living plan, but perhaps she will respond to po dilaudid. Awaiting input from neuro. Consider pain management consult. Incision: currently on vancomycin for possible infection Nausea: likely side effect from narcotics. Moving bowels ok. Doesnt' find zofran helpful, so will try phenergan. Itching: also likely side effect from narcotics. She is requesting benadryl. Will need to monitor for balance of symptom relief and sedation side effects. Deconditioning: multifactorial, but not responding easily to PT/OT suggestions due to pain and not feeling well. If pain can be adequately controlled, she may benefit from SNF rehab. 02/25/17 14:47 Subjective: Saw pt this morning, and at that time, she was having significant pain, and has been struggling with nausea and itching. Slept well. Did have dose IV dilaudid 1mg at 3 am, and got good pain relief. Morphine ER 30mg tid ordered when she went home after her last hospitalization, but she hasn't been taking it that often. Has been taking it closer to BID. She also has morphine IR 15mg q 4 hours , and was taking maybe 4 doses daily. Pain not adequately controlled, though likely has been undermedicated. Doesn't find zofran helpful for nausea. Would also like something for itching. Had thoracic spine xray this morning, and had not yet been seen by neurosurgery. Objective: Vital Signs Temp Pulse Resp BP Pulse Ox 36.8 C 56 L 16 132/51 H 92 02/25/17 10:32 02/25/17 10:32 02/25/17 10:32 02/25/17 10:32 02/25/17 10:32 02/24/17 02/25/17 02/26/17 05:59 05:59 05:59 Output Total 575 Balance -575 General: in bed, slightly somnolent when not talking, uncomfortable with any movement Lungs: clear Cardiovascular: RRR Abdomen: +bowel sounds, soft, NT Extremities: mild BLE edema ICD10 Worksheet Patient Problems: Problems Problem Status Onset Intractable back pain Acute Back pain Acute Chronic back pain Acute Dysphagia Acute Fever Acute History of vertebroplasty Acute Hypoxia Acute Narcotic overdose Acute S/P lumbar spinal fusion Acute Weakness Acute
--- NOTE | 2017-02-25 15:43 | ASMTCMCOM ---
CM Note CM Note Notes: Chart reviewed. patient last dcd' 12/22 without HHC. She is re-admitted for unmanageable pain. I spoke with her regarding HHC and she is quite clear in pointing out that she is capable of caring for herself and taking her medications. She has a supportive and a son nearby. No therapies ordered yet. CM to follow. Date Signed: 02/25/2017 03:43 PM Electronically Signed By:Rosi Brizuela RN
[2017-02-25] MEDS: SENNOSIDES/DOCUSATE SODIUM TAB PO SCH (20:52)
[2017-02-25] MEDS: VANCOMYCIN HCL/NORMAL SALINE 250 ML IV SCH (20:55)
[2017-02-25] MEDS: ZOLPIDEM TARTRATE 5 MG TAB PO PRN (20:56)
[2017-02-25] MEDS: ENOXAPARIN 40 MG/0.4 ML SYR SC SCH (20:57)
[2017-02-26] MEDS: HYDROmorphONE/DILAUDID 1 MG/ML INJ IVP SCH ×5 (05:19→23:11)
[2017-02-26] MEDS: LEVOTHYROXINE 25 MCG TAB PO SCH (05:19)
--- NOTE | 2017-02-26 08:26 | NEUSURGPN ---
Assessment/Plan: Jocelyn is an 81 female s/p thoracic fusion extension and decompression 1 week ago. - neuro stable - incision without signs of infection, healing well - postop x-ray demonstrates intact hardware without evidence of failure - pain control, may use ice - recommend daily dressing changes - follow up in 1 week for suture removal - will sign off for the weekend and see again on Wednesday if still in house - please contact us with any further questions/concerns Subjective: Pain currently controlled. Objective: Awake. Alert. PERRL. EOMI Incision c/d/i Muscle strength full at 5/5 Sensation intact Neurosurgery Physical Exam - Vitals, I&O, Labs I and O 02/25/17 02/26/17 02/27/17 05:59 05:59 05:59 Intake Total 500 Output Total 575 400 Balance -575 100 Weight 64.864 kg Intake: Oral (ml) 500 Output: Urine (ml) 575 400 Toilet 575 400 Other: Intake Quantity Yes Sufficient Number of Voids Toilet 1 4 Number of Stools Toilet 5 Vital Signs Temp Pulse Resp BP Pulse Ox 37.1 C 58 L 16 140/58 H 96 02/26/17 07:46 02/26/17 07:46 02/26/17 07:46 02/26/17 07:46 02/26/17 07:46 Laboratory Results 02/25/17 18:40 ICD10 Worksheet Patient Problems: Problems Problem Status Onset Intractable back pain Acute Back pain Acute Chronic back pain Acute Dysphagia Acute Fever Acute History of vertebroplasty Acute Hypoxia Acute Narcotic overdose Acute S/P lumbar spinal fusion Acute Weakness Acute
[2017-02-26] MEDS: LIPASE 12,000/AMYLASE/PROTEASE (CREON) 1 CAP PO SCH ×2 (09:17→16:49)
[2017-02-26] MEDS: METOPROLOL SUCCINATE XR 50 MG TAB PO SCH (09:18)
[2017-02-26] MEDS: busPIRone 10 MG TAB PO SCH ×2 (09:18→20:12)
[2017-02-26] MEDS: FAMOTIDINE 20 MG TAB PO SCH ×2 (09:19→20:12)
[2017-02-26] MEDS: amLODIPine BESYLATE 5 MG TAB PO SCH (09:20)
[2017-02-26] MEDS: metFORMIN HCL 500 MG TAB PO SCH ×2 (09:20→16:49)
[2017-02-26] MEDS: DOCUSATE SODIUM 100 MG CAP PO SCH ×3 (10:57→20:19)
[2017-02-26] MEDS: POLYETHYLENE GLYCOL 3350 17 GM PKT PO SCH (10:57)
[2017-02-26] MEDS: SENNOSIDES/DOCUSATE SODIUM TAB PO SCH ×2 (10:57→20:14)
[2017-02-26] MEDS: PANTOPRAZOLE SODIUM 40 MG TAB PO SCH (11:03)
[2017-02-26] MEDS: predniSONE 5 MG TAB PO SCH (11:03)
[2017-02-26] MEDS: PIOGLITAZONE HCL 15 MG TAB PO SCH (11:04)
[2017-02-26] MEDS: morphINE SR 30 MG TAB PO SCH ×3 (11:04→21:16)
[2017-02-26] MEDS: PROMETHAZINE HCL 25 MG TAB PO PRN (11:10)
[2017-02-26] MEDS: PREGABALIN 50 MG CAP PO SCH ×2 (11:11→20:12)
--- NOTE | 2017-02-26 16:29 | ASMTCMCOM ---
CM Note CM Note Notes: CM met w/ pt for dispo planning. OT is recommending HC. It was indicated in the OT note that pt is not interested in SNF. Pt reports that she is not interested in any services at this time. Pt reports that she uses a walker in her home. Pt reports that she is very cautious and self aware of her surroundings. CM available for changes. Plan: Independent Date Signed: 02/26/2017 04:28 PM Electronically Signed By:WILMA Sy
--- NOTE | 2017-02-26 18:32 | SOAPPROG ---
SOAP Progress Note Assessment/Plan: Assessment: Despite no objective data, I am concerned about an incisional infection based ont he degree of redness and swelling when she presented and compared to the degree of reduction of pain, redness, and swelling after antibiotic treatment. Plan:Continue Vancomycin IV. Await final blood cultures. Follow incision. Consider removal of sutures sooner than the 2 weks suggested in the NS note. 02/26/17 18:30 Subjective: Doing some better. Pain still significant but improved. Large diarrhea BM last night. Objective: Vital Signs Temp Pulse Resp BP Pulse Ox 98.1 F 54 L 16 109/40 L 96 02/26/17 15:46 02/26/17 15:46 02/26/17 15:46 02/26/17 15:46 02/26/17 15:46 Laboratory Results 02/25/17 18:40 02/25/17 02/26/17 02/27/17 05:59 05:59 05:59 Intake Total 500 Output Total 575 400 Balance -575 100 Incission demonstrates less redness and swelling than she showed on admission. Lungs clear. COR RRR ICD10 Worksheet Patient Problems: Problems Problem Status Onset Intractable back pain Acute Back pain Acute Chronic back pain Acute Dysphagia Acute Fever Acute History of vertebroplasty Acute Hypoxia Acute Narcotic overdose Acute S/P lumbar spinal fusion Acute Weakness Acute
[2017-02-26] MEDS: ENOXAPARIN 40 MG/0.4 ML SYR SC SCH (20:11)
[2017-02-26] MEDS: ZOLPIDEM TARTRATE 5 MG TAB PO PRN (21:24)
[2017-02-26] MEDS: VANCOMYCIN 1.25 GM in D5W 250 ML IV SCH (21:25)
[2017-02-26] MEDS: VANCOMYCIN HCL/NORMAL SALINE 250 ML IV SCH (21:52)
[2017-02-27] MEDS: HYDROmorphONE/DILAUDID 1 MG/ML INJ IVP SCH ×4 (05:14→23:03)
[2017-02-27] MEDS: LEVOTHYROXINE 25 MCG TAB PO SCH (05:14)
[2017-02-27] MEDS: PIOGLITAZONE HCL 15 MG TAB PO SCH (08:12)
[2017-02-27] MEDS: LIPASE 12,000/AMYLASE/PROTEASE (CREON) 1 CAP PO SCH ×2 (08:12→17:56)
[2017-02-27] MEDS: predniSONE 5 MG TAB PO SCH (08:13)
[2017-02-27] MEDS: morphINE SR 30 MG TAB PO SCH ×3 (08:13→22:46)
[2017-02-27] MEDS: amLODIPine BESYLATE 5 MG TAB PO SCH (08:14)
[2017-02-27] MEDS: busPIRone 10 MG TAB PO SCH ×2 (08:16→20:09)
[2017-02-27] MEDS: metFORMIN HCL 500 MG TAB PO SCH ×2 (08:16→17:55)
[2017-02-27] MEDS: METOPROLOL SUCCINATE XR 50 MG TAB PO SCH (08:17)
[2017-02-27] MEDS: PREGABALIN 50 MG CAP PO SCH ×2 (08:17→20:09)
[2017-02-27] MEDS: PANTOPRAZOLE SODIUM 40 MG TAB PO SCH (08:17)
[2017-02-27] MEDS: FAMOTIDINE 20 MG TAB PO SCH ×2 (08:18→20:09)
[2017-02-27] MEDS: DOCUSATE SODIUM 100 MG CAP PO SCH ×2 (08:21→20:10)
[2017-02-27] MEDS: POLYETHYLENE GLYCOL 3350 17 GM PKT PO SCH (08:22)
[2017-02-27] MEDS: SENNOSIDES/DOCUSATE SODIUM TAB PO SCH ×2 (08:22→20:11)
--- NOTE | 2017-02-27 14:35 | SOAPPROG ---
SOAP Progress Note Assessment/Plan: Assessment: Plan: 02/25/17 14:32 Thoracic back pain: pain inadequately controlled, possibly due to under medication with home regimen, vs poor response to morphine. For now, she seems to be responding well to IV dilaudid. Will continue long acting morphine, and change dilaudid to 1mg q 6 hrs scheduled, and stop morphine IR. This will not be a viable [place] [facility] plan, but perhaps she will respond to po dilaudid. Awaiting input from neuro. Consider pain management consult. Incision: currently on vancomycin for possible infection Nausea: likely side effect from narcotics. Moving bowels ok. Doesnt' find zofran helpful, so will try phenergan. Itching: also likely side effect from narcotics. She is requesting benadryl. Will need to monitor for balance of symptom relief and sedation side effects. Deconditioning: multifactorial, but not responding easily to PT/OT suggestions due to pain and not feeling well. If pain can be adequately controlled, she may benefit from SNF rehab. 02/25/17 14:47 02/27/17 14:35 Thoracic back pain: improved pain control with scheduled IV dilaudid. Will switch to PO now and see how she does Incision: possible infection, improved with vancomycin per Dr. Schmidt. For now , will continue vanco. Pain is also better, though unclear how much of that is related to treatment of infection vs addition of diluadid. Esophageal spasm: states she has tried nitroglycerin, robaxin. Will try adding imipramine rather than diltiazem, as she is already on metoprolol. 02/27/17 14:49 02/27/17 14:54 02/27/17 15:07 Subjective: Sitting up in chair, eating. Fairly comfortable. Had an epidose of esophageal pain that lasted about an hour last night before resolved. Also has a large, loose BM. Itching is better with benadryl and nausea responding well to phenergan. Objective: Vital Signs Temp Pulse Resp BP Pulse Ox 36.8 C 64 16 137/67 H 94 02/27/17 12:00 02/27/17 12:00 02/27/17 12:00 02/27/17 12:00 02/27/17 12:00 Laboratory Results 02/25/17 18:40 02/26/17 02/27/17 02/28/17 05:59 05:59 05:59 Intake Total 500 Output Total 400 Balance 100 General: in chair, pleasant, talkative, comfortable-appearing Neck: no masses, adenopathy Lungs: clear CV: RRR without murmur Abdomen: +bowel sounds, soft, NT Extremities: no edema Skin: incision on upper back with erythema, no significant edema ICD10 Worksheet Patient Problems: Problems Problem Status Onset Intractable back pain Acute Back pain Acute Chronic back pain Acute Dysphagia Acute Fever Acute History of vertebroplasty Acute Hypoxia Acute Narcotic overdose Acute S/P lumbar spinal fusion Acute Weakness Acute
[2017-02-27] MEDS: PROMETHAZINE HCL 25 MG TAB PO PRN (20:08)
[2017-02-27] MEDS: IMIPRAMINE HCL 25 MG TAB PO SCH (20:09)
[2017-02-27] MEDS: ENOXAPARIN 40 MG/0.4 ML SYR SC SCH (20:10)
[2017-02-27] MEDS: VANCOMYCIN 1.25 GM in D5W 250 ML IV SCH (20:11)
[2017-02-27] MEDS: ZOLPIDEM TARTRATE 5 MG TAB PO PRN (20:16)
[2017-02-28] MEDS: HYDROmorphONE/DILAUDID 1 MG/ML INJ IVP SCH ×2 (05:19→11:57)
[2017-02-28] MEDS: LEVOTHYROXINE 25 MCG TAB PO SCH (05:19)
[2017-02-28] MEDS: PROMETHAZINE HCL 25 MG TAB PO PRN (08:20)
[2017-02-28] MEDS: predniSONE 5 MG TAB PO SCH (09:04)
[2017-02-28] MEDS: metFORMIN HCL 500 MG TAB PO SCH ×2 (09:06→17:59)
[2017-02-28] MEDS: PIOGLITAZONE HCL 15 MG TAB PO SCH (09:06)
[2017-02-28] MEDS: PREGABALIN 50 MG CAP PO SCH ×2 (09:07→21:01)
[2017-02-28] MEDS: amLODIPine BESYLATE 5 MG TAB PO SCH (09:07)
[2017-02-28] MEDS: morphINE SR 30 MG TAB PO SCH (09:07)
[2017-02-28] MEDS: METOPROLOL SUCCINATE XR 50 MG TAB PO SCH (09:08)
[2017-02-28] MEDS: PANTOPRAZOLE SODIUM 40 MG TAB PO SCH (09:09)
[2017-02-28] MEDS: LIPASE 12,000/AMYLASE/PROTEASE (CREON) 1 CAP PO SCH ×2 (09:10→17:59)
[2017-02-28] MEDS: FAMOTIDINE 20 MG TAB PO SCH ×2 (09:11→21:01)
[2017-02-28] MEDS: busPIRone 10 MG TAB PO SCH ×2 (09:11→21:01)
[2017-02-28] MEDS: DOCUSATE SODIUM 100 MG CAP PO SCH ×2 (09:13→21:02)
[2017-02-28] MEDS: POLYETHYLENE GLYCOL 3350 17 GM PKT PO SCH (09:13)
[2017-02-28] MEDS: SENNOSIDES/DOCUSATE SODIUM TAB PO SCH ×2 (09:14→21:02)
--- NOTE | 2017-02-28 12:36 | SOAPPROG ---
SOAP Progress Note Assessment/Plan: Assessment: Plan: 02/25/17 14:32 Thoracic back pain: pain inadequately controlled, possibly due to under medication with home regimen, vs poor response to morphine. For now, she seems to be responding well to IV dilaudid. Will continue long acting morphine, and change dilaudid to 1mg q 6 hrs scheduled, and stop morphine IR. This will not be a viable care home plan, but perhaps she will respond to po dilaudid. Awaiting input from neuro. Consider pain management consult. Incision: currently on vancomycin for possible infection Nausea: likely side effect from narcotics. Moving bowels ok. Doesnt' find zofran helpful, so will try phenergan. Itching: also likely side effect from narcotics. She is requesting benadryl. Will need to monitor for balance of symptom relief and sedation side effects. Deconditioning: multifactorial, but not responding easily to PT/OT suggestions due to pain and not feeling well. If pain can be adequately controlled, she may benefit from SNF rehab. 02/25/17 14:47 02/27/17 14:35 Thoracic back pain: improved pain control with scheduled IV dilaudid. Will switch to PO now and see how she does Incision: possible infection, improved with vancomycin per Dr. Schmidt. For now , will continue vanco. Pain is also better, though unclear how much of that is related to treatment of infection vs addition of diluadid. Esophageal spasm: states she has tried nitroglycerin, robaxin. Will try adding imipramine rather than diltiazem, as she is already on metoprolol. 02/27/17 14:49 02/27/17 14:54 02/27/17 15:07 02/28/17 12:50 Thoracic back: persistant, variable in severity. Currently on 30mg ER morphine TID as well as 1mg dilaudid q6hrs. Rather than converting to PO dilaudid for breakthrough pain, will increase long-acting morphine, with lower dose dilaudid from breakthrough. Her total dose of 4mg IV dilaudid is equivalent to 60mg PO morphine, so will change to ER morphine 60mg q 12 hrs with dilaudid 2mg po q6 from breakthrough. Bowels moving well. Incision: surrounding erythema unchanged, remains on vancomycin Nausea: helped by phenergan Esophageal spasm: now on imipramine at HS. No recurrent sx, but likely too soon to tell. 02/28/17 12:54 02/28/17 13:02 Subjective: Had a bad night. Didn't sleep well at all. Back is quite painful this morning, and is feeling nauseated again. Has had some phenergan which helps. I forgot to write order to switch over to PO dilaudid, so has continued on IV dilaudid. Had first dose of imipramine last night, and so far, hasn't had recurrent esophageal symptoms. Is eating some, though doesn't have much appetite. Has been up to chair earlier this morning, and gets up to go to bathroom, using walker. Objective: Vital Signs Temp Pulse Resp BP Pulse Ox 36.4 C 61 20 142/56 H 96 02/28/17 11:35 02/28/17 11:35 02/28/17 11:35 02/28/17 11:35 02/28/17 11:35 Laboratory Results 02/25/17 18:40 02/27/17 02/28/17 03/01/17 05:59 05:59 05:59 Intake Total 800 Balance 800 General: well-appearing though frustrated, NAD Lungs: clear bilaterally CV: RRR without murmur Abdomen: +bowel sounds, soft, NT Extremities: trace edema. Skin: surgical incision with surrounding erythema, no significant change from yesterday. ICD10 Worksheet Patient Problems: Problems Problem Status Onset Intractable back pain Acute Back pain Acute Chronic back pain Acute Dysphagia Acute Fever Acute History of vertebroplasty Acute Hypoxia Acute Narcotic overdose Acute S/P lumbar spinal fusion Acute Weakness Acute
[2017-02-28] MEDS: morphINE SR 60 MG TAB PO SCH ×2 (14:11→21:01)
[2017-02-28] MEDS: HYDROmorphONE/DILAUDID 2 MG TAB PO SCH ×2 (17:59→23:37)
[2017-02-28] MEDS: VANCOMYCIN 1.25 GM in D5W 250 ML IV SCH (21:01)
[2017-02-28] MEDS: IMIPRAMINE HCL 25 MG TAB PO SCH (21:01)
[2017-02-28] MEDS: ENOXAPARIN 40 MG/0.4 ML SYR SC SCH (21:01)
[2017-02-28] MEDS: ZOLPIDEM TARTRATE 5 MG TAB PO PRN (23:37)
[2017-03-01] MEDS: HYDROmorphONE/DILAUDID 2 MG TAB PO SCH ×4 (05:06→23:11)
[2017-03-01] MEDS: LEVOTHYROXINE 25 MCG TAB PO SCH (05:06)
--- NOTE | 2017-03-01 07:49 | NEUSURGPN ---
Date of Surgery: 02/16/17 Post Op Day: 13 Assessment/Plan: Assessment: Jocelyn is an 81 female s/p thoracic fusion extension and decompression 13 days ago per Pt/ Plan: -neuro stable -incision without signs of infection, healing well-seen by Dr Piedra as well -postop x-ray demonstrates intact hardware without evidence of failure -pain control better-sitting up and eating breakfast this am -pt seen by Dr Schmidt as well -will continue to watch incision and see daily -may be able to take out sutures by /Wednesday -d/w Dr Piedra -recommend daily dressing changes -please contact us with any further questions/concerns Subjective: Awake and alert. NAD. Eating/drinking and voiding. Pain better controlled. Objective: AAO x 3, PERRLA EOMI no droop CN 2-12 grossly intact JOSE x 4 CDI-no fluctuance or erythema Neuro Check Frequency: per routine Urinary Catheter in Place: No - Physician Discussed Patient with Dr.: Piedra Neurosurgery Physical Exam - Vitals, I&O, Labs I and O 02/28/17 03/01/17 03/02/17 05:59 05:59 05:59 Intake Total 800 Balance 800 Intake: Oral (ml) 800 Other: Intake Quantity Yes Yes Sufficient Number of Voids Toilet 1 1 Number of Stools Toilet 1 1 Vital Signs Temp Pulse Resp BP Pulse Ox 36.6 C 63 16 172/79 H 96 03/01/17 07:19 03/01/17 07:19 03/01/17 07:19 03/01/17 07:19 03/01/17 07:19 Laboratory Results 02/25/17 18:40 ICD10 Worksheet Patient Problems: Problems Problem Status Onset Intractable back pain Acute Back pain Acute Chronic back pain Acute Dysphagia Acute Fever Acute History of vertebroplasty Acute Hypoxia Acute Narcotic overdose Acute S/P lumbar spinal fusion Acute Weakness Acute
[2017-03-01] MEDS: PIOGLITAZONE HCL 15 MG TAB PO SCH (08:37)
[2017-03-01] MEDS: predniSONE 5 MG TAB PO SCH (08:38)
[2017-03-01] MEDS: amLODIPine BESYLATE 5 MG TAB PO SCH (08:39)
[2017-03-01] MEDS: busPIRone 10 MG TAB PO SCH ×2 (08:40→22:53)
[2017-03-01] MEDS: PANTOPRAZOLE SODIUM 40 MG TAB PO SCH (08:40)
[2017-03-01] MEDS: PREGABALIN 50 MG CAP PO SCH ×2 (08:41→22:11)
[2017-03-01] MEDS: LIPASE 12,000/AMYLASE/PROTEASE (CREON) 1 CAP PO SCH ×2 (08:41→18:21)
[2017-03-01] MEDS: FAMOTIDINE 20 MG TAB PO SCH ×2 (08:41→22:13)
[2017-03-01] MEDS: morphINE SR 60 MG TAB PO SCH ×2 (08:41→22:13)
[2017-03-01] MEDS: METOPROLOL SUCCINATE XR 50 MG TAB PO SCH (08:42)
[2017-03-01] MEDS: metFORMIN HCL 500 MG TAB PO SCH ×2 (08:42→18:20)
[2017-03-01] MEDS: POLYETHYLENE GLYCOL 3350 17 GM PKT PO SCH (08:44)
[2017-03-01] MEDS: SENNOSIDES/DOCUSATE SODIUM TAB PO SCH ×2 (08:44→22:51)
[2017-03-01] MEDS: DOCUSATE SODIUM 100 MG CAP PO SCH ×2 (08:44→22:12)
--- NOTE | 2017-03-01 21:53 | SOAPPROG ---
SOAP Progress Note Assessment/Plan: Assessment: I remain concerned about an incisional infection based ont he degree of redness and swelling when she presented and compared to the degree of reduction of pain, redness, and swelling after antibiotic treatment. Plan:Continue Vancomycin IV. Await final blood cultures. Follow incision. Consider removal of sutures assoon as NS is comforatable. 02/26/17 18:30 03/01/17 21:53 Subjective: Still having pain however it is improving Objective: Vital Signs Temp Pulse Resp BP Pulse Ox 97.9 F 60 16 117/43 L 96 03/01/17 19:47 03/01/17 19:47 03/01/17 19:47 03/01/17 19:47 03/01/17 19:47 Microbiology 02/24/17 19:30 Blood Culture - Final Blood 02/24/17 19:45 Blood Culture - Final Blood Laboratory Results 02/25/17 18:40 02/28/17 03/01/17 03/02/17 05:59 05:59 05:59 Intake Total 800 Balance 800 Incision is less swollen and red today. ain improved. No sig edema. Cor RRR ICD10 Worksheet Patient Problems: Problems Problem Status Onset Intractable back pain Acute Back pain Acute Chronic back pain Acute Dysphagia Acute Fever Acute History of vertebroplasty Acute Hypoxia Acute Narcotic overdose Acute S/P lumbar spinal fusion Acute Weakness Acute
[2017-03-01] MEDS: IMIPRAMINE HCL 25 MG TAB PO SCH (22:12)
[2017-03-01] MEDS: ENOXAPARIN 40 MG/0.4 ML SYR SC SCH (22:17)
[2017-03-01] MEDS: VANCOMYCIN 1.25 GM in D5W 250 ML IV SCH (23:02)
[2017-03-01] MEDS: ZOLPIDEM TARTRATE 5 MG TAB PO PRN (23:11)
[2017-03-02] MEDS: HYDROmorphONE/DILAUDID 2 MG TAB PO SCH ×4 (04:58→23:16)
[2017-03-02] MEDS: LEVOTHYROXINE 25 MCG TAB PO SCH (06:28)
[2017-03-02] MEDS: PIOGLITAZONE HCL 15 MG TAB PO SCH (08:05)
[2017-03-02] MEDS: FAMOTIDINE 20 MG TAB PO SCH ×2 (08:06→20:49)
[2017-03-02] MEDS: PREGABALIN 50 MG CAP PO SCH ×2 (08:07→20:49)
[2017-03-02] MEDS: METOPROLOL SUCCINATE XR 50 MG TAB PO SCH (08:07)
[2017-03-02] MEDS: metFORMIN HCL 500 MG TAB PO SCH ×2 (08:08→18:00)
[2017-03-02] MEDS: LIPASE 12,000/AMYLASE/PROTEASE (CREON) 1 CAP PO SCH ×2 (08:08→18:01)
[2017-03-02] MEDS: amLODIPine BESYLATE 5 MG TAB PO SCH (08:09)
[2017-03-02] MEDS: predniSONE 5 MG TAB PO SCH (08:10)
[2017-03-02] MEDS: PANTOPRAZOLE SODIUM 40 MG TAB PO SCH (08:10)
[2017-03-02] MEDS: busPIRone 10 MG TAB PO SCH ×2 (08:11→20:48)
[2017-03-02] MEDS: morphINE SR 60 MG TAB PO SCH ×2 (08:11→20:49)
--- NOTE | 2017-03-02 08:31 | NEUSURGPN ---
Date of Surgery: 02/16/17 Post Op Day: 14 Assessment/Plan: Assessment: Jocelyn is an 81 female s/p thoracic fusion extension and decompression 14 days ago per Pt/ Plan: -neuro stable -incision without signs of infection, healing well. Reports of erythema on presentation by PCP. Will continue to watch and continue with same plan. Dr Piedra updated and recommend continued sutures at this time. Possible removal later in the week -postop x-ray demonstrates intact hardware without evidence of failure -pain control better -pt seen by Dr Schmidt as well -will continue to watch incision and see daily -may be able to take out sutures by /Wednesday -d/w Dr Piedra -recommend daily dressing changes -please contact us with any further questions/concerns Subjective: Awake and alert. NAD. Pt with improving back pain Objective: AAO x 3, PERRLA EOMI no droop CN 2-12 grossly intact JOSE x 4 CDI-no fluctuance or erythema Neuro Check Frequency: per routine - Physician Discussed Patient with : [facility] Physical Exam - Vitals, I&O, Labs I and O 03/01/17 03/02/17 03/03/17 05:59 05:59 05:59 Other: Intake Quantity Yes Yes Sufficient Number of Voids Toilet 1 Number of Stools Toilet 1 Microbiology 02/24/17 19:30 Blood Culture - Final Blood 02/24/17 19:45 Blood Culture - Final Blood Vital Signs Temp Pulse Resp BP Pulse Ox 36.6 C 72 16 167/91 H 92 03/02/17 07:46 03/02/17 07:46 03/02/17 07:46 03/02/17 07:46 03/02/17 07:46 Laboratory Results 02/25/17 18:40 ICD10 Worksheet Patient Problems: Problems Problem Status Onset Intractable back pain Acute Back pain Acute Chronic back pain Acute Dysphagia Acute Fever Acute History of vertebroplasty Acute Hypoxia Acute Narcotic overdose Acute S/P lumbar spinal fusion Acute Weakness Acute
[2017-03-02] MEDS: SENNOSIDES/DOCUSATE SODIUM TAB PO SCH ×2 (08:51→20:56)
[2017-03-02] MEDS: DOCUSATE SODIUM 100 MG CAP PO SCH ×2 (08:52→20:48)
[2017-03-02] MEDS: POLYETHYLENE GLYCOL 3350 17 GM PKT PO SCH (08:52)
[2017-03-02] MEDS: ONDANSETRON DISINTEGRATING 4 MG TAB PO PRN (14:24)
[2017-03-02] MEDS: PROMETHAZINE HCL 25 MG TAB PO PRN (14:44)
[2017-03-02] MEDS: ENOXAPARIN 40 MG/0.4 ML SYR SC SCH (20:47)
[2017-03-02] MEDS: VANCOMYCIN 1.25 GM in D5W 250 ML IV SCH (20:47)
[2017-03-02] MEDS: ZOLPIDEM TARTRATE 5 MG TAB PO PRN (20:48)
[2017-03-02] MEDS: IMIPRAMINE HCL 25 MG TAB PO SCH (20:49)
[2017-03-03] MEDS: LEVOTHYROXINE 25 MCG TAB PO SCH (04:45)
[2017-03-03] MEDS: HYDROmorphONE/DILAUDID 2 MG TAB PO SCH ×4 (04:45→23:29)
--- NOTE | 2017-03-03 07:29 | SOAPPROG ---
Downtime Inpatient MD Late Entry SOAP Note: Due to a human error, I am recreating the following medical record entry as of this date and time based on the information specified below: Information on which this medical record entry is based: (MD: Please list items, such as nursing notes, labs, imaging, etcetera) S: Doing better. Pain is improved. O: Lungs clear. cOR RRR. rednes and swelling around incissioin contiues to improve. A:. INcissional cellulitis, resolving on vancomycin. The pain is also improving as the cellulitis resolves. P: Will conitnue vanco until afer th stitches are removed. Hopefully that will happen soon.
[2017-03-03] MEDS: metFORMIN HCL 500 MG TAB PO SCH ×2 (09:03→18:41)
[2017-03-03] MEDS: METOPROLOL SUCCINATE XR 50 MG TAB PO SCH (09:04)
[2017-03-03] MEDS: LIPASE 12,000/AMYLASE/PROTEASE (CREON) 1 CAP PO SCH ×2 (09:06→18:38)
[2017-03-03] MEDS: amLODIPine BESYLATE 5 MG TAB PO SCH (09:06)
[2017-03-03] MEDS: FAMOTIDINE 20 MG TAB PO SCH ×2 (09:07→20:01)
[2017-03-03] MEDS: busPIRone 10 MG TAB PO SCH ×2 (09:07→20:02)
[2017-03-03] MEDS: SENNOSIDES/DOCUSATE SODIUM TAB PO SCH ×2 (09:08→20:26)
[2017-03-03] MEDS: DOCUSATE SODIUM 100 MG CAP PO SCH ×2 (09:08→20:02)
[2017-03-03] MEDS: PIOGLITAZONE HCL 15 MG TAB PO SCH (09:12)
[2017-03-03] MEDS: PREGABALIN 50 MG CAP PO SCH ×2 (09:13→20:02)
[2017-03-03] MEDS: predniSONE 5 MG TAB PO SCH (09:13)
[2017-03-03] MEDS: PANTOPRAZOLE SODIUM 40 MG TAB PO SCH (09:14)
[2017-03-03] MEDS: morphINE SR 60 MG TAB PO SCH ×2 (09:14→20:01)
[2017-03-03] MEDS: POLYETHYLENE GLYCOL 3350 17 GM PKT PO SCH (09:14)
--- NOTE | 2017-03-03 09:49 | SOAPPROG ---
SOAP Progress Note Assessment/Plan: Assessment: 81 yo F sp thoracic fusion Plan: stable and doing well overall remove sutures today scd/mega/lovenox for dvt prophylaxis ok to dc when cleared by Dr Schmidt, follow up with Dr Piedra in 4 weeks please call with neuro changes discussed with Dr Piedra 03/03/17 09:47 Subjective: back pain improving, no rib pain, no leg weakness. Objective: Vital Signs Temp Pulse Resp BP Pulse Ox 36.5 C 62 16 151/76 H 92 03/03/17 07:42 03/03/17 09:04 03/03/17 07:42 03/03/17 09:06 03/03/17 07:42 Laboratory Results 02/25/17 18:40 AAOx4, +FC PERRL, EOMI 5/5 + light touch C/D/I ICD10 Worksheet Patient Problems: Problems Problem Status Onset Intractable back pain Acute Back pain Acute Chronic back pain Acute Dysphagia Acute Fever Acute History of vertebroplasty Acute Hypoxia Acute Narcotic overdose Acute S/P lumbar spinal fusion Acute Weakness Acute
[2017-03-03] MEDS: ONDANSETRON DISINTEGRATING 4 MG TAB PO PRN (14:47)
--- NOTE | 2017-03-03 17:49 | SOAPPROG ---
SOAP Progress Note Assessment/Plan: Assessment: Plan: 03/03/17 17:48 incisional inflammation: improved. Last dose of Vanco tonight and then home tomorrow if stable Subjective: Pain is better! Objective: Vital Signs Temp Pulse Resp BP Pulse Ox 36.5 C 66 16 135/73 H 92 03/03/17 15:59 03/03/17 15:59 03/03/17 15:59 03/03/17 15:59 03/03/17 15:59 Laboratory Results 02/25/17 18:40 Gen: bright Incision: improving, sutures out today Lungs: CTAB Heart: RRR LE's stable edema ICD10 Worksheet Patient Problems: Problems Problem Status Onset Intractable back pain Acute Back pain Acute Chronic back pain Acute Dysphagia Acute Fever Acute History of vertebroplasty Acute Hypoxia Acute Narcotic overdose Acute S/P lumbar spinal fusion Acute Weakness Acute
[2017-03-03] MEDS: ENOXAPARIN 40 MG/0.4 ML SYR SC SCH (20:01)
[2017-03-03] MEDS: ZOLPIDEM TARTRATE 5 MG TAB PO PRN (20:02)
[2017-03-03] MEDS: IMIPRAMINE HCL 25 MG TAB PO SCH (20:02)
[2017-03-03] MEDS: VANCOMYCIN 1.25 GM in D5W 250 ML IV SCH (21:02)
[2017-03-04] MEDS: LEVOTHYROXINE 25 MCG TAB PO SCH (05:19)
[2017-03-04] MEDS: HYDROmorphONE/DILAUDID 2 MG TAB PO SCH (05:19)
[2017-03-04 07:21] VITALS: BP 144/68; PULSE 61; RESP 18; TEMP 98.1; O2SAT 93
[2017-03-04] MEDS: LIPASE 12,000/AMYLASE/PROTEASE (CREON) 1 CAP PO SCH (08:11)
[2017-03-04] MEDS: PIOGLITAZONE HCL 15 MG TAB PO SCH (08:11)
--- NOTE | 2017-03-04 08:23 | SOAPPROG ---
SOAP Progress Note Assessment/Plan: Assessment: Plan: 03/03/17 17:48 incisional inflammation: improved. Last dose of Vanco tonight and then home tomorrow if stable 03/04/17 08:21 t-spine pain. s/p recent multilevel surgery and wound infection--doing better. D/C home and follow closely. Resume once daily doxy dm--stable htn--stable anemia-stable constipation--home miralax TID until + bm Subjective: Jocelyn is feeling well. No new complaints. No BM in 3 days. Ready to go home Objective: Vital Signs Temp Pulse Resp BP Pulse Ox 36.7 C 61 18 144/68 H 93 03/04/17 07:19 03/04/17 07:19 03/04/17 07:19 03/04/17 07:19 03/04/17 07:19 Laboratory Results 02/25/17 18:40 03/03/17 03/04/17 03/05/17 05:59 05:59 05:59 Intake Total 300 Balance 300 Gen: NAD, bright wound: further healing Lungs: CTAB Heart: RRR LE's stable edema ICD10 Worksheet Patient Problems: Problems Problem Status Onset Intractable back pain Acute Back pain Acute Chronic back pain Acute Dysphagia Acute Fever Acute History of vertebroplasty Acute Hypoxia Acute Narcotic overdose Acute S/P lumbar spinal fusion Acute Weakness Acute
--- NOTE | 2017-03-04 08:24 | PDIAF ---
- Diagnosis Diagnosis: -tspine pain, surgery, wound infection Code Status: Do Not Resuscitate - Medication Management Discharge Medications: Medications to Continue on Transfer Lipase 12,000/Amylase/Protease [Creon 12 (*)] 2 cap PO BIDMEAL 08/20/16 [Last Taken 02/24/17 09:00] Metoprolol Succinate Xr [Toprol Xl 50 mg (*)] 75 mg PO DAILY 08/20/16 [Last Taken 02/24/17] Omeprazole 40 mg PO BID 08/20/16 [Last Taken 02/24/17 09:00] Pioglitazone HCl [Actos] 45 mg PO DAILY 08/20/16 [Last Taken 02/24/17] Zolpidem Tartrate [Ambien 10 mg] 10 mg PO HS PRN 08/20/16 [Last Taken 02/23/17] amLODIPine BESYLATE [Norvasc 5 mg (*)] 7.5 mg PO DAILY 08/20/16 [Last Taken ] busPIRone [Buspar (*)] 10 mg PO BID 08/20/16 [Last Taken 02/24/17 09:00] predniSONE 7.5 mg PO DAILY 08/20/16 [Last Taken 02/24/17] Doxycycline Hyclate [Vibramycin 100 MG (*)] 100 mg PO DAILY 09/03/16 [Last Taken 02/24/17] Levothyroxine [Synthroid 25 mcg (*)] 25 mcg PO DAILY06 02/01/17 [Last Taken ] Pregabalin [Lyrica 50mg (*)] 50 mg PO BID 02/01/17 [Last Taken 02/24/17 09:00] metFORMIN HCL [Glucophage 500 mg (*)] 500 mg PO BIDMEAL 02/01/17 [Last Taken 09:00] Ondansetron Odt [Zofran Odt 4 mg (*)] 4 mg PO Q4HRS PRN tab 02/06/17 [Last Taken 02/24/17 15:00] Docusate Sodium [Colace 100 MG (*)] 100 mg PO BID cap 02/19/17 [Last Taken 09:00] Famotidine [Pepcid 20 MG (*)] 20 mg PO BID tab 02/19/17 [Last Taken 02/24/17 09 :00] Methocarbamol [Robaxin 750 mg (*)] 750 mg PO QID PRN tab 02/19/17 [Last Taken 02/23/17] Polyethylene Glycol 3350 [Miralax 17 gm (*)] 17 gm PO DAILY pkt 02/19/17 [Last Taken 02/24/17] HYDROmorphone HCL [Dilaudid 2 mg (*)] 2 mg PO Q6HRS #120 tab 03/04/17 [Last Taken Unknown] Imipramine HCl [Imipramine HCl 25 mg (*)] 25 mg PO HS #30 tab 03/04/17 [Last Taken Unknown] Sennosides/Docusate Sodium [Senokot-S] 1 - 2 tab PO BID tab 03/04/17 [Last Taken Unknown] morphINE SR [MS Contin/Oramorph 60 mg (*)] 60 mg PO BID #60 tab 03/04/17 [Last Taken Unknown] [employer] Antibiotics: doxy 100 mg daily Discharge Medications: Refer to the Discharge Home Medication list for PRN reason. PICC Care - Routine: N/A - Orders Services needed: Physical Therapy, Occupational Therapy Isolation Type: None Oxygen: 2 lpm hs Diet Recommendation: no restrictions on diet, breast feeding Diet Texture: Regular Texture Diet Weigh Patient: weekly [place]: No Negro Stockings Discontinue Date: on daily if possible Wound Care Instructions: none - Follow Up Care Current Providers and Referrals: Paco Schmidt MD [Primary Care Provider] - As per Instructions
[2017-03-04] MEDS: FAMOTIDINE 20 MG TAB PO SCH (08:35)
[2017-03-04] MEDS: POLYETHYLENE GLYCOL 3350 17 GM PKT PO SCH (08:35)
[2017-03-04] MEDS: metFORMIN HCL 500 MG TAB PO SCH (08:35)
[2017-03-04] MEDS: SENNOSIDES/DOCUSATE SODIUM TAB PO SCH (08:36)
[2017-03-04] MEDS: DOCUSATE SODIUM 100 MG CAP PO SCH (08:36)
[2017-03-04] MEDS: METOPROLOL SUCCINATE XR 50 MG TAB PO SCH (08:37)
[2017-03-04] MEDS: PANTOPRAZOLE SODIUM 40 MG TAB PO SCH (08:37)
[2017-03-04] MEDS: PREGABALIN 50 MG CAP PO SCH (08:37)
[2017-03-04] MEDS: predniSONE 5 MG TAB PO SCH (08:39)
[2017-03-04] MEDS: busPIRone 10 MG TAB PO SCH (08:40)
[2017-03-04] MEDS: morphINE SR 60 MG TAB PO SCH (08:40)
[2017-03-04] MEDS: amLODIPine BESYLATE 5 MG TAB PO SCH (08:40)
--- NOTE | 2017-03-04 08:42 | GDS ---
[f rep st] DISCHARGE SUMMARY REASON FOR ADMISSION: Intractable thoracic spine pain with concern for wound infection. DISCHARGE DIAGNOSES: Thoracic spine pain due to recent surgery and probable wound infection, nicely improved. HOSPITAL COURSE: Patient was admitted through the ER due to inability to manage pain at home. She h ad increasing redness and swelling around her recent upper thoracic spine incision. 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 She was started on IV vancomycin. Eventually, s he had gradual resolution/improvement in her redness and swelling. Sutures were removed yesterday. She had her last dose of vancomycin last night. Wound itself has improved nicely. Pain has been muc h more manageable and is now on a stable reasonable regimen. Diabetes has been stable. Blood pressu re has been stable. Chronic anemia is unchanged. She will be discharged home with home care. Will continue doxycycline 100 mg daily. Current pain medication regimen will be long-acting morphine 60 m g twice a day, 2 mg hydromorphone scheduled every 6 hours. She will have outpatient followup next we ek and hopefully we can begin to reduce her hydromorphone and then scale back on her morphine as pain control allows. If there is any change in her wound, she or her will call us promptly. /[id number]/MODL
--- NOTE | 2017-03-04 09:44 | ASMTCMCOM ---
CM Note CM Note Notes: Spoke w/pt re; dc poc. Pt refuses home care, states will not be home bound and really does not want to "be tied to being at home". She lives with her and he does a lot of supportive care. CM advised pt if she changes her mind once at home, she can call her PCP for home care orders. DC Plan: Home Date Signed: 03/04/2017 09:44 AM Electronically Signed By:Nery Huynh RN
--- NOTE | 2017-03-04 12:27 | ASDISCHSUM ---
Discharge Information Plan Status:Home with No Needs Medically Cleared to Leave: Discharge Date:03/04/2017 11:40 AM CM D/C Disposition:Home, Routine, Self-Care ADT D/C Disposition:[id number] Projected Discharge Date:03/04/2017 11:40 AM Transportation at D/C:Family Discharge Delay Reason: Follow-Up Date:03/04/2017 11:40 AM Discharge Slot: Final Diagnosis: Placement Information Patient Contact Information Contact Name:PAULA Relationship:Tanesha Address:[address] [address] City:[place] Alternate Phone: [facility]/Zip Code:[place] [phone] Email: Financial Information Financial Class: Primary Plan Desc:MEDICARE INPATIENT Primary Plan Number:[id number] Secondary Plan Desc:[employer]/MDR SUPPLEMENT Secondary Plan Number:[id number] Assessment Information [facility] CM Progress Note CM Note CM Note Notes: Chart reviewed. patient last dcd' 12/22 without HHC. She is re-admitted for unmanageable pain. I spoke with her regarding HHC and she is quite clear in pointing out that she is capable of caring for herself and taking her medications. She has a supportive and a son nearby. No therapies ordered yet. CM to follow. Date Signed: 02/25/2017 03:43 PM Electronically Signed By:Rosi Brizuela RN [facility] CM Progress Note CM Note CM Note Notes: CM met w/ pt for dispo planning. OT is recommending HC. It was indicated in the OT note that pt is not interested in SNF. Pt reports that she is not interested in any services at this time. Pt reports that she uses a walker in her home. Pt reports that she is very cautious and self aware of her surroundings. CM available for changes. Plan: Independent Date Signed: 02/26/2017 04:28 PM Electronically Signed By:WILMA Sy [facility] Progress Note CM Note CM Note Notes: Spoke w/pt re; dc poc. Pt refuses home care, states will not be home bound and really does not want to "be tied to being at home". She lives with her and he does a lot of supportive care. CM advised pt if she changes her mind once at home, she can call her PCP for home care orders. DC Plan: Home Date Signed: 03/04/2017 09:44 AM Electronically Signed By:Nery Huynh RN Intervention Information Intervention Type:*Incorrect Registration Date of Service:02/25/2017 09:53 AM Patient Type:Observation Staff Member:ESTRELLA Childs, Fiorella Hours: Discipline: Severity: Comment: Intervention Type:*IM-Signed Date of Service:03/04/2017 09:53 AM Patient Type:Inpatient Staff Member:Carli Treadwell Hours: Discipline: Severity: Comment:
== END 2017-03-04 11:40 | disposition home health service (06) | DRG 863 ==
LOC: EDUNIT# → OBSVTOIN 18:55 → F3E 19:55
PROVIDERS: ADMIT Internal Medicine; ATTEND Internal Medicine
DX: T81.4XXA Infection following a procedure, initial encounter (principal); G89.18 Other acute postprocedural pain; Z98.1 Arthrodesis status; E11.40 Type 2 diabetes mellitus with diabetic neuropathy, unspecified; T40.605A Adverse effect of unspecified narcotics, initial encounter; R11.0 Nausea; I10 Essential (primary) hypertension; M35.3 Polymyalgia rheumatica; E03.9 Hypothyroidism, unspecified; I25.10 Atherosclerotic heart disease of native coronary artery without angina pectoris; K21.9 Gastro-esophageal reflux disease without esophagitis; G47.33 Obstructive sleep apnea (adult) (pediatric); K22.0 Achalasia of cardia; D53.9 Nutritional anemia, unspecified
CPT/HCPCS: 96374; 97116-GP; 97162-GP; 97165-GO; G8978-GP-CJ; G8979-GP-CI; G8987-GO-CI; G8988-GO-CI; G8989-GO-CI; J1170; J1650; J3370; J7512

== ENCOUNTER 2017-03-10 06:15 | Inpatient (IN) | payer OTHER, MEDICARE ==
--- NOTE | 2017-03-10 06:24 | EDPHY ---
H & P Stated Complaint: BLOCKED ESOPHAGUS HPI/ROS: HPI CHIEF COMPLAINT: [ ] HISTORY OF PRESENT ILLNESS: [Need 4: Location, Duration, Severity, Quality, Context, Timing Modifying Factors, Associated S&S] Past Medical History: Past Surgical History: Social History: Family History: ROS REVIEW OF SYSTEMS: A comprehensive 10 point review of systems is otherwise negative aside from elements mentioned in the history of present illness. Exam Constitutional triage nursing summary reviewed, vital signs reviewed, awake/ alert. Eyes normal conjunctivae and sclera, EOMI, PERRLA. HENT normal inspection, atraumatic, moist mucus membranes, no epistaxis, neck supple/ no meningismus, no raccoon eyes. Respiratory clear to auscultation bilaterally, normal breath sounds, no respiratory distress, no wheezing. Cardiovascular rate normal, regular rhythm, no murmur, no edema, distal pulses normal. Gastrointestinal soft, non-tender, no rebound, no guarding, normal bowel sounds, no distension, no pulsatile mass. Genitourinary no CVA tenderness. Musculoskeletal no midline vertebral tenderness, full range of motion, no calf swelling, no tenderness of extremities, no meningismus, good pulses, neurovascularly intact. Skin pink, warm, & dry, no rash, skin atraumatic. Neurologic awake, alert and oriented x 3, AAOx3, moves all 4 extremities equally, motor intact, sensory intact, CN II-XII intact, normal cerebellar, normal vision, normal speech. Psychiatric normal mood/affect. Heme/Lymph/Immune no lymphadenopathy. Differential Diagnosis: Medical Decision Making: Re-evaluation: Source: Patient - Personal History Current Tetanus Diphtheria and Acellular Pertussis (TDAP): Yes - Medical/Surgical History Hx Asthma: No Hx Chronic Respiratory Disease: No Hx Diabetes: Yes Hx Cardiac Disease: Yes Hx Renal Disease: No Hx Cirrhosis: No Hx Alcoholism: No Hx HIV/AIDS: No Hx Splenectomy or Spleen Trauma: No Other PMH: ORHTO SURG BACK NECK AND ANKLE, GALL BLADDER, HTN, Diabetes, Tonsillectomy, Gastroparesis, hypothyroidism. right CLAVICLE/shoulder fx, med non-compliance - Social History Smoking Status: Former smoker Constitutional: Initial Vital Signs Temperature (C) 36.4 C 03/10/17 06:20 Heart Rate 73 03/10/17 06:20 Respiratory Rate 16 03/10/17 06:20 Blood Pressure 190/134 H 03/10/17 06:20 O2 Sat (%) 97 03/10/17 06:20 O2 Delivery Mode Room Air Allergies/Adverse Reactions: Penicillins Allergy (Intermediate, Verified 03/09/16 17:56) Rash Sulfa (Sulfonamide Antibiotics) Allergy (Unknown, Verified 03/09/16 17:56) BANDAIDS Allergy (Intermediate, Uncoded 03/07/16 08:54) Rash Home Medications: Medication Instructions Recorded Lipase 12,000/Amylase/Protease 2 cap PO BIDMEAL 08/20/16 [Creon 12 (*)] Metoprolol Succinate Xr [Toprol Xl 75 mg PO DAILY 08/20/16 50 mg (*)] Omeprazole 40 mg PO BID 08/20/16 Pioglitazone HCl [Actos] 45 mg PO DAILY 08/20/16 Zolpidem Tartrate [Ambien 10 mg] 10 mg PO HS PRN 08/20/16 amLODIPine BESYLATE [Norvasc 5 mg 7.5 mg PO DAILY 08/20/16 (*)] busPIRone [Buspar (*)] 10 mg PO BID 08/20/16 predniSONE 7.5 mg PO DAILY 08/20/16 Doxycycline Hyclate [Vibramycin 100 mg PO DAILY 09/03/16 100 MG (*)] Levothyroxine [Synthroid 25 mcg 25 mcg PO DAILY06 02/01/17 (*)] Pregabalin [Lyrica 50mg (*)] 50 mg PO BID 02/01/17 metFORMIN HCL [Glucophage 500 mg 500 mg PO BIDMEAL 02/01/17 (*)] Ondansetron Odt [Zofran Odt 4 mg 4 mg PO Q4HRS PRN tab 02/06/17 (*)] Docusate Sodium [Colace 100 MG (*)] 100 mg PO BID cap 02/19/17 Famotidine [Pepcid 20 MG (*)] 20 mg PO BID tab 02/19/17 Methocarbamol [Robaxin 750 mg (*)] 750 mg PO QID PRN tab 02/19/17 Polyethylene Glycol 3350 [Miralax 17 gm PO DAILY pkt 02/19/17 17 gm (*)] HYDROmorphone HCL [Dilaudid 2 mg 2 mg PO Q6HRS #120 tab 03/04/17 (*)] Imipramine HCl [Imipramine HCl 25 25 mg PO HS #30 tab 03/04/17 mg (*)] Sennosides/Docusate Sodium 1 - 2 tab PO BID tab 03/04/17 [Senokot-S] morphINE SR [MS Contin/Oramorph 60 60 mg PO BID #60 tab 03/04/17 mg (*)] Departure - Departure Condition: Fair Referrals: Paco Schmidt MD [Primary Care Provider] - As per Instructions
[2017-03-10] MEDS ORDERED: NS 1,000 ML IV ONE (06:34)
[2017-03-10 06:59] LABS: PLATELET COUNT 307 10^3/uL (150-400)
[2017-03-10] MEDS ORDERED: ONDANSETRON 4 MG/2 ML VIAL IVP ONE (07:16)
--- NOTE | 2017-03-10 07:20 | EDPHY ---
H & P Time Seen by Provider: 03/10/17 07:00 HPI/ROS: CHIEF COMPLAINT: Esophageal food impaction HISTORY OF PRESENT ILLNESS: 81-year-old female with a history of esophageal dysmotility and María Elena Fundoplication presents with an esophageal food impaction. Over the last few days, she has felt tentative about eating, as she feels that food is not passing correctly. After eating lunch yesterday, she began developing her typical symptoms of esophageal impaction, including lower chest discomfort associated with multiple episodes of vomiting. Unable to tolerate oral fluids since then. h/o esophageal dilation x 3. REVIEW OF SYSTEMS: Constitutional: No fever, no chills Eyes: No visual changes ENT: No sore throat Respiratory: No cough, no shortness of breath Genitourinary: no dysuria Musculoskeletal: No leg pain or swelling Skin: No rash Neurological: No headache, no weakness Psychiatric: No depression Past Medical/Surgical History: Chronic pain María Elena fundoplication, redo in 01/23 Gastroparesis Esophageal dysmotility Osteoporosis Social History: Smoking Status: Former smoker Physical Exam: General Appearance: Alert, pleasant, appears uncomfortable Eyes: Pupils equal and round, no conjunctival pallor or injection ENT, Mouth: Mucous membranes moist Neck: Normal inspection Respiratory: Lungs are clear to auscultation Cardiovascular: Regular rate and rhythm Gastrointestinal: Abdomen is soft and nontender Neurological: A&O, nonfocal exam Skin: Warm and dry, no rash Extremities: Nontender, no pedal edema Psychiatric: Mood and affect normal Constitutional: Initial Vital Signs Temperature (C) 36.4 C 03/10/17 06:20 Heart Rate 73 03/10/17 06:20 Respiratory Rate 16 03/10/17 06:20 Blood Pressure 190/134 H 03/10/17 06:20 O2 Sat (%) 97 03/10/17 06:20 O2 Delivery Mode Nasal Cannula O2 (L/minute) 2 Allergies/Adverse Reactions: Penicillins Allergy (Intermediate, Verified 03/09/16 17:56) Rash Sulfa (Sulfonamide Antibiotics) Allergy (Unknown, Verified 03/09/16 17:56) BANDAIDS Allergy (Intermediate, Uncoded 03/07/16 08:54) Rash Home Medications: Medication Instructions Recorded Metoprolol Succinate Xr [Toprol Xl 75 mg PO DAILY 08/20/16 50 mg (*)] Omeprazole 40 mg PO BID 08/20/16 Zolpidem Tartrate [Ambien 10 mg] 10 mg PO HS PRN 08/20/16 amLODIPine BESYLATE [Norvasc 5 mg 7.5 mg PO DAILY 08/20/16 (*)] busPIRone [Buspar (*)] 10 mg PO BID 08/20/16 predniSONE 7.5 mg PO DAILY 08/20/16 Doxycycline Hyclate [Vibramycin 100 mg PO DAILY 09/03/16 100 MG (*)] Levothyroxine [Synthroid 25 mcg 25 mcg PO DAILY06 02/01/17 (*)] metFORMIN HCL [Glucophage 500 mg 500 mg PO BIDMEAL 02/01/17 (*)] Ondansetron Odt [Zofran Odt 4 mg 4 mg PO Q4HRS PRN tab 02/06/17 (*)] Docusate Sodium [Colace 100 MG (*)] 100 mg PO BID cap 02/19/17 Famotidine [Pepcid 20 MG (*)] 20 mg PO BID tab 02/19/17 Methocarbamol [Robaxin 750 mg (*)] 750 mg PO QID PRN tab 02/19/17 Polyethylene Glycol 3350 [Miralax 17 gm PO DAILY pkt 02/19/17 17 gm (*)] Imipramine HCl [Imipramine HCl 25 25 mg PO HS #30 tab 03/04/17 mg (*)] Sennosides/Docusate Sodium 1 - 2 tab PO BID tab 03/04/17 [Senokot-S] morphINE SR [MS Contin/Oramorph 60 60 mg PO BID #60 tab 03/04/17 mg (*)] DULoxetine [Cymbalta 60 MG (*)] 60 mg PO DAILY 03/10/17 HYDROmorphone HCL [Dilaudid 2 mg 2 mg PO Q6HRS PRN 03/10/17 (*)] Lipase/Protease/Amylase [CREON DR 1 each PO TIDMEAL 03/10/17 12,000 UNITS CAPSULE] Pioglitazone HCl [Actos] 45 mg PO DAILY 03/10/17 Pregabalin [Lyrica 150mg (*)] 150 mg PO BID 03/10/17 Medical Decision Making - Diagnostics EKG Interpretation: EKG interpreted by me reveals normal sinus rhythm, rate 63, PVC, nonspecific T- wave changes in leads III and AVF. ED Course/Re-evaluation: This patient presents with an esophageal food impaction. GI consulted. Discussed with Dr. Kearney, Ativan 0.5 mg IV and glucagon 1 mg IV given. No change in sx. Plan for EGD. Stable throughout her ED stay. To endoscopy in stable condition. Differential Diagnosis: Differential diagnosis includes though it is not limited to appendicitis, cholecystitis, diverticulitis, pyelonephritis, bowel perforation, small bowel obstruction. - Data Points Laboratory Results: Laboratory Results 03/10/17 06:46 03/10/17 06:46 Medications Given: Discontinued Medications Amlodipine Besylate (Norvasc) 7.5 mg PO DAILY [facility] Stop: 09/07/17 08:59 Last Admin: 03/11/17 08:20 Dose: 7.5 mg Lipase/Protease/Amylase (Creon) 1 cap PO TIDMEAL [facility] Stop: 09/06/17 17:59 Last Admin: 03/11/17 13:28 Dose: Not Given Buspirone HCl (Buspar) 10 mg PO BID [facility] Stop: 09/06/17 20:59 Last Admin: 03/11/17 08:31 Dose: 10 mg Docusate Sodium (Colace) 100 mg PO BID [facility] Stop: 09/06/17 20:59 Last Admin: 03/11/17 08:21 Dose: Not Given Doxycycline Hyclate (Doxycycline Hyclate) 100 mg PO DAILY [facility] PRN Reason: Protocol Stop: 04/09/17 17:29 Last Admin: 03/11/17 08:20 Dose: 100 mg Duloxetine HCl (Cymbalta) 60 mg PO DAILY [facility] Stop: 09/06/17 17:29 Last Admin: 03/11/17 08:21 Dose: 60 mg Enoxaparin Sodium (Lovenox) 40 mg SC DAILY [facility] Stop: 09/07/17 08:59 Last Admin: 03/11/17 08:31 Dose: 40 mg Famotidine (Pepcid) 20 mg PO BID [facility] Stop: 09/06/17 20:59 Last Admin: 03/11/17 08:31 Dose: 20 mg Fentanyl (Sublimaze) 300 mcg IVP .STK-MED ONE Stop: 03/10/17 10:46 Last Admin: 03/10/17 10:45 Dose: 300 mcg Glucagon (Glucagon) 1 mg IVP EDNOW ONE Stop: 03/10/17 08:07 Last Admin: 03/10/17 08:39 Dose: 1 mg Hydromorphone HCl (Dilaudid) 2 mg PO Q6HRS PRN PRN Reason: Pain, Breakthrough Stop: 03/20/17 17:22 Last Admin: 03/10/17 17:45 Dose: 2 mg Sodium Chloride (Ns) 1,000 mls @ 0 mls/hr IV EDNOW ONE; Wide Open PRN Reason: Protocol Stop: 03/10/17 06:35 Last Admin: 03/10/17 07:26 Dose: 1,000 mls Imipramine HCl (Imipramine Hcl) 25 mg PO HS [facility] Stop: 09/06/17 20:59 Last Admin: 03/10/17 20:56 Dose: 25 mg Levothyroxine Sodium (Synthroid) 25 mcg PO DAILY06 [facility] Stop: 09/07/17 05:59 Last Admin: 03/11/17 05:16 Dose: 25 mcg Lorazepam (Ativan Injection) 0.5 mg IVP EDNOW ONE Stop: 03/10/17 08:07 Last Admin: 03/10/17 08:18 Dose: 0.5 mg Metformin HCl (Glucophage) 500 mg PO BIDMEAL [facility] Stop: 09/06/17 17:59 Last Admin: 03/11/17 08:23 Dose: 500 mg Methocarbamol (Robaxin) 750 mg PO QID PRN PRN Reason: Spasms Stop: 09/06/17 17:22 Last Admin: 03/11/17 05:16 Dose: 750 mg Metoprolol Succinate (Toprol Xl) 75 mg PO DAILY [facility] Stop: 09/07/17 08:59 Last Admin: 03/11/17 08:18 Dose: 75 mg Midazolam HCl (Versed) 10 mg IVP .STK-MED ONE Stop: 03/10/17 10:46 Last Admin: 03/10/17 10:45 Dose: 10 mg Morphine Sulfate (Ms Contin/Oramorph) 60 mg PO BID [facility] Stop: 03/20/17 20:59 Last Admin: 03/11/17 08:18 Dose: 60 mg Morphine Sulfate (Morphine) 2 - 3 mg IVP Q4HRS PRN PRN Reason: Pain, Severe Unable to Take PO Stop: 03/20/17 17:25 Last Admin: 03/10/17 17:42 Dose: 2 mg Ondansetron HCl (Zofran) 4 mg IVP EDNOW ONE Stop: 03/10/17 07:17 Last Admin: 03/10/17 07:26 Dose: 4 mg Pantoprazole Sodium (Protonix) 40 mg PO BID [facility] Stop: 09/06/17 20:59 Last Admin: 03/11/17 08:14 Dose: 40 mg Pioglitazone HCl (Actos) 45 mg PO DAILY [facility] Stop: 09/07/17 08:59 Last Admin: 03/11/17 08:29 Dose: 45 mg Polyethylene Glycol (Miralax) 17 gm PO DAILY [facility] Stop: 09/07/17 08:59 Last Admin: 03/11/17 09:15 Dose: Not Given Prednisone (Prednisone) 7.5 mg PO DAILY [facility] Stop: 09/07/17 08:59 Last Admin: 03/11/17 08:15 Dose: 7.5 mg Pregabalin (Lyrica) 150 mg PO BID [facility] Stop: 09/06/17 20:59 Last Admin: 03/11/17 08:19 Dose: 150 mg Promethazine HCl (Phenergan) 6.25 mg IVP Q6HRS PRN PRN Reason: Nausea/Vomiting, Can't Take PO Stop: 09/06/17 17:26 Last Admin: 03/10/17 17:40 Dose: 6.25 mg Senna/Docusate Sodium (Senokot-S) 2 tab PO BID [facility] Stop: 09/06/17 20:59 Last Admin: 03/11/17 09:15 Dose: Not Given Departure - Departure Disposition: To OP Cath/Surgery Clinical Impression: Esophageal obstruction due to food impaction Condition: Fair
[2017-03-10] MEDS ORDERED: GLUCAGON HCL 1 MG VIAL IVP ONE (08:06)
[2017-03-10] MEDS ORDERED: LORazepam 2 MG/ML INJ IVP ONE (08:06)
--- NOTE | 2017-03-10 08:20 | CPEKG ---
Heart Rate: 63 RR Interval: 952 P-R Interval: 172 QRSD Interval: 80 QT Interval: 440 QTC Interval: 451 P Zenda: 61 QRS Zenda: 12 T Wave Zenda: 4 EKG Severity - BORDERLINE ECG - EKG Impression: SINUS RHYTHM EKG Impression: VENTRICULAR PREMATURE COMPLEX EKG Impression: BORDERLINE T ABNORMALITIES, INFERIOR LEADS Electronically Signed By: Janene Love 10-Mar-2017 15:09:27
[2017-03-10] MEDS ORDERED: fentaNYL 100 MCG/2 ML INJ ONE ×2 (10:08→10:34)
[2017-03-10] MEDS ORDERED: MIDAZOLAM 2 MG/2 ML VIAL ONE ×2 (10:08→10:33)
--- NOTE | 2017-03-10 10:36 | GCON ---
[f rep st] CONSULTATION GI ER CONSULTATION. DATE OF CONSULTATION: 03/10/2017 REFERRING PHYSICIAN: Janene Love MD I was kindly requested to see the patient by Dr. Sosa Love in consultation for a chief complaint of chest symptoms. She is an 81-year-old white female, who complains of a sensation at the base of her throat. She complains of food regurgitating and having trouble swallowing food. This began last night. She has a long history of the above problems. She is followed by my partner, Dr. Christian, as well as Dr. Shaw (a foregut surgeon) in [place]. She had a María Elena fundoplication 10 years ago and a redo in 2015. She has had multiple upper endoscopies and dilations, without much benefit. She has had past food impactions. Her last upper endoscopy by our group was with Dr. Christian in December of 2015, where she had a tortuous esophagus, a very mild stenosis at the GE junction, hiatal hernia, and was dilated with a 20 mm balloon. It appears that did not help. She was again seen several weeks ago by Dr. Christian in consultation, when she was in the hospital with some chest spasms. She is on omeprazole 40 mg twice a day. PAST MEDICAL HISTORY: 1. As above. 2. DJD. 3. PMR. 4. Thyroid disorder. 5. Diabetes. 6. Hypertension. 7. Osteoporosis. 8. Coronary artery disease. 9. Sleep apnea. 10. Otherwise, noncontributory. MEDICATIONS: Outpatient medications include the above. SOCIAL HISTORY: She denies alcohol use. FAMILY HISTORY: Negative for similar dysphagia. REVIEW OF SYSTEMS: Positive pertinent review of systems as per my HPI. Otherwise, complete review of systems is negative. PHYSICAL EXAM: CONSTITUTIONAL: Reveals a pleasant woman in no distress. SKIN: Warm, dry. HEENT: Eyes: Pupils equal, round, reactive to light and accommodation. Ear, nose, mouth and throat: No masses seen, moist mucosa. CARDIOVASCULAR: Normal S2, normal PMI. RESPIRATORY: Lungs clear to auscultation and percussion anteriorly. GASTROINTESTINAL: Abdomen soft, nontender. NEUROLOGIC: Grossly nonfocal, cranial nerves grossly intact. PSYCHIATRIC: Orientation, insight appropriate. MUSCULOSKELETAL: Strength grossly normal throughout, normal station. ASSESSMENT: Sensation at the base of her throat, some chest spasm symptoms, and food regurgitation/dysphagia symptoms. This may represent a food impaction , secondary to dysmotility. PLAN: 1. Upper endoscopy. Certainly, with her age, thyroid disorder, diabetes, hypertension, coronary artery disease, sleep apnea, etc., she is at increased risk for this procedure. However, suspected benefits outweigh the risks, and suspect she would do well. 2. Further management depending on the above. Thank you for allowing me to help in the care of this patient. Copy requested to: Dr. Akash Shaw /[id number]/MODL MTDD
[2017-03-10] MEDS ORDERED: fentaNYL 100 MCG/2 ML INJ IVP ONE (10:45)
[2017-03-10] MEDS ORDERED: MIDAZOLAM 2 MG/2 ML VIAL IVP ONE (10:45)
[2017-03-10] MEDS ORDERED: NS 500 ML IV SCH (12:45)
--- NOTE | 2017-03-10 12:56 | PDANEPAE ---
ANE Past Medical History - Cardiovascular History Hx Hypertension: Yes Hx Arrhythmias: No Hx Chest Pain: No Hx Coronary Artery / Peripheral Vascular Disease: No Hx CHF / Valvular Disease: No Hx Palpitations: No Cardiovascular History Comment: HX PVC'S - Pulmonary History Hx COPD: No Hx Asthma/Reactive Airway Disease: No Hx Recent Upper Respiratory Infection: No Hx Oxygen in Use at Home: Yes O2 in Use at Home (L/minute): 3 Hx Sleep Apnea: Yes Pulmonary History Comment: [facility] DO[facility] HOME O2. OVERNIGHT SLLEP TEST SHOWED LOW 02 AT NIGHT - Neurologic History Hx Cerebrovascular Accident: No Hx Seizures: No Hx Dementia: No Neurologic History Comment: SCIATICA TJ LEGS. NEUROPATHY TJ FEET - Endocrine History Hx Diabetes: Yes Endocrine History Comment: IDDM. HYPOTHYROID - Renal History Hx Renal Disorders: No Renal History Comment: 3 WEEKS AGO HAD TROUBLE URINATING WAS IN [facility] ER - Liver History Hx Hepatic Disorders: No - Neurological & Psychiatric Hx Hx Neurological and Psychiatric Disorders: No - Cancer History Hx Cancer: No - Congenital Disorder History Hx Congenital Disorders: No - GI History Hx Gastrointestinal Disorders: Yes Gastrointestinal History Comment: CONSTIPATION. NARROW ESOPHOGUS, NEED OF DILATION, REFLUX. HAD FOOD STUCK IN THROAT FEW WKS AGO. HAD NICK FUNDOPLICATION HX. DIABETIC DIET- AVOID SUGAR - Other Health History Other Health History: PSORIASIS ON ELBOWS , polymyalgia rheumatica on steroids for 30 years. IMPLANTS DENTAL. OA HANDS, BACK AND NECK. BRUISE EASILY. recent diagnosis of sleep apnea, has not tried CPAP yet - Chronic Pain History Chronic Pain: Yes (LOWER BACK AND LEGS) - Surgical History Prior Surgeries: EGD 02/2015. TONSILECTOMY 12 YEARS AGO. NECK FUSION. RT FOOT ORIF. YOLY FUNDIPLICATION WITH DANIELLE. CATARACTS BILATERALLY. KYPHOPLASTY L5 -T11. HAND RIGHT SURGERY. LUMBAR FUSIONL1-4 WITH POST HARDWARE REMVL ANE Review of Systems Review of Systems: ANE Patient History - Allergies Allergies/Adverse Reactions: Penicillins Allergy (Intermediate, Verified 03/09/16 17:56) Rash Sulfa (Sulfonamide Antibiotics) Allergy (Unknown, Verified 03/09/16 17:56) BANDAIDS Allergy (Intermediate, Uncoded 03/07/16 08:54) Rash - Home Medications Home Medications: Metoprolol Succinate Xr [Toprol Xl 50 mg (*)] 75 mg PO DAILY 08/20/16 [Last Taken 02/24/17] Omeprazole 40 mg PO BID 08/20/16 [Last Taken 02/24/17 09:00] Zolpidem Tartrate [Ambien 10 mg] 10 mg PO HS PRN 08/20/16 [Last Taken 02/23/17] amLODIPine BESYLATE [Norvasc 5 mg (*)] 7.5 mg PO DAILY 08/20/16 [Last Taken ] busPIRone [Buspar (*)] 10 mg PO BID 08/20/16 [Last Taken 02/24/17 09:00] predniSONE 7.5 mg PO DAILY 08/20/16 [Last Taken 02/24/17] Doxycycline Hyclate [Vibramycin 100 MG (*)] 100 mg PO DAILY 09/03/16 [Last Taken 02/24/17] Levothyroxine [Synthroid 25 mcg (*)] 25 mcg PO DAILY06 02/01/17 [Last Taken ] Pregabalin [Lyrica 50mg (*)] 50 mg PO BID 02/01/17 [Last Taken 02/24/17 09:00] metFORMIN HCL [Glucophage 500 mg (*)] 500 mg PO BIDMEAL 02/01/17 [Last Taken 09:00] - NPO status NPO Since - Liquids (Date): 03/09/17 NPO Since - Liquids (Time): 17:30 NPO Since - Solids (Date): 03/09/17 NPO Since - Solids (Time): 17:30 - Smoking Hx Smoking Status: Former smoker - Family Anes Hx Family Hx Anesthesia Complications: NONE ANE Labs/Vital Signs - Labs Result Diagrams: 03/10/17 06:46 03/10/17 06:46 - Vital Signs Blood Pressure: 167/66 Heart Rate: 65 Respiratory Rate: 18 O2 Sat (%): 98 Height: 160.02 cm Weight: 63.503 kg ANE Physical Exam - Airway Neck exam: decreased ROM Mallampati Score: Class 3 Mouth exam: normal dental/mouth exam - Pulmonary Pulmonary: no respiratory distress - Cardiovascular Cardiovascular: regular rate and rhythym - ASA Status ASA Status: III ANE Anesthesia Plan Anesthesia Plan: general endotracheal anesthesia (pt asleep from earlier sedation. Pt known to me from previous surgery. Consent from .)
[2017-03-10] MEDS ORDERED: ROCURONIUM 50 MG/5 ML VIAL ONE (13:00)
[2017-03-10] MEDS ORDERED: LIDOCAINE 2% 100 MG/5 ML SYR ONE (13:00)
[2017-03-10] MEDS ORDERED: PROPOFOL 200 MG/20 ML VIAL ONE (13:00)
[2017-03-10] MEDS ORDERED: LR 1,000 ML IV SCH (13:00)
--- NOTE | 2017-03-10 14:30 | PDGENHP ---
History and Physical History and Physical: Past Medical/Surgical History: Social History: Smoking Status: Former smoker CC: Esophageal impaction HISTORY: This patient who has a previous history of esophageal dysmotility, esophageal stenoses, and repeated dilations and has had previous impactions comes in with increasing substernal pain and a sense of inability to get food down not tolerating her saliva, unable to drink fluids. The symptoms of gradually worsening over the past 2 days gradually got worse and worse. She was seen in the ER and initial therapy in the ER was unhelpful. She went to the endoscopy suite earlier today with Dr. Kearney and they were unable initially to do routine conscious sedation. The patient went back to the ER and finally came back to the lab again with general anesthesia from the anesthesiologist and had at least a partially food disimpaction disimpaction from what I am told by the staff in the endoscopy suite. A been not been able to talk with Dr. Kearney yet but it sounds like there was still some small amount of impacted food. There is no sign of other complication. I visited the patient in the recovery room after she had awaken from anesthesia. She was complaining of ongoing back pain from a recent back surgery but her chest pain was gone, she was not having trouble swallowing liquids, and she was not having the sense of inability to get a breath that she had due to the impaction previously. The patient was previously admitted to this hospital and had a complicated spine surgery on February 16 with a long history of previous multiple spine surgeries in ongoing chronic back pain on chronic pain medicines. At this time as she comes to the hospital today she is still having significant ongoing pain using significant doses of narcotic medicine at home. It sounds like she believes that her back pain is worse today in the setting of her esophageal syndrome than it had been before the last 2 days. She was discharged from this hospital approximately 5 days ago for her spine episodes. She denies any kind of fever cough or other significant infectious sound symptoms. She denies anything that sounds like angina or heart failure. ROS: A comprehensive 10 system review revealed no other significant findings PAST MEDICAL HISTORY: Chronic pain in the back with ongoing prescribed narcotic use daily Prior esophageal food impactions and dysphagia with esophageal dilation x3 and María Elena fundoplication, redo in 01/23; dysmotility noted on studies Osteoporosis Coronary artery disease Hypertension Diabetes mellitus type 2 Osteoporosis Sleep apnea Hypothyroidism Hypertension Polymyalgia rheumatica Arthritis FAMILY MEDICAL HISTORY: No esophageal or gastric illnesses SOCIAL HISTORY: Former smoker, no alcohol use MEDICATIONS: The patients list has been reconciled by our clinical pharmacist in the EMR. I have reviewed the list and ordered appropriate medicines. PHYSICAL EXAMINATION: Vital Signs: No fever, intermittently some hypertension today, so far otherwise vitals have fluctuated a bit been been in good shape Reservationist: Sinus rhythm in the recovery room Examination: General: alert, oriented, good mentation, looks fairly uncomfortable from pain and nausea Skin: warm, dry, good color, no rash HEENT: normal Neck: no mass or jvd Resps: relaxed Lungs: clear breath sounds Heart: regular, no murmur Abdomen: soft, nondistended, nontender, +BS, no mass Upper Extremities: normal Lower Extremities: no edema, warm No Bleeding or bruising Neurologic: normal speech/language, 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 She has now had endoscopy with at least partially successful disimpaction but it sounds like still some food present. I have not been in touch with Dr. Kearney yet been waiting to talk to him. Is unclear to me how much to his left or how impacted seem to be. She is tolerating fluids, but 1 thing that is hard to know is whether she would likely get oral medications past beyond this obstruction or not. She has an ongoing need for a number of medications and some of them may need to be given intravenously 2- uncontrolled back pain in a patient with chronic severe back pain, multiple surgeries, recent surgery 3 weeks ago, and longstanding prescribed narcotic use for this pain. I suspect that she has not gotten any of her pain pills in successfully in the last couple of days and this is started catch up with her especially with use of long-acting narcotics at home. Again we may need to use IV or other form of pain medicine administration here but will see how things go and I will get more information from Dr. Kearney 3- history of coronary disease, appears to me stable at this time. Her pain did sounded more esophageal to me, she had a normal EKG and signs of arrhythmia or heart failure here. This chest discomfort is now relieved with her disimpaction, will continue to watch closely and if anything is suspicious will pursue potential cardiac evaluation is indicated 4- type 2 diabetes mellitus: Will monitor and manage this as indicated here in the hospital. Once again as she is not clear how well she will be able to get food in or her usual oral medicines it may be more useful to use insulin but will see how things go over night with intake and discuss further with Dr. Kearney 5- essential hypertension on medicines at home, will monitor and manage this as indicated again could potentially need IV medications 6- sleep apnea: Will need to check with the patient's family and see if she has a CPAP machine at home and would certainly prefer to use that machine of F available otherwise would recommend CPAP here given the pain medicine use in the anesthesia. I have reviewed the patient's case in detail with Dr. Dawna Goss, and she and rest of her group will assume care of the patient in the morning as Dr. Schmidt is her primary care physician. I have reviewed the patient's past medical records as part of this assessment, including previous hospital admission records.
[2017-03-10] MEDS ORDERED: fentaNYL 100 MCG/2 ML INJ IVP PRN (15:16)
[2017-03-10] MEDS ORDERED: ALBUTEROL 3 ML DEYVIAL IH PRN (15:16)
[2017-03-10] MEDS ORDERED: NALOXONE HCL 0.4 MG/ML INJ IVP PRN (15:16)
[2017-03-10] MEDS ORDERED: ONDANSETRON 4 MG/2 ML VIAL IVP PRN ×2 (15:16→17:30)
--- NOTE | 2017-03-10 15:25 | GIREPORT ---
[facility] Surgical Services - Endoscopy Department Patient Name: Jocelyn Bazan Procedure Date: 03/10/2017 1:03 PM Patient Type: Outpatient Attending MD/ ER Physician: Jeremiah Kearney MD Procedure: Upper GI endoscopy Indications: Foreign body (food) in the esophagus throughout the esophaus. Else, ple ase see prior EGD report. Providers: Jeremiah Kearney MD Referring MD: Paco Schmidt MD; Kiet Christian MD; Sosa Love MD; Akash Shaw MD ; [facility] Hospitalist service Medicines: Monitored Anesthesia Care Complications: No immediate complications. Description of Procedure: After obtaining informed consent, the endoscope was passed under direct vision. Throughout the procedure, the patient's blood pressure, pulse, and oxygen saturations were monitored continuously. The Endoscope was intro duced through the mouth, and advanced to the second part of duodenum. Findings: Food was again found in the entire esophagus. An overtube was placed (a cross a 42 Fr Savary, which was then removed). 1.5 hours were then spent repe ated inserting the endoscope via the overtube, removing food using a combina tion of Joyce nets, spiral snares and banding cap. Some food was also pushed into the stomach. By procedure's end, most of the removal of food was accomplished, with now a patent esophagus. Final reEGD showed some area s of erythema from the above manipulation, but no perforation. In terms of etiology, grossly the esophagus looked tortuous and patulou s, but normal. However, I could feel as if something was "gripping" the endoscope when in the lower 1/4 of the esophagus. The stomach was grossly normal. Estimated Blood Loss: none. Post Op Diagnosis: - Food in the esophagus. Removal was successful. Overall, although I suspect there is an element of dysmotility, I wonde r if this is being significantly worsened by her María Elena fundoplication. Recommendation: - soft food only x 1 week (as well as ensure), to let the remaining celsa d pass/resorb - director dental services to see pt., for dysphagia-diet - o.k. to d/c home tomorrow As an outpt., I will arrange f/u office visits for the pt. with Dr. Joseph perez and Dr. Shaw. She may require more motility work-up, but also suspect she w ill need her María Elena fundoplication reversed. Thank you for allowing me to help in the management of this patient. Christel Daniels MD Jeremiah Kearney MD 03/10/2017 3:24:39 PM This report has been signed electronicallyPeter MD Christel Number of Addenda: 0 Note Initiated On: 03/10/2017 1:03 PM [email or web address]
[2017-03-10] MEDS ORDERED: ONDANSETRON DISINTEGRATING 4 MG TAB PO PRN (17:23)
[2017-03-10] MEDS ORDERED: HYDROmorphONE/DILAUDID 2 MG TAB PO PRN (17:23)
[2017-03-10] MEDS ORDERED: PROMETHAZINE HCL 25 MG/ML INJ IVP PRN (17:27)
[2017-03-10] MEDS ORDERED: ACETAMINOPHEN 325 MG TAB PO PRN (17:30)
[2017-03-10] MEDS: metFORMIN HCL 500 MG TAB PO SCH (17:44)
[2017-03-10] MEDS: LIPASE 12,000/AMYLASE/PROTEASE (CREON) 1 CAP PO SCH (18:12)
[2017-03-10] MEDS: METHOCARBAMOL 750 MG TAB PO PRN (18:12)
[2017-03-10] MEDS: DULoxetine 60 MG CAP PO SCH (18:12)
[2017-03-10] MEDS: DOXYCYCLINE HYCLATE 100 MG CAP/TAB PO SCH (18:13)
[2017-03-10] MEDS: FAMOTIDINE 20 MG TAB PO SCH (20:55)
[2017-03-10] MEDS: PREGABALIN 150 MG CAP PO SCH (20:55)
[2017-03-10] MEDS: busPIRone 10 MG TAB PO SCH (20:55)
[2017-03-10] MEDS: morphINE SR 60 MG TAB PO SCH (20:55)
[2017-03-10] MEDS: SENNOSIDES/DOCUSATE SODIUM TAB PO SCH (20:56)
[2017-03-10] MEDS: DOCUSATE SODIUM 100 MG CAP PO SCH (20:56)
[2017-03-10] MEDS: PANTOPRAZOLE SODIUM 40 MG TAB PO SCH (20:56)
[2017-03-10] MEDS ORDERED: IMIPRAMINE HCL 25 MG TAB PO SCH (21:00)
[2017-03-11] MEDS: METHOCARBAMOL 750 MG TAB PO PRN (05:16)
[2017-03-11 05:49] LABS: PLATELET COUNT 284 10^3/uL (150-400)
[2017-03-11] MEDS ORDERED: LEVOTHYROXINE 25 MCG TAB PO SCH (06:00)
[2017-03-11 07:44] VITALS: RESP 18
[2017-03-11] MEDS: PANTOPRAZOLE SODIUM 40 MG TAB PO SCH (08:14)
[2017-03-11] MEDS: morphINE SR 60 MG TAB PO SCH (08:18)
[2017-03-11] MEDS: PREGABALIN 150 MG CAP PO SCH (08:19)
[2017-03-11] MEDS: DOXYCYCLINE HYCLATE 100 MG CAP/TAB PO SCH (08:20)
[2017-03-11] MEDS: DOCUSATE SODIUM 100 MG CAP PO SCH (08:21)
[2017-03-11] MEDS: DULoxetine 60 MG CAP PO SCH (08:21)
[2017-03-11] MEDS: metFORMIN HCL 500 MG TAB PO SCH (08:23)
[2017-03-11] MEDS: FAMOTIDINE 20 MG TAB PO SCH (08:31)
[2017-03-11] MEDS: busPIRone 10 MG TAB PO SCH (08:31)
[2017-03-11] MEDS ORDERED: PIOGLITAZONE HCL 15 MG TAB PO SCH (09:00)
[2017-03-11] MEDS ORDERED: amLODIPine BESYLATE 5 MG TAB PO SCH (09:00)
[2017-03-11] MEDS ORDERED: ENOXAPARIN 40 MG/0.4 ML SYR SC SCH (09:00)
[2017-03-11] MEDS ORDERED: METOPROLOL SUCCINATE XR 50 MG TAB PO SCH (09:00)
[2017-03-11] MEDS ORDERED: predniSONE 5 MG TAB PO SCH (09:00)
[2017-03-11] MEDS ORDERED: POLYETHYLENE GLYCOL 3350 17 GM PKT PO SCH (09:00)
[2017-03-11] MEDS: LIPASE 12,000/AMYLASE/PROTEASE (CREON) 1 CAP PO SCH ×2 (09:14→13:28)
[2017-03-11] MEDS: SENNOSIDES/DOCUSATE SODIUM TAB PO SCH (09:15)
--- NOTE | 2017-03-11 09:15 | SOAPPROG ---
SOAP Progress Note Assessment/Plan: Assessment: Plan: 03/11/17 09:16 Esophageal impaction: food removed yesterday and she is feeling much better. Some question of remaining food or obstruction per Dr. Kearney's note, though she is tolerating liquids well. Dietary consult pending. Probably home later today, pending GI input. Wonder if it makes sense to try switching from beta osmani to calcium channel osmani to manage BP. Would this potentially help esophageal issues? Hypertension: BP running a little high, but taking PO better so I expect this will improve DM2: blood sugars excellent Back pain: well-controlled Subjective: Had a good night. Still has a sense in her throat of something not quite right, though no further SOB. Occasional episodes of chest pain that feel esophageal to her.Tolerating liquids, and taking her pills. Back pain doing well. Objective: Vital Signs Temp Pulse Resp BP Pulse Ox 36.6 C 69 18 157/69 H 94 03/11/17 07:43 03/11/17 07:43 03/11/17 07:43 03/11/17 07:43 03/11/17 07:43 Laboratory Results 03/11/17 05:13 03/11/17 05:13 03/10/17 03/11/17 03/12/17 05:59 05:59 05:59 Intake Total 350 Balance 350 General: sitting up in bed, awake, alert Neck: no masses, adenopathy Back: incision well-healed, no erythema Lungs: clear CV: RRR without murmur Abdomen: +bowel sounds, soft, NT Extremities: minimal edema ICD10 Worksheet Patient Problems: Problems Problem Status Onset Esophageal obstruction due to food impaction Acute Back pain Acute Chronic back pain Acute Dysphagia Acute Fever Acute History of vertebroplasty Acute Hypoxia Acute Intractable back pain Acute Narcotic overdose Acute S/P lumbar spinal fusion Acute Weakness Acute
[2017-03-11 11:46] VITALS: BP 130/59; PULSE 60; TEMP 97.5; O2SAT 93
--- NOTE | 2017-03-11 11:55 | SOAPPROG ---
SOAP Progress Note Assessment/Plan: Assessment/Plan: 1. Food impaction. Now, doing much better. 2. Chronic dysphagia, 'tho getting worse. Please see my consult note assessment. From a G.I. standpoint, o.k. to d/c home: - soft food for one week o.k.; then, can advance, but with a dysphagia type III - type diet - calorie shake once or twice a day - do not think beta osmani is playing a big role - would not recommend doxycycline (with her dysphagia, can sit in her esophagus , and cause a pill-induced ulcer). - no pepcid needed (she uses a PPI bid as an outpt., which I would continue) - why is pt. on lipase? As an outpt., I will arrange a repeat EGD, to better assess if there is a distal tightness contributing to her problem (i.e., ? from María Elena wrap). I will also dilate her, using a Savary (she has never had this type of dilation before). Besides fentanyl and versed, we will use benadryl. Else, f/u PCP. Will sign off; please call if we can be of further help [phone]). Thanks! 03/11/17 11:49 Subjective: cc: food impaction Doing very well. Swallowing without much difficulty. Minimal sore throat. Breathing easier. No chills, rigors, sweats. Objective: Vital Signs Temp Pulse Resp BP Pulse Ox 36.4 C 60 18 130/59 H 93 03/11/17 11:45 03/11/17 11:45 03/11/17 11:45 03/11/17 11:45 03/11/17 11:45 Laboratory Results 03/11/17 05:13 03/11/17 05:13 03/10/17 03/11/17 03/12/17 05:59 05:59 05:59 Intake Total 350 Balance 350 Physical Exam - Physical Exam General Appearance: WD/WN, alert, no apparent distress EENT: PERRL/EOMI, normal ENT inspection, pharynx normal, TMs normal Neck: non-tender, full range of motion, supple, normal inspection Respiratory: chest non-tender, lungs clear, normal breath sounds Cardiac/Chest: normal peripheral pulses, regular rate, rhythm Peripheral Pulses: 2+: carotid (R), carotid (L), femoral (R), femoral (L), dorsalis-pedis (R), dorsalis-pedis (L) Abdomen: normal bowel sounds, non-tender, soft Pelvic Exam: deferred Rectal: deferred Back: Normal inspection Skin: normal color, warm/dry Lymphatic: no adenopathy Extremities: normal range of motion, non-tender, normal inspection, normal capillary refill Neuro/Psych: no motor/sensory deficits, alert, normal mood/affect, oriented x 3 ICD10 Worksheet Patient Problems: Problems Problem Status Onset Esophageal obstruction due to food impaction Acute Back pain Acute Chronic back pain Acute Dysphagia Acute Fever Acute History of vertebroplasty Acute Hypoxia Acute Intractable back pain Acute Narcotic overdose Acute S/P lumbar spinal fusion Acute Weakness Acute
--- NOTE | 2017-03-11 13:01 | PDMN ---
Medical Necessity Medical necessity: change to IP; los>2mn for esophageal food impaction, partially cleared per EGD, uncontrolled back pain s/p recent lami, fusion extension, ? r/t inability to swallow oral meds; admit for IV medications, pain control, monitor oral intake; comorbid DM, CAD, TWIN, HTN; per order and H&P 03/10
--- NOTE | 2017-03-11 14:21 | ASMTCMCOM ---
CM Note CM Note Notes: Spoke w/pt and re; dc poc. Pt politely declined homecare, will not be homebound. Anticipate will dc home w/support of when medically stable. CM available for any changes. DC Plan: Independent Date Signed: 03/11/2017 02:20 PM Electronically Signed By:Nery Huynh RN
--- NOTE | 2017-03-11 15:56 | ASDISCHSUM ---
Discharge Information Plan Status:Home with No Needs Medically Cleared to Leave: Discharge Date:03/11/2017 03:32 PM CM D/C Disposition:Home, Routine, Self-Care ADT D/C Disposition:Home, Routine, Self-Care Projected Discharge Date:03/11/2017 03:32 PM Transportation at D/C:Family Discharge Delay Reason: Follow-Up Date:03/11/2017 03:32 PM Discharge Slot: Final Diagnosis: Placement Information Patient Contact Information Contact Name:PAULA Relationship: Address:[address] [address] City:[place] Alternate Phone: State/Zip Code:[place] [id number] Email: Financial Information Financial Class: Primary Plan Desc:MEDICARE INPATIENT Primary Plan Number:[id number] Secondary Plan Desc:[employer]/M[employer] SUPPLEMENT Secondary Plan Number:[id number] Assessment Information [facility] CM Progress Note CM Note CM Note Notes: Spoke w/pt and re; dc poc. Pt politely declined homecare, will not be homebound. Anticipate will dc home w/support of when medically stable. CM available for any changes. DC Plan: Independent Date Signed: 03/11/2017 02:20 PM Electronically Signed By:Nery Huynh RN Intervention Information
== END 2017-03-11 15:32 | disposition home or self-care (01) | DRG 392 ==
LOC: F3E 16:26 → OBSVTOIN 18:05
PROVIDERS: ADMIT Internal Medicine; ATTEND Internal Medicine
PROC: 0DC58ZZ Extirpation of Matter from Esophagus, Via Natural or Artificial Opening Endoscopic (ICD-10-PCS; principal; 2017-03-10 10:00)
DX: K22.2 Esophageal obstruction (principal); T18.128A Food in esophagus causing other injury, initial encounter; K22.4 Dyskinesia of esophagus; I10 Essential (primary) hypertension; G47.30 Sleep apnea, unspecified; E11.9 Type 2 diabetes mellitus without complications; E03.9 Hypothyroidism, unspecified; Z87.891 Personal history of nicotine dependence
CPT/HCPCS: 92610-GN; 96374; G8996-GN-CI; G8997-GN-CI; G8998-GN-CI; J1610; J1650; J2001; J2060; J2250; J2405; J2550; J2704; J3010; J7512

== ENCOUNTER → 2017-04-22 | Outpatient (CLI) | payer OTHER, MEDICARE | LOC: FIMAGING 07:54 | PROVIDERS: ATTEND Internal Medicine Gastroenterology | DX: K31.84 Gastroparesis (principal); K21.9 Gastro-esophageal reflux disease without esophagitis | CPT/HCPCS: 78264; A9541 ==

== ENCOUNTER → 2017-05-03 | Outpatient (CLI) | payer OTHER, MEDICARE | LOC: FIMAGING 10:33 | PROVIDERS: ATTEND Internal Medicine | DX: Z12.31 Encounter for screening mammogram for malignant neoplasm of breast (principal) ==

== ENCOUNTER 2017-11-09 09:52 | Inpatient (IN) | payer OTHER, MEDICARE ==
[2017-11-09] MEDS ORDERED: ONDANSETRON 4 MG/2 ML VIAL IVP ONE (10:20)
[2017-11-09] MEDS ORDERED: NS 1,000 ML IV ONE (10:20)
--- NOTE | 2017-11-09 10:20 | EDPHY ---
General Time Seen by Provider: 11/09/17 10:15 Narrative: CHIEF COMPLAINT: Something stuck in my throat HISTORY OF PRESENT ILLNESS: Patient presents by private vehicle with her spouse with complaints of "something stuck in my throat, I am obstructed." She states that she was eating a meal last night at 5:00 p.m. The consisted of hamburger. She says she immediately felt as though something was lodged in her esophagus. She started vomiting and had some discomfort in the upper part of the chest and lower part of the neck. The discomfort improved after vomiting. She has felt this sensation constantly since last night. She has been nauseated but no vomiting after the single episode. No chest pain at this time. No abdominal pain. She has history of esophageal strictures with 4 previous esophageal foreign bodies that required endoscopy retrieval. She contacted her established GI physician, who sent to the emergency department by telephone REVIEW OF SYSTEMS: 10 systems were reviewed and negative with the exception of the elements mentioned in the history of present illness. PCP: Dr. Schmidt SPECIALISTS: Dr. Jeremiah Kearney, GI PAST MEDICAL HISTORY: Esophageal stricture, diabetes, gastroparesis, hypothyroid, back pain, acid reflux, PAST SURGICAL HISTORY: Multiple spinal surgeries, cholecystectomy, María Elena fundoplication. Multiple endoscopies SOCIAL HISTORY: Nonsmoker. Lives independently with her spouse FAMILY HISTORY: Noncontributory EXAMINATION: General Appearance: Alert, no distress. Conversing in full sentences. Head: normocephalic, atraumatic Eyes: Pupils equal and round, no conjunctival pallor or injection ENT, Mouth: Mucous membranes moist. Airway is widely patent. There is no trismus. No drooling. No obvious foreign body in the posterior pharynx. Neck: Normal inspection, supple, non-tender Respiratory: Lungs are clear to auscultation Cardiovascular: Regular rate and rhythm Gastrointestinal: Abdomen is soft and nontender Back: non-tender, no bony abnormalities Neurological: A&O, nonfocal, normal gait Skin: Warm and dry, no rash Extremities: Nontender, no pedal edema Psychiatric: Mood and affect normal DIFFERENTIAL DIAGNOSES: Including but not limited to esophageal foreign body, esophageal stricture, achalasia, esophagitis MDM: 10:20 a.m. Sensation of esophageal foreign body in a patient who is had this 4 times in the past, each of which required endoscopy. She does have history of esophageal stricture that has been difficult for to be dilated. Most recent upper endoscopy was March of this year. She has seen her GI physician within the past 2 weeks. She is awake alert. She is not drooling. Her airway is patent and she is controlling her airway without difficulty. I have ordered plain films and IV access to be placed. IV nausea medication be administered. I will likely need to contact GI after x-ray per 11:05 a.m. X-rays are unremarkable. I have re-evaluated the patient she has no improvement after IV Zofran and glucagon. I will contact GI physician. I reviewed her previous endoscopy of March 10 of this year. There was food the entire esophagus that was easily retrieved. Dr. Kearney felt that she had an element of dysmotility, likely due to her fundoplication. She still remains awake and alert 11:15 a.m. Case discussed with JESSICA, Dr. Christian. He will plan for upper endoscopy and retrieval of foreign body. Patient be admitted to her primary care physician Dr. Schmidt for observation 11:18 a.m. Case discussed with LEONID Saleh with Dr. Schmidt. She will admit the patient to his service. She is admitted stable condition. She is awake alert. No acute distress. She is managing her airway without any difficulty need for intervention. She has been kept NPO in this emergency department. SUPERVISION: Patient was independently examined, but I discussed the case with my secondary supervising physician Dr. Mercado CONSULTATION: Dr.Raju JESSICA Hospitalist, Dr. Schmidt via his [employer], [place] - Diagnostics Imaging Results: Imaging Impressions Chest X-Ray 11/09/17 10:20 Impression: Negative portable chest. Prior extensive thoracic and lumbar spine instrumentation and fusion, with a probable fracture through the left internal fixation lea just above the thoracic spine extension. Soft Tissue Neck X-Ray 11/09/17 10:20 Impression: 1. No radiopaque foreign object identified over the cervical or upper thoracic esophageal region. - History Smoking Status: Former smoker - Objective Vital Signs: Initial Vital Signs Temperature (C) 97.7 F 11/09/17 09:56 Heart Rate 85 11/09/17 09:56 Respiratory Rate 18 11/09/17 09:56 Blood Pressure 178/80 H 11/09/17 09:56 O2 Sat (%) 97 11/09/17 09:56 O2 Delivery Mode Room Air Allergies/Adverse Reactions: Penicillins Allergy (Intermediate, Verified 03/09/16 17:56) Rash Sulfa (Sulfonamide Antibiotics) Allergy (Unknown, Verified 03/09/16 17:56) BANDAIDS Allergy (Intermediate, Uncoded 03/07/16 08:54) Rash Home Medications: Medication Instructions Recorded Metoprolol Succinate Xr [Toprol Xl 75 mg PO DAILY 08/20/16 50 mg (*)] Omeprazole 40 mg PO BID 08/20/16 Zolpidem Tartrate [Ambien 10 mg] 10 mg PO HS PRN 08/20/16 amLODIPine BESYLATE [Norvasc 5 mg 7.5 mg PO DAILY 08/20/16 (*)] busPIRone [Buspar (*)] 10 mg PO BID 08/20/16 predniSONE 7.5 mg PO DAILY 08/20/16 Doxycycline Hyclate [Vibramycin 100 mg PO DAILY 09/03/16 100 MG (*)] Levothyroxine [Synthroid 25 mcg 25 mcg PO DAILY06 02/01/17 (*)] metFORMIN HCL [Glucophage 500 mg 500 mg PO BIDMEAL 02/01/17 (*)] Ondansetron Odt [Zofran Odt 4 mg 4 mg PO Q4HRS PRN tab 02/06/17 (*)] Docusate Sodium [Colace 100 MG (*)] 100 mg PO BID cap 02/19/17 Famotidine [Pepcid 20 MG (*)] 20 mg PO BID tab 02/19/17 Methocarbamol [Robaxin 750 mg (*)] 750 mg PO QID PRN tab 02/19/17 Polyethylene Glycol 3350 [Miralax 17 gm PO DAILY pkt 02/19/17 17 gm (*)] Imipramine HCl [Imipramine HCl 25 25 mg PO HS #30 tab 03/04/17 mg (*)] Sennosides/Docusate Sodium 1 - 2 tab PO BID tab 03/04/17 [Senokot-S] morphINE SR [MS Contin/Oramorph 60 60 mg PO BID #60 tab 03/04/17 mg (*)] DULoxetine [Cymbalta 60 MG (*)] 60 mg PO DAILY 03/10/17 HYDROmorphone HCL [Dilaudid 2 mg 2 mg PO Q6HRS PRN 03/10/17 (*)] Lipase/Protease/Amylase [JOSÉ MIGUEL GARCIA 1 each PO TIDMEAL 03/10/17 12,000 UNITS CAPSULE] Pioglitazone HCl [Actos] 45 mg PO DAILY 03/10/17 Pregabalin [Lyrica 150mg (*)] 150 mg PO BID 03/10/17 Laboratory Results: Laboratory Results 11/09/17 10:30 11/09/17 10:30 11/09/17 11/09/17 11/09/17 10:30 10:30 10:30 WBC 5.85 10^3/uL 10^3/uL (3.80-9.50) RBC 4.55 10^6/uL 10^6/uL (4.18-5.33) Hgb 12.3 g/dL L g/dL (12.6-16.3) Hct 38.5 % % (38.0-47.0) MCV 84.6 fL fL (81.5-99.8) MCH 27.0 pg L pg (27.9-34.1) MCHC 31.9 g/dL L g/dL (32.4-36.7) RDW 18.6 % H % (11.5-15.2) Plt Count 267 10^3/uL 10^3/uL (150-400) PT 12.7 SEC SEC (12.0-15.0) INR 0.93 (0.83-1.16) APTT 30.8 SEC SEC (23.0-38.0) Sodium 139 mEq/L mEq/L (135-145) Potassium 4.2 mEq/L mEq/L (3.3-5.0) Chloride 104 mEq/L mEq/L (97-110) Carbon Dioxide 26 mEq/l mEq/l (22-31) Anion Gap 9 mEq/L mEq/L (8-16) BUN 23 mg/dL mg/dL (7-23) Creatinine 0.8 mg/dL mg/dL (0.6-1.0) Estimated GFR > 60 Glucose 125 mg/dL H mg/dL (70-100) Calcium 9.6 mg/dL mg/dL (8.5-10.4) Medications Given: Discontinued Medications Glucagon (Glucagon) 1 mg IVP EDNOW ONE Stop: 11/09/17 10:29 Last Admin: 11/09/17 10:42 Dose: 1 mg Sodium Chloride (Ns) 1,000 mls @ 0 mls/hr IV EDNOW ONE; Wide Open PRN Reason: Protocol Stop: 11/09/17 10:21 Last Admin: 11/09/17 10:34 Dose: 1,000 mls Ondansetron HCl (Zofran) 4 mg IVP EDNOW ONE Stop: 11/09/17 10:21 Last Admin: 11/09/17 10:34 Dose: 4 mg Promethazine HCl (Phenergan) 6.25 mg IVP ONCE ONE Stop: 11/09/17 11:27 Last Admin: 11/09/17 11:39 Dose: 6.25 mg Departure - Departure Disposition: [facility] Inpatient Acute Clinical Impression: Esophageal foreign body Qualifiers: Encounter type: initial encounter Qualified Code(s): T18.108A - Unspecified foreign body in esophagus causing other injury, initial encounter Condition: Good
[2017-11-09] MEDS ORDERED: GLUCAGON HCL 1 MG VIAL IVP ONE (10:28)
[2017-11-09 11:00] LABS: INR 0.93 (0.83-1.16); PROTIME(PATIENT) 12.7 SEC (12.0-15.0)
[2017-11-09] MEDS ORDERED: PROMETHAZINE HCL 25 MG/ML INJ IVP ONE (11:26)
[2017-11-09] MEDS ORDERED: PROMETHAZINE HCL 25 MG/ML INJ ONE (11:26)
[2017-11-09] MEDS ORDERED: LR 1,000 ML IV ONE (13:13)
[2017-11-09] MEDS ORDERED: ONDANSETRON DISINTEGRATING 4 MG TAB PO PRN (13:20)
[2017-11-09] MEDS ORDERED: ACETAMINOPHEN 325 MG TAB PO PRN (13:20)
[2017-11-09] MEDS ORDERED: ONDANSETRON 4 MG/2 ML VIAL IVP PRN (13:20)
--- NOTE | 2017-11-09 13:50 | PDANEPAE ---
ANE History of Present Illness food impaction ANE Past Medical History - Cardiovascular History Hx Hypertension: Yes Hx Arrhythmias: No Hx Chest Pain: No Hx Coronary Artery / Peripheral Vascular Disease: No Hx CHF / Valvular Disease: No Hx Palpitations: No Cardiovascular History Comment: HX PVC'S - Pulmonary History Hx COPD: No Hx Asthma/Reactive Airway Disease: No Hx Recent Upper Respiratory Infection: No Hx Oxygen in Use at Home: Yes O2 in Use at Home (L/minute): 3 Hx Sleep Apnea: Yes Pulmonary History Comment: [facility] DOES HOME O2. OVERNIGHT SLLEP TEST SHOWED LOW 02 AT NIGHT - Neurologic History Hx Cerebrovascular Accident: No Hx Seizures: No Hx Dementia: No Neurologic History Comment: SCIATICA TJ LEGS. NEUROPATHY TJ FEET - Endocrine History Hx Diabetes: Yes Hypothyroid: Yes Hyperthyroid: No Endocrine History Comment: IDDM. HYPOTHYROID - Renal History Hx Renal Disorders: No Renal History Comment: 3 WEEKS AGO HAD TROUBLE URINATING WAS IN [facility] - Liver History Hx Hepatic Disorders: No - Neurological & Psychiatric Hx Hx Neurological and Psychiatric Disorders: No - Cancer History Hx Cancer: No - Congenital Disorder History Hx Congenital Disorders: No - GI History Hx Gastrointestinal Disorders: Yes Gastrointestinal History Comment: CONSTIPATION. NARROW ESOPHOGUS, NEED OF DILATION, REFLUX. HAD FOOD STUCK IN THROAT FEW WKS AGO. HAD NICK FUNDOPLICATION HX. DIABETIC DIET- AVOID SUGAR - Other Health History Other Health History: PSORIASIS ON ELBOWS , polymyalgia rheumatica on steroids for 30 years. IMPLANTS DENTAL. OA HANDS, BACK AND NECK. BRUISE EASILY. recent diagnosis of sleep apnea, has not tried CPAP yet - Chronic Pain History Chronic Pain: Yes (LOWER BACK AND LEGS) - Surgical History Prior Surgeries: EGD 02/2015. TONSILECTOMY 12 YEARS AGO. NECK FUSION. RT FOOT ORIF. YOLY FUNDIPLICATION WITH DANIELLE. CATARACTS BILATERALLY. KYPHOPLASTY L5 -T11. HAND RIGHT SURGERY. LUMBAR FUSIONL1-4 WITH POST HARDWARE REMVL ANE Review of Systems Review of systems is: negative Review of Systems: - Exercise capacity Exercise capacity: >=4 METS ANE Patient History - Allergies Allergies/Adverse Reactions: Penicillins Allergy (Intermediate, Verified 03/09/16 17:56) Rash Sulfa (Sulfonamide Antibiotics) Allergy (Unknown, Verified 03/09/16 17:56) BANDAIDS Allergy (Intermediate, Uncoded 03/07/16 08:54) Rash - Home Medications Home Medications: Metoprolol Succinate Xr [Toprol Xl 50 mg (*)] 75 mg PO DAILY 08/20/16 [Last Taken 03/09/17] Omeprazole 40 mg PO BID 08/20/16 [Last Taken 03/09/17] Zolpidem Tartrate [Ambien 10 mg] 10 mg PO HS PRN 08/20/16 [Last Taken 03/09/17] amLODIPine BESYLATE [Norvasc 5 mg (*)] 7.5 mg PO DAILY 08/20/16 [Last Taken ] busPIRone [Buspar (*)] 10 mg PO BID 08/20/16 [Last Taken 03/09/17] predniSONE 7.5 mg PO DAILY 08/20/16 [Last Taken 03/09/17] Doxycycline Hyclate [Vibramycin 100 MG (*)] 100 mg PO DAILY 09/03/16 [Last Taken 03/09/17] Levothyroxine [Synthroid 25 mcg (*)] 25 mcg PO DAILY06 02/01/17 [Last Taken ] metFORMIN HCL [Glucophage 500 mg (*)] 500 mg PO BIDMEAL 02/01/17 [Last Taken ] DULoxetine [Cymbalta 60 MG (*)] 60 mg PO DAILY 03/10/17 [Last Taken 03/09/17] HYDROmorphone HCL [Dilaudid 2 mg (*)] 2 mg PO Q6HRS PRN 03/10/17 [Last Taken ] Lipase/Protease/Amylase [[address] 12,000 UNITS CAPSULE] 1 each PO TIDMEAL [Last Taken 03/09/17] Pioglitazone HCl [Actos] 45 mg PO DAILY 03/10/17 [Last Taken 03/09/17] Pregabalin [Lyrica 150mg (*)] 150 mg PO BID 03/10/17 [Last Taken 03/09/17] - NPO status NPO Status: no food or drink >8 hours NPO Since - Liquids (Date): 11/08/17 NPO Since - Liquids (Time): 18:00 NPO Since - Solids (Date): 11/08/17 NPO Since - Solids (Time): 18:00 - Anes Hx Anes Hx: no prior problems - Smoking Hx Smoking Status: Former smoker - Alcohol Use Alcohol Use: None - Family Anes Hx Family Anes Hx: none Family Hx Anesthesia Complications: NONE ANE Labs/Vital Signs - Labs Result Diagrams: 11/09/17 10:30 11/09/17 10:30 - Vital Signs Vital Signs: reviewed preoperatively; see RN documention for details Blood Pressure: 158/65 Heart Rate: 69 Respiratory Rate: 18 O2 Sat (%): 93 Height: 160.02 cm Weight: 64.41 kg ANE Physical Exam - Airway Neck exam: decreased ROM Mallampati Score: Class 2 Mouth exam: poor dentition - Pulmonary Pulmonary: no respiratory distress - Cardiovascular Cardiovascular: regular rate and rhythym - ASA Status ASA Status: III ANE Anesthesia Plan Anesthesia Plan: general endotracheal anesthesia (rsi)
[2017-11-09] MEDS ORDERED: PROPOFOL 200 MG/20 ML VIAL ONE (13:53)
[2017-11-09] MEDS ORDERED: LIDOCAINE 2% 100 MG/5 ML SYR ONE (13:53)
[2017-11-09] MEDS ORDERED: fentaNYL 100 MCG/2 ML INJ ONE (14:24)
--- NOTE | 2017-11-09 14:35 | GHP ---
DATE OF ADMISSION: 11/09/2017 ADMITTING DIAGNOSIS: Esophageal foreign body. HISTORY OF PRESENTING ILLNESS: Jocelyn is an 82-year-old female with multiple comorbidities, including hypothyroidism, multilevel spinal stenosis, polymyalgia rheumatica, diabetes mellitus type 2, esopha geal obstruction and esophageal stricture, obstructive sleep apnea, aortic insufficiency, and hyperte nsion, who was brought into the emergency department by her complaining of esophageal foreign body. She was eating dinner last evening and after taking a few bites of her dinner was unable to s wallow the food. She spit the food up and then proceeded to vomit intermittently over the next few h ours. She reports that it was mostly mucus that she was vomiting. She tried to eat breakfast again this morning and experienced the same thing. She has had a previous esophageal food impactions in past which have required surgeries. She denies any difficulty breathing, cough, wheeze, shortness of breath. Her labs on admission are relatively stable. Vitals are stable, somewhat high blood pres sure, though she is a little bit anxious. We will continue to monitor. She will be admitted as obse rvation for the evening. She has been seen by GI in the emergency department, who will plan to take her to the OR this afternoon. PAST MEDICAL HISTORY: Includes; hypothyroidism, multilevel spinal stenosis, polymyalgia rheumatica, esophageal stricture and esophageal obstruction, aortic insufficiency, type 2 diabetes mellitus, oste oporosis, obstructive sleep apnea, and hypertension. SURGICAL HISTORY: Includes; María Elena fundoplication and then subsequent partial removal of the María Elena fundoplication in 2016, tonsillectomy, multiple spinal fusions, cataract surgery, gallbladder removal . SOCIAL HISTORY: Current nonsmoker, and lives with . CURRENT MEDICATIONS: Include; Robaxin 750 mg take 1 tablet every 6 hours as needed for muscle spasms , metoprolol succinate extended release 50 mg take 1-1/2 tablets daily, tramadol 100 mg take 1 tablet as needed every 6 hours p.r.n., buspirone HCL 10 mg 1 tablet twice daily, Actos 45 mg 1 tablet daily , omeprazole 40 mg 1 tablet twice daily, prednisone 5 mg 1-1/2 tablets daily, Creon 49144 units take 2 capsules by mouth 3 times daily, metformin 500 mg 1 tablet twice daily, Aldactone 50 mg 1 tablet da sammie, Cymbalta 60 mg 1 tablet daily, Lyrica 150 mg 1 capsule twice daily, amlodipine 5 mg 1 tablet cj ly, Ambien 1 tablet as needed at bedtime daily, Synthroid 25 mcg 1 tablet daily, Levemir 10 units sub cu once daily, aspirin 81 mg 1 tablet daily, Colace 200 mg 1 tablet daily as needed at bedtime, Chely AX 17 g daily, nitroglycerin 0.4 mg sublingual 1 tablet as needed. REVIEW OF SYSTEMS: GENERAL: Denies fevers, chills, headache. ENT: Endorses esophageal impaction, d ifficulty swallowing, inability to swallow food. RESPIRATORY: Denies cough, wheeze, shortness of br eath. CARDIOVASCULAR: Denies chest pain, palpitations, dizziness, lightheadedness. GI: Multiple e pisodes of vomiting last night and this morning after attempting to eat. Denies nausea. Denies diar kobi. PHYSICAL EXAM: GENERAL: Alert and oriented. VITAL SIGNS: Stable. In acute no acute distress. RE SPIRATORY: Lungs clear to auscultation bilaterally. CARDIOVASCULAR: S1, S2. Regular rate and rhyt hm. No murmurs, rubs, gallops. GI: Abdomen is soft, nontender, nondistended. Positive bowel sound s. SKIN: Warm and dry. EXTREMITIES: No peripheral edema. NEURO: Grossly intact. ASSESSMENT AND PLAN: 1. Esophageal foreign body. Has been seen by GI in the ED and plan to take her to the OR this after noon, and will plan to admit her overnight for observation. 2. Hypothyroidism, stable, managed outpatient. Currently on Synthroid. 3. Multilevel spinal stenosis, status post multiple surgeries, including spinal fusion, stable curre ntly without pain. 4. Polymyalgia rheumatica. Continue current prednisone dosing, stable. Monitored outpatient. 5. Aortic insufficiency. Currently denies chest pain or pressure. No orthopnea, dizziness, lighthe adedness, and no episodes of syncope as of late. 6. Essential hypertension, currently on metoprolol and amlodipine. We will continue to monitor post operatively. 7. Diabetes mellitus type 2. Continue Levemir. Monitor blood glucose. 8. Deep vein thrombosis prophylaxis. Sequential compression devices and encourage ambulation. DISPOSITION: Will admit as observation given the possibility of requiring intubation. Monitor and damian cantrell will plan to discharge home once stable. /[id number]/MODL
[2017-11-09] MEDS ORDERED: HYDROmorphONE/DILAUDID 2 MG/ML INJ ONE (15:17)
[2017-11-09] MEDS ORDERED: PHENYLEPHRINE HCL 100 MCG/ML SYR ONE (16:14)
[2017-11-09] MEDS ORDERED: ONDANSETRON 4 MG/2 ML VIAL ONE (16:14)
[2017-11-09] MEDS ORDERED: DEXAMETHASONE 4 MG/ML VIAL ONE (16:14)
[2017-11-09] MEDS ORDERED: ROCURONIUM 100 MG/10 ML VIAL ONE (16:14)
[2017-11-09] MEDS ORDERED: HYDROmorphONE/DILAUDID 2 MG/ML INJ IVP PRN (16:51)
[2017-11-09] MEDS ORDERED: fentaNYL 100 MCG/2 ML INJ IVP PRN (16:51)
[2017-11-09] MEDS ORDERED: ALBUTEROL 3 ML DEYVIAL IH PRN (16:51)
[2017-11-09] MEDS ORDERED: NALOXONE HCL 0.4 MG/ML INJ IVP PRN (16:51)
[2017-11-09] MEDS ORDERED: MEPERIDINE 25 MG/0.5 ML AMP IVP PRN (16:51)
[2017-11-09] MEDS ORDERED: LR 500 ML IV PRN (16:51)
[2017-11-09] MEDS ORDERED: DIAZEPAM 5 MG/ML 1 ML SYR IVP PRN (16:51)
[2017-11-09] MEDS ORDERED: oxyCODONE IR 5 MG TAB PO PRN (16:51)
[2017-11-09] MEDS ORDERED: PROMETHAZINE HCL 25 MG/ML INJ IVP PRN (16:51)
--- NOTE | 2017-11-09 16:54 | POSTANESTH ---
Post Anesthetic Evaluation Cardiovascular Status: Normal, Stable, Similar to Pre-Op Cond Respiratory Status: Similar to Pre-op Cond., Other, See Comment (Stable airway, some productive cough secondary to her alf food retention and dysphagia that seems at baselline) Level of Consciousness/Mental Status: Can Participate in Eval, Mildly Sleepy, Arousable Pain Control: Adequate, Prn Tx Ordered Nausea/Vomiting Control: Adequate, Prn Tx Ordered Complications Possibly Related to Anesthesia: None Noted
[2017-11-09] MEDS ORDERED: METOPROLOL SUCCINATE XR 50 MG TAB PO SCH (18:15)
[2017-11-09] MEDS ORDERED: amLODIPine BESYLATE 5 MG TAB PO SCH (18:15)
[2017-11-09] MEDS ORDERED: METOPROLOL TARTRATE 5 MG/5 ML INJ IVP SCH (18:45)
[2017-11-09] MEDS: hydrALAZINE 20 MG/ML VIAL IVP SCH (19:20)
[2017-11-09] MEDS ORDERED: D5W NS 1,000 ML IV SCH (22:00)
[2017-11-09] MEDS ORDERED: LORazepam 2 MG/ML INJ IVP ONE (22:00)
[2017-11-09] MEDS ORDERED: METOPROLOL TARTRATE 5 MG/5 ML INJ IVP PRN (22:03)
[2017-11-09] MEDS: MBX SOLN 30 ML BOTTLE PO PRN (22:46)
--- NOTE | 2017-11-10 00:06 | GPN ---
DATE OF PROCEDURE: 11/09/2017 PROCEDURE: Esophagogastroduodenoscopy with removal of foreign body, dilation at the gastroesophageal junction. INDICATION: The patient is an 82-year-old female with a history of a María Elena fundoplication and multiple food impactions, who presents to [facility] with a food impaction. CONSENT: Risks, benefits, and alternatives of the procedure were discussed in great detail with the patient. Risk of infection, bleeding, perforation, and sedation were discussed. All questions answered and informed consent obtained. MEDICATION: General anesthesia. Please see anesthesiology record for details. ESTIMATED BLOOD LOSS: Insignificant. ESOPHAGOGASTROSCOPY EXAMINATION: The Olympus upper endoscope was inserted in the mouth and advanced to the esophagus. At approximately 25 cm from the gums, a large amount of food was seen and the scope could not be advanced further. A net was used to remove food. Approximately 10 nets were used in total due to the multiple passes needed to remove this food. After approximately an hour, the scope was able to be moved around the remaining food bolus into the stomach. The gastroesophageal junction was then dilated with a TTS balloon A 10 -12 mm, 12-15 mm, 15-18 mm, and 18-20 mm was used.. There was heme noted. It was noted that the esophagus was tortuous. The gastroesophageal junction was noted to be at an acute angle. It was suspected that dysmotility, as well as the angle and the fundoplication were the issue. An 0.035 long wire was then placed into the stomach. After the wire was placed , the wire was then back-loaded into a balloon and the balloon was inflated near the lower esophagus and the rest of the food bolus was pushed into the stomach with multiple passes. The stomach had a significant amount of liquid but very little food debris except that which was removed. The duodenal bulb and duodenum were normal in appearance. The procedure time was approximately 2.5 hours. IMPRESSION: 1. Extensive food impaction s/p removal. 2. Dilation of the gastroesophageal junction. 3. Suspect that her symptoms are due to esophageal dysmotility, and the María Elena fundoplication with acute angle at the gastroesophageal junction. RECOMMENDATIONS: 1. Liquid diet. 2. Consider surgical evaluation. /[id number]/MODL MTDD
[2017-11-10] MEDS: hydrALAZINE 20 MG/ML VIAL IVP SCH ×5 (03:13→23:01)
[2017-11-10] MEDS: methylPREDNISolone SOD SUCC 40 MG/ML VIAL IVP SCH ×4 (05:48→21:05)
--- NOTE | 2017-11-10 06:39 | GCON ---
DATE OF CONSULTATION: 11/09/2017 CONSULTING PHYSICIAN: Claudine Hutton MD. REASON FOR CONSULTATION: Food impaction. CHIEF COMPLAINT: Food impaction. HISTORY OF PRESENT ILLNESS: The patient is an 82-year-old female with multiple comorbidities including spinal stenosis, polymyalgia rheumatica, diabetes mellitus, obstructive sleep apnea, hypertension, who presents to [facility] with a food impaction. The patient has a complicated GI history and had a María Elena fundoplication approximately 10 years ago. After this surgery, she had multiple food impactions as well as an esophageal stricture. She had multiple upper endoscopies with dilation with little benefit and underwent a revision of her prior surgery in 2016. Unfortunately, she has had significant symptoms of food impactions requiring complicated EGD's in the last several years. She was noted to have a very tortuous esophagus with a stenosis at the gastroesophageal junction. The patient was doing well until approximately yesterday when she started to eat and felt the food getting stuck. She has not had any liquid because she is worried that she will regurgitate the liquids. She denies any exacerbating or alleviating factors to her current symptoms. I am being asked by Dr. Roy to evaluate this patient in consultation regarding her food impaction. PAST MEDICAL HISTORY: 1. Obstructive sleep apnea. 2. Coronary artery disease. 3. Degenerative joint disease. 4. Polymyalgia rheumatica. 5. Hypothyroidism. 6. Diabetes. 7. Hypertension. 8. Osteoporosis. 9. Aortic insufficiency. PAST SURGICAL HISTORY: 1. María Elena fundoplication. 2. Tonsillectomy. 3. Multiple spinal fusions. 4. Cataract surgery. 5. Cholecystectomy. 6. Right foot surgery. 7. D and C. MEDICATIONS: Robaxin, metoprolol, tramadol, buspirone, Actos, omeprazole, prednisone, Creon, metformin, Aldactone, Cymbalta, Lyrica, amlodipine, Synthroid , Levemir, aspirin, Colace, MiraLAX. Nitroglycerin as needed. ALLERGIES: Penicillin. SOCIAL HISTORY: No history of any alcohol or tobacco use. FAMILY HISTORY: Mother and sister had a cholecystectomy. Father had lung cancer. REVIEW OF SYSTEMS: A 14-point comprehensive review of systems was asked. Pertinent positives and negatives per HPI. PHYSICAL EXAM: VITALS: Blood pressure 155/69, heart rate 68, temperature 36.5 , respirations 18. GENERAL: Awake, alert, oriented x3. No distress HEENT: Anicteric. Moist mucosa. NECK: No JVD. CARDIOVASCULAR: Regular rate and rhythm. Positive S1, S2. No murmurs or gallops appreciated. LUNGS: Clear to auscultation bilaterally. No wheezes, rales, or rhonchi. ABDOMEN: Soft, nontender, nondistended. Positive bowel sounds. No guarding. EXTREMITIES: No clubbing, cyanosis, or edema. NEUROLOGIC: 2 through 12 grossly intact. PSYCH: Normal affect. SKIN: No rash. MUSCULOSKELETAL: No obvious joint effusions. BLOOD WORK: WBCs 5.85, hemoglobin 12.3, platelets 267. INR 0.9. Sodium 3.9, creatinine 0.8, chloride 104. ASSESSMENT/PLAN: 1. Food impaction-with history of María Elena fundoplication for esophageal stricture and esophageal dysmotility. At this time, I recommend to proceed with EGD. The risks, benefits, and alternatives of the procedure were discussed with her in great detail. She realizes she is at increased risk due to her obstructive sleep apnea and the acuity of the situation. 2. Coronary artery disease. 3. Obstructive sleep apnea. 4. Spinal stenosis. 5. Polymyalgia rheumatica. 6. Hypothyroidism. 7. Diabetes mellitus. Thank you very much for this consultation. /[id number]/MODL MTDAllen
[2017-11-10] MEDS: MBX SOLN 30 ML BOTTLE PO PRN ×2 (07:58→12:56)
[2017-11-10] MEDS: INSULIN GLARGINE 100 UNITS/ML UNIT SC SCH (08:02)
--- NOTE | 2017-11-10 09:14 | SOAPPROG ---
JM Progress Note Assessment/Plan: Assessment: Plan: 11/10/17 09:11 profound dysphagia--s/p very complicated EGD with food removal. Pathway is very torturous. Patient up for test of clears today. neck pain/choking--senior care challenge--suspect referred pain from esophageal problems as extensive neck work up was negative PMR--iv steroid replacement for now HTN--IV meds for now, hopefully we can convert to po meds Subjective: Jocelyn is feeling better this am. + HEATON. Objective: Vital Signs Temp Pulse Resp BP Pulse Ox 36.9 C 82 14 141/61 H 96 11/10/17 07:32 11/10/17 07:32 11/10/17 07:32 11/10/17 07:32 11/10/17 07:32 11/09/17 11/10/17 11/11/17 05:59 05:59 05:59 Intake Total 1820 Output Total 805 Balance 1015 PT 12.7 SEC (12.0-15.0) 11/09/17 10:30 INR 0.93 (0.83-1.16) 11/09/17 10:30 Gen: NAD Lungs: CTAB Heart: RRR GI + bs soft, nt,nd LE's no changes ICD10 Worksheet Patient Problems: Problems Problem Status Onset Esophageal foreign body Acute Back pain Acute Chronic back pain Acute Dysphagia Acute Esophageal obstruction due to food impaction Acute Fever Acute History of vertebroplasty Acute Hypoxia Acute Intractable back pain Acute Narcotic overdose Acute S/P lumbar spinal fusion Acute Weakness Acute
[2017-11-10] MEDS ORDERED: PROMETHAZINE HCL 25 MG/ML INJ IVP PRN (11:49)
[2017-11-10] MEDS ORDERED: ZOLPIDEM TARTRATE 5 MG TAB PO PRN ×2 (11:51→18:24)
[2017-11-10] MEDS ORDERED: ACETAMINOPHEN 650 MG/20.3 ML UDCUP PO PRN (11:56)
--- NOTE | 2017-11-10 12:11 | SOAPPROG ---
SOAP Progress Note Assessment/Plan: Assessment: Plan: 11/10/17 12:07 A/P 1. Esophageal food impaction- secondary to David fundoplication and esophageal dysmotility? S/p EGD with food removal. Recommend to start clear liquid diet only. Consider revision of David. GI will sign off. Subjective: cc: Follow up on esophageal food impaction Feeling weak Objective: Vital Signs Temp Pulse Resp BP Pulse Ox 36.9 C 85 14 134/69 H 94 11/10/17 11:38 11/10/17 11:38 11/10/17 11:38 11/10/17 11:38 11/10/17 11:38 11/09/17 11/10/17 11/11/17 05:59 05:59 05:59 Intake Total 1820 Output Total 805 Balance 1015 PT 12.7 SEC (12.0-15.0) 11/09/17 10:30 INR 0.93 (0.83-1.16) 11/09/17 10:30 Physical Exam - Physical Exam General Appearance: alert, no apparent distress EENT: No scleral icterus (R), No scleral icterus (L) Respiratory: lungs clear, normal breath sounds, No rales, No rhonchi Abdomen: non-tender, soft, No distended, No guarding, No rebound Skin: normal color, warm/dry Neuro/Psych: alert, normal mood/affect, oriented x 3, No 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
[2017-11-10] MEDS: DIAZEPAM 5 MG/ML 1 ML SYR IVP PRN (12:55)
[2017-11-10] MEDS ORDERED: traMADol 50 MG TAB ONE (17:22)
[2017-11-10] MEDS ORDERED: NS 1,000 ML IV SCH (18:00)
[2017-11-10] MEDS: amLODIPine BESYLATE 5 MG TAB PO SCH (19:16)
[2017-11-10] MEDS: METOPROLOL SUCCINATE XR 50 MG TAB PO SCH (19:18)
[2017-11-10] MEDS: traMADol 50 MG TAB PO PRN (21:06)
[2017-11-11] MEDS: traMADol 50 MG TAB PO PRN ×3 (03:13→20:17)
[2017-11-11] MEDS: hydrALAZINE 20 MG/ML VIAL IVP SCH ×4 (06:16→22:56)
[2017-11-11] MEDS: LEVOTHYROXINE 25 MCG TAB PO SCH (06:16)
[2017-11-11] MEDS: methylPREDNISolone SOD SUCC 40 MG/ML VIAL IVP SCH ×3 (06:16→22:55)
[2017-11-11] MEDS: DULoxetine 60 MG CAP PO SCH (08:59)
[2017-11-11] MEDS: INSULIN GLARGINE 100 UNITS/ML UNIT SC SCH (08:59)
[2017-11-11] MEDS: amLODIPine BESYLATE 5 MG TAB PO SCH (08:59)
[2017-11-11] MEDS: OLMESARTAN MEDOXOMIL 20 MG TAB PO SCH (09:00)
[2017-11-11] MEDS: METOPROLOL SUCCINATE XR 50 MG TAB PO SCH (09:00)
--- NOTE | 2017-11-11 09:22 | SOAPPROG ---
SOAP Progress Note Assessment/Plan: Assessment: Plan: 11/11/17 09:25 Dysphagia: s/p EGD removal of impaction. Swallowing study scheduled for today. Tolerating warm tea this morning. Is at high risk for recurrent impaction. Not that crazy about PEG tube or possible surgery to finish reversal of fundoplication. Did take tramadol PO this morning and did ok with it. PMR: receiving methylprednisolone Hypertension: well controlled 11/11/17 09:28 11/11/17 09:30 Subjective: Feeling better this morning as she slept better last night. HEATON not as bad. Drinking tea and doing ok with it. Not that interested in a PEG tube, but not really sure what she would opt to do. Throat still sore. PICC line placed yesterday. Objective: Vital Signs Temp Pulse Resp BP Pulse Ox 36.4 C 65 16 129/58 H 96 11/11/17 07:23 11/11/17 09:00 11/11/17 07:23 11/11/17 09:00 11/11/17 07:23 Laboratory Results 11/11/17 06:15 11/10/17 11/11/17 11/12/17 05:59 05:59 05:59 Output Total 1000 Balance -1000 PT 12.7 SEC (12.0-15.0) 11/09/17 10:30 INR 0.93 (0.83-1.16) 11/09/17 10:30 General: well-appearing, spirits good Lungs: clear bilaterally CV: RRR, 2/6 systolic murmur Abdomen: +bowel sounds, soft, NT Extremities: no edema ICD10 Worksheet Patient Problems: Problems Problem Status Onset Esophageal foreign body Acute Back pain Acute Chronic back pain Acute Dysphagia Acute Esophageal obstruction due to food impaction Acute Fever Acute History of vertebroplasty Acute Hypoxia Acute Intractable back pain Acute Narcotic overdose Acute S/P lumbar spinal fusion Acute Weakness Acute
--- NOTE | 2017-11-11 11:42 | PDMN ---
Medical Necessity Medical necessity: Change to IP, as of 11/10/17, per PA; los >2 mn for ongoing management of profound dysphagia s/p EGD w/removal of food; requiring further monitoring, swallow study, clear liquid diet trial & IVFs; comorbid advanced age , complicated GI hx w/tortuous esophagus & María Elena, diabetes, HTN, CAD
--- NOTE | 2017-11-11 14:09 | ASMTCMCOM ---
CM Note CM Note Notes: Met with pt and , she was admitted with food stuck in her esophagus which required surgical removal. Pt has refused PT, she is at baseline and has help from her . She declines any other needs. DC Plan: Independent Date Signed: 11/11/2017 02:08 PM Electronically Signed By:Nery Huynh RN
--- NOTE | 2017-11-11 14:58 | SOAPPROG ---
SOAP Progress Note Assessment/Plan: Assessment: Plan: 11/10/17 12:07 A/P 1. Esophageal food impaction- secondary to David fundoplication and esophageal dysmotility? S/p EGD with food removal. Recommend to start clear liquid diet only. Consider revision of David. GI will sign off. 11/11/17 14:55 A/P 1. Food impaction- with esophageal dysmotility and stricture. S/p EGD with removal of food and GEJ dilation. Barium swallow performed. + Aspiration. Needs speech/swallow. Did discuss case with Dr. Akash Shaw who did her revision in 2016. Need to consider PEG vs revision? Discussed with patient at length yesterday. GI will Sign off. Thank you for the consultation! Subjective: cc: Food impaction still complaining of pain after swallowing. Objective: Vital Signs Temp Pulse Resp BP Pulse Ox 36.4 C 70 16 125/84 H 94 11/11/17 11:14 11/11/17 11:14 11/11/17 11:14 11/11/17 13:13 11/11/17 11:14 Laboratory Results 11/11/17 06:15 11/10/17 11/11/17 11/12/17 05:59 05:59 05:59 Output Total 1000 Balance -1000 PT 12.7 SEC (12.0-15.0) 11/09/17 10:30 INR 0.93 (0.83-1.16) 11/09/17 10:30 Physical Exam - Physical Exam General Appearance: alert, no apparent distress EENT: No scleral icterus (R), No scleral icterus (L) Respiratory: chest non-tender, lungs clear, normal breath sounds Cardiac/Chest: regular rate, rhythm, systolic murmur, No diastolic murmur Abdomen: normal bowel sounds, non-tender, soft, No distended, No guarding, No rebound Skin: normal color, warm/dry Neuro/Psych: alert, normal mood/affect, oriented x 3, No abnormal transmission system 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
[2017-11-11] MEDS ORDERED: diphenhydrAMINE 25 MG CAP PO PRN (23:48)
[2017-11-12] MEDS: DIAZEPAM 5 MG/ML 1 ML SYR IVP PRN (02:29)
[2017-11-12] MEDS: LEVOTHYROXINE 25 MCG TAB PO SCH (05:14)
[2017-11-12] MEDS: methylPREDNISolone SOD SUCC 40 MG/ML VIAL IVP SCH (05:14)
[2017-11-12] MEDS: hydrALAZINE 20 MG/ML VIAL IVP SCH (05:14)
[2017-11-12 07:19] VITALS: BP 137/60
[2017-11-12] MEDS: INSULIN GLARGINE 100 UNITS/ML UNIT SC SCH (08:45)
[2017-11-12] MEDS: DULoxetine 60 MG CAP PO SCH (08:46)
[2017-11-12] MEDS: amLODIPine BESYLATE 5 MG TAB PO SCH (08:46)
[2017-11-12] MEDS: OLMESARTAN MEDOXOMIL 20 MG TAB PO SCH (08:46)
[2017-11-12] MEDS ORDERED: METHOCARBAMOL 750 MG TAB PO PRN (08:49)
--- NOTE | 2017-11-12 08:49 | SOAPPROG ---
JM Progress Note Assessment/Plan: Assessment: Plan: 11/10/17 09:11 profound dysphagia--s/p very complicated EGD with food removal. Pathway is very torturous. Patient up for test of clears today. neck pain/choking--retirement challenge--suspect referred pain from esophageal problems as extensive neck work up was negative PMR--iv steroid replacement for now HTN--IV meds for now, hopefully we can convert to po meds 11/12/17 08:46 dysfunctional esophagus. Will stick with smoothie consistency diet from here forward. Patient and understand. Will crush pills. HEATON--not clear as to what it is from, but I think being home and back to her regular meds will help. DM--some elevation likely from IV steroids PMR--resume 7.5 mg of pred daily chronic osteomyelits--resume daily doxy d/c home today Subjective: Patient complains of headache and back pain. She coughs after eating. She knows there was aspiration on the barium swallow. Drinking ok. Objective: Vital Signs Temp Pulse Resp BP Pulse Ox 36.8 C 76 16 137/60 H 95 11/12/17 07:18 11/12/17 07:18 11/12/17 07:18 11/12/17 07:18 11/12/17 07:18 Laboratory Results 11/11/17 06:15 11/11/17 11/12/17 11/13/17 05:59 05:59 05:59 Output Total 1000 Balance -1000 PT 12.7 SEC (12.0-15.0) 11/09/17 10:30 INR 0.93 (0.83-1.16) 11/09/17 10:30 Gen: reddish about head and neck, improves while talking to patient HEENT: mildly hoarse voice Lungs: CTAB Heart: RRR Abd + bs soft LE's no changes BP better ICD10 Worksheet Patient Problems: Problems Problem Status Onset Esophageal foreign body Acute Back pain Acute Chronic back pain Acute Dysphagia Acute Esophageal obstruction due to food impaction Acute Fever Acute History of vertebroplasty Acute Hypoxia Acute Intractable back pain Acute Narcotic overdose Acute S/P lumbar spinal fusion Acute Weakness Acute
[2017-11-12] MEDS ORDERED: predniSONE 5 MG TAB PO SCH (09:00)
[2017-11-12] MEDS ORDERED: PREGABALIN 50 MG CAP PO SCH (09:00)
[2017-11-12] MEDS ORDERED: PIOGLITAZONE HCL 15 MG TAB PO SCH (09:00)
[2017-11-12] MEDS ORDERED: POLYETHYLENE GLYCOL 3350 17 GM PKT PO SCH (09:00)
[2017-11-12] MEDS ORDERED: busPIRone 10 MG TAB PO SCH (09:00)
[2017-11-12] MEDS ORDERED: PANTOPRAZOLE SODIUM 40 MG TAB PO SCH (09:00)
[2017-11-12] MEDS ORDERED: DOXYCYCLINE HYCLATE 100 MG CAP/TAB PO SCH (09:00)
[2017-11-12] MEDS ORDERED: METOPROLOL SUCCINATE XR 25 MG TAB PO SCH (09:00)
[2017-11-12] MEDS ORDERED: DOCUSATE SODIUM 100 MG CAP PO SCH (09:00)
--- NOTE | 2017-11-12 09:23 | GDS ---
REASON FOR ADMISSION: Impacted food in esophagus. DISCHARGE DIAGNOSIS: Impacted food in esophagus. HOSPITAL COURSE: 1. Patient was admitted through the ER due to discomfort with food impaction. She was taken to the endoscopy suite by Dr. Christian, and a very complicated, tedious process was undertaken in order to clear her esophagus, taking 2-1/2 to 3 hours. Dilation was performed to the esophagus. Although patient had clearing of esophagus, she still had significant difficulties with swallowing and pain. A barium swallow was performed after procedure, which shows liquids getting through. An 8 mm barium tablet w as not able to pass. Her esophagus turns about 90 degrees in the distal portion, likely complicating normal flow of food contents despite dilation and food removal procedures. She has had prior fundop lication, likely adding challenges to tortuosity and function of her esophagus and stomach. We discu ssed options to bypass this challenge. At this point, will continue with smoothie thick liquids or t hinner in conjunction with crushed meds to maintain hydration and nutrition. She is game for pursuin g this direction. There was some aspiration noted on her upper GI/barium swallow, and she does cough after meals. We will follow this closely. At this point, she has improved and she will discharge h ome and see how this balance between hydration and nutrition goes, by liquids-only type meals. 2. Diabetes. Some elevation of sugars during hospital stay. She was switched to IV steroids given chronic steroid use for PMR. 3. Polymyalgia rheumatica. Will resume 10 7.5 mg of prednisone daily. 4. Chronic osteomyelitis. Resume doxycycline daily. This is certainly known to be an irritant to t he gastrointestinal tract. Will follow closely. 5. Chronic severe back pain. Continue with p.r.n. tramadol. 6. Headache. This has been an intermittent problem in the hospital. I suspect change in medication s, elevated blood pressure, and stress are likely an aggravating factor. I think this will improve a t home, as does the patient. 7. Hypertension, a bit labile in the office with some challenges given lack of p.o. medicine access initially. This has improved. She is back to her regular regimen with reasonable blood pressures. She will have outpatient followup in the next couple of days. Will call if there are any complicatio ns in the interim. /[id number]/MODL
[2017-11-12] MEDS ORDERED: metFORMIN HCL 500 MG TAB PO SCH (18:00)
[2017-11-12] MEDS ORDERED: LIPASE 12,000/AMYLASE/PROTEASE (CREON) 1 CAP PO SCH (18:00)
== END 2017-11-12 10:35 | disposition home or self-care (01) | DRG 392 ==
LOC: F3E 17:49 → OBSVTOIN 11-10 17:07
PROVIDERS: ADMIT Internal Medicine; ATTEND Internal Medicine
PROC: 0DC58ZZ Extirpation of Matter from Esophagus, Via Natural or Artificial Opening Endoscopic (ICD-10-PCS; principal; 2017-11-09 14:00)
PROC: 0D758ZZ Dilation of Esophagus, Via Natural or Artificial Opening Endoscopic (ICD-10-PCS; principal; 2017-11-09 14:00)
PROC: 02HV33Z Insertion of Infusion Device into Superior Vena Cava, Percutaneous Approach (ICD-10-PCS; 2017-11-10)
DX: K22.2 Esophageal obstruction (principal); M86.60 Other chronic osteomyelitis, unspecified site; T18.128A Food in esophagus causing other injury, initial encounter; K22.4 Dyskinesia of esophagus; E86.9 Volume depletion, unspecified; E11.9 Type 2 diabetes mellitus without complications; M35.3 Polymyalgia rheumatica; G89.29 Other chronic pain; R51 Headache; I10 Essential (primary) hypertension; E03.9 Hypothyroidism, unspecified; M81.0 Age-related osteoporosis without current pathological fracture; G47.33 Obstructive sleep apnea (adult) (pediatric)
CPT/HCPCS: 92610-GN; C1726; C1751; C1769; G0378; G8996-GN-CI; G8997-GN-CI; G8998-GN-CI; J0360; J1100; J1170; J1610; J1815; J2001; J2060; J2270; J2370; J2405; J2550; J2704; J2920; J3010; J3360; J7512

== ENCOUNTER 2018-01-04 06:47 | Inpatient (IN) | payer OTHER, MEDICARE ==
[~2018-01-04 06:47] MED LIST changes: -GADOBUTROL 10 ML VIAL IVP ONE; +VANCOMYCIN HCL/NORMAL SALINE 250 ML IV ONE; +VANCOMYCIN PHARMACY TO DOSE MISC ONE
[2018-01-04] MEDS ORDERED: BACITRACIN 50,000 UNITS/10 ML SYR IRR ONE (07:49)
[2018-01-04] MEDS ORDERED: THROMBIN (BOVINE) 20,000 UNIT VIAL TP ONE (07:49)
[2018-01-04] MEDS ORDERED: CHLORHEXIDINE GLUC HIBICLENS 118 ML BTL TP ONE (07:49)
[2018-01-04] MEDS ORDERED: BUPIVACAINE/EPI 0.25% 30 ML SDV ONE (07:49)
[2018-01-04] MEDS ORDERED: SURGIFLO MATRIX KIT WITH THROMBIN 8 ML TP ONE (07:49)
[2018-01-04] MEDS ORDERED: ACETAMINOPHEN 500 MG TAB PO ONE (07:53)
[2018-01-04] MEDS ORDERED: morphINE SR 15 MG TAB PO ONE (07:53)
[2018-01-04] MEDS ORDERED: GABAPENTIN 300 MG CAP PO ONE (07:53)
[2018-01-04] MEDS ORDERED: LIDOCAINE 1% 2 ML INJ ID PRN (07:54)
[2018-01-04] MEDS ORDERED: LR 1,000 ML IV ONE (07:54)
--- NOTE | 2018-01-04 08:14 | PDANEPAE ---
ANE History of Present Illness 82 with back pain and broken lea in the back ANE Past Medical History - Cardiovascular History Hx Hypertension: Yes Hx Arrhythmias: No Hx Chest Pain: No Hx Coronary Artery / Peripheral Vascular Disease: No Hx CHF / Valvular Disease: No Hx Palpitations: No Cardiovascular History Comment: HX PVC'S - Pulmonary History Hx COPD: No Hx Asthma/Reactive Airway Disease: No Hx Recent Upper Respiratory Infection: No Hx Oxygen in Use at Home: Yes O2 in Use at Home (L/minute): 4 Hx Sleep Apnea: Yes Sleep Apnea Screening Result - Last Documented: Positive Pulmonary History Comment: [facility] DOES HOME O2. OVERNIGHT SLEEP TEST SHOWED LOW 02 AT NIGHT. TWIN UNABLE TO TOLERATE MASK DUE TO ESOPHAGUS AND CLAUSTRAPHOBIA - Neurologic History Hx Cerebrovascular Accident: No Hx Seizures: No Hx Dementia: No Neurologic History Comment: SCIATICA TJ LEGS. NEUROPATHY TJ FEET - Endocrine History Hx Diabetes: Yes Hypothyroid: Yes Hyperthyroid: No Obesity: no Endocrine History Comment: IDDM. HYPOTHYROID - Renal History Hx Renal Disorders: Yes Renal History Comment: SOMETIMES BLADDER LEAKAGE - Liver History Hx Hepatic Disorders: No - Neurological & Psychiatric Hx Hx Neurological and Psychiatric Disorders: No - Cancer History Hx Cancer: No - Congenital Disorder History Hx Congenital Disorders: No - GI History GERD: mild Hx Gastrointestinal Disorders: Yes Gastrointestinal History Comment: CONSTIPATION. NARROW ESOPHOGUS. HAS HX OF FOOD GETTING STUCK. DILATION 11/2017. HAD NICK FUNDOPLICATION HX. DIABETIC DIET- AVOID SUGAR - Other Health History Other Health History: PSORIASIS ON ELBOWS , polymyalgia rheumatica on steroids for 30 years. IMPLANTS DENTAL. OA HANDS, BACK AND NECK. BRUISE EASILY. OSTEOPOROSIS - Chronic Pain History Chronic Pain: Yes (LOWER BACK AND LEGS) - Surgical History Prior Surgeries: REMVL IMPACTED FOOD ESOPHAGUS WITH DILATION 11/10/17. TLIF 09/03. EGD 02/2015. TONSILECTOMY 12 YEARS AGO. NECK FUSION. RT FOOT ORIF. YOLY FUNDIPLICATION WITH DANIELLE. CATARACTS BILATERALLY. KYPHOPLASTY L5-T11. HAND RIGHT SURGERY. LUMBAR FUSIONL1-4 WITH POST HARDWARE REMVL ANE Review of Systems Review of systems is: negative Review of Systems: - Exercise capacity METS (RN): 4 METS ANE Patient History - Allergies Allergies/Adverse Reactions: Penicillins Allergy (Intermediate, Verified 03/09/16 17:56) Rash BANDAIDS Allergy (Intermediate, Uncoded 03/07/16 08:54) Rash - Home Medications Home Medications: Metoprolol Succinate Xr [Toprol Xl 50 mg (*)] 75 mg PO DAILY 08/20/16 [Last Taken 11/08/17] Omeprazole 40 mg PO BID 08/20/16 [Last Taken 11/08/17] Zolpidem Tartrate [Ambien 10 mg] 10 mg PO HS PRN 08/20/16 [Last Taken 03/09/17] amLODIPine BESYLATE [Norvasc 5 mg (*)] 7.5 mg PO DAILY 08/20/16 [Last Taken 02/25] busPIRone [Buspar (*)] 10 mg PO BID 08/20/16 [Last Taken 11/08/17] predniSONE 7.5 mg PO DAILY 08/20/16 [Last Taken 11/08/17] Doxycycline Hyclate [Vibramycin 100 MG (*)] 100 mg PO DAILY 09/03/16 [Last Taken 11/08/17] Levothyroxine [Synthroid 25 mcg (*)] 25 mcg PO DAILY06 02/01/17 [Last Taken 02/25] metFORMIN HCL [Glucophage 500 mg (*)] 500 mg PO BIDMEAL 02/01/17 [Last Taken 02/25] DULoxetine [Cymbalta 60 MG (*)] 60 mg PO DAILY 03/10/17 [Last Taken 11/08/17] Lipase/Protease/Amylase [CREON DR 12,000 UNITS CAPSULE] 1 each PO BIDMEAL [Last Taken 11/08/17] Pioglitazone HCl [Actos] 45 mg PO DAILY 03/10/17 [Last Taken 11/08/17] Insulin Detemir [Levemir Flextouch] 10 unit SQ DAILY 11/09/17 [Last Taken ] Olmesartan Medoxomil [Benicar] 40 mg PO DAILY 11/09/17 [Last Taken 11/08/17] Pregabalin [Lyrica 50mg (*)] 50 mg PO BID 11/09/17 [Last Taken 11/08/17] - NPO status NPO Since - Liquids (Date): 01/03/18 NPO Since - Liquids (Time): 20:00 NPO Since - Solids (Date): 01/03/18 NPO Since - Solids (Time): 18:30 - Anes Hx Anes Hx: no prior problems - Smoking Hx Smoking Status: Former smoker - Alcohol Use Alcohol Use: None - Family Anes Hx Family Anes Hx: none Family Hx Anesthesia Complications: NONE ANE Labs/Vital Signs - Vital Signs Blood Pressure: 152/75 Heart Rate: 56 Respiratory Rate: 20 O2 Sat (%): 94 Height: 160.02 cm Weight: 64.41 kg ANE Physical Exam - Airway Neck exam: FROM Mallampati Score: Class 2 Mouth exam: normal dental/mouth exam - Pulmonary Pulmonary: no respiratory distress, clear to auscultation - Cardiovascular Cardiovascular: regular rate and rhythym, diastolic murmur - ASA Status ASA Status: III ANE Anesthesia Plan Anesthesia Plan: general endotracheal anesthesia
--- NOTE | 2018-01-04 08:50 | PDHPUP ---
History & Physical Update H&P update statement: This history and physical update is based on an assessment of the patient which was completed after admission or registration (within 24 hours), but prior to the surgery/procedure. H&P update: H&P reviewed & patient examined, no change in patient's condition since H&P completed (Reviewed the surgical plan with the patient and her . Original plan was for removal of entire lea, but because this is 2 different systems of two different sizes, we will try to minimize potential blood loss and time on the OR table. We will plan to expose the upper system and revise the broken hardware and replace with new system and quad-lea, including redo-arthrodesis at the pseudo level. All this was reviewed and they agree with the plan. All questions answered and consents signed, signed marked. )
[2018-01-04] MEDS ORDERED: ROCURONIUM 50 MG/5 ML VIAL ONE (09:01)
[2018-01-04] MEDS ORDERED: fentaNYL 250 MCG/5 ML INJ ONE (09:01)
[2018-01-04] MEDS ORDERED: LIDOCAINE 2% 5 ML SDV ONE (09:01)
[2018-01-04] MEDS ORDERED: PROPOFOL 200 MG/20 ML VIAL ONE (09:01)
[2018-01-04] MEDS ORDERED: SUCCINYLCHOLINE CHLORIDE 200 MG/10 ML SYR IVP ONE (09:03)
[2018-01-04] MEDS ORDERED: MAGNESIUM HYDROXIDE 30 ML UDCUP PO PRN (09:29)
[2018-01-04] MEDS ORDERED: diphenhydrAMINE 25 MG CAP PO PRN (09:29)
[2018-01-04] MEDS ORDERED: LACTULOSE 20 GM/30 ML UDCUP PO PRN (09:29)
[2018-01-04] MEDS ORDERED: BISACODYL 10 MG SUPP PR PRN (09:29)
[2018-01-04] MEDS ORDERED: ONDANSETRON 4 MG/2 ML VIAL IVP PRN (09:29)
[2018-01-04] MEDS ORDERED: POLYETHYLENE GLYCOL 3350 17 GM PKT PO PRN (09:29)
[2018-01-04] MEDS ORDERED: NS 1,000 ML IV SCH (09:30)
--- NOTE | 2018-01-04 09:37 | POSTOPPROG ---
Post Op Note Date of Operation: 01/04/18 Surgeon: Ramon Piedra Ecclesiastical Worker: CRISTIANO Holt PAC Anesthesia: GET(General Endotracheal) Pre-op Diagnosis: hardware failure Post-op Diagnosis: hardware failure Indication: hardware failure Procedure: Hardware exploration and quad lea renforement Inf/Abcess present in the surg proc area at time of surgery?: No EBL: Minimal PA Addendum - Addendum .: S: Resting comfortably, denies any pain O: NAD A&Ox3 MAEx4 5/5 and equal in BUE and BLE, A/P Hardware exploration and revision with redo arthrodesis T11/T12 and reenforcement with quad lea -Optimize pain management -PT/OT -Advance diet as tolerated -Post op xrays pending -PT/OT/HOSPICE ADMINISTRATOR -Please notify NS with any change in neuro/motor exam
[2018-01-04] MEDS ORDERED: DEXAMETHASONE 4 MG/ML VIAL ONE (09:42)
--- NOTE | 2018-01-04 10:24 | PDMN ---
Medical Necessity Medical necessity: [facility] Neurosurgery or Procedure: 82 yo s/p posterior fusion T5/T12 w/ quad lea system, redo T10/11/12 thoracic fusion post w/c-arm, hardware exploration w/ removal, [facility] Only
[2018-01-04] MEDS ORDERED: MEPERIDINE 25 MG/0.5 ML AMP IVP PRN (10:35)
[2018-01-04] MEDS ORDERED: NALOXONE HCL 0.4 MG/ML INJ IVP PRN (10:35)
[2018-01-04] MEDS ORDERED: PROMETHAZINE HCL 25 MG/ML INJ IVP PRN (10:35)
--- NOTE | 2018-01-04 10:37 | POSTANESTH ---
Post Anesthetic Evaluation Cardiovascular Status: Normal, Stable Respiratory Status: Normal, Stable Level of Consciousness/Mental Status: Can Participate in Eval Pain Control: Adequate, Prn Tx Ordered Nausea/Vomiting Control: Adequate, Prn Tx Ordered Complications Possibly Related to Anesthesia: None Noted
[2018-01-04] MEDS ORDERED: ONDANSETRON 4 MG/2 ML VIAL ONE (11:38)
[2018-01-04] MEDS ORDERED: HYDROmorphONE/DILAUDID 2 MG/ML INJ ONE ×2 (12:41→13:32)
[2018-01-04] MEDS ORDERED: fentaNYL 100 MCG/2 ML INJ ONE (12:41)
[2018-01-04] MEDS ORDERED: METHOCARBAMOL 750 MG TAB ONE (12:42)
[2018-01-04] MEDS: METHOCARBAMOL 750 MG TAB PO PRN (12:45)
[2018-01-04] MEDS: fentaNYL 100 MCG/2 ML INJ IVP PRN ×2 (12:46→12:54)
[2018-01-04] MEDS: HYDROmorphONE/DILAUDID 2 MG/ML INJ IVP PRN ×4 (12:48→14:55)
[2018-01-04] MEDS ORDERED: oxyCODONE IR 5 MG TAB ONE (13:32)
[2018-01-04] MEDS: oxyCODONE IR 5 MG TAB PO PRN (13:34)
[2018-01-04] MEDS ORDERED: ceFAZolin 2 GM/DEXTROSE 100 ML IV SCH (14:00)
--- NOTE | 2018-01-04 15:15 | GOP ---
DATE OF OPERATION: 01/04/2018 SURGEON: Ramon Piedra MD TURKISH RUBBER: Gaby Holt, LISA ANESTHESIA: General. PREOPERATIVE DIAGNOSIS: 1. Pseudoarthrosis with broken hardware T11-T12. 2. Back pain. 3. Treatment refractory to nonoperative intervention. POSTOPERATIVE DIAGNOSIS: 1. Pseudoarthrosis with broken hardware T11-T12. 2. Back pain. 3. Treatment refractory to nonoperative intervention. PROCEDURE PERFORMED: 1. Posterior arthrodesis with approach to T5, T6, T7, T8, T9, T10, T11, T12, and L1. 2. Exploration of prior thoracic hardware with segmental thoracic hardware removal from the [employer] 4.75 system. 3. Placement of new rods between T5 and T12 using end to end connector between T12 and L1. 4. Quad Hugh placement between T10-T11 and L1-L2. 5. Removal of bilateral T12 pedicle screws from the Hannah system. 6. Posterolateral fusion bilateral between T11-T12 with morselized allograft. FINDINGS: per imaging SPECIMENS: The hardware was cultured and sent to Microbiology. ESTIMATED BLOOD LOSS: 150 mL INDICATIONS: The patient is a very pleasant, 82-year-old woman who has undergone multiple spinal surgeries, including a most recent extension of her fusion up to T5. She presented with worsening back pain, had evidence of hardware malfunction at the T11-T12 level. After discussion of the risks, benefits, and treatment alternatives, and after failing nonoperative management , we decided to proceed forth with surgery as described above. DESCRIPTION OF PROCEDURE: Patient was brought to the operating theater and underwent general endotracheal anesthesia without complications. She had Venodynes, BABAK hose, and the appropriate lines placed by Anesthesia. She was flipped prone onto the Bryan table and all bony processes inspected and padded. The previous thoracolumbar incision was identified, marked, and prepped and draped in usual sterile surgical fashion. A time-out was completed per protocol, and the patient received antibiotics within 1 hour of incision. The superior aspect of the entire thoracic and lumbar incision was infiltrated with Marcaine with epinephrine. The incision was taken with the scalpel blade and using monopolar, taken down the midline through the subcutaneous tissues and out laterally to identify the prior hardware at the T5, T6, T7, T8, T9, T10 , T11, T12, and L1 levels. We sequentially removed the bilateral cap screws from the T5 through T11 levels and passed them off the field. We also removed the bilateral rods. She appeared to be well fused between the T5 and T11 and T12 levels with bony growth upon further exploration. We then cut the rods between the T11-T12 levels and removed the bilateral T12 screws, which were from the Hannah system. We then placed an end-to-end connector between T12 and L1, and secured a new 4.75 system hugh from the [employer] system from the T5 through the T12 levels within an end-to-end connector into the L1 hugh and secured them down with cap screws, which were tightened per diagnostic tech's setting. We then placed crosslinks between T7, T8, T11, T12 and secured them down. We decorticated the bone bilaterally between T11 and T12. We placed 2 lateral connectors with Quad Hugh systems between the T10-T11 and L1- L2 systems and secured them down as well. The patient demonstrated excellent stability after placement of all the hardware. We placed morselized allograft bilaterally for the posterolateral fusion. A drain was left in the subfascial space and wound irrigated copious with bacitracin irrigation. We closed the wound in multiple layers using Vicryl sutures in deep layers and Dermabond for the skin. Patient's wounds were dressed sterilely. She was flipped supine onto the transport cart where she was awakened, extubated, taken to recovery room in stable condition. There were no complications and no noted changes on neuromonitoring throughout the procedure. COMPLICATIONS: None. /[id number]/MODL MTDD
[2018-01-04] MEDS: ACETAMINOPHEN 500 MG TAB PO SCH ×2 (15:54→20:52)
[2018-01-04 16:35] LABS: HEPATITIS B SURFACE ANTIGEN NEGATIVE (NEGATIVE)
[2018-01-04 16:52] LABS: HEPATITIS C ANTIBODY TOTAL NEGATIVE (NEGATIVE)
[2018-01-04] MEDS: metFORMIN HCL 500 MG TAB PO SCH (17:43)
[2018-01-04] MEDS: LIPASE 12,000/AMYLASE/PROTEASE (CREON) 1 CAP PO SCH (17:43)
[2018-01-04] MEDS: busPIRone 10 MG TAB PO SCH (20:51)
[2018-01-04] MEDS: PANTOPRAZOLE SODIUM 40 MG TAB PO SCH (20:52)
[2018-01-04] MEDS: PREGABALIN 50 MG CAP PO SCH (20:52)
[2018-01-04] MEDS: FAMOTIDINE 20 MG TAB PO SCH (20:52)
[2018-01-04] MEDS: SENNOSIDES/DOCUSATE SODIUM TAB PO SCH (20:52)
[2018-01-05] MEDS: ACETAMINOPHEN 500 MG TAB PO SCH ×3 (05:30→20:08)
[2018-01-05] MEDS: LEVOTHYROXINE 25 MCG TAB PO SCH (05:30)
--- NOTE | 2018-01-05 07:56 | SOAPPROG ---
SOAP Progress Note Assessment/Plan: Assessment: POD #1 sp removal of fractured hardware and replacement of bilateral rods doing well Pain controlled Plan: OK to be OOB in [facility] until her can retrieve her Sg brace from home today. Continue JORGE drain PT/OT Pt seen by Dr. Piedra this AM 01/05/18 07:54 Subjective: Awake, alert, pain well controlled. no new issues Objective: Vital Signs Temp Pulse Resp BP Pulse Ox 36.8 C 52 L 16 101/57 L 95 01/05/18 04:00 01/05/18 04:00 01/05/18 04:00 01/05/18 04:00 01/05/18 04:00 Microbiology 01/04/18 10:00 Gram Stain - Final Back - Eswab 01/04/18 10:00 Mycobacterial Smear (KYUNG) - Final Back - Eswab Mycobacterial Culture - Final 01/04/18 01/05/18 01/06/18 05:59 05:59 05:59 Intake Total 2000 Output Total 1530 Balance 470 Incision : CDI JORGE: 405ml since surgery Neuro: COELHO, Sens +LT follows commands ICD10 Worksheet Patient Problems: Problems Problem Status Onset Back pain Acute Chronic back pain Acute Dysphagia Acute Esophageal foreign body Acute Esophageal obstruction due to food impaction Acute Fever Acute History of vertebroplasty Acute Hypoxia Acute Intractable back pain Acute Narcotic overdose Acute S/P lumbar spinal fusion Acute Weakness Acute
[2018-01-05] MEDS: LIPASE 12,000/AMYLASE/PROTEASE (CREON) 1 CAP PO SCH ×2 (08:21→18:42)
[2018-01-05] MEDS: metFORMIN HCL 500 MG TAB PO SCH ×2 (08:21→18:43)
[2018-01-05] MEDS: METOPROLOL SUCCINATE XR 50 MG TAB PO SCH (08:23)
[2018-01-05] MEDS: DOXYCYCLINE HYCLATE 100 MG CAP/TAB PO SCH (08:23)
[2018-01-05] MEDS: amLODIPine BESYLATE 5 MG TAB PO SCH (08:25)
[2018-01-05] MEDS: DULoxetine 60 MG CAP PO SCH (08:26)
[2018-01-05] MEDS: FAMOTIDINE 20 MG TAB PO SCH ×2 (08:28→20:07)
[2018-01-05] MEDS: SENNOSIDES/DOCUSATE SODIUM TAB PO SCH ×2 (08:28→20:07)
[2018-01-05] MEDS: predniSONE 5 MG TAB PO SCH (08:29)
[2018-01-05] MEDS: busPIRone 10 MG TAB PO SCH ×2 (08:30→20:07)
[2018-01-05] MEDS: INSULIN GLARGINE 100 UNITS/ML UNIT SC SCH (08:30)
--- NOTE | 2018-01-05 09:25 | ASMTCMCOM ---
CM Note CM Note Notes: Pts case discussed w/ ESTRELLA Siegel. Pt is a 82 y/o female admitted for mechanical complication of internal prosthesis. Therapies have been ordered and awaiting recommendations. Needs are TBD at this time. CM to follow. Plan: TBD Date Signed: 01/05/2018 09:24 AM Electronically Signed By:WILMA Sy
[2018-01-05] MEDS: OLMESARTAN MEDOXOMIL 20 MG TAB PO SCH (10:03)
[2018-01-05] MEDS: PIOGLITAZONE HCL 15 MG TAB PO SCH (10:04)
[2018-01-05] MEDS: PANTOPRAZOLE SODIUM 40 MG TAB PO SCH ×2 (10:04→20:07)
[2018-01-05] MEDS: PREGABALIN 50 MG CAP PO SCH ×2 (10:05→20:07)
--- NOTE | 2018-01-05 11:56 | ASMTCMCOM ---
CM Note CM Note Notes: PT is recommending inpatient rehab. OT is recommending HC vs inpatient rehab. CM met w/ pt and for dispo planning. Pt would like to have [facility] again. [facility] is able to accept. Pts address is [address] [place], [place] [id number]. Pt reports that she will only need an RN. Pt reports that drains are still in. Pt is surprised at how well she is recovering. CM to follow. Plan: [facility]; RN Date Signed: 01/05/2018 11:55 AM Electronically Signed By:WILMA Sy
[2018-01-05] MEDS: ZOLPIDEM TARTRATE 5 MG TAB PO PRN (23:09)
[2018-01-06] MEDS: ACETAMINOPHEN 500 MG TAB PO SCH ×3 (06:23→23:50)
[2018-01-06] MEDS: LEVOTHYROXINE 25 MCG TAB PO SCH (06:23)
[2018-01-06] MEDS: oxyCODONE IR 5 MG TAB PO PRN ×4 (06:27→20:25)
[2018-01-06] MEDS: INSULIN GLARGINE 100 UNITS/ML UNIT SC SCH (07:59)
[2018-01-06] MEDS: busPIRone 10 MG TAB PO SCH ×2 (08:00→20:15)
[2018-01-06] MEDS: METOPROLOL SUCCINATE XR 50 MG TAB PO SCH (08:00)
[2018-01-06] MEDS: ENOXAPARIN 40 MG/0.4 ML SYR SC SCH (08:00)
[2018-01-06] MEDS: amLODIPine BESYLATE 5 MG TAB PO SCH (08:01)
[2018-01-06] MEDS: predniSONE 5 MG TAB PO SCH (08:01)
[2018-01-06] MEDS: DOXYCYCLINE HYCLATE 100 MG CAP/TAB PO SCH (08:01)
[2018-01-06] MEDS: FAMOTIDINE 20 MG TAB PO SCH ×2 (08:02→20:15)
[2018-01-06] MEDS: metFORMIN HCL 500 MG TAB PO SCH ×2 (08:02→18:14)
[2018-01-06] MEDS: DULoxetine 60 MG CAP PO SCH (08:03)
[2018-01-06] MEDS: PREGABALIN 50 MG CAP PO SCH ×2 (08:03→20:16)
[2018-01-06] MEDS: OLMESARTAN MEDOXOMIL 20 MG TAB PO SCH (08:04)
[2018-01-06] MEDS: PIOGLITAZONE HCL 15 MG TAB PO SCH (08:04)
[2018-01-06] MEDS: LIPASE 12,000/AMYLASE/PROTEASE (CREON) 1 CAP PO SCH ×2 (08:04→18:14)
[2018-01-06] MEDS: SENNOSIDES/DOCUSATE SODIUM TAB PO SCH ×2 (08:04→21:02)
[2018-01-06] MEDS: PANTOPRAZOLE SODIUM 40 MG TAB PO SCH ×2 (08:05→20:15)
--- NOTE | 2018-01-06 09:58 | NEUSURGPN ---
Date of Surgery: 01/04/18 Post Op Day: 2 Assessment/Plan: Assessment: 82 yr old F s/p hardware exploration and revision of broken rods POD #2 Plan: -Patient has increased incisional pain today, will continue oral pain regimen. -Ice to affected area -PT/OT -Keep JORGE in today -Please call neurosurgery with questions/concerns Discussed patient with Dr Piedra Subjective: incisional pain, otherwise no complaints Objective: AxO x4 COELHO x4 5/5 BLE sensation intact to light touch BLE Incision dressed with silver dressing-CDI Neuro Check Frequency: per routine Urinary Catheter in Place: No - Physician Discussed Patient with : [facility] Neurosurgery Physical Exam - Vitals, I&O, Labs I and O 01/05/18 01/06/18 01/07/18 05:59 05:59 05:59 Intake Total 1999 1350 Output Total 1530 1570 Balance 470 -220 Weight 64.41 kg Intake: Oral (ml) 700 1350 IV Intake (ml) 1300 Output: Urine (ml) 825 1400 Toilet 825 1400 Estimated Blood Loss (ml) 300 JORGE Drain Output (ml) 405 170 Back Bryan Jackson 405 170 Other: Number of Voids Toilet 1 1 Number of Stools Toilet 1 Microbiology 01/04/18 10:00 Gram Stain - Final Back - Eswab 01/04/18 10:00 Mycobacterial Smear (KYUNG) - Final Back - Eswab Mycobacterial Culture - Final Vital Signs Temp Pulse Resp BP Pulse Ox 36.4 C 61 16 136/69 H 97 01/06/18 07:52 01/06/18 07:52 01/06/18 07:52 01/06/18 07:52 01/06/18 07:52 ICD10 Worksheet Patient Problems: Problems Problem Status Onset Back pain Acute Chronic back pain Acute Dysphagia Acute Esophageal foreign body Acute Esophageal obstruction due to food impaction Acute Fever Acute History of vertebroplasty Acute Hypoxia Acute Intractable back pain Acute Narcotic overdose Acute S/P lumbar spinal fusion Acute Weakness Acute
--- NOTE | 2018-01-06 11:46 | ASMTCMCOM ---
CM Note CM Note Notes: 01/06/2018 Case Management Note Met w/pt and Antonino to discuss recommendations for inpatient rehab. Pt is strong in her desire to return home. Pt agreeable to group home manager and PT. in agreement. Notified [facility] of addition of PT. Case Management d/c poc: [facility] RN and PT. Case Management to follow. Date Signed: 01/06/2018 11:45 AM Electronically Signed By:Dorcas Asencio RN
[2018-01-06] MEDS: METHOCARBAMOL 750 MG TAB PO PRN (12:24)
[2018-01-06] MEDS ORDERED: D5W 1/2 NS 1,000 ML IV SCH (15:00)
[2018-01-06 15:55] LABS: INR 1.01 (0.83-1.16); PROTIME(PATIENT) 13.5 SEC (12.0-15.0)
[2018-01-06] MEDS ORDERED: D50W 25 GM/50 ML SYR IVP PRN (16:55)
[2018-01-06] MEDS: ONDANSETRON DISINTEGRATING 4 MG TAB PO PRN (17:00)
--- NOTE | 2018-01-06 17:12 | PDHOSCONS ---
History and Physical - Chief Complaint consulted for hypoglycemia - History of Present Illness 82yo F with history of insulin dependent diabetes, hypertension underwent revision of T11-[address] Piedra on 01/04. Had been recovering expectedly in the post-op setting until this afternoon when her pre-lunch POC glucose was found to be 32. Two subsequent POC checks were 26. She was completely asymptomatic. She was given juice, icre cream and cake with improvement in her serum glucose to 52 on lab check. Medicine was consulted for help with management of her hypoglycemia. The patient has been a diabetic for over 10 years. She has taken 10 units of levemir and 500mg BID of metformin for years. She rarely checks her blood sugar at home, but when she has it is in the low 100s. She denies any hypoglycemic episodes at home but states she does know what they feel like (sweating, lightheaded). She has been receiving 10 units of lantus in addition to metformin and pioglitazone for the last 2 days, which she takes at home. Otherwise, she denies any localizing infectious symptoms. She is having an increase in her back pain at the surgical site. History Information - Allergies/Home Medication List Allergies/Adverse Reactions: Penicillins Allergy (Intermediate, Verified 03/09/16 17:56) Rash BANDAIDS Allergy (Intermediate, Uncoded 03/07/16 08:54) Rash Home Medications: Metoprolol Succinate Xr [Toprol Xl 50 mg (*)] 75 mg PO DAILY 08/20/16 [Last Taken 11/08/17] Omeprazole 40 mg PO BID 08/20/16 [Last Taken 11/08/17] Zolpidem Tartrate [Ambien 10 mg] 10 mg PO HS PRN 08/20/16 [Last Taken 03/09/17] amLODIPine BESYLATE [Norvasc 5 mg (*)] 7.5 mg PO DAILY 08/20/16 [Last Taken 02/25] busPIRone [Buspar (*)] 10 mg PO BID 08/20/16 [Last Taken 11/08/17] predniSONE 7.5 mg PO DAILY 08/20/16 [Last Taken 11/08/17] Doxycycline Hyclate [Vibramycin 100 MG (*)] 100 mg PO DAILY 09/03/16 [Last Taken 11/08/17] Levothyroxine [Synthroid 25 mcg (*)] 25 mcg PO DAILY06 02/01/17 [Last Taken 02/25] metFORMIN HCL [Glucophage 500 mg (*)] 500 mg PO BIDMEAL 02/01/17 [Last Taken 02/25] DULoxetine [Cymbalta 60 MG (*)] 60 mg PO DAILY 03/10/17 [Last Taken 11/08/17] Lipase/Protease/Amylase [CREAURELIA DR 12,000 UNITS CAPSULE] 1 each PO BIDMEAL [Last Taken 11/08/17] Pioglitazone HCl [Actos] 45 mg PO DAILY 03/10/17 [Last Taken 11/08/17] Insulin Detemir [Levemir Flextouch] 10 unit SQ DAILY 11/09/17 [Last Taken ] Olmesartan Medoxomil [Benicar] 40 mg PO DAILY 11/09/17 [Last Taken 11/08/17] Pregabalin [Lyrica 50mg (*)] 50 mg PO BID 11/09/17 [Last Taken 11/08/17] I have personally reviewed and updated: family history, medical history, social history, surgical history - Past Medical History Additional medical history: insulin dependent diabetes, hypertension, chronic back pain, osteoarthritis, depression - Surgical History Additional surgical history: L1-4 TLIF, T11-L5 fusion (10/2014), L4-S1 hardware removal, T11-12 lea placement - Family History Positive for: non-pertinent - Social History Smoking Status: Former smoker Alcohol Use: None Drug Use: None Additional social history: Lives with Review of Systems Review of Systems: ROS: 10pt was reviewed & negative except for what was stated in HPI & below Physical Exam Physical Exam: Temp Pulse Resp BP Pulse Ox 36.8 C 58 L 14 128/55 H 94 01/06/18 16:00 01/06/18 16:00 01/06/18 16:00 01/06/18 16:00 01/06/18 16:00 O2 (L/minute) 2 Constitutional: no apparent distress, appears nourished, not in pain Eyes: PERRL, anicteric sclera, EOMI Ears, Nose, Mouth, Throat: moist mucous membranes, hearing normal, ears appear normal, no oral mucosal ulcers Cardiovascular: regular rate and rhythym, no murmur, rub, or gallop, No edema Respiratory: no respiratory distress, no rales or rhonchi, clear to auscultation Gastrointestinal: normoactive bowel sounds, soft, non-tender abdomen, no palpable masses Genitourinary: no bladder fullness, no bladder tenderness Skin: warm, mottled, no rashes or abrasions, other (bandage vertically over midline back with JORGE drain in place) Musculoskeletal: full muscle strength, no muscle tenderness, normal joint ROM, no joint effusions Neurologic: AAOx3 Psychiatric: interacting appropriately, not anxious, not encephalopathic, thought process linear Lab Data & Imaging Review 01/06/18 15:35 PT 13.5 SEC (12.0-15.0) 01/06/18 15:35 INR 1.01 (0.83-1.16) 01/06/18 15:35 Sodium 137 mEq/L (135-145) 01/06/18 15:35 Potassium 4.8 mEq/L (3.3-5.0) 01/06/18 15:35 Chloride 105 mEq/L (97-110) 01/06/18 15:35 Carbon Dioxide 22 mEq/l (22-31) 01/06/18 15:35 Anion Gap 10 mEq/L (6-14) 01/06/18 15:35 BUN 21 mg/dL (7-23) 01/06/18 15:35 Creatinine 1.0 mg/dL (0.6-1.0) 01/06/18 15:35 Estimated GFR 53 01/06/18 15:35 Glucose 110 mg/dL (70-100) H 01/06/18 15:35 POC Glucose 26 mg/dL (70-100) L* 01/06/18 12:26 Calcium 8.8 mg/dL (8.5-10.4) 01/06/18 15:35 Total Bilirubin 0.5 mg/dL (0.1-1.4) 01/06/18 15:35 Conjugated Bilirubin 0.4 mg/dL (0.0-0.5) 01/06/18 15:35 Unconjugated Bilirubin 0.1 mg/dL (0.0-1.1) 01/06/18 15:35 AST 24 IU/L (14-46) 01/06/18 15:35 ALT 14 IU/L (9-52) 01/06/18 15:35 Alkaline Phosphatase 55 IU/L (38-126) 01/06/18 15:35 Total Protein 6.0 g/dL (6.3-8.2) L 01/06/18 15:35 Albumin 3.4 g/dL (3.5-5.0) L 01/06/18 15:35 Hep Bs Antigen NEGATIVE (NEGATIVE) 01/04/18 14:50 Hepatitis C Antibody NEGATIVE (NEGATIVE) 01/04/18 14:50 HIV 1&2 Antibody Rapid NONREACTIVE (NONREACTIVE) 01/04/18 14:50 Patient ABO/Rh B POSITIVE 12/29/17 11:24 Antibody Screen NEGATIVE 12/29/17 11:24 Assessment & Plan Assessment: 82yo F with history of insulin dependent diabetes, hypertension underwent revision of T11-[address] Piedra on 01/04. Medicine has been consulted for management of hypoglycemia. Plan: 1. Asymptomatic hypoglycemia: It is concerning that she had no neuroglycopenic symptoms. I think this is due to insulin use in setting of mild renal dysfunction. No other obvious offending medications. - Discontinue long-acting insulin, pioglitazone - Start D5,1/2NS - Q2h glucose checks - Use low dose SSI for now, continue metformin - Liver function looks ok, TSH pending - If fevers, would evaluate for infection - Will re-eval tomorrow and decide on home regimen 2. Elevated creatinine: Cr 1.0, prior baseline 0.7 back in early November and 0.9 about a week ago. - IVF as above, encourage PO intake 3. Hypertension: BP looks good, continue home meds. 4. T11-12 hardware exploration and revision - Care and pain management per neurosurgery Thank you for this consult, we will continue to follow.
[2018-01-06] MEDS: INSULIN LISPRO 100 UNIT/ML SC SCH (17:45)
[2018-01-06] MEDS: ZOLPIDEM TARTRATE 5 MG TAB PO PRN (20:15)
[2018-01-07] MEDS: oxyCODONE IR 5 MG TAB PO PRN ×3 (04:12→21:20)
[2018-01-07] MEDS: LEVOTHYROXINE 25 MCG TAB PO SCH (05:49)
[2018-01-07] MEDS: ACETAMINOPHEN 500 MG TAB PO SCH ×3 (08:27→21:12)
--- NOTE | 2018-01-07 08:34 | HOSPPROG ---
Hospitalist Progress Note Assessment/Plan: 82yo F with history of insulin dependent diabetes, hypertension underwent revision of T11-[address] Piedra on 01/04. Had been recovering expectedly in the post-op setting until this afternoon when her pre-lunch POC glucose was found to be 32. Two subsequent POC checks were 26. She was completely asymptomatic. She was given juice, ice cream and cake with improvement in her serum glucose to 52 on lab check. Medicine was consulted for help with management of her hypoglycemia. First encounter, chart reviewed. *hypoglycemia -resolved -dc long acting -continue metformin -sliding scale -D5 1/2 dc last evening *renal insufficiency -creat stable *htn -bp slightly low this morning -parameters to be placed as when to hold bp meds *s/p T11-12 hardware exploration and revision *plan: dc per neurosurgery, she only wants to go home, recommending she check her bp daily and hold bp meds if systolic is < 110. She is very aware about checking her glucoses. Would not resume her long acting insulin until she f/u w her PCP. Subjective: florencio feels fine this morning. Objective: Vital Signs Temp Pulse Resp BP Pulse Ox 36.4 C 71 18 104/53 L 91 L 01/07/18 08:00 01/07/18 08:00 01/07/18 08:00 01/07/18 08:00 01/07/18 08:00 Microbiology 01/04/18 10:00 Gram Stain - Final Back - Eswab Laboratory Results 01/06/18 15:35 01/06/18 01/07/18 01/08/18 05:59 05:59 05:59 Intake Total 1350 2217 Output Total 1570 1950 200 Balance -220 267 -200 PT 13.5 SEC (12.0-15.0) 01/06/18 15:35 INR 1.01 (0.83-1.16) 01/06/18 15:35 - Physical Exam Constitutional: no apparent distress, appears nourished, not in pain Eyes: PERRL Ears, Nose, Mouth, Throat: hearing normal Cardiovascular: regular rate and rhythym Respiratory: no respiratory distress Skin: warm Musculoskeletal: generalized weakness Neurologic: AAOx3 Psychiatric: interacting appropriately, not anxious, not encephalopathic ICD10 Worksheet Patient Problems: Problems Problem Status Onset Back pain Acute Chronic back pain Acute Dysphagia Acute Esophageal foreign body Acute Esophageal obstruction due to food impaction Acute Fever Acute History of vertebroplasty Acute Hypoxia Acute Intractable back pain Acute Narcotic overdose Acute S/P lumbar spinal fusion Acute Weakness Acute
--- NOTE | 2018-01-07 08:35 | NEUSURGPN ---
Assessment/Plan: Assessment: 82 yr old F s/p hardware exploration and revision of broken rods POD #3 Plan: -Appreciate Hospitalist consult for hypoglycemia -Pain medications are helping. -Ice to affected area -PT/OT -Keep JORGE this morning. May d/c later this afternoon if set to discharge -Please call neurosurgery with questions/concerns -Seen by Dr Piedra Subjective: low back pain tolerable with medications. Objective: NAD A&Ox3 MAEx4 5/5 and equal in BUE and BLE. Incision c/d/i. JORGE drain serosanguineous - Physician Patient Seen by : [facility] Physical Exam - Vitals, I&O, Labs I and O 01/06/18 01/07/18 01/08/18 05:59 05:59 05:59 Intake Total 1350 2217 Output Total 1570 1950 200 Balance -220 267 -200 Intake: Oral (ml) 1350 2100 IV Infused (ml) 117 D5w 1/2 Ns 1,000 ml @ 125 117 mls/hr IV CONT DIEGO Rx#: [id number] Output: Urine (ml) 1400 1850 200 Toilet 1400 1850 200 JORGE Drain Output (ml) 170 100 Back Bryan Jackson 170 100 Other: Intake Quantity Yes Sufficient Number of Voids Toilet 1 1 1 Number of Stools Toilet 1 Microbiology 01/04/18 10:00 Gram Stain - Final Back - Eswab Vital Signs Temp Pulse Resp BP Pulse Ox 36.4 C 71 18 104/53 L 91 L 01/07/18 08:00 01/07/18 08:00 01/07/18 08:00 01/07/18 08:00 01/07/18 08:00 Laboratory Results 01/06/18 15:35 ICD10 Worksheet Patient Problems: Problems Problem Status Onset Back pain Acute Chronic back pain Acute Dysphagia Acute Esophageal foreign body Acute Esophageal obstruction due to food impaction Acute Fever Acute History of vertebroplasty Acute Hypoxia Acute Intractable back pain Acute Narcotic overdose Acute S/P lumbar spinal fusion Acute Weakness Acute
[2018-01-07] MEDS: DOXYCYCLINE HYCLATE 100 MG CAP/TAB PO SCH (08:55)
[2018-01-07] MEDS: metFORMIN HCL 500 MG TAB PO SCH ×2 (08:55→17:04)
[2018-01-07] MEDS: busPIRone 10 MG TAB PO SCH ×2 (08:56→21:13)
[2018-01-07] MEDS: PANTOPRAZOLE SODIUM 40 MG TAB PO SCH ×2 (08:56→21:12)
[2018-01-07] MEDS: LIPASE 12,000/AMYLASE/PROTEASE (CREON) 1 CAP PO SCH ×2 (08:56→17:04)
[2018-01-07] MEDS: FAMOTIDINE 20 MG TAB PO SCH (08:56)
[2018-01-07] MEDS: OLMESARTAN MEDOXOMIL 20 MG TAB PO SCH (08:57)
[2018-01-07] MEDS: DULoxetine 60 MG CAP PO SCH (08:58)
[2018-01-07] MEDS: ENOXAPARIN 40 MG/0.4 ML SYR SC SCH (08:58)
[2018-01-07] MEDS: SENNOSIDES/DOCUSATE SODIUM TAB PO SCH ×2 (08:59→21:14)
[2018-01-07] MEDS: METOPROLOL SUCCINATE XR 50 MG TAB PO SCH (09:00)
[2018-01-07] MEDS: PREGABALIN 50 MG CAP PO SCH ×2 (09:01→21:12)
[2018-01-07] MEDS: predniSONE 5 MG TAB PO SCH (09:01)
[2018-01-07] MEDS: INSULIN LISPRO 100 UNIT/ML SC SCH ×3 (09:02→17:04)
[2018-01-07] MEDS: amLODIPine BESYLATE 5 MG TAB PO SCH (09:03)
[2018-01-07] MEDS: ONDANSETRON DISINTEGRATING 4 MG TAB PO PRN (11:49)
[2018-01-07] MEDS: ZOLPIDEM TARTRATE 5 MG TAB PO PRN (21:12)
[2018-01-08] MEDS: LEVOTHYROXINE 25 MCG TAB PO SCH (05:06)
[2018-01-08] MEDS: ACETAMINOPHEN 500 MG TAB PO SCH ×2 (05:06→14:22)
[2018-01-08] MEDS: oxyCODONE IR 5 MG TAB PO PRN (07:31)
[2018-01-08] MEDS: PREGABALIN 50 MG CAP PO SCH (07:31)
[2018-01-08 07:40] VITALS: BP 153/88
[2018-01-08] MEDS: INSULIN LISPRO 100 UNIT/ML SC SCH ×2 (08:18→13:20)
--- NOTE | 2018-01-08 08:26 | NEUSURGPN ---
Assessment/Plan: Assessment: 82 yr old F s/p hardware exploration and revision of broken rods POD #4 Plan: -Appreciate Hospitalist consult for hypoglycemia, glucose appears stabilized at this juncture. Hold long acting after discharge. -Pain medications are helping. -Ice to affected area -PT/OT -JORGE out this am. -Please call neurosurgery with questions/concerns -esperanza Piedra Subjective: ready to go home. pain is manageable. no other issues. at bedside. Objective: NAD, up in chair VSS disconjugate gaze, PEARLA MAEx4, 5/5= SILT INcision dressed, CDI. JPx1 - Physician Discussed Patient with : [facility] Physical Exam - Vitals, I&O, Labs I and O 01/07/18 01/08/18 01/09/18 05:59 05:59 05:59 Intake Total 2217 600 500 Output Total 1950 1755 200 Balance 267 -1155 300 Intake: Oral (ml) 2100 600 500 IV Infused (ml) 117 D5w 1/2 Ns 1,000 ml @ 125 117 mls/hr IV CONT DIEGO Rx#: [id number] Output: Urine (ml) 1850 1700 200 Toilet 1850 1700 200 JORGE Drain Output (ml) 100 55 Back Bryan Jackson 100 55 Other: Intake Quantity Yes Sufficient Number of Voids Toilet 1 2 1 Microbiology 01/04/18 10:00 Gram Stain - Final Back - Eswab Vital Signs Temp Pulse Resp BP Pulse Ox 36.5 C 74 14 153/88 H 93 01/08/18 07:39 01/08/18 07:39 01/08/18 07:39 01/08/18 07:39 01/08/18 07:39 Laboratory Results 01/06/18 15:35 ICD10 Worksheet Patient Problems: Problems Problem Status Onset Back pain Acute Chronic back pain Acute Dysphagia Acute Esophageal foreign body Acute Esophageal obstruction due to food impaction Acute Fever Acute History of vertebroplasty Acute Hypoxia Acute Intractable back pain Acute Narcotic overdose Acute S/P lumbar spinal fusion Acute Weakness Acute
[2018-01-08] MEDS ORDERED: FAMOTIDINE 20 MG TAB PO SCH (09:00)
[2018-01-08] MEDS: busPIRone 10 MG TAB PO SCH (09:13)
[2018-01-08] MEDS: predniSONE 5 MG TAB PO SCH (09:14)
[2018-01-08] MEDS: amLODIPine BESYLATE 5 MG TAB PO SCH (09:14)
[2018-01-08] MEDS: LIPASE 12,000/AMYLASE/PROTEASE (CREON) 1 CAP PO SCH (09:14)
[2018-01-08] MEDS: METOPROLOL SUCCINATE XR 50 MG TAB PO SCH (09:15)
[2018-01-08] MEDS: DULoxetine 60 MG CAP PO SCH (09:15)
[2018-01-08] MEDS: OLMESARTAN MEDOXOMIL 20 MG TAB PO SCH (09:15)
[2018-01-08] MEDS: SENNOSIDES/DOCUSATE SODIUM TAB PO SCH (09:16)
[2018-01-08] MEDS: metFORMIN HCL 500 MG TAB PO SCH (09:16)
[2018-01-08] MEDS: ENOXAPARIN 40 MG/0.4 ML SYR SC SCH (09:17)
[2018-01-08] MEDS: DOXYCYCLINE HYCLATE 100 MG CAP/TAB PO SCH (09:17)
[2018-01-08] MEDS: PANTOPRAZOLE SODIUM 40 MG TAB PO SCH (09:28)
[2018-01-08] MEDS: ONDANSETRON DISINTEGRATING 4 MG TAB PO PRN (10:55)
--- NOTE | 2018-01-08 13:02 | ASMTLACE ---
LACE Length of stay for Answers: 4-6 days current admission Acuity / Level of Answers: Yes Care: Did the patient have an inpatient admission? Comorbidities - select Answers: Diabetes (uncontrolled or all that apply controlled) Opioid dependence / Chronic pain Other Notes: HTN; Hx of PVCs # of Emergency department Answers: 1-2 visits in the last 6 months Score: 14 Date Signed: 01/08/2018 01:01 PM Electronically Signed By:Viv Ribeiro
--- NOTE | 2018-01-08 13:12 | PDIAF ---
- Diagnosis Diagnosis: fusion of spine Code Status: Full Code - Medication Management Discharge Medications: electronically signed and located in the Home Medication List. - Orders Services needed: Home Care, Registered Nurse, Physical Therapy Home Care Face to Face: I certify that this patient was under my care and that I had the required [id number] encounter meeting the encounter requirements on the discharge day. My findings support the fact that the patient is homebound as defined in Home Care Face to Face Continued: CMS Chapter 7 Medicare Benefits Manual 30.1.1 , The condition of the patient is such that there exists a normal inability to leave home and consequently, leaving home would require a considerable and taxing effort. Isolation Type: None Diet Recommendation: no restrictions on diet Diet Texture: Regular Texture Diet Additional Instructions: No bending, twisting lifting >15lbs Walking and light activity is encouraged Please follow medicine instructions below for management of your anti-diabetic medications and insulin as well as management of your BP meds. Change your dressing daily Wear your brace when OOB recommend showers daily, water may run over the wound. No baths or soaking until after you post op visit Follow up in our office in 2-3 weeks - Follow Up Care Current Providers and Referrals: Paco Schmidt MD [Primary Care Provider] -
--- NOTE | 2018-01-08 13:18 | HOSPPROG ---
Hospitalist Progress Note Assessment/Plan: 82yo F with history of insulin dependent diabetes, hypertension underwent revision of T11-[address] Piedra on 01/04. Had been recovering expectedly in the post-op setting until this afternoon when her pre-lunch POC glucose was found to be 32. Two subsequent POC checks were 26. She was completely asymptomatic. She was given juice, ice cream and cake with improvement in her serum glucose to 52 on lab check. Medicine was consulted for help with management of her hypoglycemia. *hypoglycemia -resolved -dc long acting -continue metformin *renal insufficiency -creat stable *htn -much improved *s/p T11-12 hardware exploration and revision -doing well w this *plan: dc per neurosurgery Subjective: Jocelyn feels great, wants to go home. Objective: Vital Signs Temp Pulse Resp BP Pulse Ox 36.5 C 83 14 153/88 H 93 01/08/18 07:39 01/08/18 09:15 01/08/18 07:39 01/08/18 09:15 01/08/18 07:39 Microbiology 01/04/18 10:00 Gram Stain - Final Back - Eswab Laboratory Results 01/06/18 15:35 01/07/18 01/08/18 01/09/18 05:59 05:59 05:59 Intake Total 2217 600 500 Output Total 1950 1755 200 Balance 267 -1155 300 PT 13.5 SEC (12.0-15.0) 01/06/18 15:35 INR 1.01 (0.83-1.16) 01/06/18 15:35 - Physical Exam Constitutional: no apparent distress, appears nourished, not in pain Eyes: PERRL Ears, Nose, Mouth, Throat: hearing normal Respiratory: no respiratory distress Skin: warm Musculoskeletal: generalized weakness Neurologic: AAOx3 Psychiatric: interacting appropriately ICD10 Worksheet Patient Problems: Problems Problem Status Onset Back pain Acute Chronic back pain Acute Dysphagia Acute Esophageal foreign body Acute Esophageal obstruction due to food impaction Acute Fever Acute History of vertebroplasty Acute Hypoxia Acute Intractable back pain Acute Narcotic overdose Acute S/P lumbar spinal fusion Acute Weakness Acute
--- NOTE | 2018-01-09 04:43 | ASMTDCNOTE ---
Case Management Discharge Discharge Order Complete? Answers: Yes Patient to Obtain Answers: via Family Medications Transportation Arranged Answers: Family/Friends Faxed Final Orders Answers: Yes Agency/Facility Transfer Answers: Yes Report Printed & Faxed to Receiving Agency Family Notified Answers: Yes Discharge Comments Notes: [facility] contacted and told pt is d/cing home today and they can begin PT and RN services. Date Signed: 01/08/2018 01:03 PM Electronically Signed By:Viv Ribeiro
== END 2018-01-08 14:38 | disposition home health service (06) | DRG 454 ==
LOC: F3N 06:47
PROVIDERS: ADMIT Neurological Surgery; ATTEND Neurological Surgery
DX: M96.0 Pseudarthrosis after fusion or arthrodesis (principal); T84.216A Breakdown (mechanical) of internal fixation device of vertebrae, initial encounter; I10 Essential (primary) hypertension; G47.33 Obstructive sleep apnea (adult) (pediatric); E11.649 Type 2 diabetes mellitus with hypoglycemia without coma; Z79.4 Long term (current) use of insulin; N28.9 Disorder of kidney and ureter, unspecified
CPT/HCPCS: 82947-QW; 97110-GP; 97116-GP; 97163-GP; 97167-GO; 97530-GO; 97535-GO; C1713; G0472; G8978-GP-CK; G8979-GP-CJ; G8987-GO-CJ; G8988-GO-CI; J0330; J1100; J1170; J1650; J1815; J2405; J2704; J3010; J3370; J7512

== ENCOUNTER → 2018-05-06 | Outpatient (CLI) | payer OTHER, MEDICARE | LOC: FIMAGING 10:47 | PROVIDERS: ATTEND Internal Medicine | DX: Z12.31 Encounter for screening mammogram for malignant neoplasm of breast (principal) ==

== ENCOUNTER → 2018-05-10 | Outpatient (CLI) | payer OTHER, MEDICARE | LOC: FIMAGING 07:28 | PROVIDERS: ATTEND Surgery | DX: K22.2 Esophageal obstruction (principal); R19.8 Other specified symptoms and signs involving the digestive system and abdomen; Z98.890 Other specified postprocedural states ==

== ENCOUNTER 2018-06-06 10:37 | Day surgery (SDC) | payer OTHER, MEDICARE ==
[2018-06-06] MEDS ORDERED: LR 1,000 ML IV ONE (11:16)
[2018-06-06] MEDS ORDERED: INDOMETHACIN 50 MG SUPP PR PRN (12:46)
--- NOTE | 2018-06-06 12:46 | PDGENHP ---
History & Physical Chief Complaint: dysphagia History of Present Illness: 82 year old female with a María Elena fundoplication presents for evaluation of dysphagia Pertinent Past, Social, Family History: PMHx: CAD, DM, COPD, hypothyroid. Psurghx: CCY, cataracts, back, María Elena Relevant Physical Exam: HEENT: anicteric. CV: RRR +s1s2. Lungs: CTAB. Abd: soft, nt, + bs Cardiorespiratory Assessment: ASA 3
[2018-06-06] MEDS ORDERED: fentaNYL 100 MCG/2 ML INJ ONE (12:56)
[2018-06-06] MEDS ORDERED: PROPOFOL 200 MG/20 ML VIAL ONE (12:56)
[2018-06-06] MEDS ORDERED: NS 500 ML IV SCH (13:00)
[2018-06-06] MEDS ORDERED: NALOXONE HCL 0.4 MG/ML INJ IVP PRN (13:14)
[2018-06-06] MEDS ORDERED: PROMETHAZINE HCL 25 MG/ML INJ IVP PRN (13:14)
[2018-06-06] MEDS ORDERED: DEXAMETHASONE 4 MG/ML VIAL IVP PRN (13:14)
--- NOTE | 2018-06-06 13:14 | PDANEPAE ---
ANE History of Present Illness 82 year old with difficulty swallowing ANE Past Medical History - Cardiovascular History Hx Hypertension: Yes Hx Arrhythmias: No Hx Chest Pain: No Hx Coronary Artery / Peripheral Vascular Disease: No Hx CHF / Valvular Disease: No Hx Palpitations: No Cardiovascular History Comment: HX PVC'S - Pulmonary History Hx COPD: No Hx Asthma/Reactive Airway Disease: No Hx Recent Upper Respiratory Infection: No Hx Oxygen in Use at Home: Yes O2 in Use at Home (L/minute): 4 Hx Sleep Apnea: Yes Sleep Apnea Screening Result - Last Documented: Positive Pulmonary History Comment: [facility] DOES HOME O2. OVERNIGHT SLEEP TEST SHOWED LOW 02 AT NIGHT. TWIN UNABLE TO TOLERATE MASK DUE TO ESOPHAGUS AND CLAUSTRAPHOBIA - Neurologic History Hx Cerebrovascular Accident: No Hx Seizures: No Hx Dementia: No Neurologic History Comment: SCIATICA TJ LEGS. NEUROPATHY TJ FEET - Endocrine History Hx Diabetes: Yes Endocrine History Comment: IDDM. HYPOTHYROID - Renal History Hx Renal Disorders: Yes Renal History Comment: SOMETIMES BLADDER LEAKAGE - Liver History Hx Hepatic Disorders: No - Neurological & Psychiatric Hx Hx Neurological and Psychiatric Disorders: No - Cancer History Hx Cancer: No - Congenital Disorder History Hx Congenital Disorders: No - GI History Hx Gastrointestinal Disorders: Yes Gastrointestinal History Comment: CONSTIPATION. NARROW ESOPHOGUS. HAS HX OF FOOD GETTING STUCK. DILATION 11/2017. HAD NICK FUNDOPLICATION HX. DIABETIC DIET- AVOID SUGAR - Other Health History Other Health History: PSORIASIS ON ELBOWS , polymyalgia rheumatica on steroids for 30 years. IMPLANTS DENTAL. OA HANDS, BACK AND NECK. BRUISE EASILY. OSTEOPOROSIS - Chronic Pain History Chronic Pain: Yes (LOWER BACK AND LEGS) - Surgical History Prior Surgeries: 01/04/18 exp. removal of hardware from thoracic spine with replacement fusion with Rajpal. 11/09/17, 03/10/17, 12/03/15, 02/23/15 EGD for food impaction with Raju. 02/10/17 exploration prior to T5-T6 fusion/ lami with Rajpal. 02/01/17 T5-T6 kyphoplasty. 09/03/16 harware removal T9-10 T8-9 lami/ TLIF, T6-11 fusion with Rajpal. 09/19/15 T9-11 fusion. 01/10/15 kyphoplasty L5 and T11 with VVC. 11/02/14 L4-5 hardware removal, L1-4 TLIF with hardware, T11-L5 instrumentation with VVC. 10/08/14, 08/25/14 EGD with dilation with Raju. 05/08/13 I&D of lumbar wound/ abcess. 04/20/13 L4-5, L5- S1 TLIF, L2-3 microdecompression with VVC. 06/11/09 lap nick and gómez with Givens. TONSILECTOMY 12 YEARS AGO. RT FOOT ORIF. CATARACTS BILATERALLY ANE Review of Systems Review of systems is: negative Review of Systems: - Exercise capacity METS (RN): 4 METS ANE Patient History - Allergies Allergies/Adverse Reactions: Penicillins Allergy (Verified 05/31/18 09:41) Rash- Can tolerate Amoxicillin BANDAIDS Allergy (Uncoded 05/31/18 09:41) Rash - Home Medications Home medications: home medication list seen and reviewed Home Medications: Metoprolol Succinate Xr [Toprol Xl 50 mg (*)] 08/20/16 [Last Taken 06/06/18] Omeprazole BID 08/20/16 [Last Taken 06/06/18] amLODIPine BESYLATE [Norvasc 5 mg (*)] 08/20/16 [Last Taken 06/06/18] busPIRone [Buspar (*)] BID 08/20/16 [Last Taken 06/06/18] predniSONE 08/20/16 [Last Taken 06/06/18] Doxycycline Hyclate [Vibramycin 100 MG (*)] 09/03/16 [Last Taken 06/06/18] Levothyroxine [Synthroid 25 mcg (*)] DAILY06 02/01/17 [Last Taken 06/06/18] DULoxetine [Cymbalta 60 MG (*)] 03/10/17 [Last Taken 06/06/18] Lipase/Protease/Amylase [[address]OS[address] DR 12,000 UNITS CAPSULE] BIDMEAL 03/10/17 [Last Taken 06/06/18] Olmesartan Medoxomil [Benicar] 11/09/17 [Last Taken 06/06/18] Pregabalin [Lyrica 50mg (*)] BID 11/09/17 [Last Taken 06/06/18] Acetaminophen [Tylenol ES 500 mg (*)] Q8HRS 05/31/18 [Last Taken Unknown] Methocarbamol [Robaxin 750 mg (*)] QID PRN 05/31/18 [Last Taken 06/06/18] Ondansetron Odt [Zofran Odt 4 mg (*)] PRN 05/31/18 [Last Taken Unknown] Polyethylene Glycol 3350 [Miralax 17 gm (*)] PRN 05/31/18 [Last Taken Unknown] Sennosides/Docusate Sodium [Senokot-S] BID 05/31/18 [Last Taken 04/02/18] oxyCODONE IR [Oxycodone Ir (*)] PRN 05/31/18 [Last Taken Unknown] Levemir 06/01/18 [Last Taken 06/06/18] - NPO status NPO Since - Liquids (Date): 06/06/18 NPO Since - Liquids (Time): 06:30 NPO Since - Solids (Date): 06/05/18 NPO Since - Solids (Time): 17:30 - Smoking Hx Smoking Status: Former smoker - Family Anes Hx Family Hx Anesthesia Complications: NONE ANE Labs/Vital Signs - Labs Result Diagrams: 06/06/18 11:30 - Vital Signs Blood Pressure: 181/94 Heart Rate: 60 Respiratory Rate: 18 O2 Sat (%): 94 Height: 160.02 cm Weight: 68.039 kg ANE Physical Exam - Airway Neck exam: FROM Mallampati Score: Class 1 - ASA Status ASA Status: III
--- NOTE | 2018-06-06 13:23 | GIREPORT ---
[facility] - Endoscopy Department Patient Name: Jocelyn Bazan Procedure Date: 06/06/2018 12:16 PM Patient Type: Outpatient Attending MD/ ER Physician: Kiet Christian MD Procedure: Upper GI endoscopy Indications: Dysphagia Patient Profile: 82 year old female with a history of esophageal dysmotility, gastropare sis, María Elena fundoplication, multiple food impactions presents for empiric dilation due to signficant complaints of dysphagia. Providers: Kiet Christian MD Medicines: Monitored Anesthesia Care Complications: No immediate complications. Estimated blood loss: Minimal. Description of Procedure: After obtaining informed consent, the endoscope was passed under direct vision. Throughout the procedure, the patient's blood pressure, pulse, and oxygen saturations were monitored continuously. The Endoscope was intro duced through the mouth, and advanced to the second part of duodenum. The [facility] er GI endoscopy was accomplished without difficulty. The patient tolerated th e procedure well. Findings: The examined esophagus was normal. A TTS dilator was passed through the scope. Dilation with a 15-16.5-18 mm balloon dilator was performed to 1 8 mm. A large amount of food (residue) was found in the entire examined stoma ch. The examined duodenum was normal. Estimated Blood Loss: Estimated blood loss was minimal. Post Op Diagnosis: - Normal esophagus. Dilated. Heme noted. - A large amount of food (residue) in the stomach which obscured views. - Normal examined duodenum. - No specimens collected. Recommendation: - Discharge patient to home (with escort). - The signs and symptoms of potential delayed complications were discus sed with the patient. - Patient has a contact number available for emergencies. - Return to normal activities tomorrow. - Repeat upper endoscopy for retreatment if patient feels benefit in 3 months. - Thank you for allowing me to participate in the care of your patient. Attending Participation: I personally performed the entire procedure. Kiet Christian MD Kiet Christian MD 06/06/2018 1:22:59 PM This report has been signed electronicallyKiet Christian MD Number of Addenda: 0 Note Initiated On: 06/06/2018 12:16 PM [email or web address]
[2018-06-06 14:45] VITALS: BP 143/67
== END 2018-06-06 14:49 | disposition home or self-care (01) ==
LOC: FSGY 10:37
PROVIDERS: ATTEND Internal Medicine Gastroenterology
PROC: 0D758ZZ Dilation of Esophagus, Via Natural or Artificial Opening Endoscopic (ICD-10-PCS; principal; 2018-06-06 12:30)
DX: R13.10 Dysphagia, unspecified (principal); I25.10 Atherosclerotic heart disease of native coronary artery without angina pectoris; E11.9 Type 2 diabetes mellitus without complications; J44.9 Chronic obstructive pulmonary disease, unspecified; E03.9 Hypothyroidism, unspecified
CPT/HCPCS: 43249; C1726; J2704; J3010

== ENCOUNTER → 2018-07-11 | Outpatient (CLI) | payer OTHER, MEDICARE | LOC: FIMAGING 06:56 ==